=== PATIENT | female | born 1960 | race Caucasian/White ===

== ENCOUNTER → 2017-08-09 13:28 | Outpatient (CLI) | payer BC, MEDICARE, MEDICAID, SELFPAY ==
[2017-08-09 17:01] LABS: Amphetamine Urine VISTA NEGATIVE (<1000 ng/mL); Barbiturate Urine VISTA NEGATIVE (< 200 ng/mL); Benzodiazepine Urine VISTA POSITIVE (< 200 ng/mL); Cocaine Urine VISTA NEGATIVE (< 300 ng/mL); Ecstacy Urine VISTA NEGATIVE (< 500 ng/mL); Methadone Urine VISTA NEGATIVE (< 300 ng/mL); PCP Urine VISTA NEGATIVE (< 25 ng/mL); THC Urine VISTA NEGATIVE (< 50 ng/mL); Vista UDS pH Range 4
== END ==
PROVIDERS: Family Provider Family Medicine; PCP Family Medicine; Visit Provider Family Medicine
DX: Z51.81 Encounter for therapeutic drug level monitoring (principal)
CPT/HCPCS: 80307

== ENCOUNTER → 2017-09-06 14:15 | Outpatient (CLI) | payer BC, MEDICARE, MEDICAID, SELFPAY ==
[2017-09-06 16:37] LABS: Amphetamine Urine VISTA NEGATIVE (<1000 ng/mL); Barbiturate Urine VISTA NEGATIVE (< 200 ng/mL); Benzodiazepine Urine VISTA POSITIVE (< 200 ng/mL); Cocaine Urine VISTA NEGATIVE (< 300 ng/mL); Ecstacy Urine VISTA NEGATIVE (< 500 ng/mL); Methadone Urine VISTA NEGATIVE (< 300 ng/mL); PCP Urine VISTA NEGATIVE (< 25 ng/mL); THC Urine VISTA NEGATIVE (< 50 ng/mL); Vista UDS pH Range 6
== END ==
PROVIDERS: Family Provider Family Medicine; PCP Family Medicine; Visit Provider Family Medicine
DX: Z51.81 Encounter for therapeutic drug level monitoring (principal)
CPT/HCPCS: 80307

== ENCOUNTER → 2017-10-04 11:57 | Outpatient (CLI) | payer BC, MEDICAID, SELFPAY ==
[2017-10-04 15:54] LABS: Amphetamine Urine VISTA NEGATIVE (<1000 ng/mL); Barbiturate Urine VISTA NEGATIVE (< 200 ng/mL); Benzodiazepine Urine VISTA POSITIVE (< 200 ng/mL); Cocaine Urine VISTA NEGATIVE (< 300 ng/mL); Ecstacy Urine VISTA NEGATIVE (< 500 ng/mL); Methadone Urine VISTA NEGATIVE (< 300 ng/mL); OXY Internal Control LINE = VALID (VALID); Oxycodone Drug Screen Positive (<100 ng/mL); PCP Urine VISTA NEGATIVE (< 25 ng/mL); THC Urine VISTA NEGATIVE (< 50 ng/mL); Vista UDS pH Range 7
== END ==
PROVIDERS: Family Provider Family Medicine; PCP Family Medicine; Visit Provider Family Medicine
DX: R07.81 Pleurodynia (principal); G89.29 Other chronic pain; Z79.891 Long term (current) use of opiate analgesic
CPT/HCPCS: 80307; 80365; G0480

== ENCOUNTER → 2017-12-05 11:09 | Outpatient (CLI) | payer MEDICARE, MEDICAID, SELFPAY ==
[2017-12-05 11:53] LABS: Erythrocyte Sedimentation Rate 23 mm/hr (0-30)
[2017-12-05 12:23] LABS: ALB/GLOB Ratio 0.8 RATIO (0.9-2.4); AST(SGOT) 18 U/L (15-37); Alanine Aminotransfer ALT/SGPT 17 U/L (13-56); Albumin, Serum 3.4 g/dL (3.2-5.0); Alkaline Phosphatase 106 U/L (45-117); Anion Gap 8 (5-15); BUN 6 mg/dL (7-18); BUN/Creat Ratio 8.1 RATIO (10-20); Calcium,Total 8.5 mg/dL (8.5-10.1); Chloride 109 mmol/L (98-107); Creatinine, Serum 0.74 mg/dL (0.55-1.02); EST Glomerular Filtration Rate 87 mL/min (>60); Est Glom Filt Rate - Afr Amer 105 mL/min (>60); Globulin 4.1 g/dL (2.2-4.2); Glucose 83 mg/dL (74-106); Potassium 3.9 mmol/L (3.5-5.1); Protein, Total 7.5 g/dL (6.4-8.2); Sodium Level 140 mmol/L (136-145)
[2017-12-06 12:18] LABS: Vitamin B12 615 pg/mL (211-911)
== END ==
PROVIDERS: Family Provider Family Medicine; PCP Family Medicine; Visit Provider Psychiatry & Neurology Neurology
DX: R41.3 Other amnesia (principal)
CPT/HCPCS: 36415; 80053; 82607; 84443; 85652

== ENCOUNTER → 2017-12-09 15:30 | Outpatient (CLI) | payer MEDICARE, MEDICAID, SELFPAY ==
--- NOTE | 2017-12-09 15:30 | DT_ITS ---
This patient was seen during an EMR downtime December 09, 2017 - December 16, 2017. This patient may have a combination of paper and electronic documentation or all paper documentation. All documentation is viewable within the e-chart portion of [facility] for each patient visit.
--- NOTE | 2017-12-09 16:05 | CT_ITS ---
STUDY: CT BRAIN WITHOUT CONTRAST REASON FOR EXAM: Female, 57 years old. MEMORY LOSS RADIATION DOSAGE (If Supplied By Facility): CTDIvol = ( 60.81 ) mGy, DLP = ( 1021.47 ) mGycm TECHNIQUE: Transaxial CT imaging of the brain was performed without administration of intravenous contrast material. Individualized dose optimization techniques were used for this CT. COMPARISON: None. FINDINGS: Normal soft tissue structures. Normal calvarium. Normal size ventricles and extra-axial spaces for the patient's age. Normal white matter tracts of the cerebral hemispheres. Normal basal ganglia and thalami. Normal brainstem. Normal cerebellum. There is no intracranial hemorrhage. There are no findings of an acute ischemic infarction. Normal visualized paranasal sinuses. CT/Brain/Head without Contrast IMPRESSION: Normal unenhanced CT scan of the brain. Electronically Signed: Power High MD at 7:25 EDT Tel , Service support ,
== END ==
PROVIDERS: Family Provider Family Medicine; PCP Family Medicine; Visit Provider Psychiatry & Neurology Neurology
DX: R41.3 Other amnesia (principal)
CPT/HCPCS: 70450

== ENCOUNTER → 2017-12-18 10:39 | Outpatient (CLI) | payer MEDICARE, MEDICAID, SELFPAY ==
--- NOTE | 2017-12-18 10:43 | RAD_ITS ---
STUDY: X-RAY - UNILATERAL RIBS ( LEFT ) WITH CHEST REASON FOR EXAM: Female, 57 years old. Pain. TECHNIQUE - RIBS: 2 view(s) of the ribs. TECHNIQUE - CHEST: Single frontal view of the chest. COMPARISON: 07/16/2017. FINDINGS - RIBS: Normal visualized ribs without a demonstrated fracture. FINDINGS - CHEST: The lungs are clear and expanded. There is no demonstrated pleural abnormality. Normal size heart. Normal mediastinum and timothy. Normal visualized pulmonary arteries. Normal visualized aortic arch and descending thoracic aorta. Normal visualized thoracic spine. Normal visualized ribs, clavicles, and shoulders. There is no demonstrated abnormality of the visualized soft tissue structures of the upper abdomen. RAD/Ribs Uni Min 3V w/PA Chest IMPRESSION: RIBS: Normal x-ray examination of the ribs. CHEST: Normal x-ray examination of the chest. Electronically Signed: Destin Domingo MD at 8:30 EDT , Service support ,
== END ==
PROVIDERS: Family Provider Family Medicine; PCP Family Medicine; Visit Provider Family Medicine
DX: R07.81 Pleurodynia (principal)
CPT/HCPCS: 71101

== ENCOUNTER → 2017-12-30 18:44 | Outpatient (CLI) | payer MEDICARE, SELFPAY ==
--- NOTE | 2017-12-30 06:40 | CT_ITS ---
STUDY: LOW DOSE CT LUNG CANCER SCREENING REASON FOR EXAM: Female, 57 years old. 35 pack-year smoker. Right lower thoracic pain. RADIATION DOSAGE (If Supplied By Facility): CTDIvol = ( 2.01 ) mGy, DLP = ( 66.95 ) mGycm TECHNIQUE: No contrast was administered. Low dose technique was utilized (average mAS-38 and kVp 120). 1.25 mm axial source images with a slice interval of 1.25-mm were reconstructed in lung windows. 2.5 mm axial source images with a slice interval of 2.5-mm were reconstructed in lung windows. 5.0 mm axial source images with a slice interval of 5.0-mm were reconstructed in soft tissue windows. Nodule measured using lung windows on PACS and/or independent workstation with automated measurement of minimum and maximum diameter. Nodule measurement reported as average diameter rounded to the nearest whole number. Growth is defined as an increase ins size of greater than 1.5 mm. COMPARISON: Comparison is made with prior chest radiograph dated July 16, 2017. NODULES: No nodules are seen. Emphysema: Mild degree of emphysematous changes worse in the upper lobes. Findings suggestive of a scarring in the peripheral aspect of the right lower lobe with subpleural blebs and honeycombing. Coronary arteries: Coronary artery calcification. CT/Low Dose CT Lung Screening IMPRESSION: Lung-RADS category 2 - Continue annual screening with LDCT in 12 months. IMPORTANT NOTES FOR USE: ACR Lung-RADS Version 1.0 Assessment Categories Release Date: November 02, 2013 Category: Coded 0-4 bases on nodule(s) with highest degree of suspicion. Negative screen is defined as categories 1 and 2; a positive screen is defined as categories 3 and 4. Category 3 and 4A nodules that are unchanged on interval CT should be coded as category 2, and individuals returned to screening in 12 months. Category 4X: Category 3 or 4 nodules with additional imaging findings that increase the suspicion of lung cancer, such as spiculation, GGN that doubles in size in 1 year, enlarged lymph notes, etc. Category Modifiers: S (significant finding unrelated to lung cancer) and C (prior history of treated lung cancer) may be added to the 0-4 Lung-RADS Electronically Signed: Reginald Drew MD at 13:07 EDT Tel [phone], Service support ,
== END ==
PROVIDERS: Family Provider Family Medicine; PCP Family Medicine; Visit Provider Family Medicine
DX: J44.9 Chronic obstructive pulmonary disease, unspecified (principal); Z12.2 Encounter for screening for malignant neoplasm of respiratory organs; Z72.0 Tobacco use; Z87.891 Personal history of nicotine dependence
CPT/HCPCS: G0297

== ENCOUNTER → 2018-02-25 12:51 | Outpatient (CLI) | payer MEDICARE, SELFPAY ==
[2018-02-25 16:12] LABS: Amphetamine Urine VISTA NEGATIVE (<1000 ng/mL); Barbiturate Urine VISTA NEGATIVE (< 200 ng/mL); Benzodiazepine Urine VISTA POSITIVE (< 200 ng/mL); Cocaine Urine VISTA NEGATIVE (< 300 ng/mL); Ecstacy Urine VISTA NEGATIVE (< 500 ng/mL); Methadone Urine VISTA NEGATIVE (< 300 ng/mL); PCP Urine VISTA NEGATIVE (< 25 ng/mL); THC Urine VISTA NEGATIVE (< 50 ng/mL); Vista UDS pH Range 6
[2018-02-25 16:37] LABS: OXY Internal Control LINE = VALID (VALID); Oxycodone Drug Screen Positive (<100 ng/mL)
== END ==
PROVIDERS: Family Provider Family Medicine; PCP Family Medicine; Visit Provider Family Medicine
DX: Z51.81 Encounter for therapeutic drug level monitoring (principal); F11.90 Opioid use, unspecified, uncomplicated; Z79.899 Other long term (current) drug therapy
CPT/HCPCS: 80307; 80365; G0480

== ENCOUNTER → 2018-05-23 10:42 | Outpatient (CLI) | payer MEDICARE, SELFPAY ==
[2018-05-23 12:37] LABS: ALB/GLOB Ratio 0.9 RATIO (0.9-2.4); AST(SGOT) 20 U/L (15-37); Absolute Lymphocyte Count 2.81 X10^3/ul (0.83-4.51); Absolute Neutrophil Count 5.8 X10^3/uL (2.0-7.7); Alanine Aminotransfer ALT/SGPT 19 U/L (13-56); Albumin, Serum 3.6 g/dL (3.2-5.0); Alkaline Phosphatase 95 U/L (45-117); Anion Gap 4 (5-15); BUN 6 mg/dL (7-18); BUN/Creat Ratio 9.4 RATIO (10-20); Basophil# 0.09 X10^3/uL; Basophil% 0.9 % (0-1); Calcium,Total 8.4 mg/dL (8.5-10.1); Chloride 108 mmol/L (98-107); Cholesterol 175 mg/dL (200); Creatinine, Serum 0.64 mg/dL (0.55-1.02); EST Glomerular Filtration Rate 102 mL/min (>60); Eosinophil# 0.24 X10^3/uL; Eosinophils% 2.4 % (0-5); Est Glom Filt Rate - Afr Amer 123 mL/min (>60); Globulin 3.9 g/dL (2.2-4.2); Glucose 85 mg/dL (74-106); Hematocrit 36.9 % (37-47); Hemoglobin 11.7 g/dl (12.0-15.0); High Density Lipoprotein 44 mg/dL; Lymphocyte # 2.81 X10^3/ul (4.0); Lymphocyte % 28.6 % (19-41); Mean Corp Hgb Conc 31.7 g/gl (32-36); Mean Corpuscular Hgb 30.9 pg (27.0-32.0); Mean Corpuscular Volume 97.4 fL (81-99); Monocyte# 0.87 X10^3/uL; Monocyte% 8.8 % (0-10); Neutrophil # 5.81 X10^3/uL (2.7-7.7); Neutrophil % 59.1 % (47-70); Platelet Count 329 K/mm3 (150-450); Potassium 4.6 mmol/L (3.5-5.1); Protein, Total 7.5 g/dL (6.4-8.2); RBC Distribution Width CV 14.5 % (11.6-14.6); RBC Distribution Width SD 51.3 fl (35.1-43.9); Red Blood Count 3.79 M/mm3 (4.2-5.4); Sodium Level 140 mmol/L (136-145); Triglycerides 123 mg/dL; Very Low Density Lipoprotein 25 mg/dL (5-40); White Blood Count 9.8 K/mm3 (4.4-11.0)
[2018-05-23 12:40] LABS: POSITIVE COUNT NO; POSITIVE DIFFERENTIAL NO; POSITIVE MORPHOLOGY NO
== END ==
PROVIDERS: Family Provider Family Medicine; PCP Family Medicine; Visit Provider Family Medicine
DX: I10 Essential (primary) hypertension (principal)
CPT/HCPCS: 36415; 80053; 80061; 85025

== ENCOUNTER → 2018-06-27 11:42 | Outpatient (CLI) | payer MEDICARE, MEDICAID, SELFPAY ==
--- NOTE | 2018-06-27 11:45 | BI_ITS ---
MAMMOGRAPHY - BILATERAL SCREENING REASON FOR EXAM: Female, 58 years old. Routine annual screening examination. PERTINENT HISTORY: Aunt with breast cancer. Prior right excisional breast biopsy. Occasional bilateral breast tenderness. TECHNIQUE: Digital bilateral breast roxy (3D mammographic acquisition) in the CC and MLO projections. 2-D mediolateral oblique (MLO) and craniocaudad (CC) views of both breasts were obtained. CAD: Full Field Digital Mammography with Computer Added Detection was performed. COMPARISON: Comparison is made with prior study dated February 28, 2017. FINDINGS: Breast Composition: The breasts are heterogeneously dense, which may obscure small masses. There are no dominant masses or suspicious calcifications. Stable small benign-appearing right axillary lymph nodes. No other significant abnormalities are identified. There has been no significant change since the prior study. BI/SCREENING MAMM (CAD), BILAT IMPRESSION: Stable bilateral screening mammogram. Yearly follow-up mammogram recommended. (A) ASSESSMENT CATEGORY: BIRADS Category 2: Benign. A letter regarding these results will be sent to the patient by the facility within 30 days. Approximately 10% of breast cancers are not detected by mammography. A normal mammogram should not delay biopsy of a clinically suspicious abnormality. [id number] Electronically Signed: Reginald Drew MD at 13:07 EST Tel [phone], Service support ,
== END ==
PROVIDERS: Family Provider Family Medicine; PCP Family Medicine; Referring Provider Family Medicine; Visit Provider Family Medicine
DX: Z12.31 Encounter for screening mammogram for malignant neoplasm of breast (principal)
CPT/HCPCS: 77063; 77067

== ENCOUNTER → 2018-08-22 | Outpatient (CLI) | payer MEDICARE, MEDICAID, SELFPAY ==
[2018-08-22 15:54] LABS: Absolute Lymphocyte Count 3.34 X10^3/ul (0.83-4.51); Absolute Neutrophil Count 5.2 X10^3/uL (2.0-7.7); Eosinophil# 0.18 X10^3/uL; Eosinophils% 1.8 % (0-5); Hematocrit 38.7 % (37-47); Hemoglobin 12.3 g/dl (12.0-15.0); Lymphocyte # 3.34 X10^3/ul (4.0); Lymphocyte % 33.6 % (19-41); Mean Corp Hgb Conc 31.8 g/gl (32-36); Mean Corpuscular Hgb 30.4 pg (27.0-32.0); Mean Corpuscular Volume 95.8 fL (81-99); Mean Platelet Vol. 11.5 fl (6.2-12.0); Monocyte# 1.08 X10^3/uL; Monocyte% 10.9 % (0-10); Neutrophil # 5.22 X10^3/uL (2.7-7.7); Neutrophil % 52.5 % (47-70); Platelet Count 353 K/mm3 (150-450); RBC Distribution Width CV 14.6 % (11.6-14.6); RBC Distribution Width SD 51.2 fl (35.1-43.9); Red Blood Count 4.04 M/mm3 (4.2-5.4); White Blood Count 9.9 K/mm3 (4.4-11.0)
[2018-08-22 15:58] LABS: POSITIVE COUNT NO; POSITIVE DIFFERENTIAL NO; POSITIVE MORPHOLOGY NO
[2018-08-22 16:07] LABS: AST(SGOT) 21 U/L (15-37); Alanine Aminotransfer ALT/SGPT 25 U/L (13-56); Albumin, Serum 3.9 g/dL (3.2-5.0); Alkaline Phosphatase 97 U/L (45-117); Anion Gap 9 (5-15); BUN 7 mg/dL (7-18); BUN/Creat Ratio 8.5 RATIO (10-20); Calcium,Total 8.8 mg/dL (8.5-10.1); Chloride 105 mmol/L (98-107); Creatinine, Serum 0.82 mg/dL (0.55-1.02); EST Glomerular Filtration Rate 76 mL/min (>60); Est Glom Filt Rate - Afr Amer 92 mL/min (>60); Ferritin 33 ng/mL (8-252); Globulin 4.1 g/dL (2.2-4.2); Glucose 76 mg/dL (74-106); Iron 54 ug/dL (50-170); Potassium 3.8 mmol/L (3.5-5.1); Sodium Level 138 mmol/L (136-145); Vitamin B12 811 pg/mL (211-911); Vitamin D,25 Hydroxy 51.6 ng/mL (29.95-100.01)
== END | disposition home or self-care (01) ==
LOC: BFHLAB 11:30
PROVIDERS: Family Provider Family Medicine; PCP Family Medicine; Visit Provider Family Medicine
DX: R53.82 Chronic fatigue, unspecified (principal); D64.9 Anemia, unspecified; I10 Essential (primary) hypertension; E55.9 Vitamin D deficiency, unspecified
CPT/HCPCS: 36415; 80053; 82306; 82607; 82728; 83540; 85025

== ENCOUNTER → 2018-11-21 | Outpatient (CLI) | payer MEDICARE, MEDICAID, SELFPAY ==
[2018-11-21 11:49] LABS: Bacteria 0 SEEN /hpf (None Seen); Mucous, Urine 0 SEEN /hpf (<or=2+); Red Blood Cells-Urine 0 SEEN /hpf (0-5); Squamous Epithelial Cells - UA 0 SEEN /hpf (5-10); White Blood Cells 0 SEEN /hpf (0-5)
[2018-11-21 15:30] LABS: Absolute Lymphocyte Count 2.44 X10^3/ul (0.83-4.51); Absolute Neutrophil Count 5.7 X10^3/uL (2.0-7.7); Basophil# 0.09 X10^3/uL; Eosinophil# 0.15 X10^3/uL; Eosinophils% 1.7 % (0-5); Hematocrit 37.6 % (37-47); Hemoglobin 12.2 g/dl (12.0-15.0); Lymphocyte # 2.44 X10^3/ul (4.0); Mean Corp Hgb Conc 32.4 g/gl (32-36); Mean Corpuscular Hgb 31.1 pg (27.0-32.0); Mean Corpuscular Volume 95.9 fL (81-99); Mean Platelet Vol. 11.4 fl (6.2-12.0); Monocyte# 0.69 X10^3/uL; Monocyte% 7.6 % (0-10); Neutrophil # 5.67 X10^3/uL (2.7-7.7); Neutrophil % 62.6 % (47-70); Platelet Count 265 K/mm3 (150-450); RBC Distribution Width CV 14.8 % (11.6-14.6); RBC Distribution Width SD 51.7 fl (35.1-43.9); Red Blood Count 3.92 M/mm3 (4.2-5.4); White Blood Count 9.1 K/mm3 (4.4-11.0)
[2018-11-21 15:32] LABS: POSITIVE COUNT NO; POSITIVE DIFFERENTIAL NO; POSITIVE MORPHOLOGY NO
[2018-11-21 15:40] LABS: Amphetamine Urine VISTA NEGATIVE (<1000 ng/mL); Barbiturate Urine VISTA NEGATIVE (< 200 ng/mL); Benzodiazepine Urine VISTA POSITIVE (< 200 ng/mL); Cocaine Urine VISTA NEGATIVE (< 300 ng/mL); Ecstacy Urine VISTA NEGATIVE (< 500 ng/mL); Methadone Urine VISTA NEGATIVE (< 300 ng/mL); PCP Urine VISTA NEGATIVE (< 25 ng/mL); THC Urine VISTA NEGATIVE (< 50 ng/mL); Vista UDS pH Range 7
[2018-11-21 15:46] LABS: Color, Urine Yellow (Yellow); Glucose, Dipstick Normal (Normal); Ketone-Dipstick Negative (Negative); Leukocyte Esterase-Dipstick Negative /ul (Negative); Nitrite-Dipstick Negative (Negative); Occult Blood-Urine Negative /ul (Negative); Protein-Dipstick Negative (Negative); Specific Gravity, Urine 1.005 (1.002-1.030); Urine Bilirubin Dipstick Negative (Negative); Urine Clarity Clear (Clear); Urine Urobilinogen Normal (Normal)
[2018-11-21 15:49] LABS: AST(SGOT) 20 U/L (15-37); Alanine Aminotransfer ALT/SGPT 23 U/L (13-56); Albumin, Serum 3.8 g/dL (3.2-5.0); Alkaline Phosphatase 86 U/L (45-117); Anion Gap 6 (5-15); BUN 4 mg/dL (7-18); BUN/Creat Ratio 5.4 RATIO (10-20); Calcium,Total 8.6 mg/dL (8.5-10.1); Chloride 107 mmol/L (98-107); Creatinine, Serum 0.74 mg/dL (0.55-1.02); EST Glomerular Filtration Rate 86 mL/min (>60); Est Glom Filt Rate - Afr Amer 104 mL/min (>60); Globulin 3.9 g/dL (2.2-4.2); Glucose 80 mg/dL (74-106); Potassium 3.9 mmol/L (3.5-5.1); Protein, Total 7.7 g/dL (6.4-8.2); Sodium Level 137 mmol/L (136-145); T4 Free Direct 0.89 ng/dL (0.76-1.46); Thyroid Stim Hormone (TSH) 0.97 uIU/mL (0.358-3.74)
[2018-11-21 16:17] LABS: OXY Internal Control LINE = VALID (VALID)
[2018-11-21 16:18] LABS: Oxycodone Drug Screen Positive (<100 ng/mL)
[2018-11-27 16:29] LABS: Rubeola IgM Ab 0.58 AU (0.00-0.79)
== END | disposition home or self-care (01) ==
PROVIDERS: Family Provider Family Medicine; PCP Family Medicine; Visit Provider Family Medicine
DX: I95.9 Hypotension, unspecified (principal); R53.83 Other fatigue; Z51.81 Encounter for therapeutic drug level monitoring; M79.603 Pain in arm, unspecified; Z91.89 Other specified personal risk factors, not elsewhere classified
CPT/HCPCS: 36415; 80053; 80307; 80365; 81001; 84439; 84443; 84484; 85025; 86765; G0480

== ENCOUNTER 2018-12-28 14:21 | Emergency (ER) | payer MEDICARE, MEDICAID, SELFPAY ==
[2018-12-28 14:23] VITALS: BP 132/85; PULSE 84; RESP 16; TEMP 36.4; O2SAT 97; BMI 20.2
--- NOTE | 2018-12-28 15:21 | ED.VISSUMM ---
- ER Visit Summary Date of Service: 12/28/18 Chief Complaint: Cat scratch right small finger History of Present Illness: The patient is a 58 F was scratched by her own cat on her right small finger about 4 hours ago. Tetanus is up-to-date within the last year. Physical Examination: Well-appearing middle-aged female. No acute distress. Vital signs are stable afebrile. HEENT exam unremarkable. Neck nontender. Lungs clear to auscultation. Heart regular rhythm. Abdomen soft and nontender. Moving all 4 extremities. Neurovascular intact. She is cat scratch laceration smaller than 2 cm of the dorsum of her right small finger diagonally on the proximal phalanx. Involves the skin and subcu tissue. Does not involve the extensor tendon. Currently there is no signs of infection. No active bleeding. She has full flexion-extension of all digits of the right hand. The hand is neurovascularly intact. Neurologically she is awake alert with no focal motor deficits. Test Results: None Emergency Department Course and Treatment: Tetanus is already up-to-date prior to the day. Patient has had this happen before and has Augmentin with her that is still good until April of this year. She will be placed on Augmentin 875 twice daily for the next 5 days. Wound care. And return if any signs of infection. We will clean out the wound and place a dressing with antibiotic ointment. Treatment Plan: Augmentin twice daily for 5 days. She already has a prescription for it. Signs of infection. Disposition: Discharge Impression: Cat scratch laceration right small finger no repair This note was generated with [employer] dictation software. It may contain incorrect words, spelling, and punctuation that were not noted in review of the chart prior to signing ED Disposition - Plan for ED Patient: Referrals: Lincoln Brothers DO [Primary Care Provider] -
[2018-12-28 15:26] VITALS: RESP 18
--- NOTE | 2018-12-28 15:27 | ED.DEP ---
ED Disposition - Plan for ED Patient: Disposition: Home or Assisted Living Instructions: LACERATION, Hand Referrals: Lincoln Brothers, [Primary Care Provider] - 3-5 Days if not improving Additional Instructions: Clean healing peroxide and water. Apply antibiotic ointment daily. Watch for any signs of infection is seen return such as redness, swelling, pus, streaks or fever. The antibiotic that you already have his Augmentin take 1 pill twice a day with food on your stomach for the next 5 days. A total of 10 pills in 5 days.
== END 2018-12-28 15:34 | disposition home or self-care (01) ==
LOC: ED 15:29
PROVIDERS: Emergency Provider Emergency Medicine; Family Provider Family Medicine; PCP Family Medicine
DX: S61.216A Laceration without foreign body of right little finger without damage to nail, initial encounter (principal); W55.03XA Scratched by cat, initial encounter; Y93.9 Activity, unspecified; Y92.9 Unspecified place or not applicable; J44.9 Chronic obstructive pulmonary disease, unspecified; Z72.0 Tobacco use
CPT/HCPCS: 99282

== ENCOUNTER → 2019-05-25 10:28 | Outpatient (CLI) | payer MEDICARE, MEDICAID, SELFPAY ==
[2019-05-25 13:02] LABS: OXY Internal Control LINE = VALID (VALID); Oxycodone Drug Screen Positive (<100 ng/mL)
[2019-05-25 13:15] LABS: Amphetamine Urine VISTA NEGATIVE (<1000 ng/mL); Barbiturate Urine VISTA NEGATIVE (< 200 ng/mL); Benzodiazepine Urine VISTA POSITIVE (< 200 ng/mL); Cocaine Urine VISTA NEGATIVE (< 300 ng/mL); Ecstacy Urine VISTA NEGATIVE (< 500 ng/mL); Methadone Urine VISTA NEGATIVE (< 300 ng/mL); PCP Urine VISTA NEGATIVE (< 25 ng/mL); THC Urine VISTA NEGATIVE (< 50 ng/mL); Vista UDS pH Range 6
== END ==
PROVIDERS: Family Provider Family Medicine; PCP Family Medicine; Visit Provider Family Medicine
DX: Z51.81 Encounter for therapeutic drug level monitoring (principal)
CPT/HCPCS: 80307; 80365; G0480

== ENCOUNTER → 2019-07-16 12:37 | Outpatient (CLI) | payer MEDICARE, MEDICAID, SELFPAY ==
[2019-07-16 12:33] VITALS: BMI 20.2
--- NOTE | 2019-07-16 12:39 | RAD_ITS ---
STUDY: X-RAY - RIGHT KNEE REASON FOR EXAM: Knee pain. TECHNIQUE: 4 view(s) of the knee. COMPARISON: None. FINDINGS: Normal visualized distal femur. Normal visualized proximal tibia and fibula. Normal proximal tibiofibular articulation. There is mild joint space narrowing of the medial femorotibial compartment. Normal lateral femorotibial compartment. Normal patellofemoral articulation. The soft tissue structures are unremarkable. RAD/Knee 4 or More Views IMPRESSION: Mild arthrosis of the medial femorotibial compartment. Electronically Signed: Hong Liriano MD at 13:16 EST Tel , Service support ,
== END ==
PROVIDERS: Family Provider Family Medicine; PCP Family Medicine; Referring Provider Orthopaedic Surgery; Visit Provider Orthopaedic Surgery
DX: M25.561 Pain in right knee (principal)
CPT/HCPCS: 73564

== ENCOUNTER → 2019-07-21 14:02 | Outpatient (CLI) | payer MEDICARE, MEDICAID, SELFPAY ==
[2019-07-16 12:33] VITALS: BMI 20.2
--- NOTE | 2019-07-21 14:04 | CT_ITS ---
STUDY: LOW DOSE CT LUNG CANCER SCREENING REASON FOR EXAM: Female, 59 years old. LUNG CANCER SCREENING. 1PPD X 40 YEARS. COPD RADIATION DOSAGE (If Supplied By Facility): CTDIvol = ( 1.70 ) mGy, DLP = ( 55.73 ) mGycm TECHNIQUE: No contrast was administered. Low dose technique was utilized (average mAS-38 and kVp 120). 1.25 mm axial source images with a slice interval of 1.25-mm were reconstructed in lung windows. 2.5 mm axial source images with a slice interval of 2.5-mm were reconstructed in lung windows. 5.0 mm axial source images with a slice interval of 5.0-mm were reconstructed in soft tissue windows. Nodule measured using lung windows on PACS and/or independent workstation with automated measurement of minimum and maximum diameter. Nodule measurement reported as average diameter rounded to the nearest whole number. Growth is defined as an increase ins size of greater than 1.5 mm. COMPARISON: None. NODULES: Total lung nodules (excluding granulomas): No significant solid nodules. Several scattered peripheral 1 to 3 mm peripheral ground glass nodules are present (example, left upper lobe nodule, image 73 series 1002). Bibasilar atelectasis is present. There is no consolidation. Emphysema: Mild. Stable interstitial thickening and areas of increased lucency in the right lower lobe. Endobronchial lesion: None Aorta: Normal Coronary arteries: Mild coronary artery calcifications. Heart: Normal. Pulmonary artery: Normal. Mediastinal nodes: Normal. CT/Low Dose CT Lung Screening IMPRESSION: Mild emphysema. Stable interstitial thickening and areas of lucency within the right lower lobe, likely scarring/sequelae of chronic inflammation. No significant solid pulmonary nodules. Several scattered peripheral 1 to 3 mm groundglass nodules, likely inflammatory. LRADS 2. IMPORTANT NOTES FOR USE: ACR Lung-RADS Version 1.0 Assessment Categories Release Date: November 02, 2013 Category: Coded 0-4 bases on nodule(s) with highest degree of suspicion. Negative screen is defined as categories 1 and 2; a positive screen is defined as categories 3 and 4. Category 3 and 4A nodules that are unchanged on interval CT should be coded as category 2, and individuals returned to screening in 12 months. Category 4X: Category 3 or 4 nodules with additional imaging findings that increase the suspicion of lung cancer, such as spiculation, GGN that doubles in size in 1 year, enlarged lymph notes, etc. Category Modifiers: S (significant finding unrelated to lung cancer) and C (prior history of treated lung cancer) may be added to the 0-4 Lung-RADS Electronically Signed: Wan Doe, at 21:26 EST Tel , Service support ,
== END ==
PROVIDERS: Family Provider Family Medicine; PCP Family Medicine; Referring Provider Internal Medicine Critical Care Medicine; Visit Provider Internal Medicine Critical Care Medicine
DX: F17.210 Nicotine dependence, cigarettes, uncomplicated (principal); R06.09 Other forms of dyspnea; Z12.2 Encounter for screening for malignant neoplasm of respiratory organs
CPT/HCPCS: G0297

== ENCOUNTER → 2019-07-30 12:01 | Outpatient (CLI) | payer MEDICARE, MEDICAID, SELFPAY ==
[2019-07-14 11:18] VITALS: BMI 20.2
[2019-07-16 12:33] VITALS: BMI 20.2
[2019-07-30 12:59] VITALS: PULSE 78; PULSE 79; PULSE 82; PULSE 90; PULSE 93; PULSE 96; O2SAT 97; O2SAT 98; O2SAT 99
--- NOTE | 2019-07-31 07:09 | WT_ITS ---
PSN 6 Minute Walk Test - 6 Minute Walk Test 6 Minute Walk Test: 6 Minute Walk Test PSN:6-Minute Walk Test Start: 07/30/19 12:59 Freq: Status: Active Protocol: [id number] Document 07/30/19 12:59 [facility] (Rec: 07/30/19 13:03 [facility] [id number]) 6 Minute Walk Test Date Performed 07/30/19 Time Performed 12:30 Height 5 ft 1 in Weight: 105 lb Weight in Pounds 105.[address]: Duncan Greenberg Assistive device used: None Pre-test Oxygen Delivery Method Room Air Pulse Ox (%) 98 Pulse Rate (60-100 beats/min) 79 Dyspnea Laury Scale (0-10) 1 1st minute Oxygen Delivery Method Room Air Pulse Ox (%) 98 Pulse Rate (60-100 beats/min) 82 Dyspnea Laury Scale (0-10) 1 Number of Rests Taken 0 2nd minute Oxygen Delivery Method Room Air Pulse Ox (%) 98 Pulse Rate (60-100 beats/min) 90 Dyspnea Laury Scale (0-10) 1 Number of Rests Taken 0 3rd minute Oxygen Delivery Method Room Air Pulse Ox (%) 98 Pulse Rate (60-100 beats/min) 93 Dyspnea Laury Scale (0-10) 2 Number of Rests Taken 0 4th minute Oxygen Delivery Method Room Air Pulse Ox (%) 97 Pulse Rate (60-100 beats/min) 96 Dyspnea Laury Scale (0-10) 2 Number of Rests Taken 0 5th minute Oxygen Delivery Method Room Air Pulse Ox (%) 98 Pulse Rate (60-100 beats/min) 96 Dyspnea Laury Scale (0-10) 2 Number of Rests Taken 0 6th minute Oxygen Delivery Method Room Air Pulse Ox (%) 98 Pulse Rate (60-100 beats/min) 90 Dyspnea Laury Scale (0-10) 2 Number of Rests Taken 0 Post-test Oxygen Delivery Method Room Air Pulse Ox (%) 99 Pulse Rate (60-100 beats/min) 78 Dyspnea Laury Scale (0-10) 1 Full Laps Walked 17 Partial Lap, Number of Tiles Walked 32 Total Distance Walked (ft) 1035 - Interpretation Interpretation: The patient ambulated 1035 feet over the course of 6 minutes beginning on room air without assistive devices or breaks. Pretesting oxygen saturation was noted to be 98% on room air. With ambulation, the froylan oxygen saturation was 97%. There was no significant exertional oxygen desaturation. - Recommendations Recommendations: There is no indication for the use of supplemental oxygen at this time.
== END ==
PROVIDERS: Family Provider Family Medicine; PCP Family Medicine; Referring Provider Internal Medicine Critical Care Medicine; Visit Provider Internal Medicine Critical Care Medicine
DX: R06.09 Other forms of dyspnea (principal); F17.200 Nicotine dependence, unspecified, uncomplicated
CPT/HCPCS: 94618

== ENCOUNTER → 2019-08-04 08:53 | Outpatient (CLI) | payer MEDICARE, MEDICAID, SELFPAY ==
[2019-07-14 11:18] VITALS: BMI 20.2
[2019-07-16 12:33] VITALS: BMI 20.2
--- NOTE | 2019-08-05 14:21 | PFT ---
INTRODUCTION: The patient is a 59-year-old female that presents for pulmonary function studies secondary to a diagnosis of dyspnea. Respiratory therapy reports good patient effort. Bronchodilators were used during testing. INTERPRETATION: Forced expiration spirometry demonstrates no evidence of a large airways obstructive ventilatory defect. There was no significant response to aerosolized bronchodilators, based upon strict ATS criteria. Spirograms are of good quality and plateau normally. Body plethysmography was performed and reveals lung volumes to be within normal limits. Diffusing capacity by single breath CO is also within normal limits. IMPRESSION: Normal spirometry, lung volumes and diffusing capacity.
== END ==
PROVIDERS: Family Provider Family Medicine; PCP Family Medicine; Referring Provider Internal Medicine Critical Care Medicine; Visit Provider Internal Medicine Critical Care Medicine
DX: R06.09 Other forms of dyspnea (principal); F17.200 Nicotine dependence, unspecified, uncomplicated
CPT/HCPCS: 94060; 94726; 94729

== ENCOUNTER → 2020-08-18 11:06 | Outpatient (CLI) | payer MEDICARE, MEDICAID, SELFPAY ==
[2020-01-25 07:47] VITALS: BMI 21.6
[2020-08-18 11:12] LABS: Bacteria 0 SEEN /hpf (None Seen); Mucous, Urine 0 SEEN /hpf (<or=2+); Red Blood Cells-Urine 0 SEEN /hpf (0-5); Squamous Epithelial Cells - UA 0 SEEN /hpf (5-10); White Blood Cells 0 SEEN /hpf (0-5)
[2020-08-18 15:07] LABS: Absolute Lymphocyte Count 2.53 X10^3/uL (0.83-4.51); Absolute Neutrophil Count 3.6 X10^3/uL (2.0-7.7); Basophil# 0.13 X10^3/uL; Basophil% 1.8 % (0-1); Eosinophil# 0.13 X10^3/uL; Eosinophils% 1.8 % (0-5); Hemoglobin 12.3 g/dL (12.0-15.0); Lymphocyte # 2.53 X10^3/ul (4.0); Lymphocyte % 35.4 % (19-41); Mean Corp Hgb Conc 32.4 g/dL (32-36); Mean Corpuscular Hgb 30.7 pg (27.0-32.0); Mean Corpuscular Volume 94.8 fL (81-99); Mean Platelet Vol. 11.6 fl (6.2-12.0); Monocyte% 9.8 % (0-10); NRBC Flagged by Analyzer 0 % (0-5); Neutrophil # 3.64 X10^3/uL (2.7-7.7); Neutrophil % 50.9 % (47-70); Platelet Count 332 K/mm3 (150-450); RBC Distribution Width CV 15.7 % (11.6-14.6); RBC Distribution Width SD 54.2 fl (35.1-43.9); Red Blood Count 4.01 M/mm3 (4.2-5.4); White Blood Count 7.2 K/mm3 (4.4-11.0)
[2020-08-18 15:13] LABS: OXY Internal Control LINE = VALID (VALID); Oxycodone Drug Screen Positive (<100 ng/mL)
[2020-08-18 15:15] LABS: Color, Urine Yellow (Yellow); Glucose, Dipstick Normal (Normal); Ketone-Dipstick Negative (Negative); Leukocyte Esterase-Dipstick Negative /ul (Negative); Nitrite-Dipstick Negative (Negative); Occult Blood-Urine Negative /ul (Negative); Protein-Dipstick Negative (Negative); Urine Bilirubin Dipstick Negative (Negative); Urine Clarity Clear (Clear); Urine Urobilinogen Normal (Normal)
[2020-08-18 15:17] LABS: Amphetamine Urine VISTA NEGATIVE (<1000 ng/mL); Barbiturate Urine VISTA POSITIVE (< 200 ng/mL); Benzodiazepine Urine VISTA POSITIVE (< 200 ng/mL); Cocaine Urine VISTA NEGATIVE (< 300 ng/mL); Ecstacy Urine VISTA NEGATIVE (< 500 ng/mL); Methadone Urine VISTA NEGATIVE (< 300 ng/mL); PCP Urine VISTA NEGATIVE (< 25 ng/mL); THC Urine VISTA NEGATIVE (< 50 ng/mL); Vista UDS pH Range 6
[2020-08-18 15:21] LABS: Vitamin B12 542 pg/mL (211-911); Vitamin D,25 Hydroxy 55.5 ng/mL
[2020-08-18 15:35] LABS: AST(SGOT) 15 U/L (15-37); Alanine Aminotransfer ALT/SGPT 15 U/L (13-56); Albumin, Serum 3.8 g/dL (3.2-5.0); Alkaline Phosphatase 89 U/L (45-117); Anion Gap 5 (5-15); BUN 5 mg/dL (7-18); BUN/Creat Ratio 6.2 RATIO (10-20); Calcium,Total 8.7 mg/dL (8.5-10.1); Chloride 106 mmol/L (98-107); EST Glomerular Filtration Rate 78 mL/min (>60); Est Glom Filt Rate - Afr Amer 95 mL/min (>60); Globulin 3.9 g/dL (2.2-4.2); Glucose 77 mg/dL (74-106); Potassium 3.7 mmol/L (3.5-5.1); Protein, Total 7.7 g/dL (6.4-8.2); Sodium Level 137 mmol/L (136-145); Thyroid Stim Hormone (TSH) 1.43 uIU/mL (0.358-3.74)
== END ==
PROVIDERS: PCP Family Medicine; Visit Provider Family Medicine
DX: R53.83 Other fatigue (principal); Z51.81 Encounter for therapeutic drug level monitoring; R35.0 Frequency of micturition; E55.9 Vitamin D deficiency, unspecified
CPT/HCPCS: 36415; 80053; 80307; 80365; 81001; 82306; 82607; 84443; 85025; G0480

== ENCOUNTER → 2020-12-02 10:38 | Outpatient (CLI) | payer MEDICARE, MEDICAID, SELFPAY ==
[2020-01-25 07:47] VITALS: BMI 21.6
--- NOTE | 2020-12-02 10:42 | ART_ITS ---
Reason For Study: MUSCLE CRAMPS, DEC PULSES Procedure A bilateral lower extremity continuous wave Doppler with analog waveform analysis and ankle brachial indexes. Left Segmental Pressures Left brachial= 94mmHg. Left posterior tibial artery = 112mmHg. Left dorsalis pedis artery = 104mmHg. Left digit = 65 mmHg. The left posterior tibial artery waveforms are triphasic. The left dorsalis pedis waveforms are biphasic. Right Segmental Pressures Right brachial= 93mmHg. Right posterior tibial artery = 114mmHg. Right dorsalis pedis artery = 110mmHg. Right digit = 88 mmHg. The right posterior tibial artery waveforms are triphasic. The right dorsalis pedis waveforms are biphasic. Indices The right ankle brachial index by the dorsalis pedis is 1.17. The right ankle brachial index by the posterior tibial artery is 1.21. The right digital-brachial index is .94. The left ankle brachial index by the dorsalis pedis is 1.11. The left ankle brachial index by the posterior tibial artery is 1.19. The left digital-brachial index is .69. VL/Ankle Brachial Index Interpretation Summary Normal right lower extremity ankle-brachial indices at rest with normal right d igital brachial index Normal left lower extremity ankle-brachial indices at rest with borderline left digital brachial index of 0.69 with normal being 0.7 and greater Doppler waveforms demonstrate biphasic waveforms for bilateral dorsalis pedis w hich might suggest disease involving bilateral tibialis anterior however bilateral posterior tibia l waveforms are appropriately triphasic Ordering Physician: Lincoln Brothers Referring Physician: Lincoln Brothers Performed By: JESSI CAMACHO ELSA
== END ==
PROVIDERS: PCP Family Medicine; Referring Provider Family Medicine; Visit Provider Family Medicine
DX: R09.89 Other specified symptoms and signs involving the circulatory and respiratory systems (principal); R25.2 Cramp and spasm; Z72.0 Tobacco use
CPT/HCPCS: 93922

== ENCOUNTER 2021-08-03 10:31 | Outpatient (CLI) | payer MEDICARE, MEDICAID, SELFPAY ==
--- NOTE | 2021-08-03 10:36 | BI_ITS ---
MAMMOGRAPHY - BILATERAL SCREENING REASON FOR EXAM: Female, 61 years old. Routine annual screening examination. PERTINENT HISTORY: Aunt with breast cancer. Remote right excisional breast biopsy. Bilateral nipple discharge. TECHNIQUE: Digital bilateral breast marychuy (3D mammographic acquisition) in the CC and MLO projections. 2-D mediolateral oblique (MLO) and craniocaudad (CC) views of both breasts were obtained. CAD: Full Field Digital Mammography with Computer Added Detection was performed. COMPARISON: Comparison is made with prior study dated 06/27/2018 and 02/28/2017. FINDINGS: Breast Composition: The breasts are heterogeneously dense, which may obscure small masses. There are no dominant masses or suspicious calcifications. No other significant abnormalities are identified. There has been no significant change since the prior study. BI/SCRN MAMM (CAD)W/MARYCHUY BILAT IMPRESSION: Stable bilateral screening mammogram. Yearly follow-up mammogram recommended. (A) ASSESSMENT CATEGORY: BIRADS Category 1: Negative. A letter regarding these results will be sent to the patient by the facility within 30 days. Approximately 10% of breast cancers are not detected by mammography. A normal mammogram should not delay biopsy of a clinically suspicious abnormality. [id number] Electronically Signed: Reginald Drew MD at 11:52 EST ,
== END 2021-08-03 23:59 | disposition short-term general hospital (02) ==
LOC: OPBI 10:32
PROVIDERS: PCP Family Medicine; Referring Provider Family Medicine; Visit Provider Family Medicine
DX: Z12.31 Encounter for screening mammogram for malignant neoplasm of breast (principal)
CPT/HCPCS: 77063; 77067

== ENCOUNTER → 2021-12-28 | Outpatient (CLI) | payer MEDICARE, MEDICAID, SELFPAY ==
--- NOTE | 2021-12-28 13:33 | CT_ITS ---
STUDY: CT CHEST WITHOUT CONTRAST- LOW DOSE SCREENING PROTOCOL REASON FOR EXAM: Female, 61 years old. Current smoker. 60 pack per year history. No current symptoms of lung cancer or pulmonary infection. Shared decision-making with referring PCP documented in patient''s record. RADIATION DOSAGE (If Supplied By Facility): CTDIvol = ( 2.01 ) mGy, DLP = ( 64.94 ) mGycm TECHNIQUE: Low dose screening CT examination performed from the base of the neck to the upper abdomen. Sagittal and coronal reformatted images performed. Sagittal and coronal MIP images provided. The measurements provided are average, rounded measurements per ACR guidelines. COMPARISON: 07/21/2019 FINDINGS: Mild emphysema. No noncalcified nodule or mass. There is no demonstrated pleural abnormality. Normal heart and pericardium. There are calcifications of the coronary arteries. Normal mediastinum. Normal hilar regions. Normal unenhanced pulmonary arteries. Normal aorta arch and descending thoracic aorta. Normal osseous structures. There is no demonstrated abnormality of the visualized upper abdomen. CT/Low Dose CT Lung Screening IMPRESSION: 1. No significant indeterminate incidental findings requiring additional imaging. 2. Incidental findings include mild emphysema. ASSESSMENT CATEGORY: LungRADS 1 - Negative. Continue annual screening with LDCT in 12 months, per established ACR guidelines. Electronically Signed: Maik Day MD at 17:52 EDT ,
== END | disposition home or self-care (01) ==
LOC: CT 13:32
PROVIDERS: PCP Family Medicine; Referring Provider Family Medicine; Visit Provider Family Medicine
DX: Z12.2 Encounter for screening for malignant neoplasm of respiratory organs (principal); J43.9 Emphysema, unspecified; F17.210 Nicotine dependence, cigarettes, uncomplicated
CPT/HCPCS: 71271

== ENCOUNTER → 2022-04-12 | Outpatient (CLI) | payer MEDICARE, MEDICAID, SELFPAY ==
[2022-04-12 17:42] LABS: Absolute Lymphocyte Count 2.48 X10^3/uL (0.83-4.51); Absolute Neutrophil Count 3.9 X10^3/uL (2.0-7.7); Basophil# 0.07 X10^3/uL; Eosinophil# 0.09 X10^3/uL; Eosinophils% 1.2 % (0-5); Hematocrit 39.3 % (37-47); Hemoglobin 12.7 g/dL (12.0-15.0); Lymphocyte # 2.48 X10^3/ul (0.83-4.51); Lymphocyte % 34.3 % (19-41); Mean Corp Hgb Conc 32.3 g/dL (32-36); Mean Corpuscular Hgb 31.1 pg (27.0-32.0); Mean Corpuscular Volume 96.1 fL (81-99); Mean Platelet Vol. 11.4 fl (6.2-12.0); Monocyte# 0.69 X10^3/uL; Monocyte% 9.5 % (0-10); NRBC Flagged by Analyzer 0 % (0-5); Neutrophil # 3.88 X10^3/uL (2.7-7.7); Neutrophil % 53.7 % (47-70); Platelet Count 398 K/mm3 (150-450); RBC Distribution Width CV 15.9 % (11.6-14.6); RBC Distribution Width SD 56.6 fl (35.1-43.9); Red Blood Count 4.09 M/mm3 (4.2-5.4); White Blood Count 7.2 K/mm3 (4.4-11.0)
[2022-04-12 19:36] LABS: ALB/GLOB Ratio 0.9 RATIO (0.9-2.4); AST(SGOT) 16 U/L (15-37); Alanine Aminotransfer ALT/SGPT 14 U/L (13-56); Albumin, Serum 3.7 g/dL (3.2-5.0); Alkaline Phosphatase 100 U/L (45-117); Anion Gap 6 (5-15); BUN 5 mg/dL (7-18); BUN/Creat Ratio 7.5 RATIO (10-20); CRP < 2.90 mg/L (0.0-3.0); Calcium,Total 9.1 mg/dL (8.5-10.1); Chloride 110 mmol/L (98-107); Creatinine, Serum 0.67 mg/dL (0.55-1.02); EST Glomerular Filtration Rate 95 mL/min (>60); Est Glom Filt Rate - Afr Amer 116 mL/min (>60); Glucose 95 mg/dL (74-106); Potassium 3.8 mmol/L (3.5-5.1); Protein, Total 7.7 g/dL (6.4-8.2); Sodium Level 139 mmol/L (136-145); Thyroid Stim Hormone (TSH) 1.19 uIU/mL (0.358-3.74)
== END | disposition home or self-care (01) ==
LOC: BFHLAB 14:27
PROVIDERS: PCP Family Medicine; Visit Provider Family Medicine
DX: R53.83 Other fatigue (principal)
CPT/HCPCS: 36415; 80053; 84443; 85025; 86140

== ENCOUNTER → 2022-08-03 | Outpatient (CLI) | payer MEDICARE, MEDICAID, SELFPAY ==
--- NOTE | 2022-08-03 10:40 | RAD_ITS ---
STUDY: X-RAY - THORACIC SPINE REASON FOR EXAM: Female, 62 years old. Mid back pain TECHNIQUE: 2 view(s) of the thoracic spine were obtained. COMPARISON: None. FINDINGS: Normal kyphosis of the thoracic spine. There is no substantial scoliosis. Normal thoracic vertebrae and endplates. Normal disc space heights. The soft tissue structures are unremarkable. RAD/Thoracic Spine 2 Views IMPRESSION: Normal x-ray examination of the thoracic spine. Electronically Signed: Jose Cruz Pat MD at 11:48 EST ,
--- NOTE | 2022-08-03 10:40 | RAD_ITS ---
STUDY: X-RAY - LUMBAR SPINE REASON FOR EXAM: Female, 62 years old. Radiating low back pain TECHNIQUE: 4 view(s) of the lumbar spine were obtained. COMPARISON: None FINDINGS: Normal lumbar lordosis. There is a mild levoscoliosis of the lumbar spine. There is a normal alignment of the vertebrae. Normal vertebral bodies and endplates. Mild disc space narrowing throughout the lumbar spine. There is no demonstrated fracture. There is atherosclerotic calcification of the abdominal aorta without a demonstrated aneurysm. RAD/L/S Spine Min 4 Views IMPRESSION: Mild degenerative changes, no acute findings Electronically Signed: Jose Cruz Pat MD at 11:48 EST ,
== END | disposition home or self-care (01) ==
LOC: MTRAD 10:37
PROVIDERS: PCP Family Medicine; Referring Provider Family Medicine; Visit Provider Family Medicine
DX: M47.816 Spondylosis without myelopathy or radiculopathy, lumbar region (principal); I70.0 Atherosclerosis of aorta; M47.814 Spondylosis without myelopathy or radiculopathy, thoracic region
CPT/HCPCS: 72070; 72110

== ENCOUNTER → 2022-09-05 | Outpatient (CLI) | payer MEDICARE, MEDICAID, SELFPAY ==
--- NOTE | 2022-09-05 | IMM_PTH ---
PATIENT: KENNETH GAMEZ LOC: [facility] U#:[id number] AGE/SX: 62/F ROOM: RE09/05/[address]: Dr. Lincoln Brothers DO : 1960 BED: DIS: 09/05/2022 SPEC #: [id number] RECD: 09/07/22 11:15 STATUS: [place]IL[place] REPhilip #: [id number] ALLISON: 09/05/22 00:[address]: Lincoln Brothers DEPT: IMMUNOHISTOCHEMISTRY RECD BY: Mary Phelps Tissues: Vulva, NOS Procedures: p16 (initial) KI-67 (add) PHYSICIAN & INSTITUTION [place] [id number] SPECIMEN INFORMATION: Tissue Source: Right vulva punch biopsy Clinical Info: Condyloma vs PARMJIT Specimen Number: [id number] CPT code: 56057, 35199 METHODOLOGY: Deparaffinized sections of prefer/formalin-fixed tissue or PAP/DQ stained slides are incubated with monoclonal/polyclonal antibodies/oligonucleotide probes. Localization is made via biotin free immunoperoxidase method. Appropriate controls are performed and reacted as expected. Results on target cell population are indicated in the following table: RESULTS: ANTIBODY / CLONE RESULT P16 (E6H4) positive, block-like Ki-67 (30-9) positive, >90% These tests were developed and their performance characteristics determined by [facility]. They may not have been cleared or approved by the U.S. Food and Drug Administration. The FDA has determined that such clearance or approval is not necessary. The above immunohistochemical/dualISH markers are ordered and reviewed by the Pathologist. INTERPRETATION: Right vulva, punch biopsy: Severe squamous dysplasia, CIS/PARMJIT III. AM:kelvin 09/10/2022
--- NOTE | 2022-09-05 | VUL_PTH ---
PATIENT: KENNETH GAMEZ LOC: [facility] U#:[id number] AGE/SX: 62/F ROOM: RE09/05/[address]: Dr. 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 See comment. AM:kelvin 09/07/2022 COMMENT Complete excision of lesion is recommended for definitive classification. Results from immunohistochemistry ([id number]) for surrogate HPV marker (p16) will be reported separately. Case has been reviewed in consultation with Dr. Stevenson who concurs with the above diagnosis. IDC:SJ MICROSCOPIC DESCRIPTION Slides are reviewed. GROSS DESCRIPTION Received in fixative is one container labeled with the patient's name and designated vulvar biopsy. The specimen consists of a piece of sandoval soft tissue measuring 0.2 x 0.1 x 0.1 cm. The specimen is totally submitted in one cassette. / JUMA:kelvin 09/05/2022 TC:0 CPT: 64099
== END | disposition home or self-care (01) ==
LOC: LABSPEC 10:02
PROVIDERS: PCP Family Medicine; Visit Provider Family Medicine
DX: Q52.70 Unspecified congenital malformations of vulva (principal)
CPT/HCPCS: 88305; 88341; 88342

== ENCOUNTER → 2023-02-01 | Outpatient (CLI) | payer MEDICARE, MEDICAID, SELFPAY ==
[2023-02-01 12:34] LABS: OXY Internal Control LINE = VALID (VALID); Oxycodone Drug Screen Positive (<100 ng/mL)
[2023-02-01 12:40] LABS: Amphetamine Urine VISTA NEGATIVE (<1000 ng/mL); Barbiturate Urine VISTA NEGATIVE (< 200 ng/mL); Benzodiazepine Urine VISTA POSITIVE (< 200 ng/mL); Cocaine Urine VISTA NEGATIVE (< 300 ng/mL); Ecstacy Urine VISTA NEGATIVE (< 500 ng/mL); Methadone Urine VISTA NEGATIVE (< 300 ng/mL); PCP Urine VISTA NEGATIVE (< 25 ng/mL); THC Urine VISTA NEGATIVE (< 50 ng/mL); Vista UDS pH Range 6
[2023-02-01 13:03] LABS: Cholesterol 243 mg/dL (200); High Density Lipoprotein 58 mg/dL; Triglycerides 133 mg/dL; Very Low Density Lipoprotein 27 mg/dL (5-40)
== END | disposition home or self-care (01) ==
PROVIDERS: PCP Family Medicine; Referring Provider Family Medicine; Visit Provider Family Medicine
DX: I25.10 Atherosclerotic heart disease of native coronary artery without angina pectoris (principal); Z79.899 Other long term (current) drug therapy
CPT/HCPCS: 36415; 80061; 80307; 80365; G0480

== ENCOUNTER → 2023-02-08 | Outpatient (CLI) | payer MEDICARE, MEDICAID, SELFPAY ==
--- NOTE | 2023-02-08 09:46 | BI_ITS ---
MAMMOGRAPHY - BILATERAL SCREENING REASON FOR EXAM: Female, 62 years old. Routine annual screening examination. PERTINENT HISTORY: Aunt with breast cancer. Remote right excisional breast biopsy. Occasional bilateral milky discharge. TECHNIQUE: Digital bilateral breast marychuy (3D mammographic acquisition) in the CC and MLO projections. 2-D mediolateral oblique (MLO) and craniocaudad (CC) views of both breasts were obtained. CAD: Full Field Digital Mammography with Computer Added Detection was performed. COMPARISON: Comparison is made with prior study dated August 03, 2021 and June 27, 2018. FINDINGS: Breast Composition: The breasts are heterogeneously dense, which may obscure small masses. There are no dominant masses or suspicious calcifications. No other significant abnormalities are identified. There has been no significant change since the prior study. BI/SCRN MAMM (CAD)W/MARYCHUY BILAT IMPRESSION: Stable bilateral screening mammogram. Yearly follow-up mammogram recommended. (A) ASSESSMENT CATEGORY: BIRADS Category 1: Negative. A letter regarding these results will be sent to the patient by the facility within 30 days. Approximately 10% of breast cancers are not detected by mammography. A normal mammogram should not delay biopsy of a clinically suspicious abnormality. [id number] Electronically Signed: Reginald Drew MD at 10:51 EDT ,
== END | disposition home or self-care (01) ==
LOC: OPBI 09:44
PROVIDERS: PCP Family Medicine; Referring Provider Family Medicine; Visit Provider Family Medicine
DX: Z12.31 Encounter for screening mammogram for malignant neoplasm of breast (principal); Z80.3 Family history of malignant neoplasm of breast
CPT/HCPCS: 77063; 77067

== ENCOUNTER → 2023-03-16 | Outpatient (CLI) | payer MEDICARE, MEDICAID, SELFPAY ==
--- NOTE | 2023-03-16 08:51 | CT_ITS ---
EXAM: CT CHEST, LUNG CANCER SCREENING WITHOUT INTRAVENOUS CONTRAST CLINICAL INDICATION: COPD,SCREENING. 1PPD X 40 YEARS TECHNIQUE: Helically acquired images were obtained of the chest without intravenous contrast using low dose (LDCT) lung cancer screening protocol. This CT exam was performed using one or more of the following dose reduction techniques: automated exposure control, adjustment of the mA and/or kV according to patient size, and/or use of iterative reconstruction technique. COMPARISON: CT Lung Cancer Screening dated 12/28/2021 FINDINGS: LUNGS AND PLEURAL SPACES: No evidence of a lung mass or pulmonary nodule. Bibasilar interstitial thickening again noted associated with paraseptal and centrilobular emphysematous changes. No pleural effusion or thickening. No pneumothorax. HEART: Heart is normal size. Mild coronary artery calcification. No pericardial effusion. MEDIASTINUM: Normal. No mediastinal or hilar adenopathy. Esophagus is unremarkable. No hiatal hernia. THYROID: Normal. No thyroid nodules or calcification. BONES/JOINTS: No suspicious lytic or blastic abnormality. VASCULATURE: No aortic aneurysm. LYMPH NODES: Normal. No enlarged lymph nodes. CT/Low Dose CT Lung Screening IMPRESSION: 1. Stable changes of pulmonary emphysema and interstitial fibrosis. 2. No evidence of lung mass or nodule. Lung-RADS score: 1S - Negative. Additional clinically significant or potentially clinically significant findings are described. Recommend continued annual screening with a low-dose CT (LDCT) in 12 months. Electronically Signed: Riley Jacobson MD at 10:54 EDT ,
== END | disposition home or self-care (01) ==
LOC: CT 08:42
PROVIDERS: PCP Family Medicine; Referring Provider Family Medicine; Visit Provider Family Medicine
DX: Z72.0 Tobacco use (principal); Z87.891 Personal history of nicotine dependence
CPT/HCPCS: 71271

== ENCOUNTER → 2023-04-08 | Outpatient (CLI) | payer MEDICARE, MEDICAID, SELFPAY ==
[2023-04-08 12:09] LABS: Absolute Lymphocyte Count 2.19 X10^3/uL (0.83-4.51); Absolute Neutrophil Count 6.2 X10^3/uL (2.0-7.7); Basophil# 0.11 X10^3/uL; Basophil% 1.2 % (0-1); Eosinophil# 0.08 X10^3/uL; Eosinophils% 0.9 % (0-5); Hematocrit 39.7 % (37-47); Hemoglobin 12.6 g/dL (12.0-15.0); Lymphocyte # 2.19 X10^3/ul (0.83-4.51); Lymphocyte % 23.3 % (19-41); Mean Corp Hgb Conc 31.7 g/dL (32-36); Mean Corpuscular Hgb 30.9 pg (27.0-32.0); Mean Corpuscular Volume 97.3 fL (81-99); Mean Platelet Vol. 11.6 fl (6.2-12.0); Monocyte# 0.82 X10^3/uL; Monocyte% 8.7 % (0-10); NRBC Flagged by Analyzer 0 % (0-5); Neutrophil # 6.17 X10^3/uL (2.7-7.7); Neutrophil % 65.6 % (47-70); Platelet Count 316 K/mm3 (150-450); RBC Distribution Width CV 14.6 % (11.6-14.6); RBC Distribution Width SD 51.8 fl (35.1-43.9); Red Blood Count 4.08 M/mm3 (4.2-5.4); White Blood Count 9.4 K/mm3 (4.4-11.0)
[2023-04-08 12:34] LABS: AST(SGOT) 18 U/L (15-37); Alanine Aminotransfer ALT/SGPT 20 U/L (13-56); Albumin, Serum 3.8 g/dL (3.2-5.0); Alkaline Phosphatase 84 U/L (45-117); Anion Gap 6 (5-15); BUN 4 mg/dL (7-18); BUN/Creat Ratio 5.4 RATIO (10-20); Chloride 110 mmol/L (98-107); Creatinine, Serum 0.74 mg/dL (0.55-1.02); EST Glomerular Filtration Rate 85 mL/min (>60); Est Glom Filt Rate - Afr Amer 102 mL/min (>60); Globulin 3.8 g/dL (2.2-4.2); Glucose 105 mg/dL (74-106); Potassium 3.9 mmol/L (3.5-5.1); Protein, Total 7.6 g/dL (6.4-8.2); Sodium Level 140 mmol/L (136-145)
== END | disposition home or self-care (01) ==
LOC: BFHLAB 10:40
PROVIDERS: PCP Family Medicine; Referring Provider Family Medicine; Visit Provider Family Medicine
DX: I25.10 Atherosclerotic heart disease of native coronary artery without angina pectoris (principal); J44.9 Chronic obstructive pulmonary disease, unspecified
CPT/HCPCS: 36415; 80053; 85025

== ENCOUNTER → 2023-09-10 | Outpatient (CLI) | payer MEDICARE, MEDICAID, SELFPAY | END | disposition home or self-care (01) | LOC: BFHLAB 10:31 → LABSPEC 10:34 | PROVIDERS: PCP Family Medicine; Visit Provider Family Medicine | DX: Z79.899 Other long term (current) drug therapy (principal) ==

== ENCOUNTER → 2024-02-20 | Outpatient (CLI) | payer MEDICARE, MEDICAID, SELFPAY ==
--- NOTE | 2024-02-20 09:43 | BI_ITS ---
MAMMOGRAPHY - BILATERAL SCREENING REASON FOR EXAM: Female, 63 years old. Routine annual screening examination. PERTINENT HISTORY: Aunt with breast cancer. History of prior right excisional breast biopsy. TECHNIQUE: Digital bilateral breast marychuy (3D mammographic acquisition) in the CC and MLO projections. 2-D mediolateral oblique (MLO) and craniocaudad (CC) views of both breasts were obtained. CAD: Full Field Digital Mammography with Computer Added Detection was performed. COMPARISON: Comparison is made with prior study February 08, 2023 and August 03, 2021. FINDINGS: Breast Composition: The breasts are heterogeneously dense, which may obscure small masses. There are no dominant masses or suspicious calcifications. No other significant abnormalities are identified. There has been no significant change since the prior study. BI/SCRN MAMM (CAD)W/MARYCHUY BILAT IMPRESSION: Stable bilateral screening mammogram. Yearly follow-up mammogram recommended. (A) ASSESSMENT CATEGORY: BIRADS Category 1: Negative. A letter regarding these results will be sent to the patient by the facility within 30 days. Approximately 10% of breast cancers are not detected by mammography. A normal mammogram should not delay biopsy of a clinically suspicious abnormality. [id number] Electronically Signed: Reginald Drew MD at 10:45 EDT ,
== END | disposition home or self-care (01) ==
LOC: OPBI 09:42
PROVIDERS: PCP Family Medicine; Referring Provider Family Medicine; Visit Provider Family Medicine
DX: Z12.31 Encounter for screening mammogram for malignant neoplasm of breast (principal); Z80.3 Family history of malignant neoplasm of breast
CPT/HCPCS: 77063; 77067

== ENCOUNTER → 2024-05-04 | Outpatient (CLI) | payer MEDICARE, MEDICAID, SELFPAY ==
--- OUTSIDE RECORDS SUMMARY | 2024-05-04 12:02 | XMS RPT_ITS | CCD ---
Author Organization [facility] Care Team Providers Care Charter Representative Name Role Phone Humbetro Gill Unavailable Unavailable Anna Powell Unavailable Unavailable MISCELLANEOUS DOCTOR Unavailable Unavailable Anna Powell Unavailable Unavailable No Family Physician given Unavailable UnaKamilah Deutsch Unavailable Unavailable Anna Powell Unavailable Unavailable Anna Powell Unavailable Unavailable HARLEY WOOD Attending Unavailable ODIN BERUMEN Primary Care Unavailable Danii Brannon MD Unavailable Odin Berumen Primary Care Provider Grace Bryant APRN, CNP Unavailable Odin Berumen DO A Primary Care Provider DYANA BEE Attending Unavailable DANII GAONA Referring Unavailable ODIN BERUMEN Primary Care Unavailable Danii Brannon MD Unavailable Odin Berumen Primary Care Provider Grace Bryant APRN, CNP Unavailable Danii Brannon MD Unavailable [phone] Odin Berumen Primary Care Provider Tamiko De La Cruz APRN, CNP Unavailable NIKHIL BOOTHE Attending Unavailable ODIN BERUMEN Primary Care Unavailable NIKHIL BOOTHE Attending Unavailable ODIN BERUMEN Primary Care Unavailable NIKHIL BOOTHE Admitting Unavailable NIKHIL BOOTHE Attending Unavailable ODIN BERUMEN Primary Care Unavailable Allergies Allergy Classification Reported Allergen(s) Allergy Type Date of Onset Reaction(s) Facility (20 sources) Aluminum aspirin; Translations: [ASPIRIN] Drug Allergy 09-30-19 10 [facility] (20 sources) Amitriptyline; Translations: [AMITRIPTYLINE] Drug Allergy 06-18-20 19 Rash [facility] (20 sources) buPROPion; Translations: [BUPROPION] Drug Allergy 09-12-19 23 Other: See Comments [facility] (20 sources) fentaNYL; Translations: [FENTANYL] Drug Allergy 12-09-19 13 Shortness of breath [facility] (20 sources) Meperidine Drug Allergy 09-12-19 23 Nausea And Vomiting [facility] (20 sources) oxyCODONE; Translations: [OXYCODONE] Drug Allergy 09-12-19 23 Nausea And Vomiting, Headache, GI Upset [facility] (20 sources) Amoxicillin-Pot Clavulanate; Translations: [AMOXICILLIN-POT CLAVULANATE] Propensity to adverse reactions 09-12-19 23 Nausea Only, GI Upset [facility] (1 source) Aspirin Drug Allergy 09-30-19 10 GI Upset [facility] Work Phone: (2 sources) Meperidine; Translations: [MEPERIDINE (PF)] Drug Allergy 09-30-19 10 GI Upset [facility] Work Phone: (2 sources) NITROFURANTOIN, MACROCRYSTALS / Nitrofurantoin, Monohydrate; Translations: [NITROFURANTOIN MONOHYD/M-CRYST] Drug Allergy 09-29-19 15 Rash [facility] Work Phone: (2 sources) Sulfamethoxazole / Trimethoprim; Translations: [SULFAMETHOXAZOLE-TR IMETHOPRIM] Drug Allergy 09-29-19 15 GI Upset, Vomiting, Other: See Comments [facility] Work Phone: (8 sources) Latex Propensity to adverse reactions 03-26-20 23 [facility] Medications Current Medications Medication Drug Class(es) Dates Sig (Normalized) Sig (Original) acetaminophen 325 mg / butalbital 50 mg / caffeine 40 mg oral tablet (20 sources) Barbiturate, Central Nervous System Stimulant, Methylxanthine take 1 tablet by mouth every four hours as needed for headache butalbital-acetamino phen-caffeine 50-325-40 MG tablet Take 1 tablet by mouth every 4 hours as needed for headaches. Active acetaminophen 325 mg / oxyCODONE hydrochloride 5 mg oral tablet (20 sources) Opioid Agonist Start: 04-22-2023 End: 04-27-2023 take 1 tablet by mouth every six hours as needed for pain oxyCODONE-acetaminop hen (Percocet) 5-325 MG tablet Indications: Vulvar intraepithelial neoplasia (PARMJIT) grade 3 Take 1 tablet by mouth every 6 hours as needed for severe pain (7-10) for up to 5 days. 5 tablet 0 04/22/2023 04/27/2023 Active Start: 08-22-2022 End: 04-22-2023 take 1 tablet by mouth every six hours as needed oxyCODONE-acetaminophen (Percocet) 10-32 5 MG tablet Take 1 tablet by mouth every 6 hours as needed. 0 08/22/2022 04/22/2023 Discontinued (Stop taking at discharge) Start: 02-13-2016 take 1 tablet by adrian th every eight hours as needed oxyCODONE-acetaminophen (PERCOCET) 7.5-3 25 mg tablet Take 1 tablet by mouth every 8 hours as needed. 0 02/13/2016 Active Comment on above: Take 1 tablet by adrian th every 8 hours as needed. cephalexin 500 mg oral capsule (1 source) Cephalosporin Antibacterial Start: End: take 1 capsule by mouth twice daily cephalexin (Keflex) 500 MG capsule Take 1 capsule (500 mg) by mouth 2 times daily for 7 days. 14 capsule 0 10/23/2022 10/30/2022 Active cholecalciferol 0.05 mg oral tablet (19 sources) Vitamin D cholecalciferol (Vitamin D-3) 50 MCG (2000 UT) tablet Take by mouth 1 (one) time each day. Active take 1 capsule by mouth once radha ly cholecalciferol, vitamin D3, (VITAMIN D-3) 10 mcg (400 unit) cap Take 2,000 Units by mouth once daily. 0 Active Comment on above: Take 2,000 Units by mouth once daily. lidocaine 25 mg/ml / prilocaine 25 mg/ml topical cream (16 sources) Antiarrhythmic, Amide Local Anesthetic Start: lidocaine-prilocaine (Emla) 2.5-2.5 % cream Apply topically Daily as needed for mild pain (1-3). Apply to vulva as needed for pain 30 g 10/23/2022 Active pantoprazole 40 mg delayed release oral tablet (20 sources) Proton Pump Inhibitor Start: 6 take 1 tablet by mouth in the morning pantoprazole (ProtoNix) 40 MG EC tablet Take 40 mg by mouth in the morning and 40 mg in the evening. 09/16/2022 Active End: 09-18-2022 pantoprazole (ProtoNix) 40 M G injection Infuse 40 mg into a venous catheter every morning (before breakfast). 0 09/18/2022 Discontinued (Therapy completed) Comment on above: Take 1 tablet by adrina th daily before breakfast. Take on empty stomach, 1/2 hr before meal. rivaroxaban 20 mg oral tablet (20 sources) Factor Xa Inhibitor rivaroxaban (Xarelto) 20 MG tablet Take by mouth. Take with food at lunch Active Comment on above: Take 20 mg by mouth daily with dinner. rosuvastatin calcium 10 mg oral tablet (8 sources) HMG-CoA Reductase Inhibitor Start: 3 take 1 tablet by mouth once daily rosuvastatin (Crestor) 10 MG tablet Take 10 mg by mouth daily. 02/04/2023 Active tiZANidine 4 mg oral capsule (20 sources) Central alpha-2 Adrenergic Agonist take 1 capsule by mouth three times daily tiZANidine (Zanaflex) 4 MG capsule Take 4 mg by mouth 3 times daily. Active topiramate 100 mg oral tablet (20 sources) topiramate (Topa max) 100 MG tablet Take 50 mg by mouth in the morning and 50 mg in the evening. Pt takes 50 mg daily. Active take 1 tablet by mouth twice radha ly topiramate (TOPAMAX) 100 mg tablet Take 100 mg by mouth twice daily. 0 Active Comment on above: Take 100 mg by mouth twice daily. Completed/Discontinued Medications Medication Drug Class(es) Dates Sig (Normalized) Sig (Original) acetaminophen 500 mg oral tablet (2 sources) Start: 04-22-2023 End: 04-22-2023 acetaminophen (Tylenol) tablet 1,000 mg acetaminophen 300 mg / butalbital 50 mg / caffeine 40 mg / codeine phosphate 30 mg oral capsule (1 source) Opioid Agonist, Barbiturate, Central Nervous System Stimulant, Methylxanthine take 1 capsule by mouth every six hours as needed butalbital-acetami nop-caf-cod [id number] mg cap Take 1 capsule by mouth every 6 hours as needed. 0 Active Comment on above: Take 1 capsule by mo [facility] every 6 hours as needed. [id number] 200 actuat albuterol 0.09 mg/actuat metered dose inhaler (20 sources) beta2-Adrenergic Agonist Start: 02-13-2016 take 2 puff(s) by inhalation every four hours as needed albuterol HFA (PROAIR HFA) 90 mcg/actuation inhaler Inhale 2 Puffs as instructed every 4 hours as needed. 1 Inhaler 2 02/13/2016 Active take 2 puff(s) by in halation every six hours as needed for wheezing albuterol 108 (90 Base) MCG/ACT inhaler Inhale 2 puffs every 6 hours as needed for wheezing. Active Comment on above: Inhale 2 Puffs as in structed every 4 hours as needed. ALPRAZolam 0.25 mg disintegrating oral tablet (3 sources) Benzodiazepine Start: 04-22-2023 End: 04-22-2023 ALPRAZolam (Xanax) disintegrating tablet 0.25 mg Start: 10-23-2022 End: 10-23-2022 ALPRAZolam (Xanax) disintegr ating tablet 0.25 mg calcium chloride 0.0014 meq/ ml / potassium chloride 0.004 meq/ml / sodium chloride 0.103 meq/ml / sodium lactate 0.028 meq/ml injectable solution (6 sources) Start: 04-22-2023 End: 04-22-2023 lactated ringers infusion Start: 10-23-2022 End: 10-23-2022 lactated ringers infusion citalopram 40 mg oral tablet (20 sources) Serotonin Reuptake Inhibitor Start: 01-24-2016 take 1 tablet by mouth once daily citalopram (CELEXA) 40 mg tablet Take 1 tablet by mouth once daily. 0 01/24/2016 Active citalopram (Elise XA) 20 MG tablet Take by mouth Nightly. Active Comment on above: [facility] diazePAM 5 mg oral tablet (20 sources) Benzodiazepine Start: 10-12-2013 take 1 tablet by mouth every six hours as needed diazepam (VALIUM) 5 mg tablet Take 1 tablet by mouth four times daily as needed. (Dr Nolan) 0 10/12/2013 Active diazePAM (Valium ) 10 MG tablet Take by mouth every 8 hours as needed. Active Comment on above: Take 1 tablet by adrian four times daily as needed. (Dr Nolan) dicyclomine hydrochloride 10 mg oral capsule (1 source) Anticholinergic Start: 016 take 1 capsule by mouth at bedtime dicyclomine (BENTYL) 10 mg capsule Indications: Right sided abdominal pain Take 1 capsule by mouth before meals and at bedtime. 120 capsule 0 10/03/2015 Active Comment on above: Take 1 capsule by mo [facility] before meals and at bedtime. 1 ml diphenhydrAMINE hydrochloride 50 mg/ml cartridge (4 sources) Histamine-1 Receptor Antagonist Start: End: diphenhydrAMINE (BENADryl) injection 12.5 mg Start: 10-23-2022 End: 10-23-2022 diphenhydrAMINE (BENADryl) i njection 12.5 mg Start: 06-15-2016 diphenhydrAMIN E HCl (BENADRYL ITCH STOPPING) 2 % gel Apply 1 application to affected area once daily. 1 Bottle 1 06/15/2016 Active Comment on above: Apply 1 application to affected area once daily. famotidine 20 mg oral tablet (3 sources) Histamine-2 Receptor Antagonist Start: 04-22-2023 End: 04-22-2023 famotidine (Pepcid) tablet 20 mg Start: 10-23-2022 End: 10-23-2022 famotidine (Pepcid) tablet 2 0 mg fluocinolone acetonide 0.1 mg/ml topical solution (1 source) Corticosteroid Start: 06-21-2016 fluocinolone (SYNALAR) 0.01 % external solution Apply to scalp twice daily 1 Bottle 1 06/21/2016 Active Comment on above: Apply to scalp twice daily gabapentin 100 mg oral capsule (3 sources) Anti-epileptic Agent Start: 04-22-2023 End: 04-22-2023 gabapentin (Neurontin) capsule 100 mg Start: 10-23-2022 End: 10-23-2022 gabapentin (Neurontin) capsu le 100 mg hydrOXYzine hydrochloride 25 mg oral tablet (1 source) Antihistamine Start: 07-04-2016 take 1 tablet by mouth every six hours as needed hydrOXYzine HCl (ATARAX) 25 mg tablet Indications: Allergic contact dermatitis due to dyes Take 1 tablet by mouth every 6 hours as needed. 40 tablet 0 07/04/2016 Active Comment on above: Take 1 tablet by adrian th every 6 hours as needed. ibuprofen 800 mg oral tablet (1 source) Nonsteroidal Anti-inflammatory Drug Start: 06-07-2016 ibuprofen (MOTRIN) 800 mg tablet Take 1 tab every 6-8 hours as needed 90 tablet 0 06/07/2016 Active Comment on above: Take 1 tab every 6-8 hours as needed isopropyl alcohol 0.7 ml/ml medicated pad (2 sources) Start: 04-22-2023 End: 04-22-2023 Nozin Nasal Apple Checker Popswab 2 Swab labetalol (Normodyne,Trandate ) injection 5 mg (1 source) Start: 10-23-2022 End: 10-23-2022 labetalol (Normodyne,Tranda te) injection 5 mg lidocaine hydrochloride 20 mg/ml mucous membrane topical solution (1 source) Antiarrhythmic, Amide Local Anesthetic Start: 02-13-2016 lidocaine viscous (LIDOCAINE VISCOUS) 2 % solution Take 5 mL by mouth as needed. 100 mL 0 02/13/2016 Active Comment on above: Take 5 mL by mouth a s needed. 1 ml LORazepam 2 mg/ml injection (1 source) Benzodiazepine Start: 10-23-2022 End: 10-23-2022 LORazepam (Ativan) injection 0.5 mg melatonin 1 mg oral tablet (1 source) Start: 11-11-2013 take 5 tablets by mouth once daily at bedtime melatonin 1 mg tab Take 5 mg by mouth daily at bedtime. 0 11/11/2013 Active Comment on above: Take 5 mg by mouth d aily at bedtime. naloxone hydrochloride 40 mg/ml nasal spray (1 source) Opioid Antagonist End: 09-18-2022 naloxone (Narcan) 4 mg/0.1 mL nasal spray Administer 4 mg into affected nostril(s) if needed for opioid reversal. May repeat every 2-3 minutes if needed, alternating nostrils, until medical assistance becomes available. 0 09/18/2022 Discontinued (Therapy completed) 2 ml ondansetron 2 mg/ml injection (3 sources) Serotonin-3 Receptor Antagonist Start: 04-22-2023 End: 04-22-2023 ondansetron (Zofran) injection 4 mg Start: 10-23-2022 End: 10-23-2022 ondansetron (Zofran) injecti on 4 mg oxyCODONE (2 sources) Opioid Agonist Start: 04-22-2023 End: 04-22-2023 oxyCODONE (Roxicodone) immediate release tablet 5 mg predniSONE 10 mg oral tablet (1 source) Start: 06-15-2016 predniSONE (DELTASONE) 10 mg tablet Indications: Allergic contact dermatitis due to dyes Take 40 mg x 3 days, 20 mg x 3 days, 10 mg x 3 days. Take with food, once daily 21 tablet 0 06/15/2016 Active Comment on above: Take 40 mg x 3 days, 20 mg x 3 days, 10 mg x 3 days. Take with food, once daily promethazine hydrochloride 25 mg oral tablet (20 sources) Phenothiazine Start: 06-07-2016 take 1 tablet by mouth every six hours as needed for nausea and nausea promethazine (PHENERGAN) 25 mg tablet Indications: Nausea Take 1 tablet by mouth every 6 hours as needed. 30 tablet 2 06/07/2016 Active Comment on above: Take 1 tablet by adrian every 6 hours as needed. raNITIdine 150 mg oral tablet (1 source) Histamine-2 Receptor Antagonist Start: 04-26-2016 take 1 tablet by mouth twice daily ranitidine (ZANTAC) 150 mg tablet Take 1 tablet by mouth twice daily. 180 tablet 4 04/26/2016 Active Comment on above: Take 1 tablet by adrian twice daily. 5 ml sodium chloride 9 mg/ml injection (20 sources) Start: 04-22-2023 End: 04-22-2023 sodium chloride 0.9% (NS) flush 10 mL Start: 04-22-2023 End: 04-22-2023 sodium chloride 0.9% (NS) fl ush 10 mL Start: 04-22-2023 End: 04-22-2023 sodium chloride 0.9 % bolus 500 mL Start: 04-22-2023 End: 04-22-2023 sodium chloride 0.9 % infusi on Start: 04-22-2023 End: 04-22-2023 sodium chloride 0.9% (NS) fl ush 10 mL Start: 10-23-2022 End: 10-23-2022 sodium chloride 0.9% (NS) fl ush 10 mL Start: 10-23-2022 End: 10-23-2022 sodium chloride 0.9 % bolus 500 mL Start: 10-23-2022 End: 10-23-2022 sodium chloride 0.9 % infusi on Start: 10-23-2022 End: 10-23-2022 sodium chloride 0.9% (NS) fl ush 10 mL sucralfate 1000 mg oral tablet (1 source) Aluminum Complex Start: 03-13-2016 take 1 tablet by mouth at bedtime sucralfate (CARAFATE) 1 gram tablet Indications: Heartburn Take 1 tablet by mouth before meals and at bedtime. 120 tablet 1 03/13/2016 Active Comment on above: Take 1 tablet by th before meals and at bedtime. Problems Active Problems Problem Classification Problem Date Documented Date Episodic/Chronic Anxiety disorders (1 source) Anxiety; Translations: [Anxiety disorder, unspecified] 12-22-2009 Chronic Cancer of other female genital organs (20 sources) Vulval intraepithelial neoplasia grade 3; Translations: [Carcinoma in situ of vulva] Onset: 11-08-2022 Chronic Cancer of rectum and anus (13 sources) Anal intraepithelial neoplasia (AIN III); Translations: [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] Onset: 03-26-2023 03-26-2023 Chronic Cancer of rectum and anus (1 source) Abnormal anal Papanicolaou smear; Translations: [High grade squamous intraepithelial lesion on cytologic smear of anus (HGSIL)] Episodic Chronic obstructive pulmonary disease and bronchiectasis (20 sources) Chronic obstructive lung disease; Translations: [Chronic obstructive pulmonary disease, unspecified] Onset: 09-18-2022 09-18-2022 Chronic Coronary atherosclerosis and other heart disease (20 sources) Coronary arteriosclerosis; Translations: [Atherosclerotic heart disease of [place] coronary artery without angina pectoris] Onset: 09-18-2022 09-18-2022 Chronic Esophageal disorders (1 source) Gastroesophageal reflux disease; Translations: [Gastro-esophageal reflux disease without esophagitis] Onset: 10-22-2014 10-22-2014 Chronic Mood disorders (1 source) Depressive disorder; Translations: [Depression] 12-22-2009 Chronic Other aftercare (1 source) Drug therapy finding; Translations: [client manager [place] (current) use of anticoagulants] Episodic Other aftercare (1 source) Long-term current use of anticoagulant; Translations: [USP (current) use of anticoagulants] 03-26-2023 Episodic Pulmonary heart disease (1 source) H/O: pulmonary embolus; Translations: [Personal history of pulmonary embolism] 03-26-2023 Episodic Spondylosis; intervertebral disc disorders; other back problems (3 sources) Displacement of lumbar intervertebral disc without myelopathy; Translations: [Other intervertebral disc displacement, lumbar region] Onset: 06-04-2011 06-04-2011 Chronic Substance-related disorders (20 sources) Tobacco dependence syndrome; Translations: [Nicotine dependence, unspecified, uncomplicated] Onset: 09-18-2022 09-18-2022 Chronic Unclassified (1 source) Unknown / UNK(Unknown) Onset: 02-26-2017 Past or Other Problems Problem Classification Problem Date Documented Da te Episodic/Chronic Abdominal pain (1 source) Right sided abdominal pain; Translations: [Unspecified abdominal pain] Onset: 07-13-2015 07-13-2015 Episodic Allergic reactions (1 source) Urticaria; Translations: [Urticaria, unspecified] Onset: 04-21-2011 04-21-2011 Episodic Anal and rectal conditions (14 sources) Disorder of anus; Translations: [Disease of anus and rectum, unspecified] Onset: 03-26-2023 03-26-2023 Episodic Intestinal obstruction without hernia (1 source) Small bowel obstruction; Translations: [Unspecified intestinal obstruction, unspecified as to partial versus complete obstruction] Onset: 07-30-2011 07-30-2011 Episodic Malaise and fatigue (1 source) Physical deconditioning; Translations: [Other malaise] Onset: 06-04-2011 06-04-2011 Episodic Nausea and vomiting (1 source) Nausea; Translations: [Nausea] Onset: 07-13-2015 07-13-2015 Episodic Other and unspecified benign neoplasm (1 source) History of polyp of colon; Translations: [Personal history of colonic polyps] Onset: 07-13-2015 07-13-2015 Episodic Other connective tissue disease (1 source) Fibromyalgia; Translations: [Fibromyalgia] Onset: 11-30-2011 11-30-2011 Episodic Other injuries and conditions due to external causes (18 sources) Motion sickness; Translations: [Motion sickness, initial encounter] Onset: 10-16-2022 10-16-2022 Episodic Residual codes; unclassified (1 source) Tobacco use and exposure - finding; Translations: [Tobacco use] Onset: 10-22-2014 10-22-2014 Episodic Spondylosis; intervertebral disc disorders; other back problems (20 sources) Chronic back pain ; Translations: [Dorsalgia, unspecified] Onset: 08-12-2014 09-18-2022 Episodic Unclassified (1 source) FOLLOW UP Onset: 02-26-2017 Results Test Name Value Interpretation Reference Range Facility 36on 03-27-2024 36 Patient states that her brother and she no longer has a ride. She has been keeping up with her private advisor in [place] which is what she will continue to do. Patient's appointment for Saturday has been cancelled. Please contact patient with questions, thank you [facility] Progress Noteon 05-21-2023 Progress Note Colon and Rectal Rhiannon any PATIENT NAME: Kenneth Finn : 1960 TODAY'S DATE: 05/21/2023 No chief complaint on file. SUBJECTIVE: Kenneth Finn is a 63 y.o. female with history of PARMJIT 3 and AIN 3. History of pulmonary embolism 4 years ago on Xarelto. 10/23/2022 Dr. Brannon underwent wide local excision of vulva/perineum lesions. 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 Pathology from right vulvar excision showed PARMJIT 3. Colonoscopy 5 [address] [place] [address] Rey. Pt states that some polyps were removed. Pt does a stool test every year and states that the last one was negative. 04/22/2023 rectal exam under anesthesia with excision fulguration of anal lesions in the left anterior anal verge. Pathology on the biopsy showed high-grade squamous intraepithelial lesion (AIN 3). Patient states she is doing well. No issues or problems. Past Medical History: Diagnosis Date Anxiety Arthritis Asthma CAD (coronary artery disease) Chronic headache Chronic pain In pain management COPD (chronic obstructive pulmonary disease) ([facility]) DDD (degenerative disc disease), lumbar DDD (degenerative disc disease), thoracic Depression Dry eye syndrome Fibromyalgia Gastroparesis GERD (gastroesophageal reflux disease) History of tobacco use Hypersplenism Hypertensive pulmonary arterial disease (H[facility]) Hypotension IBS (irritable bowel syndrome) Lumbar spondylosis Memory loss Neurodermatitis Osteoarthritis right knee PE (pulmonary thromboembolism) ([facility]) bilateral Post-splenectomy Thoracic spondylosis Vitamin D deficiency Past Surgical History: Procedure Laterality Date BREAST BIOPSY Right benign COLONOSCOPY OTHER SURGICAL HISTORY 2012 bowel obstruction SPLENECTOMY, PARTIAL 2000 TOTAL ABDOMINAL HYSTERECTOMY 1999 VULVAR/PERINEAL BIOPSY (HISTORICAL) N/A 10/23/2022 Current Outpatient Medications: albuterol 108 (90 Base) MCG/ACT inhaler, Inhale 2 puffs every 6 hours as needed for wheezing., Disp: , Rfl: butalbital-acetaminophen -caffeine 50-325-40 MG tablet, Take 1 tablet by mouth every 4 hours as needed for headaches., Disp: , Rfl: cholecalciferol (Vitamin D-3) 50 MCG (1999) tablet, Take by mouth 1 (one) time each day., Disp: , Rfl: citalopram (CeleXA) 20 MG tablet, Take by mouth Nightly., Disp: , Rfl: diazePAM (Valium) 10 MG tablet, Take by mouth every 8 hours as needed., Disp: , Rfl: lidocaine-prilocaine (Emla) 2.5-2.5 % cream, Apply topically Daily as needed for mild pain (1-3). Apply to vulva as needed for pain (Patient not taking: Reported on 04/16/2023), Disp: 30 g, Rfl: 0 pantoprazole (ProtoNix) 40 MG EC tablet, Take 40 mg by mouth in the morning and 40 mg in the evening., Disp: , Rfl: promethazine (Phenergan) 25 MG tablet, Take by mouth., Disp: , Rfl: rivaroxaban (Xarelto) 20 MG tablet, Take by mouth. Take with food at lunch, Disp: , Rfl: rosuvastatin (Crestor) 10 MG tablet, Take 10 mg by mouth daily., Disp: , Rfl: tiZANidine (Zanaflex) 4 MG capsule, Take 4 mg by mouth 3 times daily., Disp: , Rfl: topiramate (Topamax) 100 MG tablet, Take 50 mg by mouth in the morning and 50 mg in the evening. Pt takes 50 mg daily., Disp: , Rfl: Social History Socioeconomic History Marital status: Spouse name: Not on file Number of children: Not on file Years of education: Not on file Highest education level: Not on file Occupational History Not on file Tobacco Use Smoking status: Every Day Packs/day: 0.50 Years: 40.00 Additional pack years: 0.00 Total pack years: 20.00 Types: Cigarettes Start date: 1977 Smokeless tobacco: Never Vaping Use Vaping Use: Every day Substances: Nicotine Devices: Pre-filled or refillable cartridge Substance and Sexual Activity Alcohol use: Never Drug use: Never Sexual activity: Not on file Other Topics Concern Not on file Social History Narrative Not on file Social Determinants of Health Financial Resource Strain: Not on file Food Insecurity: Not on file Transportation Needs: Not on file Physical Activity: Not on file Stress: Not on file Social Connections: Not on file Intimate Partner Violence: Not on file Housing Stability: Not on file Family History Problem Relation Name Age of Onset Diabetes Mother Hypertension Father Prostate cancer Father Lung cancer Father Breast cancer Father's Sister Uterine cancer Father's Sister Colon cancer Paternal Cousin Bone cancer Paternal Cousin Marrow Allergies: Allergies Allergen Reactions Amitriptyline Other reaction(s): Rash Fentanyl Shortness of breath Other reaction(s): Rash States gave her a rash. Aspirin Other reaction(s): GI Upset, Nausea Augmentin [Amoxicillin-Pot Clavulanate] Nausea Only Demerol Hcl [Meperidine] Nausea And Vomiting Latex Oxycodone Nausea And Vomiting and Headache Wellbutrin [Bupropion] agitated OBJECTIVE: There were no vitals ta (more content not included)... Normal [facility] HEMOGLOBIN AND HEMATOCRIT, B Andi 04-22-2023 Hematocrit (Bld) [Volume fraction] 37.8 % Normal 35.0-47.0 [facility] Comment on above: Performed By: #### L [id number] ####Telecommunications Field Engineer: ROGELIO ROTHMAN ([phone])[facility] ([address] Hemoglobin (Bld) [Mass/Vol] 12.6 g/dL Normal 11.7-16.0 [facility] Comment on above: Performed By: #### L [id number] ####Telecommunications Field Engineer: ROGELIO ROTHMAN ([id number])[facility] ([address] Hemoglobin (Bld) [Mass/Vol]o n 04-22-2023 Hematocrit (Bld) [Volume fraction] 37.8 % 35.0 - 47.0 % [facility] Interpretation and review of laboratory results Normal [facility] - Hematology and Cell countson 04-22-2023 Hemoglobin (Bld) [Mass/Vol] 12.6 g/dL 11.7 - 16.0 g/dL [facility] Nursing Noteon 04-22-2023 Nursing Note Patient is A&O x4. States pain is at a tolerable level. Denies dizziness and nausea. IV removed without complication. All belongings returned and accounted for. DC instructions gone over with patient and family. All questions answered. Verbalized understanding. Ambulated with steady gait. Normal [facility] Nursing Note Patient arrived on u nit. Name and date verified. Attached to monitors. Vital signs stable. 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 Priority Lab ID 1 Anus Tissue TISSUE EXAM Nikhil Boothe MD 04/22/23 0766 No Routine Description: ANAL BIOPSY Staff: Dental Equipment Mechanic: Rosenda Milton RN Scrub Person: Geovanna PopeCarl Findings: perianal condyloma fulgrated and curattaged Complications: None; patient tolerated the procedure well. Specimens Collected: Order Name Source Comment Collection Info Order Time POTASSIUM WITH MG REFLEX For patients on dialysis to draw potassium day of surgery 04/22/2023 11:32 AM PROTHROMBIN TIME If patient on coumadin within 4 days prior. 04/22/2023 11:32 AM HEMOGLOBIN AND HEMATOCRIT, BLOOD Blood, Venous Collected By: Goldie Ivan RN 04/22/2023 11:32 AM TISSUE EXAM Anus Pre-op diagnosis: Anal lesion [K62.9] Collected By: Nikhil Boothe MD 04/22/2023 1:57 PM Wound Class: Class IV: Dirty Blood Products: None Prophylactic Antibiotics: Procedure appropriate prophylactic antibiotic(s) given within 1 hour of surgical incision (two hours if receiving Vancomycin or flouroquinolone) [facility] Op Note OPERATIVE NOTE PATIENT NAME: Kenneth Finn : 1960 ATTENDING PHYSICIAN: Nikhil Boothe MD PROCEDURE DATE: 04/22/2023 PREOPERATIVE DIAGNOSIS: Anal lesion POSTOPERATIVE DIAGNOSIS: Same SURGEON: Nikhil Boothe MD RESIDENTIAL PROGRAM WORKER: Candie Boyer OPERATION: Rectal exam under anesthesia with excision and fulguration of anal lesions ANESTHESIA: General ESTIMATED BLOOD LOSS: <50ml COMPLICATIONS: none SPECIMENS: Anal lesion INDICATIONS: The patient is a 62 y.o. year old female with history of above preop diagnosis. I explained the risk, benefits, expected outcome, and alternatives to the procedure. Patient understands the risks include but not inclusive to bleeding, infection, anesthesia complication, blood vessel/nerve damage, chronic pain, reoperation, and failure of the procedure to obtain its intended goals. Patient understands and is in agreement and would like to proceed. DESCRIPTION OF PROCEDURE: Patient was brought to the operating room and intubated by anesthesia then placed in the prone jackknife position with all bony prominences appropriately padded. The buttocks were then taped apart and prepped with Betadine solution. The patient was then draped in usual sterile fashion. We used 0.25% Marcaine with epinephrine for pudendal nerve block. We then performed a digital rectal examination and did not feel any obvious masses. We then used a Hill-Ugarte retractor to serially examine the anal canal and the left anterior anal verge area there were whitish raised lesions about 2 to 3 mm in size. Using Metzenbaums scissors we excised a small piece for pathology and sent in office anal lesion. We then use electrocautery to fulgurate the rest of the lesions. Towards the end the procedure all counts were correct and all sites were hemostatic. The patient was then awoken by anesthesia then transferred to the PACU in stable condition. [facility] PREPROCINSon 04-16-2023 PREPROCINS Medication List Accurate as of April 16, 2023 9:23 AM. Always use your most recent med list. albuterol 108 (90 Base) MCG/ACT inhaler Medication Adjustments for Surgery: Take morning of surgery butalbital-acetaminophen -caffeine 50-325-40 MG tablet Medication Adjustments for Surgery: Take night before surgery cholecalciferol 50 MCG (2000 UT) tablet Commonly known as: Vitamin D-3 Medication Adjustments for Surgery: Take night before surgery citalopram 20 MG tablet Commonly known as: CeleXA Medication Adjustments for Surgery: Take morning of surgery diazePAM 10 MG tablet Commonly known as: Valium Medication Adjustments for Surgery: Take morning of surgery lidocaine-prilocaine 2.5-2.5 % cream Commonly known as: Emla Apply topically Daily as needed for mild pain (1-3). Apply to vulva as needed for pain oxyCODONE-acetaminophen 10-325 MG tablet Commonly known as: Percocet Medication Adjustments for Surgery: Take morning of surgery pantoprazole 40 MG EC tablet Commonly known as: ProtoNix Medication Adjustments for Surgery: Take morning of surgery promethazine 25 MG tablet Commonly known as: Phenergan Medication Adjustments for Surgery: Take morning of surgery rivaroxaban 20 MG tablet Commonly known as: Xarelto Medication Adjustments for Surgery: Stop 2 days before surgery Notes to patient: Stop Xaralto 04-20-[address] Boothe rosuvastatin 10 MG tablet Commonly known as: Crestor Notes to patient: Not taking tiZANidine 4 MG capsule Commonly known as: Zanaflex Medication Adjustments for Surgery: Take night before surgery topiramate 100 MG tablet Commonly known as: Topamax Medication Adjustments for Surgery: Take morning of surgery Additional Instructions: You may take your prescription pain medication. You may take Tylenol for pain. NO Motrin, ibuprofen or Advil for 24 hours prior to surgery or longer if instructed by your surgeon. NO Aleve or Naprosyn for 5 days prior to surgery or longer if instructed by your surgeon. IF YOU TAKE BLOOD THINNERS OR ASPIRIN: Stop Xarelto 04-20-2023 Follow any instructions given to you by Dr. Boothe Shownaveen with an antibacterial soap such as Dial or Safeguard or shower kit provided to you before coming to the hospital. No makeup, lotion, powder, deodorant or body spays. No hair products. Remove all jewelry and leave it at home. Wear loose comfortable clothing to go home in. You may brush your teeth morning of surgery. Do not wear contacts day of surgery. No marijuana (THC), smoking or alcohol for 24 hours prior to surgery. Please arrange for a responsible adult to drive you home after your surgery and that there is a responsible adult with you for 24 hours post discharge. If you have specific questions, please call your surgeon. You will receive a call the day before your surgery to verify your arrival time and date. You will be asked to arrive at least two hours prior to your scheduled surgery time. Please bring your [facility] Surgical folder and medication list with you day of surgery. We encourage you to write down any questions you may have for the surgeon, anesthesiologist, or other members of the surgical team and bring it with you the day of surgery. Please bring photo ID and insurance information.ACADEMIC VICE PRESIDENT AND PARKING IN THE MAIN DECK ARE FREE DAY OF SURGERY. PARKING IN THE DECK-- AFTER PARKING TAKE THE ELEVATOR TO LEVEL ONE AND TAKE THE BRIDGE TO THE HOSPITAL. GO TO THE RIGHT AND GO AROUND THE CORNER TO THE SAME DAY SURGERY DESK AND CHECK IN THERE. IF GOING IN THE MAIN ENTRANCE-- TURN LEFT AND GO DOWN THE JONES TO THE H ELEVATORS AND TAKE THEM TO ONE, LEFT OFF THE ELEVATOR AND GO AROUND TO THE SAME DAY DESK AND CHECK IN. 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 A left sided perianal biopsy - high grade -squamous intraepithelial (AIN 3) on 10/23/2022 at [facility]. She complains of fatigue. She states that she feels warm a lot . She was referred to this office, she was told that this was colorectal surgery and that she wanted referral in [facility], she lives in [place]. PAST MEDICAL HISTORY Diagnosis Date Anxiety Asthma CAD (coronary artery disease) Chronic headache Chronic pain COPD (chronic obstructive pulmonary disease) (HCC) DDD (degenerative disc disease), lumbar DDD (degenerative disc disease), thoracic Degenerative disc disease Depression Dry eye syndrome Fibromyalgia Gastroparesis GERD (gastroesophageal reflux disease) History of tobacco use Hypersplenism Hypotension IBS (irritable bowel syndrome) ITP (idiopathic thrombocytopenic purpura) Lumbar spondylosis Memory loss Myalgia and myositis, unspecified Fibromyalgia (myalgia and myositis) Neurodermatitis Osteoarthritis of multiple joints Post-splenectomy Pulmonary thromboembolism (HCC) bilateral Spinal stenosis Thoracic spondylosis Vitamin D deficiency Vulvar carcinoma (HCC) PAST SURGICAL HISTORY Procedure Laterality Date COLONOSCOPY FLX DX W/COLLJ SPEC WHEN PFRMD 07/30/12 Colonoscopy COLONOSCOPY FLX DX W/COLLJ SPEC WHEN PFRMD 07/13/15 Colonoscopy ENTEROLSS FRING INTSTINAL ADHESION SPX 1-10--12 exploratory lap ESOPHAGOGASTRODUODENOSCO PY TRANSORAL DIAGNOSTIC 07/13/15 EGD PAST SURGICAL HISTORY OF 02/2014 lumbar pain injections PAST SURGICAL HISTORY OF USO for cyst PAST SURGICAL HISTORY OF 2014 pain injections lumbar multiple [id number] SPLENECTOMY TOTAL SEPARATE PROCEDURE 11/2001 Splenectomy d/t ITP TOTAL ABDOMINAL HYSTERECT W/WO RMVL TUBE OVARY 05/2001 Hysterectomy, ANANDA BSO for endometriosus Current Outpatient Medications Medication Sig rivaroxaban (XARELTO) 20 mg tablet Take 20 mg by mouth daily with dinner. hxrldrggiq-vgtjtxyhuw-dc f-cod 36-290-94-30 mg cap Take 1 capsule by mouth every 6 hours as needed. cholecalciferol, vitamin D3, (VITAMIN D-3) 10 mcg (400 unit) cap Take 2,000 Units by mouth once daily. pantoprazole DR (PROTONIX) 40 mg tablet Take 1 tablet by mouth daily before breakfast. Take on empty stomach, 1/2 hr before meal. promethazine (PHENERGAN) 25 mg tablet Take 1 tablet by mouth every 6 hours as needed. albuterol HFA (PROAIR HFA) 90 mcg/actuation inhaler Inhale 2 Puffs as instructed every 4 hours as needed. oxyCODONE-acetaminophen (PERCOCET) 7.5-325 mg tablet Take 1 tablet by mouth every 8 hours as needed. citalopram (CELEXA) 40 mg tablet Take 1 tablet by mouth once daily. topiramate (TOPAMAX) 100 mg tablet Take 100 mg by mouth twice daily. diazepam (VALIUM) 5 mg tablet Take 1 tablet by mouth four times daily as needed. (Dr Nolan) hydrOXYzine HCl (ATARAX) 25 mg tablet Take 1 tablet by mouth every 6 hours as needed. (Patient not taking: Reported on 11/13/2022) fluocinolone (SYNALAR) 0.01 % external solution Apply to scalp twice daily (Patient not taking: Reported on 11/13/2022) predniSONE (DELTASONE) 10 mg tablet Take 40 mg x 3 days, 20 mg x 3 days, 10 mg x 3 days. Take with food, once daily (Patient not taking: Reported on 11/13/2022) diphenhydrAMINE HCl (BENADRYL ITCH STOPPING) 2 % gel Apply 1 application to affected area once daily. (Patient not taking: Reported on 11/13/2022) ibuprofen (MOTRIN) 800 mg tablet Take 1 tab every 6-8 hours as needed (Patient not taking: Reported on 11/13/2022) ranitidine (ZANTAC) 150 mg tablet Take 1 tablet by mouth twice daily. (Patient not taking: Reported on 11/13/2022) sucralfate (CARAFATE) 1 gram tablet Take 1 tablet by mouth before meals and at bedtime. (Patient not taking: Reported on 11/13/2022) lidocaine viscous (LIDOCAINE VISCOUS) 2 % solution Take 5 mL by mouth as needed. (Patient not taking: Reported on 11/13/2022) dicyclomine (BENTYL) 10 mg capsule Take 1 capsule by mouth before meals and at bedtime. (Patient not taking: Reported on 11/13/2022) melatonin 1 mg tab Take 5 mg by mouth daily at bedtime. (Patient not taking: Reported on 11/13/2022) ALLERGIES: Amitriptyline, Amoxicillin-Pot Clavulanate, Aspirin, Bupropion, Demerol [ (more content not included)... Normal [facility] XR Chest 2 Viewson 3 No acute process. Report Dictated on Electronically Signed By: Abbe Middleton Electronically Signed Date/Time: 10/16/2022 11:47 AM EDT [facility] Patient Name: KENNETH FINN : 1960 Exam Date/Time: 10/16/2022 11:26 Procedure: XR CHEST 2 VIEWS Ordering Provider: TIRADO ISABEL Reason For Exam: pre-op testing CHEST, PA & LATERAL: INDICATION: Preop COMPARISON: No previous studies are available for comparison. PA and lateral views of the chest were obtained. The heart is normal in size. The mediastinal silhouette is normal. The lungs are clear. There are no effusions or infiltrates. There is no pleural thickening. Arthritic changes of the spine and shoulders are present. [facility] Abbe Middleton DO - 10/16/2022 Patient Name: KENNETH FINN : 1960 Exam Date/Time: 10/16/2022 11:26 Procedure: XR CHEST 2 VIEWS Ordering Provider: TRIADO ISABEL Reason For Exam: pre-op testing CHEST, PA & LATERAL: INDICATION: Preop COMPARISON: No previous studies are available for comparison. PA and lateral views of the chest were obtained. The heart is normal in size. The mediastinal silhouette is normal. The lungs are clear. There are no effusions or infiltrates. There is no pleural thickening. Arthritic changes of the spine and shoulders are present. IMPRESSION: No acute process. Report Dictated on Electronically Signed By: Abbe Middleton Electronically Signed Date/Time: 10/16/2022 11:47 AM EDT [facility] Study observation (narrative) [facility] XR Chest 2 ViewsOrdered By: Abbe Middleton on 10-16-2022 [employer] Work Phone: XR FINGER 3RD DIGIT 3 VIEWS LEFTon 10-21-2018 XR FINGER 3RD DIGIT 3 VIEWS LEFT ORIGINAL XR FINGER 3RD DIGIT 3 VIEWS LEFT, 10/21/2018 10:39 AM INDICATION: pain COMPARISON: No FINDINGS: There are no acute fractures or dislocations. Alignment is within normal limits. Joint spaces are maintained. The soft tissues are normal in appearance IMPRESSION: Normal examination. Interpreted By: Rodolfo Jc MD Preliminary Report By: Rodolfo Jc MD Electronically Signed By: Rodolfo Jc MD Dictated Date: 10/21/2018 10:42:07 AM Prelim Date: 10/21/2018 10:42:07 AM Sign Date: 10/21/2018 10:43:39 AM Normal [facility] ([place]) FLUOROSCOPY IN OR/PAIN MGTon 03-27-2017 FLUOROSCOPY IN OR/PAIN MGT FLUOROSCOPY IN OR/PAIN MGTOrdering Physician: Anna Powell DO03/27/2017 9:15 AMLUMBAR SPINE FLUOROSCOPYClinical Statement: Lumbar degenerative disk diseaseFINDINGS: 28 seconds fluoroscopy time was utilized by Dr. Powell. TwoC-arm images of the lumbar spine were obtained.IMPRESSION:28 seconds fluoroscopy time utilized by Dr. Powell. ---- Electronic Signature on File ----Signed By: Carlos Velasco MD [email or web address] tated: 03/27/2017 10:53 AMSigned: 03/27/2017 10:53 AM Reported By: CARLOS VELASCO M.D. Signed By: CARLOS VELASCO M.D. [facility] FLUOROSCOPY IN OR/PAIN MGTon 03-13-2017 FLUOROSCOPY IN OR/PAIN MGT FLUOROSCOPY IN OR/PAIN MGTOrdering Physician: Anna Powell, DO03/13/2017 9:20 AMFLUOROSCOPY IN PAIN MANAGEMENTClinical Statement: Lumbar degenerative disk disease, painFINDINGS: Report is being generated documenting utilization of 36seconds of fluoroscopic time by Dr. Powell for multilevel facet jointinjection. Three spot films are obtained.IMPRESSION:Docu mentation of fluoroscopy utilized by Dr. Powell. Please refer toher notes for details of the procedure. ---- Electronic Signature on File ----Signed By: Nuno Cedillo [email or web address] luiz: 03/13/2017 9:44 AMSigned: 03/13/2017 9:45 AM Reported By: NUNO CEDILLO M.D. Signed By: NUNO CEDILLO M.D. [facility] Patient Summary Documentson 01-19-2017 Patient Summary Documents Normal [facility] XR RIBS 2 VIEWS LEFT/PA CHES T(AO)on 01-19-2017 XR RIBS 2 VIEWS LEFT/PA CHEST(AO) ORIGINALPA chest and left RIBS 3 views HISTORY: Patient fell, left-sided pain COMPARISON: 08/06/2016 The heart and pulmonary vessels are normal. The lungs are clear and there is no pleural fluid seen. I do not identify left rib fracture. The adjacent pleura is unremarkable. There are minor degenerative changes in the spine. IMPRESSION: No acute finding identified. Interpreted By: Rolly Zuritareliminary Report By: Rolly Zurita MDElectronically Signed By: Rolly Zurita MD Dictated Date: 01/19/2017 10:44:08 AM Prelim Date: 01/19/2017 10:44:08 AM Sign Date: 01/19/2017 10:45:04 AM [facility] Vital Signs Date Time Vital Sign Value Performing Clinician Rimai hansel 04-22-2023 15:00-0400 Diastolic blood pressure 55 mm[Hg] Nikhil Boothe MD Work Phone: [facility] [employer] 04-22-2023 15:00-0400 Heart rate 86 /min Nikhil Boothe MD Work Phone: [facility] [employer] 04-22-2023 15:00-0400 Respiratory rate 13 /min Nikhil Boothe MD Work Phone: [facility] [employer] 04-22-2023 15:00-0400 SaO2% (BldA) [Mass fraction] 100 % Nikhil Boothe MD Work Phone: [facility] [employer] 04-22-2023 15:00-0400 Systolic blood pressure 105 mm[Hg] Nikhil Boothe MD Work Phone: [facility] [employer] 04-22-2023 14:14-0400 Body temperature 97.7 [degF] Nikhil Boothe MD Work Phone: [facility] [employer] 04-22-2023 11:37-0400 Body height 154.9 cm Nikhil Boothe MD Work Phone: [facility] [employer] 04-22-2023 11:37-0400 Body mass index (BMI) [Ratio] 21.92 kg/m2 Nikhil Boothe MD Work Phone: [facility] [employer] 04-22-2023 11:37-0400 Body weight 52.62 kg Nikhil Boothe MD Work Phone: [facility] [employer] 03-26-2023 10:32-0400 Body height 154.9 cm Grace Sanford APRN [employer] Work Phone: [facility] [employer] 03-26-2023 10:32-0400 Body mass index (BMI) [Ratio] 22.3 kg/m2 Grace Sanford EL TEACHER - BOILERMAKER HELPER Work Phone: [facility] [employer] 03-26-2023 10:32-0400 Body weight 53.52 kg Grace Sidhuod EL TEACHER - BOILERMAKER HELPER Work Phone: [facility] [employer] 03-26-2023 10:32-0400 Diastolic blood pressure 82 mm[Hg] Grace Claribel EL TEACHER - BOILERMAKER HELPER Work Phone: [facility] [employer] 03-26-2023 10:32-0400 Heart rate 87 /min Grace Claribel EL TEACHER - BOILERMAKER HELPER Work Phone: [facility] [employer] 03-26-2023 10:32-0400 Systolic blood pressure 129 mm[Hg] Grace Claribel EL TEACHER - BOILERMAKER HELPER Work Phone: [facility] [employer] 03-26-2023 09:12-0400 Body height 154.9 cm Nikhil Boothe MD Work Phone: [facility] [employer] 03-26-2023 09:12-0400 Body mass index (BMI) [Ratio] 21.35 kg/m2 Nikhil Boothe MD Work Phone: [facility] [employer] 03-26-2023 09:12-0400 Body temperature 98.01 [degF] Nikhil Boothe MD Work Phone: [facility] [employer] 03-26-2023 09:12-0400 Body weight 51.26 kg Nikhil Boothe MD Work Phone: [facility] [employer] 03-26-2023 09:12-0400 Diastolic blood pressure 85 mm[Hg] Nikhil Boothe MD Work Phone: [facility] [employer] 03-26-2023 09:12-0400 Heart rate 96 /min Nikhil Boothe MD Work Phone: [facility] [employer] 03-26-2023 09:12-0400 Systolic blood pressure 130 mm[Hg] Nikhil Boothe MD Work Phone: [facility] [employer] 11-13-2022 10:25-0400 Body height 154.9 cm Dyana Bee MD Work Phone: [facility] 11-13-2022 10:25-0400 Body temperature 98.2 [degF] Dyana Bee MD Work Phone: [facility] 11-13-2022 10:25-0400 Body weight 51.71 kg Dyana Bee MD Work Phone: [facility] 11-13-2022 10:25-0400 Diastolic blood pressure 78 mm[Hg] Dyana Bee MD Work Phone: [facility] 11-13-2022 10:25-0400 Heart rate 109 /min Dyana Bee MD Work Phone: [facility] 11-13-2022 10:25-0400 SaO2% (BldA) [Mass fraction] 99 % Dyana Bee MD Work Phone: [facility] 11-13-2022 10:25-0400 Systolic blood pressure 130 mm[Hg] Dyana Bee MD Work Phone: [facility] 11-06-2022 10:10-0400 Body height 154.9 cm Danii Brannon MD Work Phone: [facility] 11-06-2022 10:10-0400 Body mass index (BMI) [Ratio] 21.46 kg/m2 Danii Brannon MD Work Phone: [facility] [employer] 11-06-2022 10:10-0400 Body weight 51.53 kg Danii Brannon MD Work Phone: [facility] 11-06-2022 10:10-0400 Diastolic blood pressure 75 mm[Hg] Danii Brannon MD Work Phone: [facility] [employer] 11-06-2022 10:10-0400 Heart rate 84 /min Danii Brannon MD Work Phone: [facility] [employer] 11-06-2022 10:10-0400 Systolic blood pressure 117 mm[Hg] Danii Brannon MD Work Phone: [facility] [employer] 10-23-2022 13:15-0400 Heart rate 75 /min Danii Brannon MD Work Phone: [facility] [employer] 10-23-2022 13:15-0400 Respiratory rate 13 /min Danii Brannon MD Work Phone: [facility] [employer] 10-23-2022 13:15-0400 SaO2% (BldA) [Mass fraction] 100 % Danii Brannon MD Work Phone: [facility] [employer] 10-23-2022 13:00-0400 Diastolic blood pressure 60 mm[Hg] Danii Brannon MD Work Phone: [facility] [employer] 10-23-2022 13:00-0400 Systolic blood pressure 124 mm[Hg] Danii Brannon MD Work Phone: [facility] [employer] 10-23-2022 12:29-0400 Body temperature 98.6 [degF] Danii Brannon MD Work Phone: [facility] [facility] [employer] 10-23-2022 09:49-0400 Body height 154.9 cm Danii Brannon MD Work Phone: [facility] [employer] 10-23-2022 09:49-0400 Body mass index (BMI) [Ratio] 21.48 kg/m2 Danii Brannon MD Work Phone: [facility] [employer] 10-23-2022 09:49-0400 Body weight 51.57 kg Danii Brannon MD Work Phone: [facility] [employer] 09-18-2022 10:04-0400 Body height 154.9 cm Danii Brannon MD Work Phone: [facility] [employer] 09-18-2022 10:04-0400 Body mass index (BMI) [Ratio] 21.35 kg/m2 Danii Brannon MD Work Phone: [facility] [employer] 09-18-2022 10:04-0400 Body weight 51.26 kg Danii Brannon MD Work Phone: [facility] [employer] 09-18-2022 10:04-0400 Diastolic blood pressure 66 mm[Hg] Danii Brannon MD Work Phone: [facility] [employer] 09-18-2022 10:04-0400 Heart rate 89 /min Danii Brannon MD Work Phone: [facility] 09-18-2022 10:04-0400 Systolic blood pressure 132 mm[Hg] Danii Brannon MD Work Phone: [facility] Encounters Encounter Date Encounter Type Care Provider Facility Start: 03-27-2024 End: 03-27-2024 Telephone encounter Tamiko Zamora EL TEACHER - BOILERMAKER HELPER Work Phone: [facility] Gynecologic Oncology - [place] Start: 05-21-2023 End: 05-21-2023 [facility]ulatory [facility] Start: 05-21-2023 End: 05-21-2023 Postop follow up visit related to original px Nikhil Boothe MD Work Phone: [facility] Comment on above: AIN grade III (Prima ry Dx) Start: 04-22-2023 End: 04-22-2023 ambulatory [facility] Start: 04-22-2023 End: 04-22-2023 Subsequent hospital visit by physician Nikhil Boothe MD Work Phone: [facility] MA[facility] OR Comment on above: 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); Anal lesion; 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 Start: 04-16-2023 End: 04-16-2023 ambulatory [facility] Start: 03-26-2023 ambulatory Nikhil Boothe MD Work Phone: [facility] Comment on above: Anal lesion (Primary Dx) Start: 03-26-2023 End: 03-26-2023 Office outpatient visit 15 minutes Grace Sanford EL TEACHER - BOILERMAKER HELPER Work Phone: [facility] Gynecologic Oncology Comment on above: 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); Tobacco dependence syndrome Start: 03-26-2023 End: 03-26-2023 Office outpatient new 30 minutes Nikhil Boothe MD Work Phone: [facility] Comment on above: Chronic anticoagulat ion (Primary Dx); Vulvar intraepithelial neoplasia (PARMJIT) grade 3; History of pulmonary embolism; Anal lesion; AIN grade III Start: 12-18-2022 Telephone encounter Caitlin dillon MD Work Phone: [facility] Comment on above: Referral; Appointmen t Request Start: 11-14-2022 ambulatory Kenneth Kong RN [facility] Clinical Communication Start: 11-14-2022 Patient encounter procedure Kenneth Kong RN [facility] Clinical Communication Start: 11-13-2022 Telephone encounter Danii Brannon MD Work Phone: [facility] Gynecologic Oncology Start: 11-13-2022 End: 11-14-2022 ambulatory DYANA BEE Facility:[facility] Start: 11-13-2022 End: 11-13-2022 Patient encounter procedure Dyana Bee MD Work Phone: General Surgery Comment on above: 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) Start: 11-06-2022 End: 11-06-2022 Postop follow up visit related to original px Danii Brannon MD Work Phone: [facility] Gynecologic Oncology Comment on above: 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) Start: 10-31-2022 Telephone encounter Grace salguero EL TEACHER - BOILERMAKER HELPER Work Phone: [facility] Gynecologic Oncology Comment on above: Results Start: 10-23-2022 End: 10-23-2022 Subsequent hospital visit by physician Danii Brannon MD Work Phone: [facility] MA[facility] OR Comment on above: 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); Carcinoma in situ of vulva Start: 10-16-2022 End: 10-16-2022 Subsequent hospital visit by physician Ion Xr Exam Room 1 [facility] X-Ray Comment on above: Arrived Start: 09-18-2022 Telephone encounter Danii Brannon MD Work Phone: [facility] Gynecologic Oncology Comment on above: surgery scheduling ( Scheduled at [facility]) Start: 09-18-2022 End: 09-18-2022 Office outpatient new 45 minutes Danii Brannon MD Work Phone: [facility] Gynecologic Oncology Comment on above: 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); Tobacco dependence syndrome; Chronic obstructive pulmonary disease, unspecified COPD type (HCC); On continuous oral anticoagulation Start: 10-21-2018 End: 10-21-2018 Emergency department patient visit HARLEY WOOD Facility:B Start: 09-10-2017 Ambulatory Anna Andre Facilit y:[facility] Start: 06-19-2017 Ambulatory Rodolfoestelle Andre Facilit y:[facility] Start: 05-24-2017 Ambulatory Kamilah Smart Facil ity:[facility] Start: 03-27-2017 Evaluation and manag ement of inpatient Anna Powell Facility:[facility] Start: 03-13-2017 Evaluation and manag ement of inpatient Anna Powell Facility:[facility] Start: 02-26-2017 Ambulatory Humberto Morseo Facilit y:[facility] Procedures Date Procedure Procedure Detail Performing Clinician Start: 04-22-2023 Blood count hematocrit Rolly Bull MD Work Phone: Start: 02-08-2023 Mammography Nikhil Booteh MD Work Phone: Start: 10-16-2022 Radiologic exam ches t 2 views Emilee Kathryn EL TEACHER - BOILERMAKER HELPER Work Phone: Start: 09-18-2022 H/O splenectomy History of splenecto my Danii Brannon MD Work Phone: Start: 10-14-2015 Mammography Dyana Bee MD Work Phone: Start: 07-13-2015 Colonoscopy Dyana Bee MD Work Phone: Plan of Treatment Date Care Activity Detail Author Start: 03-30-2024 End: 03-30-2024 Patient encounter procedure 03/30/2024 10:30 AM EDT Office Visit [facility] Gynecologic Oncology [address] [place] [id number] Grace Sanford, EL TEACHER - BOILERMAKER HELPER [address] [facility] [address] [place], [place] [id number] [facility]nec[facility] Start: 03-08-2024 COVID-19 Vaccine ( season) COVID-19 Vaccine ( season) [facility] Start: 03-08-2024 Influenza vaccination Influenza Vaccine (#1) [facility] Start: 03-04-2024 DTaP/Tdap/Td Vaccines (2 - Td or Tdap) DTaP/Tdap/Td Vaccines (2 - Td or Tdap) [facility] Start: 03-04-2024 Urine microalbumin profile DTAP,TDAP,TD (2 - Td or Tdap) [facility] Start: 02-09-2024 Screening for malignant neoplasm of breast Mammogram [facility] Start: 07-08-2023 Medicare Advantage Annual Wellness Visit Medicare Advantage Annual Wellness Visit [facility] Start: 05-15-2023 End: 05-15-2023 Patient encounter procedure 05/15/2023 2:15 PM EST Office Visit [facility] [address] [place] [address] Nikhil Boothe MD [address] [place], [place] [phone] [facility] Start: 05-14-2023 End: 05-14-2023 Patient encounter procedure 05/14/2023 10:45 AM EST Office Visit [facility] [address] [place] [address] Nikhil Boothe MD [address] [place], [place] [id number] [facility] Start: 04-22-2023 End: 04-22-2023 Admission to same day surgery center 04/22/2023 1:00 PM EDT - 04/22/2023 2:00 PM EDT Surgery [facility] MAIN OR [address] [place] [address] Nikhil Boothe MD [address] [place] [address] RECTAL EXAM UNDER ANESTHESIA WITH EXCISION AND FULGERATION OF ANAL LESIONS [41666 (CPT )] [facility] MA[facility] OR Comment on above: RECTAL EXAM UNDER ANESTHESIA WITH EXCISI ON AND FULGERATION OF ANAL LESIONS [17598 (CPT )] Start: 04-22-2023 End: 04-22-2023 Anrct xm surg req anes general spi/edrl dx ANORECTAL EXAM REQUIRING ANESTHESIA Anal lesion 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 [facility] [place] [phone] Nikhil Boothe MD [address] [facility] [address] [place] [id number] [facility] OR Start: 04-16-2023 End: 04-16-2023 Admission to establishment 04/16/2023 9:30 AM EDT Pre-Admission Testing [facility] Pre-Admit Testing [address] [facility] [place] [phone] [facility] Pre-Admit Testing Start: 03-26-2023 End: 03-26-2023 Patient encounter procedure 03/26/2023 10:45 AM EDT Office Visit [facility] [address] [facility] [address] [place] [address] Danii Brannon MD [address] [facility] [address] [place] [address] [facility] Start: 03-26-2023 End: 03-26-2023 Patient encounter procedure 03/26/2023 9:30 AM EDT Office Visit [facility] [address] [place] [phone] Nikhil Boothe MD [address] [place], [place] [phone] [facility] Start: 03-12-2023 End: 03-12-2023 Patient encounter procedure [facility] Start: 03-08-2023 COVID-19 Vaccine () COVID-19 Vaccine () [facility] Start: 03-08-2023 Influenza vaccination Influenza Vaccine (#1) [facility] Start: 11-06-2022 End: 11-06-2022 Patient encounter procedure 11/06/2022 Office Visit Gynecologic Oncology Danii Brannon MD [address] [address] [facility] Start: 10-23-2022 End: 10-23-2022 Anesthesia consultation 10/23/2022 Anesthesia Event Procedural Emilee Tirado APRN - BOILERMAKER HELPER [address] [place], [place] [phone] [facility] Start: 10-23-2022 End: 10-23-2022 Admission to same day surgery center 10/23/2022 Surgery Procedural Danii Brannon MD [address] [facility] [address] [place] [address] WIDE LOCAL INCISION [47601 (CPT )] [facility] Comment on above: WIDE LOCAL INCISION [97779 (CPT )] Start: 10-23-2022 End: 10-23-2022 Biopsy vulva/perineum 1 lesion spx [facility] Operating Room Start: 10-23-2022 End: 10-23-2022 Biopsy vulva/perineum each addl lesion [facility] Operating [facility] Start: 10-23-2022 Subsequent hospital visit by physician 10/23/2022 Hospital Encounter Procedural Khadijah-Danii Figueroa MD [address] [address] [facility] Start: 10-16-2022 End: 10-16-2022 Admission to establishment 10/16/2022 Pre-Admission Testing Pre-Admission Testing [facility] Pre-Admit Testing Start: 2022 RSV Immunization aged 60 or older (1 - 1-dose 60+ series) RSV Immunization aged 60 or older (1 - 1-dose 60+ series) [facility] Start: 02-09-2022 COVID-19 Vaccine (4 - Booster for Pfizer series) COVID-19 Vaccine (4 - Booster for Pfizer series) [facility] Start: 02-09-2022 COVID-19 Vaccine (4 - Pfizer series) COVID-19 Vaccine (4 - Pfizer series) [facility] Start: 02-09-2022 COVID-19 VACCINE (5 - Booster for Pfizer series) COVID-19 VACCINE (5 - Booster for Pfizer series) [facility] Start: 09-20-2020 LIPID SCREEN LIPID SCREEN [facility] Start: 07-13-2018 Colonoscopy COLONOSCOPY [facility] Start: 07-13-2018 COLORECTAL CANCER SCREENING COLORECTAL CANCER SCREENING [facility] Start: 01-25-2018 DIABETES SCREEN DIABETES SCREEN [facility] Start: 10-13-2016 Mammography MAMMOGRAM [facility] Start: 2012 Screening for malignant neoplasm of lung Lung Cancer Screening [facility] Start: 2012 SHINGRIX VACCINE (1 of 2) SHINGRIX VACCINE (1 of 2) [facility] Start: 2012 Zoster Vaccines (1 of 2) Zoster Vaccines (1 of 2) [facility] Start: 07-08-2009 Pneumococcal Vaccine: Pediatrics (0 to 5 Years) and At-Risk Patients (6 to 64 Years) (2 - PCV) Pneumococcal Vaccine: Pediatrics (0 to 5 Years) and At-Risk Patients (6 to 64 Years) (2 - PCV) [facility] Start: 07-08-2009 Pneumococcal Vaccine: Pediatrics (0 to 5 Years) and At-Risk Patients (6 to 64 Years) (2 of 2 - PCV) Pneumococcal Vaccine: Pediatrics (0 to 5 Years) and At-Risk Patients (6 to 64 Years) (2 of 2 - PCV) [facility] Start: 2007 COLOGUARD (FIT-DNA) COLOGUARD (FIT-DNA) [facility] Start: [address] COLONOGRAPHY [facility] Start: 2007 FECAL OCCULT BLOOD FECAL OCCULT BLOOD [facility] Start: 2007 SIGMOIDOSCOPY SIGMOIDOSCOPY [facility] Start: 2002 Screening for malignant neoplasm of breast Mammogram [facility] Start: 1981 Hepatitis A Vaccines (1 of 2 - Risk 2-dose series) Hepatitis A Vaccines (1 of 2 - Risk 2-dose series) [facility] Start: 1981 Zoster Vaccines (1 of 2) Zoster Vaccines (1 of 2) [facility] Start: 1980 Diabetes mellitus screening Diabetes Screening [facility] Start: 1980 Hepatitis C screening Hepatitis C Screening [facility] Start: 1980 HIV SCREENING HIV SCREENING [facility] Start: 1974 Depression Screening Depression Screening [facility] Start: 1972 Meningococcal B Vaccine (1 of 4 - Increased Risk Bexsero 2-dose series) Meningococcal B Vaccine (1 of 4 - Increased Risk Bexsero 2-dose series) [facility] Start: 1972 Meningococcal B Vaccine (1 of 4 - Increased Risk) Meningococcal B Vaccine (1 of 4 - Increased Risk) [facility] Start: 1968 PNEUMOCOCCAL (1 - PCV) PNEUMOCOCCAL (1 - PCV) [facility] Start: 1968 Pneumococcal Vaccine: Pediatrics (0 to 5 Years) and At-Risk Patients (6 to 64 Years) (1 - PCV) Pneumococcal Vaccine: Pediatrics (0 to 5 Years) and At-Risk Patients (6 to 64 Years) (1 - PCV) [facility] Start: 1964 Meningococcal Vaccine (1 - Risk 2-dose series) Meningococcal Vaccine (1 - Risk 2-dose series) [facility] Start: 1963 Hepatitis A Vaccines (1 of 2 - Risk 2-dose series) Hepatitis A Vaccines (1 of 2 - Risk 2-dose series) [facility] Start: 1963 MMR Vaccines (1 of 1 - Standard series) MMR Vaccines (1 of 1 - Standard series) [facility] Start: 1962 Meningococcal Vaccine (1 - Risk start 2-23 months series) Meningococcal Vaccine (1 - Risk start 2-23 months series) [facility] Start: 1962 Examination of skin Derm Melanoma Skin Check [facility] Start: 1962 Hepatitis B Vaccines (1 of 3 - 3-dose series) Hepatitis B Vaccines (1 of 3 - 3-dose series) [facility] Start: 1962 HIV screening HIV Screening [facility] Start: 1962 Lipid panel Lipid Panel [facility] Start: 1962 Medicare Advantage Annual Wellness Visit (AWV) Medicare Advantage Annual Wellness Visit (AWV) [facility] Start: 1962 Screening for malignant neoplasm of colon [facility] Dstrj lesion anus sm pl eltrdsiccation DESTRUCTION OF ANAL LESIONS ELECTRODESICCATION Anal lesion [facility] Tissue exam [facility] Sy stem Work Phone: Comment on above: Release Upon Ordering for 1 Occurrences starting 10/23/2022 Tissue exam Tissue exam Path ology and Cytology Timed Anal lesion 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 Release Upon Ordering for 1 Occurrences starting 04/22/2023 [facility] Work Phone: Comment on above: Release Upon Ordering for 1 Occurrences starting 04/22/2023 Immunizations Immunization Date Immunization Notes Care Provider Fa [facility] 04-25-2022 influenza virus vacc ine, unspecified formulation Caitlin Gill MD Work Phone: [facility] 03-04-2014 tetanus toxoid, redu marcus diphtheria toxoid, and acellular pertussis vaccine, adsorbed Dyana Bee MD Work Phone: [facility] 05-24-2011 influenza virus vacc ine, unspecified formulation Dyana Bee MD Work Phone: [facility] Payers Date Payer Category Payer Medicare [id number] 2019 Unknown ANTHEM BLUE CROS S AND BLUE SHIELD ANTHEM MEDIBLUE HMO [id number] 2019-Present [phone] [address] [place] [address] HMO [id number] 2018 Unknown [id number] 2017 Medicare [id number] 2013 Medicaid [id number] 2013 Medicaid [id number] 2013 Medicare [id number] 1960 Unknown [id number] Social History Date Type Detail Facility Start: 07-08-1977 End: 03-26-2023 Tobacco smoking status ORIS Smokes tobacco daily [facility] Start: 07-08-1977 History of tobacco use Cigarette Smo ker [facility] Start: 09-18-2022 End: 03-26-2023 Tobacco use and exposure Smokeless tobacco non-user [facility] Start: 09-18-2022 End: 04-16-2023 Alcohol intake Lifetime non-drinker (finding) [facility] Start: 1960 Sex Assigned At Female S [facility] Start: 09-08-2022 End: 03-26-2023 Exposure to SARS-CoV-2 (event) Not sure [facility] Start: 10-16-2022 End: 04-16-2023 Cigarettes smoked current (pack per day) - Reported 0.5 [facility] Start: 11-13-2022 Alcohol intake Current non-dr 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 analyst of alcohol (finding) [facility] Start: 07-06-2015 Tobacco Comment using vap pen w/ nicotine [facility] Start: 06-04-2011 Alcohol Comment rarely [facility] Start: 1960 Sex Assigned At Not on file [facility] Start: 11-06-2022 End: 04-16-2023 Tobacco use panel [facility] Clinical Notes 09-24-2015 to 03-27-2024 Telephone Encounter - Carlos Alberto Flynn - 03/27/2024 9:23 AM EDTTelephone Encounter - Carlos Alberto Flynn - 03/27/2024 9:23 AM Mireya Boothe MD - 05/21/2023 9:30 AM ESTDischarge InstructionsDischarge Instructions Note Date & Type Note Facility 03-27-2024 Telephone encounter Note Patient states that her brother and she no longer has a ride. She has been keeping up with her private advisor in [place] which is what she will continue to do. Patient's appointment for Saturday has been cancelled. Please contact patient with questions, thank you [facility] 03-27-2024 Miscellaneous Notes Patient states that her brother and she no longer has a ride. She has been keeping up with her private advisor in [place] which is what she will continue to do. Patient's appointment for Saturday has been cancelled. Please contact patient with questions, thank you documented in this encounter [facility] 05-21-2023 History of Present illness Narrative Images from the original note were not included. Colon and Rectal Surgery PATIENT NAME: Kenneth Finn : 1960 TODAY'S DATE: 05/21/2023 No chief complaint on file. SUBJECTIVE: Kenneth Finn is a 63 y.o. female with history of PARMJIT 3 and AIN 3. History of pulmonary embolism 4 years ago on Xarelto. 10/23/2022 Dr. Brannon underwent wide local excision of vulva/perineum lesions. 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 Pathology from right vulvar excision showed PARMJIT 3. Colonoscopy 5 [address] [place] [address] Rey. Pt states that some polyps were removed. Pt does a stool test every year and states that the last one was negative. 04/22/2023 rectal exam under anesthesia with excision fulguration of anal lesions in the left anterior anal verge. Pathology on the biopsy showed high-grade squamous intraepithelial lesion (AIN 3). Patient states she is doing well. No issues or problems. Past Medical History: Diagnosis Date Anxiety Arthritis Asthma CAD (coronary artery disease) Chronic headache Chronic pain In pain management COPD (chronic obstructive pulmonary disease) (HCC) DDD (degenerative disc disease), lumbar DDD (degenerative disc disease), thoracic Depression Dry eye syndrome Fibromyalgia Gastroparesis GERD (gastroesophageal reflux disease) History of tobacco use Hypersplenism Hypertensive pulmonary arterial disease (HCC) Hypotension IBS (irritable bowel syndrome) Lumbar spondylosis Memory loss Neurodermatitis Osteoarthritis right knee PE (pulmonary thromboembolism) (HCC) bilateral Post-splenectomy Thoracic spondylosis Vitamin D deficiency Past Surgical History: Procedure Laterality Date BREAST BIOPSY Right benign COLONOSCOPY OTHER SURGICAL HISTORY 2012 bowel obstruction SPLENECTOMY, PARTIAL 2001 TOTAL ABDOMINAL HYSTERECTOMY 1999 VULVAR/PERINEAL BIOPSY (HISTORICAL) N/A 10/23/2022 Current Outpatient Medications: albuterol 108 (90 Base) MCG/ACT inhaler, Inhale 2 puffs every 6 hours as needed for wheezing., Disp: , Rfl: uqquhdkwui-anuogcucwdjdu-mihfwbwq 50-325-40 MG tablet, Take 1 tablet by mouth every 4 hours as needed for headaches., Disp: , Rfl: cholecalciferol (Vitamin D-3) 50 MCG (1999) tablet, Take by mouth 1 (one) time each day., Disp: , Rfl: citalopram (CeleXA) 20 MG tablet, Take by mouth Nightly., Disp: , Rfl: diazePAM (Valium) 10 MG tablet, Take by mouth every 8 hours as needed., Disp: , Rfl: lidocaine-prilocaine (Emla) 2.5-2.5 % cream, Apply topically Daily as needed for mild pain (1-3). Apply to vulva as needed for pain (Patient not taking: Reported on 04/16/2023), Disp: 30 g, Rfl: 0 pantoprazole (ProtoNix) 40 MG EC tablet, Take 40 mg by mouth in the morning and 40 mg in the evening., Disp: , Rfl: promethazine (Phenergan) 25 MG tablet, Take by mouth., Disp: , Rfl: rivaroxaban (Xarelto) 20 MG tablet, Take by mouth. Take with food at lunch, Disp: , Rfl: rosuvastatin (Crestor) 10 MG tablet, Take 10 mg by mouth daily., Disp: , Rfl: tiZANidine (Zanaflex) 4 MG capsule, Take 4 mg by mouth 3 times daily., Disp: , Rfl: topiramate (Topamax) 100 MG tablet, Take 50 mg by mouth in the morning and 50 mg in the evening. Pt takes 50 mg daily., Disp: , Rfl: Social History Socioeconomic History Marital status: Spouse name: Not on file Number of children: Not on file Years of education: Not on file Highest education level: Not on file Occupational History Not on file Tobacco Use Smoking status: Every Day Packs/day: 0.50 Years: 40.00 Additional pack years: 0.00 Total pack years: 20.00 Types: Cigarettes Start date: 1977 Smokeless tobacco: Never Vaping Use Vaping Use: Every day Substances: Nicotine Devices: Pre-filled or refillable cartridge Substance and Sexual Activity Alcohol use: Never Drug use: Never Sexual activity: Not on file Other Topics Concern Not on file Social History Narrative Not on file Social Determinants of Health Financial Resource Strain: Not on file Food Insecurity: Not on file Transportation Needs: Not on file Physical Activity: Not on file Stress: Not on file Social Connections: Not on file Intimate Partner Violence: Not on file Housing Stability: Not on file Family History Problem Relation Name Age of Onset Diabetes Mother Hypertension Father Prostate cancer Father Lung cancer Father Breast cancer Father's Sister Uterine cancer Father's Sister Colon cancer Paternal Cousin Bone cancer Paternal Cousin Marrow Allergies: Allergies Allergen Reactions Amitriptyline Other reaction(s): Rash Fentanyl Shortness of breath Other reaction(s): Rash States gave her a rash. Aspirin Other reaction(s): GI Upset, Nausea Augmentin [Amoxicillin-Pot Clavulanate] Nausea Only Demerol Hcl [Meperidine] Nausea And Vomiting Latex Oxycodone Nausea And Vomiting and Headache Wellbutrin [Bupropion] agitated OBJECTIVE: There were no vitals taken for this visit. Telephone only visit ASSESSMENT/PLAN: No diagnosis found. 63 y.o.female with history of AIN 3 and whitish anal lesions concerning for condyloma with possible AIN. Status post rectal exam under anesthesia with excision fulguration of left anal verge lesion showing AIN 3. Patient doing well. Recommend anoscopy exam every 6 months. Discussed with patient that we can refer her to my partner Dr. Gill for HRA. Patient states that [place] is too far for her to travel and she would like to find a colorectal surgeon around her area in [place]. Patient states she will ask her PCP for a referral. Recommend daily fiber powder therapy to help bulk up stool, adequate water intake, sitz baths b.i.d. and p.r.n., avoid sitting or straining on the toilet for prolonged periods of time. No follow-ups on file. The patient was given the opportunity to ask questions and all questions were answered to the best of my ability. The patient agrees with the above noted plan. The patient was seen and examined independently and relevant data reviewed by myself. A full chart review/interpretation of labs, imaging, endoscopic reports, pathology, and requesting/reviewing previous records was performed when available. Patient was identified and seen today via Telehealth by agreement and consent. I used the following Telehealth technology: Audio capability only. Total length of call 15 minutes. The patient was offered and advised video for a more comprehensive evaluation, but the patient declined or was unable to use video. Patient location: Patient Location: Home. This patient encounter is appropriate and reasonable under the circumstances: transportation issues . The patient has been advised of the potential risks and limitations of this mode of treatment (including but not limited to the absence of in-person examination) and has agreed to be treated in a remote fashion in spite of them. Any and all of the patient's/patient's family's questions on this issue have been answered and I have made no promises or guarantees to the patient. The patient has also been advised to contact this office for worsening conditions or problems, and seek emergency medical treatment and/or call 911 if the patient deems either necessary. The patient stated that they are currently in the [facility]. If the patient is a minor, permission has been obtained by the parent or guardian for the patient to receive medical care at this visit. documented in this encounter [facility] 04-22-2023 Miscellaneous Notes Patient is A&O x4. States pain is at a tolerable level. Denies dizziness and nausea. IV removed without complication. All belongings returned and accounted for. DC instructions gone over with patient and family. All questions answered. Verbalized understanding. Ambulated with steady gait. Patient arrived on unit. Name and date verified. Attached to monitors. Vital signs stable. OPERATIVE NOTE PATIENT NAME: Kenneth Finn : 1960 ATTENDING PHYSICIAN: Nkihil Boothe MD PROCEDURE DATE: 04/22/2023 PREOPERATIVE DIAGNOSIS: Anal lesion POSTOPERATIVE DIAGNOSIS: Same SURGEON: Nikhil Boothe MD RESIDENTIAL PROGRAM WORKER: Candie Boyer OPERATION: Rectal exam under anesthesia with excision and fulguration of anal lesions ANESTHESIA: General ESTIMATED BLOOD LOSS: <50ml COMPLICATIONS: none SPECIMENS: Anal lesion INDICATIONS: The patient is a 62 y.o. year old female with history of above preop diagnosis. I explained the risk, benefits, expected outcome, and alternatives to the procedure. Patient understands the risks include but not inclusive to bleeding, infection, anesthesia complication, blood vessel/nerve damage, chronic pain, reoperation, and failure of the procedure to obtain its intended goals. Patient understands and is in agreement and would like to proceed. DESCRIPTION OF PROCEDURE: Patient was brought to the operating room and intubated by anesthesia then placed in the prone jackknife position with all bony prominences appropriately padded. The buttocks were then taped apart and prepped with Betadine solution. The patient was then draped in usual sterile fashion. We used 0.25% Marcaine with epinephrine for pudendal nerve block. We then performed a digital rectal examination and did not feel any obvious masses. We then used a Hill-Ugarte retractor to serially examine the anal canal and the left anterior anal verge area there were whitish raised lesions about 2 to 3 mm in size. Using Metzenbaums scissors we excised a small piece for pathology and sent in office anal lesion. We then use electrocautery to fulgurate the rest of the lesions. Towards the end the procedure all counts were correct and all sites were hemostatic. The patient was then awoken by anesthesia then transferred to the PACU in stable condition. documented in this encounter [facility] 04-22-2023 Note Formatting of this n ote might be different from the original. Patient is A&O x4. States pain is at a tolerable level. Denies dizziness and nausea. IV removed without complication. All belongings returned and accounted for. DC instructions gone over with patient and family. All questions answered. Verbalized understanding. Ambulated with steady gait. [facility] 04-22-2023 Note Formatting of this n ote might be different from the original. Patient is A&O x4. States pain is at a tolerable level. Denies dizziness and nausea. IV removed without complication. All belongings returned and accounted for. DC instructions gone over with patient and family. All questions answered. Verbalized understanding. Ambulated with steady gait. [facility] 04-22-2023 Note Formatting of this n ote might be different from the original. Patient arrived on unit. Name and date verified. Attached to monitors. Vital signs stable. [facility] 04-22-2023 Note Formatting of this n ote might be different from the original. Patient arrived on unit. Name and date verified. Attached to monitors. Vital signs stable. 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 Anesthesia Post Evaluation Patient location during evaluation: PACU Patient participation: complete - patient participated Level of consciousness: awake and alert Pain management: satisfactory to patient Airway patency: patent Dental Injury: no Cardiovascular status: acceptable, blood pressure returned to baseline and hemodynamically stable Respiratory status: acceptable, spontaneous ventilation and face mask Hydration status: euvolemic Nausea/Vomiting: controlled No notable events documented. Patient can be discharged once all PACU criteria has been met. 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 Anesthesia Post Evaluation Patient location during evaluation: PACU Patient participation: complete - patient participated Level of consciousness: awake and alert Pain management: satisfactory to patient Multimodal analgesia pain management approach Airway patency: patent Two or more strategies used to mitigate risk of obstructive sleep apnea Cardiovascular status: acceptable and hemodynamically stable Respiratory status: acceptable, face mask and spontaneous ventilation Hydration status: acceptable No notable events documented. MIPS #430 PONV Patient received an inhalational anesthetic (4554F) Patient does not exhibit three or more risk factors for PONV (X0430)) MIPS # 424 Perioperative Temperature Management Anesthesia time was less than 60 minutes (4256F) MIPS #477 Multimodal Pain Management Not emergent case Patient was administered multimodal pain management (two or more drugs and/or interventions excluding systemic opioids) in the periopeartive period occurring at some time between 6 hours prior to anesthesia start time until discharged from PACU (G2148) MIPS #404 Anesthesiology Smoking Abstinence The patient is a current smoker (G9642) (e.g. cigarette, cigar, pipe, e-cigarette/vaping/marijuana) The patient underwent an elective surgery or procedure requiring anesthesia (G9643) The patient received preop smoking cessation instructions prior to the day of surgery or procedure by MD, [facility] residential program worker proxy staff (G9497) The patient did not smoke the day of the procedure (G9644) I completed my handoff to the receiving clinician during which we: 1. Identified the patient 2. Identified the responsible provider 3. Reviewed the pertinent medical history 4. Discussed the surgical course 5. Reviewed intra-op anesthesia management and issues during anesthesia 6. Set expectations for post-procedure period 7. Allowed opportunity for questions and acknowledgement of understanding. [facility] 04-22-2023 Note Airway Date/Time: 04/22/2023 1:39 PM Urgency: scheduled Airway not difficult General Information and Staff Patient location during procedure: Procedural Resident/RN CASE MANAGEMENT: Hansel Zuluaga CRNA Performed: RN CASE MANAGEMENT Performed by: Hansel Zuluaga RN CASE MANAGEMENT Authorized by: Hansel Zuluaga CRNA Indications and Patient Condition Indications for airway management: anesthesia Sedation level: Asleep Preoxygenated: yes Patient position: sniffing MILS maintained throughout Mask difficulty assessment: 1 - vent by mask Final Airway Details Final airway type: endotracheal airway Successful airway: ETT Cuffed: yes Successful intubation technique: direct laryngoscopy Facilitating devices/methods: intubating stylet Endotracheal tube insertion site: oral Blade: Alex Blade size: #3 ETT size (mm): 7.0 Cormack-Lehane Classification: grade I - full view of glottis Placement verified by: capnometry Measured from: lips ETT to lips (cm): 21 Number of attempts at approach: 1 Number of other approaches attempted: 0 [facility] 04-22-2023 Note Formatting of this n ote might be different from the original. OPERATIVE NOTE PATIENT NAME: Kenneth Finn : 1960 ATTENDING PHYSICIAN: Nikhil Boothe MD PROCEDURE DATE: 04/22/2023 PREOPERATIVE DIAGNOSIS: Anal lesion POSTOPERATIVE DIAGNOSIS: Same SURGEON: Nikhil Boothe MD RESIDENTIAL PROGRAM WORKER: Candie Boyer OPERATION: Rectal exam under anesthesia with excision and fulguration of anal lesions ANESTHESIA: General ESTIMATED BLOOD LOSS: <50ml COMPLICATIONS: none SPECIMENS: Anal lesion INDICATIONS: The patient is a 62 y.o. year old female with history of above preop diagnosis. I explained the risk, benefits, expected outcome, and alternatives to the procedure. Patient understands the risks include but not inclusive to bleeding, infection, anesthesia complication, blood vessel/nerve damage, chronic pain, reoperation, and failure of the procedure to obtain its intended goals. Patient understands and is in agreement and would like to proceed. DESCRIPTION OF PROCEDURE: Patient was brought to the operating room and intubated by anesthesia then placed in the prone jackknife position with all bony prominences appropriately padded. The buttocks were then taped apart and prepped with Betadine solution. The patient was then draped in usual sterile fashion. We used 0.25% Marcaine with epinephrine for pudendal nerve block. We then performed a digital rectal examination and did not feel any obvious masses. We then used a Hill-Ugarte retractor to serially examine the anal canal and the left anterior anal verge area there were whitish raised lesions about 2 to 3 mm in size. Using Metzenbaums scissors we excised a small piece for pathology and sent in office anal lesion. We then use electrocautery to fulgurate the rest of the lesions. Towards the end the procedure all counts were correct and all sites were hemostatic. The patient was then awoken by anesthesia then transferred to the PACU in stable condition. [facility] 04-22-2023 Note Formatting of this n ote might be different from the original. OPERATIVE NOTE PATIENT NAME: Kenneth Finn : 1960 ATTENDING PHYSICIAN: Nikhil Boothe MD PROCEDURE DATE: 04/22/2023 PREOPERATIVE DIAGNOSIS: Anal lesion POSTOPERATIVE DIAGNOSIS: Same SURGEON: Nikhil Boothe MD RESIDENTIAL PROGRAM WORKER: Candie Boyer OPERATION: Rectal exam under anesthesia with excision and fulguration of anal lesions ANESTHESIA: General ESTIMATED BLOOD LOSS: <50ml COMPLICATIONS: none SPECIMENS: Anal lesion INDICATIONS: The patient is a 62 y.o. year old female with history of above preop diagnosis. I explained the risk, benefits, expected outcome, and alternatives to the procedure. Patient understands the risks include but not inclusive to bleeding, infection, anesthesia complication, blood vessel/nerve damage, chronic pain, reoperation, and failure of the procedure to obtain its intended goals. Patient understands and is in agreement and would like to proceed. DESCRIPTION OF PROCEDURE: Patient was brought to the operating room and intubated by anesthesia then placed in the prone jackknife position with all bony prominences appropriately padded. The buttocks were then taped apart and prepped with Betadine solution. The patient was then draped in usual sterile fashion. We used 0.25% Marcaine with epinephrine for pudendal nerve block. We then performed a digital rectal examination and did not feel any obvious masses. We then used a Hill-Ugarte retractor to serially examine the anal canal and the left anterior anal verge area there were whitish raised lesions about 2 to 3 mm in size. Using Metzenbaums scissors we excised a small piece for pathology and sent in office anal lesion. We then use electrocautery to fulgurate the rest of the lesions. Towards the end the procedure all counts were correct and all sites were hemostatic. The patient was then awoken by anesthesia then transferred to the PACU in stable condition. [facility] 04-22-2023 Note H&P reviewed. The howie cruz was examined and there are no changes to the H&P. [facility] 04-22-2023 Hospital Discharge instructions Candie Boyer MD - 04/22/2023 1:16 PM EDT POST-OPERATIVE INSTRUCTIONS FOR ANORECTAL SURGERY OBTAIN THE FOLLOWING FROM THE [facility] PAIN MEDICATION - A pain medication prescription will be provided. However, Advil (ibuprofen) is often satisfactory a few days after surgery and is less constipating. METAMUCIL or similar fiber supplement is recommended on a daily basis for 2 weeks. COLACE or MIRALAX is recommended on a daily basis for 2 weeks to avoid hard bowel movements. SPECIAL INSTRUCTIONS Remove the external gauze later in the day or before your first shower or bath. On occasion a dissolvable foam (Gelfoam ) or gauze (Surgicel ) is used in the anal canal. This material will pass spontaneously often turning brown in color. Flush it down the toilet. Avoiding straining or sitting on the toilet for long periods of time or heavy lifting especially the first day after surgery. The increased pressure can aggravate swelling and bleeding. Slight bleeding and drainage as usual after this procedure. Report excessive bleeding or passage of clots to the office. Use non-cotton gauze, sanitary pads or minipads as needed for bleeding and drainage. Keep perianal area clean. Make-up cleansing pads may be more comfortable than wet toilet paper which tends to crumble. Unscented and alcohol free baby wipes are also useful. Warm showers or baths are recommended 2 to 3 times per day or as needed in the post- operative period for discomfort. Avoid a hot shower immediately after surgery since the sedation used during procedure may precipitate light-headedness or fainting. Resume a regular diet. Since pain medications can cause constipation, a fiber product (such as Metamucil or Citrucel) is recommended after surgery for at least two weeks. Report severe constipation or diarrhea to the office.Contact the office immediately if you are unable to urinate or if you have fever or chills. Do Not Use enemas or suppositories after surgery unless specifically instructed by the office. Contact the office the following business day after surgery to inform us of your progress and to make your follow-up appointment. Do not drive for 24 hours or while you are taking prescription pain medication. A small amount of bloody drainage can occur for several days and sometime weeks depending on the nature and severity of the surgical procedure No name on file PLEASE CALL if you have any questions documented in this encounter [facility] 04-22-2023 Note Patient: Kenneth diamond Procedure Information Date/Time: 04/22/23 1300 Procedures: RECTAL EXAM UNDER ANESTHESIA WITH EXCISION AND FULGURATION OF ANAL LESIONS (Perineum) ANORECTAL EXAM REQUIRING ANESTHESIA (Anus) Location: [address] Operating Room Surgeons: Nikhil Boothe MD Relevant Problems Anesthesia (+) Motion sickness Cardio (+) Arteriosclerosis of coronary artery Pulmonary (+) Chronic obstructive pulmonary disease (HCC) Past Medical History: Past Medical History: No date: Anxiety No date: Arthritis No date: Asthma No date: CAD (coronary artery disease) No date: Chronic headache No date: Chronic pain Comment: In pain management No date: COPD (chronic obstructive pulmonary disease) (HCC) No date: DDD (degenerative disc disease), lumbar No date: DDD (degenerative disc disease), thoracic No date: Depression No date: Dry eye syndrome No date: Fibromyalgia No date: Gastroparesis No date: GERD (gastroesophageal reflux disease) No date: History of tobacco use No date: Hypersplenism No date: Hypertensive pulmonary arterial disease (HCC) No date: Hypotension No date: IBS (irritable bowel syndrome) No date: Lumbar spondylosis No date: Memory loss No date: Neurodermatitis No date: Osteoarthritis Comment: right knee No date: PE (pulmonary thromboembolism) ([facility]) Comment: bilateral 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 She started smoking about 45 years ago. She has a 20.00 pack-year smoking history. She has never used smokeless tobacco. ETOH: reports no history of alcohol use. Social History Substance and Sexual Activity Drug Use Never Family History: Family History Problem Relation Name Age of Onset ? Diabetes Mother ? Hypertension Father ? Prostate cancer Father ? Lung cancer Father ? Breast cancer Father's Sister ? Uterine cancer Father's Sister ? Colon cancer Paternal Cousin ? Bone cancer Paternal Cousin Marrow Screening: Hysterectomy Clinical information reviewed: Allergies Meds OB Status Physical Exam Airway Mallampati: III TM distance: >3 FB Neck ROM: full Mouth Open: normal Cardiovascular Dental (+) Upper Dentures, Missing Pulmonary Abdominal Anesthesia Plan patient is NPO appropriate Any family history or previous problems with anesthesia no ASA 3 general Any family history or previous problems with anesthesia no The patient is a current smoker. Patient was previously instructed to abstain from smoking on day of procedure. Patient did not smoke on day of procedure. Anesthetic plan and risks discussed with patient. Anesthesia Garcia Considerations Chronic pain, sees pain management [facility] Screening Labs: Lab Results Component Value Date WBC 6.6 10/16/2022 HGB 12.6 04/22/2023 HCT 37.8 04/22/2023 MCV 95.1 10/16/2022 PLT 316 10/16/2022 No results found for: NA , K , CL , CO2 , BUN , CREATININE , GLUCOSE , CALCIUM , PROT , BILIRUBINFL , ALKPHOS , AST , ALT , EGFR , GLOB Pain Score: Scheduled No echocardiogram results found for the past 14 days 10/16/22 ECG 12-LEAD 10/17/2022 5:52 PM (Final) Impression Sinus rhythm Normal EKG Electronically Signed On 10-17-2022 17:52:09 EDT by Jovani Hunter Signed by: Jovani Hunter MD on 10/17/2022 5:52 PM [facility] 04-16-2023 Note Patient: Kenneth diamond Procedure Information Date/Time: 04/16/23929 Scheduled providers: Gloria Aly RN Procedure: PAT OPTIMIZATION CALL Location: [facility] Pre-Admit Testing Past Medical History: Past Medical History: No date: Anxiety No date: Arthritis No date: Asthma No date: CAD (coronary artery disease) No date: Chronic headache No date: Chronic pain Comment: In pain management No date: COPD (chronic obstructive pulmonary disease) ([facility]) No date: DDD (degenerative disc disease), lumbar No date: DDD (degenerative disc disease), thoracic No date: Depression No date: Dry eye syndrome No date: Fibromyalgia No date: Gastroparesis No date: GERD (gastroesophageal reflux disease) No date: History of tobacco use No date: Hypersplenism No date: Hypertensive pulmonary arterial disease (HCC) No date: Hypotension No date: IBS (irritable bowel syndrome) No date: Lumbar spondylosis No date: Memory loss No date: Neurodermatitis No date: Osteoarthritis Comment: right knee No date: PE (pulmonary thromboembolism) (HCC) Comment: bilateral 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 She started smoking about 45 years ago. She has a 20.00 pack-year smoking history. She has never used smokeless tobacco. ETOH: reports no history of alcohol use. Social History Substance and Sexual Activity Drug Use Never Family History: Family History Problem Relation Name Age of Onset ? Diabetes Mother ? Hypertension Father ? Prostate cancer Father ? Lung cancer Father ? Breast cancer Father's Sister ? Uterine cancer Father's Sister ? Colon cancer Paternal Cousin ? Bone cancer Paternal Cousin Marrow Screening: Hysterectomy Clinical information reviewed: Physical Exam Airway Mallampati: I TM distance: >3 FB Neck ROM: full Mouth Open: normalendotracheal tube not in place Cardiovascular Dental (+) Upper Dentures Comments: Only 11 teeth remaining on the bottom (front bottom teeth) Pulmonary Abdominal Anesthesia Plan patient is NPO appropriate Any family history or previous problems with anesthesia ASA 3 general (Chart info Previous OR 10/23 H&H ordered DOS ) The patient is a current smoker. Anesthesia Garcia Considerations Motion sickness ERAS Type Short ERAS LAZARUS Screening Labs: Lab Results Component Value Date WBC 6.6 10/16/2022 HGB 12.6 10/16/2022 HCT 37.9 10/16/2022 MCV 95.1 10/16/2022 PLT 316 10/16/2022 No results found for: NA , K , CL , CO2 , BUN , CREATININE , GLUCOSE , CALCIUM , PROT , BILIRUBINFL , ALKPHOS , AST , ALT , EGFR , GLOB ECG 10/16/2022 IMPRESSION: Sinus rhythm Normal EKG [facility] 03-26-2023 History of Present illness Narrative GYNECOLOGIC ONCOLOGY - FOLLOW-UP VISIT CHIEF COMPLAINT/PUPROSE OF VISIT: Kenneth Finn is a 62 y.o. female here for surveillance. 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 SKIN, LEFT PERIANAL, BIOPSY: - HIGH-GRADE SQUAMOUS INTRAEPITHELIAL LESION (AIN 3) Comment: A p16 shows diffuse strong positive staining consistent with a high-grade lesion. B. VULVA, RIGHT, EXCISION: - HIGH-GRADE SQUAMOUS INTRAEPITHELIAL LESION (PARMJIT 3) - NEGATIVE FOR INVASIVE MALIGNANCY - 9-12 O'CLOCK MARGIN IS POSITIVE FOR HIGH-GRADE DYSPLASIA Comment: A p16 shows diffuse strong positive staining consistent with a high-grade lesion. INTERVAL HISTORY: Overall doing well since surgery, She denies any new vulvar lesions, vulvar pruritus, vaginal bleeding, vaginal discharge and vulvar burning. No problems with urination or BM. Denies any adenopathy. Patient was referred to [facility] for AIN 3, following with Dr. Tejeda. ECOG PS 1 ROS: 12 point review of systems performed, pertinent items are noted in HPI; all other review of systems were negative. MEDICATIONS: Current Outpatient Medications Medication Sig Dispense Refill albuterol 108 (90 Base) MCG/ACT inhaler Inhale 2 puffs every 6 hours as needed for wheezing. dzlyustjcx-chozdzujfhbib-hdwzatsv 50-325-40 MG tablet Take 1 tablet by mouth every 4 hours as needed for headaches. cholecalciferol (Vitamin D-3) 50 MCG (2000 UT) tablet Take by mouth 1 (one) time each day. citalopram (CeleXA) 20 MG tablet Take by mouth Nightly. diazePAM (Valium) 10 MG tablet Take by mouth every 8 hours as needed. lidocaine-prilocaine (Emla) 2.5-2.5 % cream Apply topically Daily as needed for mild pain (1-3). Apply to vulva as needed for pain 30 g 0 oxyCODONE-acetaminophen (Percocet) 10-325 MG tablet Take 1 tablet by mouth every 6 hours as needed. pantoprazole (ProtoNix) 40 MG EC tablet Take 40 mg by mouth in the morning and 40 mg in the evening. promethazine (Phenergan) 25 MG tablet Take by mouth. rivaroxaban (Xarelto) 20 MG tablet Take by mouth. Take with food at lunch rosuvastatin (Crestor) 10 MG tablet Take 10 mg by mouth daily. tiZANidine (Zanaflex) 4 MG capsule Take 4 mg by mouth 3 times daily. topiramate (Topamax) 100 MG tablet Take 50 mg by mouth in the morning and 50 mg in the evening. Pt takes 50 mg daily. No current facility-administered medications for this visit. VITAL SIGNS: Blood pressure 129/82, pulse 87, height 1.549 m (5' 1 ), weight 53.5 kg (118 lb). No data recorded PHYSICAL EXAM: General: Alert and oriented. in no acute distress. Able to ambulate on and off the exam table without difficulty. Heart: Regular rate Lungs: Easy respirations Abdomen: Soft, Non-tender, non-distended. Skin: No significant rashes, petechia or purpura. Well healed surgical incisions without erythema, induration, or drainage. Extremities: No cyanosis, clubbing, or edema Mental: Mood and affect appropriate for situation Pelvis: Vulvar incision healed well and well approximated, no separation, erythema, drainage, or induration. No new lesions noted. DIAGNOSTICS: I reviewed the imaging studies and agree with the interpretation as recorded. I reviewed the pertinent laboratory and diagnostic data. ASSESSMENT/PLAN: Kenneth Finn is a 62 y.o. female 2 weeks s/p WLE and biopsy for PARMJIT 2/3 and AIN 3 - No evidence of vulvar dysplasia or malignancy on examination today. - Referred to [facility] for AIN 3, patient desired closer to home so referral made - Follow-up in 4 months for surveillance, Patient encouraged to see us every 4 months for surveillance but explains has ride transportation issues and states she will follow-up with a [employer]PER[employer] in the [place] area. Patient states it is too far to travel here every 4 months. I highly encouraged patient to make sure she is seen every four months for surveillance. -Encouraged patient to call office with any new symptoms. I explained diagnosis and treatment plan; patient expressed understanding and was in agreement with the plan. PETRA Jones CNP I personally spent over half of a total 20 minutes face to face with the patient in counseling and discussion and/or coordination of care as described above. documented in this encounter [facility] 03-26-2023 History of Present illness Narrative Colon and Rectal Surgery PATIENT NAME: Kenneth Finn : 1960 TODAY'S DATE: 03/26/2023 Chief Complaint Patient presents with New Patient Pt presents for evaluation of high grade dysplasia and to discuss options/colonoscopy, pt has history of vulvar lesions and has a white patch on her bottom, pt stated that she does feel a bump at times, last colonoscopy was about 5 years ago SUBJECTIVE: Kenneth Finn is a 62 y.o. female with history of PARMJIT 3 and AIN 3. History of pulmonary embolism 4 years ago on Xarelto. 10/23/2022 Dr. Brannon underwent wide local excision of vulva/perineum lesions. 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 Pathology from right vulvar excision showed PARMJIT 3. Colonoscopy 5 [address] in [place] [address] Rey. Pt states that some polyps were removed. Pt does a stool test every year and states that the last one was negative. Patient states she does feel a bump near her anus and has a white patch around her bottom. Has occasional anal bleeding. Pt states that Bm's range from 1-3 times a day. Stool is soft and looser. Pt does occassionally takes imodium. Past Medical History: Diagnosis Date Anxiety Arthritis Asthma CAD (coronary artery disease) Chronic headache Chronic pain In pain management COPD (chronic obstructive pulmonary disease) (HCC) DDD (degenerative disc disease), lumbar DDD (degenerative disc disease), thoracic Depression Dry eye syndrome Fibromyalgia Gastroparesis GERD (gastroesophageal reflux disease) History of tobacco use Hypersplenism Hypertensive pulmonary arterial disease (HCC) Hypotension IBS (irritable bowel syndrome) Lumbar spondylosis Memory loss Neurodermatitis Osteoarthritis right knee PE (pulmonary thromboembolism) (HCC) bilateral Post-splenectomy Thoracic spondylosis Vitamin D deficiency Past Surgical History: Procedure Laterality Date BREAST BIOPSY Right benign COLONOSCOPY OTHER SURGICAL HISTORY 2012 bowel obstruction SPLENECTOMY, PARTIAL 2001 TOTAL ABDOMINAL HYSTERECTOMY 2000 VULVAR/PERINEAL BIOPSY (HISTORICAL) N/A 10/23/2022 Current Outpatient Medications: albuterol 108 (90 Base) MCG/ACT inhaler, Inhale 2 puffs every 6 hours as needed for wheezing., Disp: , Rfl: hypkvnbiyr-gbvrpehwuiajb-ofbdgbhk 50-325-40 MG tablet, Take 1 tablet by mouth every 4 hours as needed for headaches., Disp: , Rfl: cholecalciferol (Vitamin D-3) 50 MCG (1999 UT) tablet, Take by mouth 1 (one) time each day., Disp: , Rfl: citalopram (CeleXA) 20 MG tablet, Take by mouth Nightly., Disp: , Rfl: diazePAM (Valium) 10 MG tablet, Take by mouth every 8 hours as needed., Disp: , Rfl: lidocaine-prilocaine (Emla) 2.5-2.5 % cream, Apply topically Daily as needed for mild pain (1-3). Apply to vulva as needed for pain, Disp: 30 g, Rfl: 0 oxyCODONE-acetaminophen (Percocet) 10-325 MG tablet, Take 1 tablet by mouth every 6 hours as needed., Disp: , Rfl: pantoprazole (ProtoNix) 40 MG EC tablet, Take 40 mg by mouth in the morning and 40 mg in the evening., Disp: , Rfl: promethazine (Phenergan) 25 MG tablet, Take by mouth., Disp: , Rfl: rivaroxaban (Xarelto) 20 MG tablet, Take by mouth. Take with food at lunch, Disp: , Rfl: rosuvastatin (Crestor) 10 MG tablet, Take 10 mg by mouth daily., Disp: , Rfl: tiZANidine (Zanaflex) 4 MG capsule, Take 4 mg by mouth 3 times daily., Disp: , Rfl: topiramate (Topamax) 100 MG tablet, Take 50 mg by mouth in the morning and 50 mg in the evening. Pt takes 50 mg daily., Disp: , Rfl: Social History Socioeconomic History Marital status: Spouse name: Not on file Number of children: Not on file Years of education: Not on file Highest education level: Not on file Occupational History Not on file Tobacco Use Smoking status: Every Day Packs/day: 0.50 Years: 40.00 Pack years: 20.00 Types: Cigarettes Start date: 1977 Smokeless tobacco: Never Vaping Use Vaping Use: Every day Substances: Nicotine Devices: Pre-filled or refillable cartridge Substance and Sexual Activity Alcohol use: Never Drug use: Never Sexual activity: Not on file Other Topics Concern Not on file Social History Narrative Not on file Social Determinants of Health Financial Resource Strain: Not on file Food Insecurity: Not on file Transportation Needs: Not on file Physical Activity: Not on file Stress: Not on file Social Connections: Not on file Intimate Partner Violence: Not on file Housing Stability: Not on file Family History Problem Relation Name Age of Onset Diabetes Mother Hypertension Father Prostate cancer Father Lung cancer Father Breast cancer Father's Sister Uterine cancer Father's Sister Colon cancer Paternal Cousin Bone cancer Paternal Cousin Marrow Allergies: Allergies Allergen Reactions Amitriptyline Other reaction(s): Rash Fentanyl Shortness of breath Other reaction(s): Rash States gave her a rash. Aspirin Other reaction(s): GI Upset, Nausea Augmentin [Amoxicillin-Pot Clavulanate] Nausea Only Demerol Hcl [Meperidine] Nausea And Vomiting Latex Oxycodone Nausea And Vomiting and Headache Wellbutrin [Bupropion] agitated OBJECTIVE: BP 130/85 Pulse 96 Temp 36.7 C (98 F) (Temporal) Ht 5' 1 (1.549 m) Wt 113 lb (51.3 kg) BMI 21.35 kg/m Perianal skin appears normal, no rashes. There are small 2 to 3 mm whitish raised lesions in the left anterior anal verge. Perianal sensation normal. Digital Exam: Tone: normal; Palpable masses: No Anoscope: Internal hemorrhoids are mildly enlarged, not friable without any bleeding in the left lateral, right posterior, and right anterior positions. Again redemonstration of 2 to 3 mm small whitish lesions in the left anterior and anterior anal verge. Exam chaperoned by female promotional advertising assistant. ASSESSMENT/PLAN: Diagnosis Plan 1. Chronic anticoagulation 2. Vulvar intraepithelial neoplasia (PARMJIT) grade 3 Ambulatory referral to Colorectal Surgery 3. History of pulmonary embolism 4. Anal lesion 5. AIN grade III 62 y.o.female with history of AIN 3 and whitish anal lesions concerning for condyloma with possible AIN Recommend daily fiber powder therapy to help bulk up stool, adequate water intake, sitz baths b.i.d. and p.r.n., avoid sitting or straining on the toilet for prolonged periods of time. Would recommend rectal exam under anesthesia with excision fulguration of anal lesions. We discussed the details and risks of excision and fulguration of condyloma. We discussed pain in the expected surgical recovery. We also discussed the risks of bleeding, infection, recurrence, prolonged or nonhealing, drainage, and incontinence. She indicates understanding and wishes to proceed with surgery. In terms of colonoscopy patient says she would prefer to go back to her doctor and was started to get the colonoscopy at a separate time. Patient will need medical clearance for her procedure because she is on Xarelto for history of PE. Follow up for Scheduled procedure. The patient was given the opportunity to ask questions and all questions were answered to the best of my ability. The patient agrees with the above noted plan. The patient was seen and examined independently and relevant data reviewed by myself. A full chart review/interpretation of labs, imaging, endoscopic reports, pathology, and requesting/reviewing previous records was performed when available. documented in this encounter [facility] [employer] 12-26-2022 Telephone encounter Note Message left for return call [facility] [employer] 12-26-2022 Miscellaneous Notes Message left for return call Name of caller: Kenneth Contact phone number: [phone] Relationship to Patient: patient Provider: Practice: Colorectal Chief Complaint/Reason for Call: Kenneth is requesting to be scheduled for a N/P appointment. Referral for Perianal lesion R85.613 (ICD-10-CM) - High grade squamous intraepithelial lesion on cytologic smear of anus (HGSIL). Please contact and advise. Best time of day caller can be reached: Any Patient advised that office/PCP has 24-48 business hours to return their call: Yes documented in this encounter [facility] 12-18-2022 Telephone encounter Note Name of caller: Kenneth Contact phone number: [phone] Relationship to Patient: patient Provider: Practice: Colorectal Chief Complaint/Reason for Call: Kenneth is requesting to be scheduled for a N/P appointment. Referral for Perianal lesion R85.613 (ICD-10-CM) - High grade squamous intraepithelial lesion on cytologic smear of anus (HGSIL). Please contact and advise. Best time of day caller can be reached: Any Patient advised that office/PCP has 24-48 business hours to return their call: Yes [facility] 11-21-2022 Telephone encounter Note Pt called with yes the referral within [facility] was put in. They should be calling her to make OV. [facility] 11-21-2022 Miscellaneous Notes Pt called with yes the referral within [facility] was put in. They should be calling her to make OV. Kenneth was calling to see if a referral to a [facility] doctor has been done and when she might be seen. Please call her back. Spoke with patient she went to referring office in [place] they told her that they are unable to do the surgery due to the possibility of cancer. Pt would like a referral to a [facility] Colorectal physician. Kenneth called to say that the specialist in [place] is unable to do the rectum surgery. Please advise patient. documented in this encounter [facility] 11-21-2022 Telephone encounter Note Kenneth was calling to see if a referral to a [facility] doctor has been done and when she might be seen. Please call her back. [facility] 11-15-2022 Telephone encounter Note Pt states she can't come in. She doesn't do pictures but she will try to send picture in. Pt states it doesn't feel as bad today. She thinks it was from getting in car and driving that day. Pt feels like something is poking at the end of the vagina almost to her butt. Pt states it a stitch. [facility] 11-15-2022 Miscellaneous Notes Pt states she can't come in. She doesn't do pictures but she will try to send picture in. Pt states it doesn't feel as bad today. She thinks it was from getting in car and driving that day. Pt feels like something is poking at the end of the vagina almost to her butt. Pt states it a stitch. S: Patient spoke with [facility] nurse regarding post op concern. B: had biopsy 10/23 A: Pt states that biopsy area near buttocks is causing increased irritation/tenderness in the last few days. Rates pain as 4/10, prescribed Emla cream helps. Has been doing plain water soaks for 10 min twice daily. Using OTC antibacterial feminine wash and Dial soap. Area feels/looks a little puffy, may have redness (pt unsure, unable to assess area well), no drainage. Denies fever/chills, has felt warm over the last few days though. Pt requesting antibiotics. R: Message to provider: please advise pt on above. Advised to continue plain water soaks, no additional creams/changing soaps etc until she hears from provider. Patient understands care advice. No further needs at this time. Patient instructed to call back with new or worsening symptoms. Reason for Disposition Genital area looks infected (e.g., draining sore, spreading redness) Protocols used: Vaginal Uzrhtpku-QRHMD-GH documented in this encounter [facility] 11-14-2022 Telephone encounter Note S: Patient spoke with [facility] nurse regarding post op concern. B: had biopsy 10/23 A: Pt states that biopsy area near buttocks is causing increased irritation/tenderness in the last few days. Rates pain as 4/10, prescribed Emla cream helps. Has been doing plain water soaks for 10 min twice daily. Using OTC antibacterial feminine wash and Dial soap. Area feels/looks a little puffy, may have redness (pt unsure, unable to assess area well), no drainage. Denies fever/chills, has felt warm over the last few days though. Pt requesting antibiotics. R: Message to provider: please advise pt on above. Advised to continue plain water soaks, no additional creams/changing soaps etc until she hears from provider. Patient understands care advice. No further needs at this time. Patient instructed to call back with new or worsening symptoms. Reason for Disposition Genital area looks infected (e.g., draining sore, spreading redness) Protocols used: Vaginal [id number]-[id number] [facility] 11-14-2022 Telephone encounter Note Spoke with patient she went to referring office in [place] they told her that they are unable to do the surgery due to the possibility of cancer. Pt would like a referral to a [facility] Colorectal physician. [facility] 11-14-2022 Miscellaneous Notes Spoke with patient she went to referring office in [place] they told her that they are unable to do the surgery due to the possibility of cancer. Pt would like a referral to a [facility] Colorectal physician. Kenneth called to say that the specialist in [place] is unable to do the rectum surgery. Please advise patient. documented in this encounter [facility] 11-13-2022 Note HNO ID: [id number] Author: Dyana Bee MD Service: ? Author Type: Physician Type: Progress Notes Filed: 11/17/2022 4:17 PM Note Text: Kenneth Finn 1960 REFERRING PHYSICIAN: Danii Gaona MD CHIEF COMPLAINT: Consult (Perianal lesion) HPI: The patient is a 62 year old female presents with findings of anal intraepithelial squamous lesion that is high grade. 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 A left sided perianal biopsy - high grade -squamous intraepithelial (AIN 3) on 10/23/2022 at [facility]. She complains of fatigue. She states that she feels warm a lot . She was referred to this office, she was told that this was colorectal surgery and that she wanted referral in town, she lives in [place]. PAST MEDICAL HISTORY Diagnosis Date Anxiety Asthma CAD (coronary artery disease) Chronic headache Chronic pain COPD (chronic obstructive pulmonary disease) (HCC) DDD (degenerative disc disease), lumbar DDD (degenerative disc disease), thoracic Degenerative disc disease Depression Dry eye syndrome Fibromyalgia Gastroparesis GERD (gastroesophageal reflux disease) History of tobacco use Hypersplenism Hypotension IBS (irritable bowel syndrome) ITP (idiopathic thrombocytopenic purpura) Lumbar spondylosis Memory loss Myalgia and myositis, unspecified Fibromyalgia (myalgia and myositis) Neurodermatitis Osteoarthritis of multiple joints Post-splenectomy Pulmonary thromboembolism (HCC) bilateral Spinal stenosis Thoracic spondylosis Vitamin D deficiency Vulvar carcinoma (HCC) PAST SURGICAL HISTORY Procedure Laterality Date COLONOSCOPY FLX DX W/COLLJ SPEC WHEN PFRMD 07/30/12 Colonoscopy COLONOSCOPY FLX DX W/COLLJ SPEC WHEN PFRMD 07/13/15 Colonoscopy ENTEROLSS FRING INTSTINAL ADHESION SPX 1-10--12 exploratory lap ESOPHAGOGASTRODUODENOSCOPY TRANSORAL DIAGNOSTIC 07/13/15 EGD PAST SURGICAL HISTORY OF 02/2014 lumbar pain injections PAST SURGICAL HISTORY OF USO for cyst PAST SURGICAL HISTORY OF 2014 pain injections lumbar multiple [id number] SPLENECTOMY TOTAL SEPARATE PROCEDURE 11/2001 Splenectomy d/t ITP TOTAL ABDOMINAL HYSTERECT W/WO RMVL TUBE OVARY 05/2001 Hysterectomy, ANANDA BSO for endometriosus Current Outpatient Medications Medication Sig rivaroxaban (XARELTO) 20 mg tablet Take 20 mg by mouth daily with dinner. ajrkdmvedl-llvgedofgd-ijm-cod 78-487-41-30 mg cap Take 1 capsule by mouth every 6 hours as needed. cholecalciferol, vitamin D3, (VITAMIN D-3) 10 mcg (400 unit) cap Take 2,000 Units by mouth once daily. pantoprazole DR (PROTONIX) 40 mg tablet Take 1 tablet by mouth daily before breakfast. Take on empty stomach, 1/2 hr before meal. promethazine (PHENERGAN) 25 mg tablet Take 1 tablet by mouth every 6 hours as needed. albuterol HFA (PROAIR HFA) 90 mcg/actuation inhaler Inhale 2 Puffs as instructed every 4 hours as needed. oxyCODONE-acetaminophen (PERCOCET) 7.5-325 mg tablet Take 1 tablet by mouth every 8 hours as needed. citalopram (CELEXA) 40 mg tablet Take 1 tablet by mouth once daily. topiramate (TOPAMAX) 100 mg tablet Take 100 mg by mouth twice daily. diazepam (VALIUM) 5 mg tablet Take 1 tablet by mouth four times daily as needed. (Dr Nolan) hydrOXYzine HCl (ATARAX) 25 mg tablet Take 1 tablet by mouth every 6 hours as needed. (Patient not taking: Reported on 11/13/2022) fluocinolone (SYNALAR) 0.01 % external solution Apply to scalp twice daily (Patient not taking: Reported on 11/13/2022) predniSONE (DELTASONE) 10 mg tablet Take 40 mg x 3 days, 20 mg x 3 days, 10 mg x 3 days. Take with food, once daily (Patient not taking: Reported on 11/13/2022) diphenhydrAMINE HCl (BENADRYL ITCH STOPPING) 2 % gel Apply 1 application to affected area once daily. (Patient not taking: Reported on 11/13/2022) ibuprofen (MOTRIN) 800 mg tablet Take 1 tab every 6-8 hours as needed (Patient not taking: Reported on 11/13/2022) ranitidine (ZANTAC) 150 mg tablet Take 1 tablet by mouth twice daily. (Patient not taking: Reported on 11/13/2022) sucralfate (CARAFATE) 1 gram tablet Take 1 tablet by mouth before meals and at bedtime. (Patient not taking: Reported on 11/13/2022) lidocaine viscous (LIDOCAINE VISCOUS) 2 % solution Take 5 mL by mouth as needed. (Patient not taking: Reported on 11/13/2022) dicyclomine (BENTYL) 10 mg capsule Take 1 capsule by mouth before meals and at bedtime. (Patient not taking: Reported on 11/13/2022) melatonin 1 mg tab Take 5 mg by mouth daily at bedtime. (Patient not taking: Reported on 11/13/2022) ALLERGIES: Amitriptyline, Amoxicillin-Pot Clavulanate, Aspirin, Bupropion, Demerol [Meperidine (Pf)], Fentanyl, Macrobid [Nitrofurantoin Monohyd/M-Cryst], Oxycodone, and Sulfamethoxazole-Trimethoprim PERSONAL HISTORY: Social History Tobacco Use Smoking status: Every Day Packs/day: 0.50 Years: 35.00 Pack years: 17.50 Types: Cigarettes Smokeless tobacco: (more content not included)... [facility] 11-13-2022 Telephone encounter Note Kenneth called to say that the specialist in [place] is unable to do the rectum surgery. Please advise patient. [facility] 11-13-2022 Nurse Note REVIEW OF SYSTEMS: General: The patient NOTES fatigue, NOTES weight loss, denies weight gain, denies feeling hot, and denies feelings of cold. Eyes: The patient denies glaucoma, denies eye injury/surgery, does not wear glasses or contacts. Ear/Nose/Throat: The patient denies allergies, denies hayfever, denies ear infections, and denies bloody noses. Cardiovascular: The patient NOTES chest pain, denies heart disease, denies high blood pressure,denies cardiac stent, denies prior heart attack, denies irregular heart beat, denies high cholesterol, denies poor circulation, denies heart failure, other cardiac issues, denies claudication, denies cold feet, denies peripheral arterial stent. Respiratory: The patient denies tuberculosis, denies pneumonia, denies frequent cough, NOTES pulmonary embolism, denies shortness of breath, and denies coughing up blood. Gastrointestinal: The patient denies difficulty swallowing, NOTES acid reflux, denies ulcers, denies vomiting, denies jaundice/hepatitis, NOTES gallbladder problems, denies black or tarry stools, denies hemorrhoids, denies bleeding from rectum, denies diverticulitis, NOTES constipation, NOTES diarrhea, denies loss of stool control, and denies hernias. Kidney/Bladder: The patient denies kidney stones, denies urine infections, and denies bloody urine. Skin: The patient denies a history of skin cancer, denies bleeding/changing moles, and denies a history of skin rash. Neurologic: The patient denies a history of epilepsy/convulsions, NOTES headaches, denies head/spinal injuries, and denies stroke/TIA. Psychiatric: The patient denies psychiatric medications, NOTES depression, and denies voices, denies substance abuse. Endocrine: The patient NOTES thyroid disorders, NOTES diabetes, and denies hormonal problems. Hematologic: The patient denies a history of bruising, denies bleeding, and denies anemia, denies blood clots. Infections: The patient denies a history of measles and mumps, denies rheumatic fever, and denies sexually transmitted diseases. Musculoskeletal: The patient NOTES back pain/injury, NOTES back problems, NOTES sciatica, denies knee/foot trouble, denies arthritis, or denies gout. When was patient's last Mammogram screening? UNKNOWN Last Colonoscopy: 2015 Beronica Snell RN documented in this encounter [facility] 11-13-2022 History of Present illness Narrative Kenneth Finn 1960 REFERRING PHYSICIAN: Danii Gaona MD CHIEF COMPLAINT: Consult (Perianal lesion) HPI: The patient is a 62 year old female presents with findings of anal intraepithelial squamous lesion that is high grade. 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 A left sided perianal biopsy - high grade -squamous intraepithelial (AIN 3) on 10/23/2022 at [facility]. She complains of fatigue. She states that she feels warm a lot . She was referred to this office, she was told that this was colorectal surgery and that she wanted referral in [facility], she lives in [place]. PAST MEDICAL HISTORY Diagnosis Date Anxiety Asthma CAD (coronary artery disease) Chronic headache Chronic pain COPD (chronic obstructive pulmonary disease) (HCC) DDD (degenerative disc disease), lumbar DDD (degenerative disc disease), thoracic Degenerative disc disease Depression Dry eye syndrome Fibromyalgia Gastroparesis GERD (gastroesophageal reflux disease) History of tobacco use Hypersplenism Hypotension IBS (irritable bowel syndrome) ITP (idiopathic thrombocytopenic purpura) Lumbar spondylosis Memory loss Myalgia and myositis, unspecified Fibromyalgia (myalgia and myositis) Neurodermatitis Osteoarthritis of multiple joints Post-splenectomy Pulmonary thromboembolism (HCC) bilateral Spinal stenosis Thoracic spondylosis Vitamin D deficiency Vulvar carcinoma (HCC) PAST SURGICAL HISTORY Procedure Laterality Date COLONOSCOPY FLX DX W/COLLJ SPEC WHEN PFRMD 07/30/12 Colonoscopy COLONOSCOPY FLX DX W/COLLJ SPEC WHEN PFRMD 07/13/15 Colonoscopy ENTEROLSS FRING INTSTINAL ADHESION SPX 1-10--12 exploratory lap ESOPHAGOGASTRODUODENOSCOPY TRANSORAL DIAGNOSTIC 07/13/15 EGD PAST SURGICAL HISTORY OF 02/2014 lumbar pain injections PAST SURGICAL HISTORY OF USO for cyst PAST SURGICAL HISTORY OF 2014 pain injections lumbar multiple [id number] SPLENECTOMY TOTAL SEPARATE PROCEDURE 11/2001 Splenectomy d/t ITP TOTAL ABDOMINAL HYSTERECT W/WO RMVL TUBE OVARY 05/2001 Hysterectomy, ANANDA BSO for endometriosus Current Outpatient Medications Medication Sig rivaroxaban (XARELTO) 20 mg tablet Take 20 mg by mouth daily with dinner. ivxsiadnnp-lqddeztbff-gzn-cod 03-763-50-30 mg cap Take 1 capsule by mouth every 6 hours as needed. cholecalciferol, vitamin D3, (VITAMIN D-3) 10 mcg (400 unit) cap Take 2,000 Units by mouth once daily. pantoprazole DR (PROTONIX) 40 mg tablet Take 1 tablet by mouth daily before breakfast. Take on empty stomach, 1/2 hr before meal. promethazine (PHENERGAN) 25 mg tablet Take 1 tablet by mouth every 6 hours as needed. albuterol HFA (PROAIR HFA) 90 mcg/actuation inhaler Inhale 2 Puffs as instructed every 4 hours as needed. oxyCODONE-acetaminophen (PERCOCET) 7.5-325 mg tablet Take 1 tablet by mouth every 8 hours as needed. citalopram (CELEXA) 40 mg tablet Take 1 tablet by mouth once daily. topiramate (TOPAMAX) 100 mg tablet Take 100 mg by mouth twice daily. diazepam (VALIUM) 5 mg tablet Take 1 tablet by mouth four times daily as needed. (Dr Nolan) hydrOXYzine HCl (ATARAX) 25 mg tablet Take 1 tablet by mouth every 6 hours as needed. (Patient not taking: Reported on 11/13/2022) fluocinolone (SYNALAR) 0.01 % external solution Apply to scalp twice daily (Patient not taking: Reported on 11/13/2022) predniSONE (DELTASONE) 10 mg tablet Take 40 mg x 3 days, 20 mg x 3 days, 10 mg x 3 days. Take with food, once daily (Patient not taking: Reported on 11/13/2022) diphenhydrAMINE HCl (BENADRYL ITCH STOPPING) 2 % gel Apply 1 application to affected area once daily. (Patient not taking: Reported on 11/13/2022) ibuprofen (MOTRIN) 800 mg tablet Take 1 tab every 6-8 hours as needed (Patient not taking: Reported on 11/13/2022) ranitidine (ZANTAC) 150 mg tablet Take 1 tablet by mouth twice daily. (Patient not taking: Reported on 11/13/2022) sucralfate (CARAFATE) 1 gram tablet Take 1 tablet by mouth before meals and at bedtime. (Patient not taking: Reported on 11/13/2022) lidocaine viscous (LIDOCAINE VISCOUS) 2 % solution Take 5 mL by mouth as needed. (Patient not taking: Reported on 11/13/2022) dicyclomine (BENTYL) 10 mg capsule Take 1 capsule by mouth before meals and at bedtime. (Patient not taking: Reported on 11/13/2022) melatonin 1 mg tab Take 5 mg by mouth daily at bedtime. (Patient not taking: Reported on 11/13/2022) ALLERGIES: Amitriptyline, Amoxicillin-Pot Clavulanate, Aspirin, Bupropion, Demerol [Meperidine (Pf)], Fentanyl, Macrobid [Nitrofurantoin Monohyd/M-Cryst], Oxycodone, and Sulfamethoxazole-Trimethoprim PERSONAL HISTORY: Social History Tobacco Use Smoking status: Every Day Packs/day: 0.50 Years: 35.00 Pack years: 17.50 Types: Cigarettes Smokeless tobacco: Never Tobacco comments: using vap pen w/ nicotine Vaping Use Vaping Use: current everyday user Substance Use Topics Alcohol use: No Drug use: No FAMILY HISTORY Problem Relation Age of Onset Diabetes Mother Heart Father Hypertension Father Diabetes Brother other (Depression [Other]) Brother other (CHF [Other]) Maternal Grandmother other (CHF [Other]) Paternal Grandfather The review of systems data was entered by the nurse and reviewed by wy Nursing Notes: Beronica Snell RN 11/13/2022 11:02 AM Signed REVIEW OF SYSTEMS: General: The patient NOTES fatigue, NOTES weight loss, denies weight gain, denies feeling hot, and denies feelings of cold. Eyes: The patient denies glaucoma, denies eye injury/surgery, does not wear glasses or contacts. Ear/Nose/Throat: The patient denies allergies, denies hayfever, denies ear infections, and denies bloody noses. Cardiovascular: The patient NOTES chest pain, denies heart disease, denies high blood pressure,denies cardiac stent, denies prior heart attack, denies irregular heart beat, denies high cholesterol, denies poor circulation, denies heart failure, other cardiac issues, denies claudication, denies cold feet, denies peripheral arterial stent. Respiratory: The patient denies tuberculosis, denies pneumonia, denies frequent cough, NOTES pulmonary embolism, denies shortness of breath, and denies coughing up blood. Gastrointestinal: The patient denies difficulty swallowing, NOTES acid reflux, denies ulcers, denies vomiting, denies jaundice/hepatitis, NOTES gallbladder problems, denies black or tarry stools, denies hemorrhoids, denies bleeding from rectum, denies diverticulitis, NOTES constipation, NOTES diarrhea, denies loss of stool control, and denies hernias. Kidney/Bladder: The patient denies kidney stones, denies urine infections, and denies bloody urine. Skin: The patient denies a history of skin cancer, denies bleeding/changing moles, and denies a history of skin rash. Neurologic: The patient denies a history of epilepsy/convulsions, NOTES headaches, denies head/spinal injuries, and denies stroke/TIA. Psychiatric: The patient denies psychiatric medications, NOTES depression, and denies voices, denies substance abuse. Endocrine: The patient NOTES thyroid disorders, NOTES diabetes, and denies hormonal problems. Hematologic: The patient denies a history of bruising, denies bleeding, and denies anemia, denies blood clots. Infections: The patient denies a history of measles and mumps, denies rheumatic fever, and denies sexually transmitted diseases. Musculoskeletal: The patient NOTES back pain/injury, NOTES back problems, NOTES sciatica, denies knee/foot trouble, denies arthritis, or denies gout. When was patient's last Mammogram screening? UNKNOWN Last Colonoscopy: 2016 Beronica Snell RN PHYSICAL EXAMINATION: General: The patient is 62 year old female, well nourished, well hydrated in no acute distress. The patient is oriented to time, place, and person. VITALS: Blood pressure 130/78, pulse 109, temperature 36.8 C (98.2 F), height 154.9 cm (5' 1 ), weight 51.7 kg (114 lb), SpO2 99 %. Body mass index is 21.54 kg/m . Head: Normal cephalic, atraumatic Eyes: pupils are equally round, sclera are clear/anicteric Neck is supple with no tracheal deviation Respiratory: Normal respiratory excursion and pattern. Abdominal exam: benign Extremities: no clubbing, cyanosis or edema. Neuro: non focal Psych: normal mood Assessment IMPRESSION: Anal squamous intraepithelial lesion high grade PLAN: I have discussed the above with the patient. I have explained to patient that I am not a colorectal surgeon and usually do not treat anal squamous lesions. I have offered referral to a colorectal surgery at [facility]. Patient refuses this. She states that she has been seeing physicians at [facility] and wishes to continue this. She came to this office, because she thought that she would be seeing a colorectal surgeon (close to home in [place]) and that is what the curatorial specialist had told her. Patient states that she will go seek a colorectal surgeon at [facility].. I have answered all questions to the patient s satisfaction and the patient has no further questions. I have confirmed and edited as necessary, the PFSH and ROS obtained by others. Consultation requested by Dr. Danii Figueroa for an opinion regarding patient's anal squamous lesion. My final recommendations will be communicated back to the requesting physician by way of shared Medical record or letter to requesting physician via US mail. . 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 Medical Decision Making: Problems: Moderate: New problem with uncertain prognosis Medical Decision Making Level: 2 - Straightforward Dyana Bee MD documented in this encounter [facility] 11-06-2022 History of Present illness Narrative GYNECOLOGIC ONCOLOGY - FOLLOW-UP VISIT CHIEF COMPLAINT/PUPROSE OF VISIT: Kenneth Finn is a 62 y.o. female 2 weeks s/p WLE and biopsy for PARMJIT 2/3 and AIN 3 HISTORY OF PRESENT ILLNESS: Kenneth Finn is a very pleasant 62 y.o. 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 SKIN, LEFT PERIANAL, BIOPSY: - HIGH-GRADE SQUAMOUS INTRAEPITHELIAL LESION (AIN 3) Comment: A p16 shows diffuse strong positive staining consistent with a high-grade lesion. B. VULVA, RIGHT, EXCISION: - HIGH-GRADE SQUAMOUS INTRAEPITHELIAL LESION (PARMJIT 3) - NEGATIVE FOR INVASIVE MALIGNANCY - 9-12 O'CLOCK MARGIN IS POSITIVE FOR HIGH-GRADE DYSPLASIA Comment: A p16 shows diffuse strong positive staining consistent with a high-grade lesion. INTERVAL HISTORY: Overall doing well since surgery. Mild discomfort. Denies signifcant pain, bleeding. Tolerating regular diet, denies N/V. Denies issues with BM or urination. ECOG PS 1 ROS: 12 point review of systems performed, pertinent items are noted in HPI; all other review of systems were negative. MEDICATIONS: Current Outpatient Medications Medication Sig Dispense Refill albuterol 108 (90 Base) MCG/ACT inhaler Inhale 2 puffs every 6 hours as needed for wheezing. lljkvegucb-omrvuntplkzez-uqpikynt 50-325-40 MG tablet Take 1 tablet by mouth every 4 hours as needed for headaches. cholecalciferol (Vitamin D-3) 50 MCG (2000 UT) tablet Take by mouth 1 (one) time each day. citalopram (CeleXA) 20 MG tablet Take by mouth Nightly. diazePAM (Valium) 10 MG tablet Take by mouth every 8 hours as needed. lidocaine-prilocaine (Emla) 2.5-2.5 % cream Apply topically Daily as needed for mild pain (1-3). Apply to vulva as needed for pain 30 g 0 oxyCODONE-acetaminophen (Percocet) 10-325 MG tablet Take 1 tablet by mouth every 6 hours as needed. pantoprazole (ProtoNix) 40 MG EC tablet Take 40 mg by mouth in the morning and 40 mg in the evening. promethazine (Phenergan) 25 MG tablet Take by mouth. rivaroxaban (Xarelto) 20 MG tablet Take by mouth. Take with food at lunch tiZANidine (Zanaflex) 4 MG capsule Take 4 mg by mouth 3 times daily. topiramate (Topamax) 100 MG tablet Take 50 mg by mouth in the morning and 50 mg in the evening. Pt takes 50 mg daily. No current facility-administered medications for this visit. VITAL SIGNS: Blood pressure 117/75, pulse 84, height 5' 1 (1.549 m), weight 113 lb 9.6 oz (51.5 kg). No data recorded PHYSICAL EXAM: General: Alert and oriented. in no acute distress. Able to ambulate on and off the exam table without difficulty. Heart: Regular rate Lungs: Easy respirations Abdomen: Soft, Non-tender, non-distended. Skin: No significant rashes, petechia or purpura. Well healed surgical incisions without erythema, induration, or drainage. Extremities: No cyanosis, clubbing, or edema Mental: Mood and affect appropriate for situation Pelvis: Vulvar incision healing well and well approximated, no separation, erythema, drainage, or induration. DIAGNOSTICS: I reviewed the imaging studies and agree with the interpretation as recorded. I reviewed the pertinent laboratory and diagnostic data. ASSESSMENT/PLAN: Kenneth Finn is a 62 y.o. female 2 weeks s/p WLE and biopsy for PARMJIT 2/3 and AIN 3 - Doing well post-op - Reviewed final pathology and plan for follow-up - Refer to CRC for AIN 3, patient desired closer to home so referral made - Follow-up in 4 months for surveillance I explained diagnosis and treatment plan; patient expressed understanding and was in agreement with the plan. Danii Brannon MD I personally spent over half of a total 20 minutes face to face with the patient in counseling and discussion and/or coordination of care as described above. documented in this encounter [employer] 10-31-2022 Telephone encounter Note Called patient with surgical pathology results. Also explained to patient that Dr. Khadijah Figueroa would like a referral be to be placed to our colorectal doctor. Patient states that she would like to see somebody closer where she lives so she does not have to make multiple trips here. Patient is following up with Dr. Salud russo on November 09 for a postoperative visit and patient expresses that she will talk to her at that time about seeing somebody closer to her. Patient verbalizes understanding [employer] Phone: 10-31-2022 Miscellaneous Notes Called patient with surgical pathology results. Also explained to patient that Dr. Khadijah Figueroa would like a referral be to be placed to our colorectal doctor. Patient states that she would like to see somebody closer where she lives so she does not have to make multiple trips here. Patient is following up with Dr. Salud russo on November 09 for a postoperative visit and patient expresses that she will talk to her at that time about seeing somebody closer to her. Patient verbalizes understanding documented in this encounter [facility] 10-23-2022 Miscellaneous Notes Brother brought to bedside, update given. Discharge instructions and follow up information given to brother and patient, all questions answered. Pt ambulated to bathroom with stand by assist, voided without difficulty, kerlix and edda pad replaced. Returned to room without complaint, dressed with RN assist, PIV removed. 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 Priority Lab ID 1 Anus Tissue TISSUE EXAM Danii Barnnon MD 10/23/22 1156 Routine Description: LEFT PERIANAL BIOPSY 2 Vulva Tissue TISSUE EXAM Danii Brannon MD 10/23/22 1203 No Routine Description: RIGHT VULVAR EXCISION Comment: STITCH AT 12 Staff: Dental Equipment Mechanic: Vania Nicole RN; Marisol Guardado RN Scrub Person: Andrzej Ball Procedure Details: The patient was seen in the preoperative area. The details of the procedure were discussed including the risks, benefits, complications, alternatives, expected recovery and outcomes. The site of surgery was properly noted/marked if necessary per policy. Patient was brought to the operating room where name, date of , and procedure were confirmed. SCDs were placed and functioning and perioperative antibiotics were administered. Patient was prepped and draped in the normal sterile fashion. Timeout was performed and all were in agreement. The right vulvar lesion was identified and a circumferential, elliptical incision was made with 1 cm margins around the lesion. This was dissected from the underlying tissue using the Bovie. The subcutaneous tissues were reapproximated with interrupted 3-0 Vicryl in 2 layers. The skin was reapproximated with 3-0 Monocryl. A vaginal exam was performed without any evidence of abnormality at the vaginal cuff or throughout the length of the vagina. No additional lesions were noted on the vulva. There was slightly raised hypopigmented area along the left perianal skin. A biopsy of this area was performed with a 3 mm punch biopsy. Hemostasis was obtained with the Bovie. All counts were correct x2. Patient tolerated procedure well and proceeded to the recovery room in stable condition. Infection Control: Procedure appropriate prophylactic antibiotic(s) given within 1 hour of surgical incision (two hours if receiving Vancomycin or flouroquinolone) No Infection Present Findings: 5x2 cm plaque like lesion of the right vulva and perineum. Mild changes on the left perianal region biopsied. No additional sites of concern. 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 Priority Lab ID 1 Anus Tissue TISSUE EXAM Danii Brannon MD 10/23/22 1156 Routine Description: LEFT PERIANAL BIOPSY 2 Vulva Tissue TISSUE EXAM Danii Brannon MD 10/23/22 1203 No Routine Description: RIGHT VULVAR EXCISION Comment: STITCH AT 12 Staff: Dental Equipment Mechanic: Vania Nicole RN; Marisol Guardado RN Scrub Person: Andrzej Ball Findings: 5x2 cm plaque like lesion of the right vulva and perineum. Mild changes on the left perianal region biopsied. No additional sites of concern. Complications: None; patient tolerated the procedure well. 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 Brother brought to bedside, update given. Discharge instructions and follow up information given to brother and patient, all questions answered. Pt ambulated to bathroom with stand by assist, voided without difficulty, kerlix and edda pad replaced. Returned to room without complaint, dressed with RN assist, PIV removed. [facility] 10-23-2022 Hospital Discharge instructions Nuria Calderon DO - 10/23/2022 12:29 PM EDT Please follow your post operative care instructions given to you by your Mutual Fund Manager Oncologist's office at your pre operative visit. Please call the office with questions or concerns and be sure to follow up at your scheduled post operative visit. documented in this encounter [facility] [employer] 10-23-2022 History and physical note Images from the original note were not included. Patient seen and examined in pre-op, no change to plan. No new issues or questions today. Consent signed. Chief Complaint Patient presents with Consult Vulvar PARMJIT, burning with urination HISTORY OF THE PRESENT ILLNESS: Kenneth Finn is a pleasant 62 y.o. female who presents in consultation at the request of Dr. Acosta for evaluation and management of PARMJIT III. She initially presented with complaints of a vulvar lesion, burning, and irritation by the urethra. Thinks this lesion may have been present for about 3-4 months, thought it was an allergy to using new Paulie wipes. Denies bleeding, abnormal discharge. Has not had symptoms or a lesion like this before. Denies issues with N/V, appetite, issues with BM. Had feeling of burning with urination but feels it is the urine irritating the lesion. Past medical history is remarkable for COPD, CAD, PE 2017 on Xarelto, chronic pain receiving nerve treatments, tobacco use. Past surgical history is remarkable for ANANDA, BSO 1999, splenectomy for thrombocytopenia 2000, surgery for bowel obstruction with no bowel resection 2011. , son unfortunately of drug overdose. Denies history of abnormal pap smears. Family history notable for prostate cancer in father, BC in remote paternal side. Lives at home alone. Has 5 cats she cares for. Currently smoking 1 ppd, had tried to decrease but has been under stress recently from finding lesion. ECOG 1. Family History Family History Problem Relation Name Age of Onset Diabetes Mother Hypertension Father Social History Socioeconomic History Marital status: Spouse name: Not on file Number of children: Not on file Years of education: Not on file Highest education level: Not on file Occupational History Not on file Tobacco Use Smoking status: Every Day Types: Cigarettes Start date: 08/10/2016 Smokeless tobacco: Never Substance and Sexual Activity Alcohol use: Never Drug use: Not on file Sexual activity: Not on file Other Topics Concern Not on file Social History Narrative Not on file Social Determinants of Health Financial Resource Strain: Not on file Food Insecurity: Not on file Transportation Needs: Not on file Physical Activity: Not on file Stress: Not on file Social Connections: Not on file Intimate Partner Violence: Not on file Housing Stability: Not on file Current Outpatient Medications on File Prior to Visit Medication Sig Dispense Refill albuterol 108 (90 Base) MCG/ACT inhaler Inhale 2 puffs every 6 hours as needed for wheezing. bwlngfvutv-zzwkhifobyext-vbuvmhoq 50-325-40 MG tablet Take 1 tablet by mouth every 4 hours as needed for headaches. citalopram (CeleXA) 20 MG tablet Take by mouth. diazePAM (Valium) 10 MG tablet Take by mouth every 8 hours as needed. oxyCODONE-acetaminophen (Percocet) 10-325 MG tablet Take 1 tablet by mouth every 6 hours as needed. pantoprazole (ProtoNix) 40 MG EC tablet promethazine (Phenergan) 25 MG tablet Take by mouth. rivaroxaban (Xarelto) 20 MG tablet Take by mouth. Take with food. tiZANidine (Zanaflex) 4 MG capsule Take 4 mg by mouth 3 times daily. topiramate (Topamax) 100 MG tablet Take 50 mg by mouth in the morning and 50 mg in the evening. [DISCONTINUED] naloxone (Narcan) 4 mg/0.1 mL nasal spray Administer 4 mg into affected nostril(s) if needed for opioid reversal. May repeat every 2-3 minutes if needed, alternating nostrils, until medical assistance becomes available. [DISCONTINUED] pantoprazole (ProtoNix) 40 MG injection Infuse 40 mg into a venous catheter every morning (before breakfast). No current facility-administered medications on file prior to visit. Allergies as of 09/18/2022 - Reviewed 09/18/2022 Allergen Reaction Noted Amitriptyline 06/18/2019 Fentanyl Shortness of breath 12/08/2012 Aspirin 09/29/2009 Augmentin [amoxicillin-pot clavulanate] Nausea Only 09/11/2022 Demerol hcl [meperidine] Nausea And Vomiting 09/11/2022 Oxycodone Nausea And Vomiting and Headache 09/11/2022 Wellbutrin [bupropion] 09/11/2022 Review of Systems 12 point review of systems negative except as noted in the HPI. Vitals: 09/18/22 1004 BP: 132/66 Pulse: 89 Body mass index is 21.35 kg/m . Physical Exam Constitutional: General: She is not in acute distress. Appearance: Normal appearance. HENT: Head: Normocephalic and atraumatic. Nose: No congestion or rhinorrhea. Cardiovascular: Rate and Rhythm: Normal rate. Pulmonary: Effort: Pulmonary effort is normal. No respiratory distress. Breath sounds: No wheezing. Abdominal: General: There is no distension. Palpations: Abdomen is soft. Comments: Well healed upper abdominal midline incision Genitourinary: Comments: External genitalia with white appearing, exophytic, 2 cm lesion at the right vaginal introits and labia minora Musculoskeletal: General: No swelling. Normal range of motion. Cervical back: Normal range of motion. Skin: General: Skin is warm and dry. Coloration: Skin is not jaundiced. Findings: No bruising. Neurological: General: No focal deficit present. Mental Status: She is alert and oriented to person, place, and time. Psychiatric: Mood and Affect: Mood normal. Behavior: Behavior normal. ASSESSMENT/PLAN: 1. PARMJIT III (vulvar intraepithelial neoplasia III) 2. Tobacco dependence syndrome 3. Chronic obstructive pulmonary disease, unspecified COPD type (HCC) We reviewed the patient's pathology, exam, and treatment plan today. We discussed that her biopsy shows PARMJIT III and exam is consistent with an exophytic lesion on the right vulva. We will plan for surgical excision of the lesion for symptom control and pathologic diagnosis. We will plan for WLE of this lesion. Final pathology will determine if additional treatment is indicated. We reviewed the risks of the procedure including risk of bleeding, infection, damage to local structures, and possible need for repeat or additional procedures. We reviewed the steps of the surgery and plan for likely discharge home after surgery. Patient was counseled to discontinue Xarelto 3 days prior to surgery. Discussed recommendations for post-operative care of the vulvar lesion including keeping the area clean and dry, rinsing with a edda-bottle or warm water after urination or bowel movement, and using a dryer on low and cool or patting the incision dry. The patient had an opportunity to ask questions, all of which were answered to the best of my ability. She is in agreement with the above noted plan. >51% of the 45 minute visit was spent in direct face to face counseling and coordination of care. Danii Brannon MD [facility] [employer] 10-23-2022 History and physical note Images from the original note were not included. Patient seen and examined in pre-op, no change to plan. No new issues or questions today. Consent signed. Chief Complaint Patient presents with Consult Vulvar PARMJIT, burning with urination HISTORY OF THE PRESENT ILLNESS: Kenneth Finn is a pleasant 62 y.o. female who presents in consultation at the request of Dr. Acosta for evaluation and management of PARMJIT III. She initially presented with complaints of a vulvar lesion, burning, and irritation by the urethra. Thinks this lesion may have been present for about 3-4 months, thought it was an allergy to using new Paulie wipes. Denies bleeding, abnormal discharge. Has not had symptoms or a lesion like this before. Denies issues with N/V, appetite, issues with BM. Had feeling of burning with urination but feels it is the urine irritating the lesion. Past medical history is remarkable for COPD, CAD, PE 2017 on Xarelto, chronic pain receiving nerve treatments, tobacco use. Past surgical history is remarkable for ANANDA, BSO 1999, splenectomy for thrombocytopenia 2000, surgery for bowel obstruction with no bowel resection 2011. , son unfortunately of drug overdose. Denies history of abnormal pap smears. Family history notable for prostate cancer in father, BC in remote paternal side. Lives at home alone. Has 5 cats she cares for. Currently smoking 1 ppd, had tried to decrease but has been under stress recently from finding lesion. ECOG 1. Family History Family History Problem Relation Name Age of Onset Diabetes Mother Hypertension Father Social History Socioeconomic History Marital status: Spouse name: Not on file Number of children: Not on file Years of education: Not on file Highest education level: Not on file Occupational History Not on file Tobacco Use Smoking status: Every Day Types: Cigarettes Start date: 08/10/2016 Smokeless tobacco: Never Substance and Sexual Activity Alcohol use: Never Drug use: Not on file Sexual activity: Not on file Other Topics Concern Not on file Social History Narrative Not on file Social Determinants of Health Financial Resource Strain: Not on file Food Insecurity: Not on file Transportation Needs: Not on file Physical Activity: Not on file Stress: Not on file Social Connections: Not on file Intimate Partner Violence: Not on file Housing Stability: Not on file Current Outpatient Medications on File Prior to Visit Medication Sig Dispense Refill albuterol 108 (90 Base) MCG/ACT inhaler Inhale 2 puffs every 6 hours as needed for wheezing. uhlpyzpeht-lxgfmwzlpnnlr-ktvuwqmq 50-325-40 MG tablet Take 1 tablet by mouth every 4 hours as needed for headaches. citalopram (CeleXA) 20 MG tablet Take by mouth. diazePAM (Valium) 10 MG tablet Take by mouth every 8 hours as needed. oxyCODONE-acetaminophen (Percocet) 10-325 MG tablet Take 1 tablet by mouth every 6 hours as needed. pantoprazole (ProtoNix) 40 MG EC tablet promethazine (Phenergan) 25 MG tablet Take by mouth. rivaroxaban (Xarelto) 20 MG tablet Take by mouth. Take with food. tiZANidine (Zanaflex) 4 MG capsule Take 4 mg by mouth 3 times daily. topiramate (Topamax) 100 MG tablet Take 50 mg by mouth in the morning and 50 mg in the evening. [DISCONTINUED] naloxone (Narcan) 4 mg/0.1 mL nasal spray Administer 4 mg into affected nostril(s) if needed for opioid reversal. May repeat every 2-3 minutes if needed, alternating nostrils, until medical assistance becomes available. [DISCONTINUED] pantoprazole (ProtoNix) 40 MG injection Infuse 40 mg into a venous catheter every morning (before breakfast). No current facility-administered medications on file prior to visit. Allergies as of 09/18/2022 - Reviewed 09/18/2022 Allergen Reaction Noted Amitriptyline 06/18/2019 Fentanyl Shortness of breath 12/08/2012 Aspirin 09/29/2009 Augmentin [amoxicillin-pot clavulanate] Nausea Only 09/11/2022 Demerol hcl [meperidine] Nausea And Vomiting 09/11/2022 Oxycodone Nausea And Vomiting and Headache 09/11/2022 Wellbutrin [bupropion] 09/11/2022 Review of Systems 12 point review of systems negative except as noted in the HPI. Vitals: 09/18/22 1004 BP: 132/66 Pulse: 89 Body mass index is 21.35 kg/m . Physical Exam Constitutional: General: She is not in acute distress. Appearance: Normal appearance. HENT: Head: Normocephalic and atraumatic. Nose: No congestion or rhinorrhea. Cardiovascular: Rate and Rhythm: Normal rate. Pulmonary: Effort: Pulmonary effort is normal. No respiratory distress. Breath sounds: No wheezing. Abdominal: General: There is no distension. Palpations: Abdomen is soft. Comments: Well healed upper abdominal midline incision Genitourinary: Comments: External genitalia with white appearing, exophytic, 2 cm lesion at the right vaginal introits and labia minora Musculoskeletal: General: No swelling. Normal range of motion. Cervical back: Normal range of motion. Skin: General: Skin is warm and dry. Coloration: Skin is not jaundiced. Findings: No bruising. Neurological: General: No focal deficit present. Mental Status: She is alert and oriented to person, place, and time. Psychiatric: Mood and Affect: Mood normal. Behavior: Behavior normal. ASSESSMENT/PLAN: 1. PARMJIT III (vulvar intraepithelial neoplasia III) 2. Tobacco dependence syndrome 3. Chronic obstructive pulmonary disease, unspecified COPD type (HCC) We reviewed the patient's pathology, exam, and treatment plan today. We discussed that her biopsy shows PARMJIT III and exam is consistent with an exophytic lesion on the right vulva. We will plan for surgical excision of the lesion for symptom control and pathologic diagnosis. We will plan for WLE of this lesion. Final pathology will determine if additional treatment is indicated. We reviewed the risks of the procedure including risk of bleeding, infection, damage to local structures, and possible need for repeat or additional procedures. We reviewed the steps of the surgery and plan for likely discharge home after surgery. Patient was counseled to discontinue Xarelto 3 days prior to surgery. Discussed recommendations for post-operative care of the vulvar lesion including keeping the area clean and dry, rinsing with a edda-bottle or warm water after urination or bowel movement, and using a dryer on low and cool or patting the incision dry. The patient had an opportunity to ask questions, all of which were answered to the best of my ability. She is in agreement with the above noted plan. >51% of the 45 minute visit was spent in direct face to face counseling and coordination of care. Danii Brannon MD documented in this encounter [facility] 10-23-2022 Note Formatting of this n ote is different from the original. 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 Priority Lab ID 1 Anus Tissue TISSUE EXAM Danii Brannon MD 10/23/22 1156 Routine Description: LEFT PERIANAL BIOPSY 2 Vulva Tissue TISSUE EXAM Danii Brannon MD 10/23/22 1203 No Routine Description: RIGHT VULVAR EXCISION Comment: STITCH AT 12 Staff: Dental Equipment Mechanic: Vania Nicole RN; Marisol Guardado RN Scrub Person: Andrzej Ball Procedure Details: The patient was seen in the preoperative area. The details of the procedure were discussed including the risks, benefits, complications, alternatives, expected recovery and outcomes. The site of surgery was properly noted/marked if necessary per policy. Patient was brought to the operating room where name, date of , and procedure were confirmed. SCDs were placed and functioning and perioperative antibiotics were administered. Patient was prepped and draped in the normal sterile fashion. Timeout was performed and all were in agreement. The right vulvar lesion was identified and a circumferential, elliptical incision was made with 1 cm margins around the lesion. This was dissected from the underlying tissue using the Bovie. The subcutaneous tissues were reapproximated with interrupted 3-0 Vicryl in 2 layers. The skin was reapproximated with 3-0 Monocryl. A vaginal exam was performed without any evidence of abnormality at the vaginal cuff or throughout the length of the vagina. No additional lesions were noted on the vulva. There was slightly raised hypopigmented area along the left perianal skin. A biopsy of this area was performed with a 3 mm punch biopsy. Hemostasis was obtained with the Bovie. All counts were correct x2. Patient tolerated procedure well and proceeded to the recovery room in stable condition. Infection Control: Procedure appropriate prophylactic antibiotic(s) given within 1 hour of surgical incision (two hours if receiving Vancomycin or flouroquinolone) No Infection Present Findings: 5x2 cm plaque like lesion of the right vulva and perineum. Mild changes on the left perianal region biopsied. No additional sites of concern. 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 [facility] 10-23-2022 Note Formatting of this n ote is different from the original. 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 Priority Lab ID 1 Anus Tissue TISSUE EXAM Danii Brannon MD 10/23/22 1156 Routine Description: LEFT PERIANAL BIOPSY 2 Vulva Tissue TISSUE EXAM Danii Brannon MD 10/23/22 1203 No Routine Description: RIGHT VULVAR EXCISION Comment: STITCH AT 12 Staff: Dental Equipment Mechanic: Vania Nicole RN; Marisol Guardado RN Scrub Person: Andrzej Ball Findings: 5x2 cm plaque like lesion of the right vulva and perineum. Mild changes on the left perianal region biopsied. No additional sites of concern. Complications: None; patient tolerated the procedure well. 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06.2022 at 10:30 am Folder and instruction given documented in this encounter [facility] 09-18-2022 History of Present illness Narrative Images from the original note were not included. Chief Complaint Patient presents with Consult Vulvar PARMJIT, burning with urination HISTORY OF THE PRESENT ILLNESS: Kenneth Finn is a pleasant 62 y.o. female who presents in consultation at the request of Dr. Acosta for evaluation and management of PARMJIT III. She initially presented with complaints of a vulvar lesion, burning, and irritation by the urethra. Thinks this lesion may have been present for about 3-4 months, thought it was an allergy to using new Paulie wipes. Denies bleeding, abnormal discharge. Has not had symptoms or a lesion like this before. Denies issues with N/V, appetite, issues with BM. Had feeling of burning with urination but feels it is the urine irritating the lesion. Past medical history is remarkable for COPD, CAD, PE 2017 on Xarelto, chronic pain receiving nerve treatments, tobacco use. Past surgical history is remarkable for ANANDA, BSO 1999, splenectomy for thrombocytopenia 2000, surgery for bowel obstruction with no bowel resection 2011. , son unfortunately of drug overdose. Denies history of abnormal pap smears. Family history notable for prostate cancer in father, BC in remote paternal side. Lives at home alone. Has 5 cats she cares for. Currently smoking 1 ppd, had tried to decrease but has been under stress recently from finding lesion. ECOG 1. Family History Problem Relation Name Age of Onset Diabetes Mother Hypertension Father Social History Socioeconomic History Marital status: Spouse name: Not on file Number of children: Not on file Years of education: Not on file Highest education level: Not on file Occupational History Not on file Tobacco Use Smoking status: Every Day Types: Cigarettes Start date: 08/10/2016 Smokeless tobacco: Never Substance and Sexual Activity Alcohol use: Never Drug use: Not on file Sexual activity: Not on file Other Topics Concern Not on file Social History Narrative Not on file Social Determinants of Health Financial Resource Strain: Not on file Food Insecurity: Not on file Transportation Needs: Not on file Physical Activity: Not on file Stress: Not on file Social Connections: Not on file Intimate Partner Violence: Not on file Housing Stability: Not on file Current Outpatient Medications on File Prior to Visit Medication Sig Dispense Refill albuterol 108 (90 Base) MCG/ACT inhaler Inhale 2 puffs every 6 hours as needed for wheezing. tghtcvnevs-cgvqpdwlhaczy-bskeqrvq 50-325-40 MG tablet Take 1 tablet by mouth every 4 hours as needed for headaches. citalopram (CeleXA) 20 MG tablet Take by mouth. diazePAM (Valium) 10 MG tablet Take by mouth every 8 hours as needed. oxyCODONE-acetaminophen (Percocet) 10-325 MG tablet Take 1 tablet by mouth every 6 hours as needed. pantoprazole (ProtoNix) 40 MG EC tablet promethazine (Phenergan) 25 MG tablet Take by mouth. rivaroxaban (Xarelto) 20 MG tablet Take by mouth. Take with food. tiZANidine (Zanaflex) 4 MG capsule Take 4 mg by mouth 3 times daily. topiramate (Topamax) 100 MG tablet Take 50 mg by mouth in the morning and 50 mg in the evening. [DISCONTINUED] naloxone (Narcan) 4 mg/0.1 mL nasal spray Administer 4 mg into affected nostril(s) if needed for opioid reversal. May repeat every 2-3 minutes if needed, alternating nostrils, until medical assistance becomes available. [DISCONTINUED] pantoprazole (ProtoNix) 40 MG injection Infuse 40 mg into a venous catheter every morning (before breakfast). No current facility-administered medications on file prior to visit. Allergies as of 09/18/2022 - Reviewed 09/18/2022 Allergen Reaction Noted Amitriptyline 06/18/2019 Fentanyl Shortness of breath 12/08/2012 Aspirin 09/29/2009 Augmentin [amoxicillin-pot clavulanate] Nausea Only 09/11/2022 Demerol hcl [meperidine] Nausea And Vomiting 09/11/2022 Oxycodone Nausea And Vomiting and Headache 09/11/2022 Wellbutrin [bupropion] 09/11/2022 Review of Systems 12 point review of systems negative except as noted in the HPI. Vitals: 09/18/22 1004 BP: 132/66 Pulse: 89 Body mass index is 21.35 kg/m . Physical Exam Constitutional: General: She is not in acute distress. Appearance: Normal appearance. HENT: Head: Normocephalic and atraumatic. Nose: No congestion or rhinorrhea. Cardiovascular: Rate and Rhythm: Normal rate. Pulmonary: Effort: Pulmonary effort is normal. No respiratory distress. Breath sounds: No wheezing. Abdominal: General: There is no distension. Palpations: Abdomen is soft. Comments: Well healed upper abdominal midline incision Genitourinary: Comments: External genitalia with white appearing, exophytic, 2 cm lesion at the right vaginal introits and labia minora Musculoskeletal: General: No swelling. Normal range of motion. Cervical back: Normal range of motion. Skin: General: Skin is warm and dry. Coloration: Skin is not jaundiced. Findings: No bruising. Neurological: General: No focal deficit present. Mental Status: She is alert and oriented to person, place, and time. Psychiatric: Mood and Affect: Mood normal. Behavior: Behavior normal. ASSESSMENT/PLAN: 1. PARMJIT III (vulvar intraepithelial neoplasia III) 2. Tobacco dependence syndrome 3. Chronic obstructive pulmonary disease, unspecified COPD type (HCC) We reviewed the patient's pathology, exam, and treatment plan today. We discussed that her biopsy shows PARMJIT III and exam is consistent with an exophytic lesion on the right vulva. We will plan for surgical excision of the lesion for symptom control and pathologic diagnosis. We will plan for WLE of this lesion. Final pathology will determine if additional treatment is indicated. We reviewed the risks of the procedure including risk of bleeding, infection, damage to local structures, and possible need for repeat or additional procedures. We reviewed the steps of the surgery and plan for likely discharge home after surgery. Patient was counseled to discontinue Xarelto 3 days prior to surgery. Discussed recommendations for post-operative care of the vulvar lesion including keeping the area clean and dry, rinsing with a edda-bottle or warm water after urination or bowel movement, and using a dryer on low and cool or patting the incision dry. The patient had an opportunity to ask questions, all of which were answered to the best of my ability. She is in agreement with the above noted plan. >51% of the 45 minute visit was spent in direct face to face counseling and coordination of care. Danii Brannon MD documented in this encounter [facility] 09-24-2015 History of Past i llness Narrative Problem Noted Date Resolved Date Unspecified Myalgia and Myositis 09/24/2015 Overview: Fibromyalgia (myalgia and myositis) Degenerative disc disease 2015 documented as of this encounter (statuses as of 11/17/2022[facility]IT III (vulvar intraepithelial neoplasia III)- Primary Carcinoma in situ, vulva Tobacco dependence syndrome Tobacco use disorder Chronic obstructive pulmonary disease, unspecified COPD type (HCC) On continuous oral anticoagulation Carcinoma in situ of vulva Carcinoma in situ, vulva documented in this encounter [facility] note* Diagnosis PARMJIT III (vulvar intraepithelial neoplasia III)- Primary Carcinoma in situ, vulva Carcinoma in situ of vulva Carcinoma in situ, vulva documented in this encounter [facility] note* Diagnosis Vulvar intraepithelial neoplasia (PARMJIT) grade 3- Primary documented in this encounter [facility] note* Diagnosis 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 documented in this encounter [facility] note* Diagnosis Anal lesion- Primary documented in this encounter [facility] note* Diagnosis Chronic anticoagulation- Primary Encounter for long-term (current) use of anticoagulants Vulvar intraepithelial neoplasia (PARMJIT) grade 3 History of pulmonary embolism Personal history of venous thrombosis and embolism Anal lesion 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, unspecified documented in this encounter [facility] note* Diagnosis PARMJIT III (vulvar intraepithelial neoplasia III)- Primary Carcinoma in situ, vulva Tobacco dependence syndrome Tobacco use disorder documented in this encounter [facility] note* Diagnosis Anal lesion- Primary Anal lesion 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 Anal lesion 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 documented in this encounter [facility] note* Diagnosis Vulvar intraepithelial neoplasia (PARMJIT) grade 3- Primary Anal lesion 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 Anal lesion 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 documented in this encounter [facility] note* Diagnosis AIN grade III- Primary Carcinoma in situ of anus, unspecified documented in this encounter [facility] Summary Purpose Family History No Family History Records FoundNo Family History Records FoundNo Family History Records FoundNo Family History Records FoundNo Family History Records Found Advance Directives No Advanced Directives Records FoundLatest Code Status on File Code Status Date Activated Date Inactivated Comments Full Code 10/23/2022 9:48 AM 10/23/2022 3:35 PM Latest Code Status on File Code Status Date Activated Date Inactivated Comments Full Code 10/23/2022 9:48 AM 10/23/2022 3:35 PM Latest Code Status on File Code Status Date Activated Date Inactivated Comments Full Code 04/22/2023 11:32 AM 04/22/2023 6:42 PM Code Status History Code Status Date Activated Date Inactivated Comments Full Code 10/23/2022 9:48 AM 10/23/2022 3:35 PM Latest Code Status on File Code Status Date Activated Date Inactivated Comments Full Code 04/22/2023 11:32 AM 04/22/2023 6:42 PM Code Status History Code Status Date Activated Date Inactivated Comments Full Code 10/23/2022 9:48 AM 10/23/2022 3:35 PM Date Activated Date Inactivated Comments 04/22/2023 11:32 AM 04/22/2023 6:42 PM Date Activated Date Inactivated Comments 10/23/2022 9:48 AM 10/23/2022 3:35 PM Additional Source Comments INFORMATION SOURCE (unrecogn ized section and content) DATE CREATED AUTHOR 12/27/2017 [facility] [place] DATE CREATED AUTHOR AUTHOR'S ORGANIZ ATION 01/01/2018 [facility] DATE CREATED AUTHOR AUTHOR'S ORGANIZ ATION 10/22/2018 [facility] ([place]) DATE CREATED AUTHOR AUTHOR'S ORGANIZ ATION 11/18/2022 [facility] DATE CREATED AUTHOR AUTHOR'S ORGANIZ ATION 03/29/2024 [facility] Reason for Visit (unrecogniz ed section and content) Reason Onset Date Comments surgery scheduling 09/18/2022 Scheduled at [facility] Reason Comments Consult Vulvar PARMJIT, burning with urination Specialty Diagnoses / Procedures Referred By Contac t Referred To Contact Gynecologic Oncology Diagnoses PARMJIT on vulvar punch biopsy Procedures CO OFFICE/OUTPATIENT NEW HIGH MDM 60-74 MINUTES Nuria Acosta MD [address] [place] [address] [facility] [employer] Operator Onc [address] 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] Procedures CO BIOPSY VULVA/PERINEUM 1 LESION SPX CO BIOPSY VULVA/PERINEUM EACH ADDL LESION WIDE LOCAL INCISION BIOPSY OF VULVA OR PERINEUM (EACH ADDITIONAL LESION) Danii Brannon MD [address] [facility] [address] [place] [address] [facility] [address] [place] [address] Referral ID Status Reason Start Date Expiration Date Visits Re quested Visits Authorized [id number] 1 1 Reason Onset Date Comments Results 10/31/2022 Reason Comments Post-op Visit Pt has no concerns Reason Comments Consult Perianal lesion Reason Onset Date Comments Referral 12/18/2022 Appointment Request 12/18/2022 Reason Onset Date Comments Vaginal Pain 11/14/2022 Post-op Problem 11/14/2022 Reason Comments New Patient Pt presents for eval uation of high grade dysplasia and to discuss options/colonoscopy, pt has history of vulvar lesions and has a white patch on her bottom, pt stated that she does feel a bump at times, last colonoscopy was about 5 years ago Specialty Diagnoses / Procedures Referred By Douglas bonner Referred To Contact Colon and Rectal Surgery Diagnoses Vulvar intraepithelial neoplasia (PARMJIT) grade 3 Procedures CO OFFICE/OUTPATIENT NEW HIGH MDM 60-74 MINUTES Danii Brannon MD [address] [facility] [address] [place] [address] Nikhil Boothe MD [address] [place] [address] [address] [place] [address] Referral ID Status Reason Start Date Expiration Date Visits Requested Visits Authorized [id number] Pending Review Specialty Services Required 11/19/2022 11/19/2023 1 1 Reason Comments Follow-up Pt has slight itchin g and burning and she is concerned it is a yeast infection. 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 [place] [address] Referral ID Status Reason Start Date Expiration Date Visits Re quested Visits Authorized [id number] 1 1 Care Teams (unrecognized sec tion and content) Charter Representative Relationship Specialty Start Date End Date Odin Berumen [address] [place] [address] PCP - General Family Medicine 09/18/22 Danii Brannon MD [address] [address] Consulting Physician Gynecologic Oncology 09/11/22 Charter Representative Relationship Specialty Start Date End Date Odin Berumen [address] [place] [address] PCP - General Family Medicine 09/18/22 Danii Brannon MD [address] [address] Consulting Physician Gynecologic Oncology 09/11/22 Charter Representative Relationship Specialty Start Date End Date Odin Berumen [address] [place] [address] PCP - General Family Medicine 09/18/22 Danii Brannon MD [address] [address] Consulting Physician Gynecologic Oncology 09/11/22 Charter Representative Relationship Specialty Start Date End Date Zev Odin Peterson [address] [place] [phone] PCP - General Family Medicine 09/18/22 Danii Brannon MD [address] [address] Consulting Physician Gynecologic Oncology 09/11/22 Charter Representative Relationship Specialty Start Date End Date Odin Berumen [address] [place] [phone] PCP - General Family Medicine 09/18/22 Danii Brannon MD [address] [facility] [address] [phone] Consulting Physician Gynecologic Oncology 09/11/22 Grace Sanford, PETRA - BOILERMAKER HELPER [address] [facility] [address] [place] [phone] Nurse Practitioner Nurse Practitioner 10/31/22 Charter Representative Relationship Specialty Start Date End Date Odin Berumen [address] [place] [phone] PCP - General Family Medicine 09/18/22 Danii Brannon MD [address] [facility] [address] [address] Consulting Physician Gynecologic Oncology 09/11/22 Grace Sanford EL TEACHER - BOILERMAKER HELPER [address] [facility] [address] [place] [address] Nurse Practitioner Nurse Practitioner 10/31/22 Charter Representative Relationship Specialty Start Date End Date Odin Berumen [address] [place] [phone] PCP - General Family Medicine 09/18/22 Danii Brannon MD [address] [place] [phone] Consulting Physician Gynecologic Oncology 09/11/22 Grace Sanford APRN - BOILERMAKER HELPER [address] [place], [place] [phone] Nurse Practitioner Nurse Practitioner 10/31/22 Charter Representative Relationship Specialty Start Date End Date Odin Berumen DO [address] [place] [address] PCP - General Family Medicine 11/12/22 Charter Representative Relationship Specialty Start Date End Date Odin Berumen [address] [place] [phone] PCP - General Family Medicine 09/18/22 Danii Brannon MD [address] [facility] [address] [place] [address] Consulting Physician Gynecologic Oncology 09/11/22 Grace Sanford APRN - BOILERMAKER HELPER [address] [place], [place] [phone] Nurse Practitioner Nurse Practitioner 10/31/22 Charter Representative Relationship Specialty Start Date End Date Odin Berumen [address] [place] [address] PCP - General Family Medicine 09/18/22 Danii Brannon MD [address] [place] [place] [address] Consulting Physician Gynecologic Oncology 09/11/22 Grace Sanford APRN - BOILERMAKER HELPER [address] [place], [place] [phone] Nurse Practitioner Nurse Practitioner 10/31/22 Charter Representative Relationship Specialty Start Date End Date Odin Berumen [address] [place] [address] PCP - General Family Medicine 09/18/22 Danii Brannon MD [address] [place] [address] [place] [address] Consulting Physician Gynecologic Oncology 09/11/22 Grace Sanford APRN - BOILERMAKER HELPER [address] [place], [place] [phone] Nurse Practitioner Nurse Practitioner 10/31/22 Charter Representative Relationship Specialty Start Date End Date Odin Berumen [address] [place] [address] PCP - General Family Medicine 09/18/22 Danii Brannon MD [address] [place] [address] [place] [address] Consulting Physician Gynecologic Oncology 09/11/22 Grace Sanford APRN - BOILERMAKER HELPER [address] [place], [place] [phone] Nurse Practitioner Nurse Practitioner 10/31/22 Charter Representative Relationship Specialty Start Date End Date Odin Berumen [address] [place] [phone] PCP - General Family Medicine 09/18/22 Danii Brannon MD [address] [place] [phone] Consulting Physician Gynecologic Oncology 09/11/22 Grace Sanford APRN - BOILERMAKER HELPER [address] [place] [address] Nurse Practitioner Nurse Practitioner 10/31/22 Charter Representative Relationship Specialty Start Date End Date Odin Berumen [address] [place] [address] PCP - General Family Medicine 09/18/22 Danii Brannon MD [address] [place] [address] Consulting Physician Gynecologic Oncology 09/11/22 Grace Sanford APRN - LORI [address] [place] [address] Nurse Practitioner Nurse Practitioner 10/31/22 Charter Representative Relationship Specialty Start Date End Date Oidn Berumen [address] [place] [address] PCP - General Family Medicine 09/18/22 Danii Brannon MD [address] [place] [address] Consulting Physician Gynecologic Oncology 09/11/22 Grace Sanford APRN - LORI [address] [place], [place] [phone] Nurse Practitioner Nurse Practitioner 10/31/22 Charter Representative Relationship Specialty Start Date End Date Odin Berumen [address] [place] [address] PCP - General Family Medicine 09/18/22 Danii Brannon MD [address] [place] [address] Consulting Physician Gynecologic Oncology 09/11/22 Grace Sanford APRN - BOILERMAKER HELPER [address] [place], [place] [phone] Nurse Practitioner Nurse Practitioner 10/31/22 Charter Representative Relationship Specialty Start Date End Date Odin Berumen [address] [place] [address] PCP - General Family Medicine 09/18/22 Danii Brannon MD [address] [place] [address] Consulting Physician Gynecologic Oncology 09/11/22 Grace Sanford EL TEACHER - BOILERMAKER HELPER [address] [place], [place] [phone] Nurse Practitioner Nurse Practitioner 10/31/22 Tamiko Zamora EL TEACHER - BOILERMAKER HELPER [address] [place], [place] [phone] Nurse Practitioner Nurse Practitioner 03/27/24 Scheduled Active and Recently Administ ered Medications (unrecognized section and content) Medication Order 10/21/2022 10/22/2022 10/23/2022 acetaminophen (Tylenol) tablet 1,000 mg 1,000 mg, Oral, Once, On Sat10/23/22 at 1000, For 1 dose, Preprocedure, Maximum dose of acetaminophen is 4000 mg from all sources in 24 hours. Do not administer if patient has taken tylenol <4 hours earlier. Do not give if contraindicated ie. patient has active liver disease or cirrhosis. 1000 (Not Given - Pr ovider: Shanta Ramirez RN - Reason: Other - Comment: pt took at home) ceFAZolin in dextrose 4% (Ancef) IVPB 2,000 mg (COMPLETED) 2,000 mg, IntraVENous, Administer over 30 Minutes, Balloon Artist to O.R., On Sat10/23/22 at 1000, For 1 dose, Preprocedure, Administer within 1 hour prior to incision. premix bag, Suspected Indication (Select all that apply): Surgical Prophylaxis 1150 (Given - Provid er: Alexandr Mtz CRNA)1231 (Anesthesia Volume Adjustment - Provider: Alexandr Mtz CRNA) famotidine (Pepcid) tablet 20 mg (COMPLETED) 20 mg, Oral, Once, On Sat10/23/22 at 1000, For 1 dose, Preprocedure 1007 (Given - Provid er: Shanta Ramirez RN) gabapentin (Neurontin) capsule 100 mg (COMPLETED) 100 mg, Oral, Once, On Sat10/23/22 at 1000, For 1 dose, Preprocedure, For Age >69 or Low GFR. 1007 (Given - Provid er: Shanta Ramirez RN) sodium chloride 0.9% (NS) flush 10 mL 10 mL, IntraVENous, Every 12 hours scheduled (2 times per day), First dose on Sat10/23/22 at 2100, Recovery (only) sodium chloride 0.9% (NS) flush 5-40 mL 5-40 mL, IntraVENous, Every 12 hours, First dose on Sat10/23/22 at 1000, Preprocedure, For Line Patency: Peripheral IV = 5 mL; Midline or Central Line = 10 mL/lumen. If following IV push medication, administer flush at same rate as the IV push. Flush volume is determined by type of infusion therapy being given. For non-viscous solutions use: Peripheral IV = 5 mL Midline or Central Line = 10 mL/lumen For viscous solutions (i.e. blood components, parenteral nutrition, contrast media, or after obtaining blood sample) use: Peripheral IV = 10 mL Midline or Central Line = 20 mL/lumen 1000 (Canceled Entry - Provider: Automatic Discharge Provider - Comment: Automatically canceled at discontinue of medication order) Continuous Medication Order 10/21/2022 10/22/2022 10/23/2022 lactated Ringer's (LR) infusion 50 mL/hr, IntraVENous, Continuous, Starting on Sat10/23/22 at 1000, Preprocedure, Upon admission to sameday - please start iv if patient does not have iv access. Use 500ml NS for patients on dialysis. 1007 (New Bag - Prov ider: Shanta Ramirez RN)1142 (Continued by Anesthesia - Provider: Alexandr Mtz CRNA)1213 (Stopped - Provider: Alexandr Mtz CRNA) lactated ringers infusion 125 mL/hr, IntraVENous, Continuous, Starting on Sat10/23/22 at 1245, Recovery (only) 1245 (Canceled Entry - Provider: Automatic Discharge Provider - Comment: Automatically canceled at discontinue of medication order) PRN Medication Order 10/21/2022 10/22/2022 10/23/2022 ALPRAZolam (Xanax) disintegrating tablet 0.25 mg 0.25 mg, Oral, PRN, anxiety, Starting on Sat10/23/22 at 0948, For 1 dose, Preprocedure, Using dry hands, place tablet on top of tongue and allow to disintegrate. Administration with water is not necessary. bupivacaine-EPINEPHrine PF (Marcaine w/EPI) 0.25% -[id number] injection (CANCELED) As needed, Starting on Sat10/23/22 at 1159, Intraprocedure 1159 (Given - Provid er: Danii Brannon MD - Comment: VAGINA) diphenhydrAMINE (BENADryl) injection 12.5 mg 12.5 mg, IntraVENous, Once PRN, itching, Starting on Sat10/23/22 at 1235, For 1 dose, Recovery (only) hydrALAZINE (Apresoline) injection 5 mg(Linked Group 1) 5 mg, IntraVENous, Every 15 min PRN, high blood pressure, for SBP greater than 160 mmHg for 2 consecutive measurements taken from different sites, Starting on Sat10/23/22 at 1235, For 2 doses, Recovery (only), PRN for SBP > 160 for 2 consecutive measurements, and if one of the following conditions is met: 1) If IV labetolol is ineffective. 2) If HR is under 60. 3) If patient has heart block, COPD or asthma. If both labetalol and hydralazine ineffective, notify anesthesia provider. labetalol (Normodyne,Trandate) injection 5 mg(Linked Group 1) 5 mg, IntraVENous, Every 10 min PRN, high blood pressure, for SBP greater than 160 mmHg for 2 consecutive measurements taken from different sites., Starting on Sat10/23/22 at 1235, For 2 doses, Recovery (only), PRN for SBP >160 for 2 consecutive measurements, if HR is 60 or greater. If beta evan is contraindicated (HR less than 60, heart block, COPD or asthma) use hydralazine IV order. LORazepam (Ativan) injection 0.5 mg (COMPLETED) 0.5 mg, IntraVENous, Once PRN, for anxiety or muscle spasm., Starting on Sat10/23/22 at 1235, For 1 dose, Recovery (only), For IV doses dilute dose with 1ml NS. 1247 (Given - Provid er: Sophie Anand RN) ondansetron (Zofran) injection 4 mg 4 mg, IntraVENous, Once PRN, nausea, Starting on Sat10/23/22 at 1235, For 1 dose, Recovery (only), Initial antiemetic therapy. oxyCODONE (Roxicodone) immediate release tablet 10 mg (COMPLETED) 10 mg, Oral, PRN, severe pain (7-10), Starting on Sat10/23/22 at 1235, For 1 dose, Recovery (only), PHASE II 1306 (Given - Provid er: Darling Bull RN) sodium chloride 0.9 % bolus 500 mL 500 mL, IntraVENous, at 1,000 mL/hr, Administer over 0.5 Hours, PRN, Anti-nausea, Starting on Sat10/23/22 at 1235, Recovery (only), Indications: Anti-nausea sodium chloride 0.9 % infusion 5-250 mL/hr, IntraVENous, PRN, if patient receiving piggyback infusions and maintenance fluids are not ordered OR KVO fluids to protect IV site / prevent frequent line interruptions / long duration, Starting on Sat10/23/22 at 0948, Preprocedure, For piggyback infusion, administer at same rate as piggyback for a total of 25 mL. Enter 25 mL into dose field and piggyback rate into rate field of order. If piggyback is infusing at a rate less than 100 mL/hr, enter 25 mL into dose field and 100 mL/hr into rate field of order. For KVO fluids, enter rate of 20 mL/hr or less into rate field of order. sodium chloride 0.9 % infusion 5-250 mL/hr, IntraVENous, PRN, if patient receiving piggyback infusions and maintenance fluids are not ordered OR KVO fluids to protect IV site / prevent frequent line interruptions/ long duration, Starting on Sat10/23/22 at 1235, Recovery (only), For piggyback infusion, administer at same rate as piggyback for a total of 25 mL. Enter 25 mL into dose field and piggyback rate into rate field of order. If piggyback is infusing at a rate less than 100 mL/hr, enter 25 mL into dose field and 100 mL/hr into rate field of order. For KVO fluids, enter rate of 20 mL/hr or less into rate field of order. sodium chloride 0.9% (NS) flush 10 mL 10 mL, IntraVENous, PRN, line care, Starting on Sat10/23/22 at 1235, Recovery (only), After every IV line use sodium chloride 0.9% (NS) flush 5-40 mL 5-40 mL, IntraVENous, PRN, line care, After every IV line use, Starting on Sat10/23/22 at 0948, Preprocedure, For Line Patency: Peripheral IV = 5 mL; Midline or Central Line = 10 mL/lumen. If following IV push medication, administer flush at same rate as the IV push. Flush volume is determined by type of infusion therapy being given. For non-viscous solutions use: Peripheral IV = 5 mL Midline or Central Line = 10 mL/lumen For viscous solutions (i.e. blood components, parenteral nutrition, contrast media, or after obtaining blood sample) use: Peripheral IV = 10 mL Midline or Central Line = 20 mL/lumen sterile water irrigation solution (CANCELED) As needed, Starting on Sat10/23/22 at 1159, Intraprocedure 1159 (Given - Provid er: Danii Brannon MD) Linked Groups Order Group 1: labetalol (Normodyne,Trandate) injection 5 mgJump to med 5 mg, IntraVENous, Every 10 min PRN, high blood pressure, for SBP greater than 160 mmHg for 2 consecutive measurements taken from different sites., Starting on Sat10/23/22 at 1235, For 2 doses, Recovery (only)
PRN for SBP >160 for 2 consecutive measurements, if HR is 60 or greater. If beta evan is contraindicated (HR less than 60, heart block, COPD or asthma) use hydralazine IV order.
Or hydrALAZINE (Apresoline) injection 5 mgJump to med 5 mg, IntraVENous, Every 15 min PRN, high blood pressure, for SBP greater than 160 mmHg for 2 consecutive measurements taken from different sites, Starting on Sat10/23/22 at 1235, For 2 doses, Recovery (only)
PRN for SBP > 160 for 2 consecutive measurements, and if one of the following conditions is met: 1) If IV labetolol is ineffective. 2) If HR is under 60. 3) If patient has heart block, COPD or asthma. If both labetalol and hydralazine ineffective, notify anesthesia provider.
Scheduled Medication Order 04/20/2023 04/21/2023 04/22/2023 acetaminophen (Tylenol) tablet 1,000 mg (COMPLETED) 1,000 mg, Oral, Once, On Sat04/22/23 at 1145, For 1 dose, Preprocedure, Maximum dose of acetaminophen is 4000 mg from all sources in 24 hours. Do not administer if patient has taken tylenol <4 hours earlier. Do not give if contraindicated ie. patient has active liver disease or cirrhosis. 1147 (Given - Provid er: Goldie Ivan RN) famotidine (Pepcid) tablet 20 mg (COMPLETED) 20 mg, Oral, Once, On Sat04/22/23 at 1145, For 1 dose, Preprocedure 1147 (Given - Provid er: Goldie Ivan RN) gabapentin (Neurontin) capsule 100 mg (COMPLETED) 100 mg, Oral, Once, On Sat04/22/23 at 1145, For 1 dose, Preprocedure, For Age >69 or Low GFR. 1147 (Given - Provid er: Goldie Ivan RN) morphine injection 2 mg 2 mg, IntraVENous, Once, On Sat04/22/23 at 1430, For 1 dose, If oral and IV narcotics ordered, use oral first and only use IV if oral is ineffective or cannot take oral. Do Not give oral and IV within 1 hour of each other unless specifically ordered. 1430 (Canceled Entry - Provider: Automatic Discharge Provider - Comment: Automatically canceled at discontinue of medication order) Nozin Nasal Apple Checker Popswab 2 Swab (COMPLETED) 2 Swab (1 Package), Topical, Once, On Sat04/22/23 at 1145, For 1 dose, Preprocedure, Flip ampule around in paper sleeve to expose swab tip. Shake well. With sleeve on ampule, crush at dot to pop. Squeeze to wet swab tip. Swab around nostril rims 8 times in each direction. Squeeze to rewet swab tip and repeat. Repeat for other nostril. Caution : Do not extend in nose beyond swab tip. Appy to skin only. Discard after use. 1145 (Given - Provid er: Godlie Ivan RN) sodium chloride 0.9% (NS) flush 10 mL 10 mL, IntraVENous, Every 12 hours scheduled (2 times per day), First dose on Sat04/22/23 at 1145, Preprocedure 1145 (Canceled Entry - Provider: Automatic Discharge Provider - Comment: Automatically canceled at discontinue of medication order) sodium chloride 0.9% (NS) flush 10 mL 10 mL, IntraVENous, Every 12 hours scheduled (2 times per day), First dose on Sat04/22/23 at 2100, Recovery (only) sodium chloride 0.9% (NS) flush 5-40 mL 5-40 mL, IntraVENous, Every 12 hours, First dose on Sat04/22/23 at 1145, Preprocedure, For Line Patency: Peripheral IV = 5 mL; Midline or Central Line = 10 mL/lumen. If following IV push medication, administer flush at same rate as the IV push. Flush volume is determined by type of infusion therapy being given. For non-viscous solutions use: Peripheral IV = 5 mL Midline or Central Line = 10 mL/lumen For viscous solutions (i.e. blood components, parenteral nutrition, contrast media, or after obtaining blood sample) use: Peripheral IV = 10 mL Midline or Central Line = 20 mL/lumen 1145 (Canceled Entry - Provider: Automatic Discharge Provider - Comment: Automatically canceled at discontinue of medication order) Continuous Medication Order 04/20/2023 04/21/2023 04/22/2023 lactated Ringer's (LR) infusion 50 mL/hr, IntraVENous, Continuous, Starting on Sat04/22/23 at 1145, Preprocedure, Upon admission to sameday - please start iv if patient does not have iv access. Use 500ml NS for patients on dialysis. 1149 (New Bag - Prov ider: Goldie Ivan RN)1329 (Continued by Anesthesia - Provider: Hansel Zuluaga CRNA)1414 (Anesthesia Volume Adjustment - Provider: Hansel Zuluaga CRNA) lactated ringers infusion 125 mL/hr, IntraVENous, Continuous, Starting on Sat04/22/23 at 1430, Recovery (only) 1430 (Canceled Entry - Provider: Automatic Discharge Provider - Comment: Automatically canceled at discontinue of medication order) PRN Medication Order 04/20/2023 04/21/2023 04/22/2023 ALPRAZolam (Xanax) disintegrating tablet 0.25 mg (COMPLETED) 0.25 mg, Oral, PRN, anxiety, Starting on Sat04/22/23 at 1132, For 1 dose, Preprocedure, Using dry hands, place tablet on top of tongue and allow to disintegrate. Administration with water is not necessary. 1147 (Given - Provid er: Goldie Ivan RN) bupivacaine-EPINEPHrine PF (Marcaine w/EPI) 0.25% -[id number] injection (CANCELED) As needed, Starting on Sat04/22/23 at 1406, Intraprocedure 1406 (Given - Provid er: Nikhil Boothe MD) diphenhydrAMINE (BENADryl) injection 12.5 mg 12.5 mg, IntraVENous, Once PRN, itching, Starting on Sat04/22/23 at 1421, For 1 dose, Recovery (only) ondansetron (Zofran) injection 4 mg 4 mg, IntraVENous, Once PRN, nausea, Starting on Sat04/22/23 at 1421, For 1 dose, Recovery (only), Initial antiemetic therapy. oxyCODONE (Roxicodone) immediate release tablet 10 mg(Linked Group 1) 10 mg, Oral, PRN, severe pain (7-10), Starting on Sat04/22/23 at 1421, For 1 dose, Recovery (only), PHASE II oxyCODONE (Roxicodone) immediate release tablet 5 mg(Linked Group 1) 5 mg, Oral, PRN, moderate pain (4-6), Starting on Sat04/22/23 at 1421, For 1 dose, Recovery (only), PHASE II sodium chloride 0.9 % bolus 500 mL 500 mL, IntraVENous, at 1,000 mL/hr, Administer over 0.5 Hours, PRN, Anti-nausea, Starting on Sat04/22/23 at 1421, Recovery (only), Indications: Anti-nausea sodium chloride 0.9 % infusion 5-250 mL/hr, IntraVENous, PRN, if patient receiving piggyback infusions and maintenance fluids are not ordered OR KVO fluids to protect IV site / prevent frequent line interruptions / long duration, Starting on Sat04/22/23 at 1132, Preprocedure, For piggyback infusion, administer at same rate as piggyback for a total of 25 mL. Enter 25 mL into dose field and piggyback rate into rate field of order. If piggyback is infusing at a rate less than 100 mL/hr, enter 25 mL into dose field and 100 mL/hr into rate field of order. For KVO fluids, enter rate of 20 mL/hr or less into rate field of order. sodium chloride 0.9 % infusion 5-250 mL/hr, IntraVENous, PRN, if patient receiving piggyback infusions and maintenance fluids are not ordered OR KVO fluids to protect IV site / prevent frequent line interruptions/ long duration, Starting on Sat04/22/23 at 1132, Preprocedure, For piggyback infusion, administer at same rate as piggyback for a total of 25 mL. Enter 25 mL into dose field and piggyback rate into rate field of order. If piggyback is infusing at a rate less than 100 mL/hr, enter 25 mL into dose field and 100 mL/hr into rate field of order. For KVO fluids, enter rate of 20 mL/hr or less into rate field of order. sodium chloride 0.9 % infusion 5-250 mL/hr, IntraVENous, PRN, if patient receiving piggyback infusions and maintenance fluids are not ordered OR KVO fluids to protect IV site / prevent frequent line interruptions/ long duration, Starting on Sat04/22/23 at 1421, Recovery (only), For piggyback infusion, administer at same rate as piggyback for a total of 25 mL. Enter 25 mL into dose field and piggyback rate into rate field of order. If piggyback is infusing at a rate less than 100 mL/hr, enter 25 mL into dose field and 100 mL/hr into rate field of order. For KVO fluids, enter rate of 20 mL/hr or less into rate field of order. sodium chloride 0.9 % irrigation solution (CANCELED) As needed, Starting on Sat04/22/23 at 1407, Intraprocedure 1407 (Given - Provid er: Nikhil Boothe MD) sodium chloride 0.9% (NS) flush 10 mL 10 mL, IntraVENous, PRN, line care, Starting on Sat04/22/23 at 1132, Preprocedure, After every IV line use sodium chloride 0.9% (NS) flush 10 mL 10 mL, IntraVENous, PRN, line care, Starting on Sat04/22/23 at 1421, Recovery (only), After every IV line use sodium chloride 0.9% (NS) flush 5-40 mL 5-40 mL, IntraVENous, PRN, line care, After every IV line use, Starting on Sat04/22/23 at 1132, Preprocedure, For Line Patency: Peripheral IV = 5 mL; Midline or Central Line = 10 mL/lumen. If following IV push medication, administer flush at same rate as the IV push. Flush volume is determined by type of infusion therapy being given. For non-viscous solutions use: Peripheral IV = 5 mL Midline or Central Line = 10 mL/lumen For viscous solutions (i.e. blood components, parenteral nutrition, contrast media, or after obtaining blood sample) use: Peripheral IV = 10 mL Midline or Central Line = 20 mL/lumen Linked Groups Order Group 1: oxyCODONE (Roxicodone) immediate release tablet 5 mgJump to med 5 mg, Oral, PRN, moderate pain (4-6), Starting on Sat04/22/23 at 1421, For 1 dose, Recovery (only), PHASE II Or oxyCODONE (Roxicodone) immediate release tablet 10 mgJump to med 10 mg, Oral, PRN, severe pain (7-10), Starting on Sat04/22/23 at 1421, For 1 dose, Recovery (only), PHASE II Source Comments (unrecognize d section and content) In the event this informatio n is protected by the Federal Confidentiality of Alcohol and Drug Abuse Patient Records regulations: The Federal rules restrict any use of the information to criminally investigate or prosecute any alcohol or drug abuse patient.[facility] FOR RECORDS PERTAINING TO PATIENTS WHO ARE OR HAVE BEEN ENROLLED IN A CHEMICAL DEPENDENCY/SUBSTANCEABUSE PROGRAM, SOME INFORMATION MAY BE OMITTED. This clinical summary was aggregated from multiple sources. Caution should be exercised in using it in the provision of clinical care. This summary normalizes information from multiple sources, and as a consequence, information in this document may materially change the coding, format and clinical context of patient data. In addition, data may be omitted in some cases. CLINICAL DECISIONS SHOULD BE BASED ON THE PRIMARY CLINICAL RECORDS. [employer] [facility]. provides no warranty or guarantee of the accuracy or completeness of information in this document.
[2024-05-04 12:37] LABS: Vitamin B12 518 pg/mL (211-911); Vitamin D,25 Hydroxy 41.8 ng/mL
[2024-05-04 12:55] LABS: OXY Internal Control LINE = VALID (VALID); Oxycodone Drug Screen Positive (<100 ng/mL)
[2024-05-04 13:15] LABS: Amphetamine Urine VISTA NEGATIVE (<1000 ng/mL); Barbiturate Urine VISTA NEGATIVE (< 200 ng/mL); Benzodiazepine Urine VISTA POSITIVE (< 200 ng/mL); Cocaine Urine VISTA NEGATIVE (< 300 ng/mL); Ecstacy Urine VISTA NEGATIVE (< 500 ng/mL); Methadone Urine VISTA NEGATIVE (< 300 ng/mL); PCP Urine VISTA NEGATIVE (< 25 ng/mL); THC Urine VISTA NEGATIVE (< 50 ng/mL); Vista UDS pH Range 6
[2024-05-04 16:22] LABS: ALB/GLOB Ratio 1.2 RATIO (0.9-2.4); AST(SGOT) 15 U/L (15-37); Alanine Aminotransfer ALT/SGPT 18 U/L (13-56); Alkaline Phosphatase 63 U/L (45-117); Anion Gap 7 (5-15); BUN 6 mg/dL (7-18); BUN/Creat Ratio 7.5 RATIO (10-20); Calcium,Total 9.5 mg/dL (8.5-10.1); Chloride 109 mmol/L (98-107); EST Glomerular Filtration Rate 77 mL/min (>60); Est Glom Filt Rate - Afr Amer 93 mL/min (>60); Globulin 3.2 g/dL (2.2-4.2); Glucose 90 mg/dL (74-106); Protein, Total 7.2 g/dL (6.4-8.2); Sodium Level 141 mmol/L (136-145)
== END | disposition home or self-care (01) ==
LOC: BFHLAB 10:38
PROVIDERS: PCP Family Medicine; Referring Provider Family Medicine; Visit Provider Family Medicine
DX: Z79.899 Other long term (current) drug therapy (principal); R53.83 Other fatigue; R23.2 Flushing; E55.9 Vitamin D deficiency, unspecified
CPT/HCPCS: 80053; 80307; 80365; 82306; 82533; 82607; 84443; G0480

== ENCOUNTER → 2024-05-27 | Outpatient (CLI) | payer MEDICARE, MEDICAID, SELFPAY ==
--- NOTE | 2024-05-27 13:45 | CT_ITS ---
STUDY: LOW DOSE CT LUNG CANCER SCREENING REASON FOR EXAM: Female, 64 years old. SMOKER/SCREEN. 1PPD X 41 YEARS . COPD RADIATION DOSAGE (If Supplied By Facility): CTDIvol = ( 1.59 ) mGy, DLP = ( 54.40 ) mGycm TECHNIQUE: No contrast was administered. Low dose technique was utilized (average mAS-38 and kVp 120). 1.25 mm axial source images with a slice interval of 1.25-mm were reconstructed in lung windows. 2.5 mm axial source images with a slice interval of 2.5-mm were reconstructed in lung windows. 5.0 mm axial source images with a slice interval of 5.0-mm were reconstructed in soft tissue windows. COMPARISON: 03/16/2023 FINDINGS: Lung windows show the lungs to be mildly hyperexpanded with a few scattered emphysematous blebs noted in the upper lung sofia. Chronic interstitial changes noted in both lung sofia without an organized infiltrate, effusion, or suspicious noncalcified mass or nodule. The overall appearance of the lung sofia unchanged compared to the previous study. Soft tissue windows show normal-appearing thyroid gland. No suspicious axillary mediastinal or perihilar adenopathy. There are calcified coronary vessels. Limited cuts through the upper abdomen do not show a suspicious abnormality. Bony structures show degenerative change CT/Low Dose CT Lung Screening IMPRESSION: Lung-RADS category 2 - Continue annual screening with LDCT in 12 months. IMPORTANT NOTES FOR USE: ACR Lung-RADS Version 1.1 Assessment Categories Release Date: 2018 Category: Coded 0-4 bases on nodule(s) with highest degree of suspicion. Negative screen is defined as categories 1 and 2; a positive screen is defined as categories 3 and 4. Category 3 and 4A nodules that are unchanged on interval CT should be coded as category 2, and individuals returned to screening in 12 months. Category 4X: Category 3 or 4 nodules with additional imaging findings that increase the suspicion of lung cancer, such as spiculation, GGN that doubles in size in 1 year, enlarged lymph notes, etc. Category Modifiers: S (significant finding unrelated to lung cancer) Electronically Signed: Jose Cruz Pat MD at 8:40 EST ,
== END | disposition home or self-care (01) ==
PROVIDERS: PCP Family Medicine; Referring Provider Family Medicine; Visit Provider Family Medicine
DX: Z12.2 Encounter for screening for malignant neoplasm of respiratory organs (principal); F17.210 Nicotine dependence, cigarettes, uncomplicated
CPT/HCPCS: 71271

== ENCOUNTER 2024-06-19 10:44 | Emergency (ER) | payer MEDICARE, MEDICAID, SELFPAY ==
[2024-06-19 10:44] VITALS: BP 130/74; PULSE 99; RESP 18; TEMP 36.9; O2SAT 97; BMI 24.5
--- NOTE | 2024-06-19 10:52 | ED.RN ---
PT HAS CHRONIC BACK PAIN. SEEN HE PCP ON FOR A GENERAL FOLLOW UP. AFTER THE APPT SHE HAD SEVERE PAIN TO THE L-HIP AND BACK. SHE THINKS SHE MAY HAVE TURNED WRONG AT HER DRS APPT. PAIN FOLLOWED THE APPT SO SHE HAS NOT SEEN HER AGAIN FOR PAIN.
--- NOTE | 2024-06-19 11:04 | ED.VIS.BACK ---
HPI History of Present Illness Chief Complaint: Lower Extremity Injury Informant: patient Narrative Narrative: 64-year-old female with 3 days of left low back/hip pain radiating into her left lateral thigh, about jail down does not go to the knee. Hurts worse to put weight on. No injury. She has a history of chronic low back pain states she regularly gets injections to burn the nerves from her pain management doctor, Dr. Palencia. The last time he had this done was 1 month or so ago on the right and that side is doing well. She was not having sciatica symptoms prior to that. She states she went in for a follow-up few days ago, she states that they did some maneuvers and rolled her around in the bed in different ways that was unusual, and after leaving the office she remembered started having this pain. There is no sudden onset at any point she can recall but the pain is unbearable despite taking Percocet and ibuprofen at home. She denies any bowel or bladder dysfunction or saddle anesthesia or any symptoms radiating down below the knees on either leg. No abdominal pain. No groin pain. [facility] Medical History Depression, unspecified History of small bowel obstruction Hypersplenism Vitamin D deficiency Hypotension Memory loss Neurodermatitis Anxiety Gastroparesis IBS (irritable bowel syndrome) GERD (gastroesophageal reflux disease) Fibromyalgia DDD (degenerative disc disease) History of pulmonary embolus (PE) COPD (chronic obstructive pulmonary disease) Thoracic spondylosis CAD (coronary artery disease) Chest pain, atypical Chronic back pain Tobacco dependence Home Medications ?Medication ?Instructions ?Recorded ?Last Taken ?Type diazepam 5 mg tablet 4 mg PO TID 09/23/13 12/17/15 History citalopram 20 mg tablet 40 mg PO DAILY 10/05/14 12/17/15 History oxycodone-acetaminophen 5 mg-325 1 tab PO TID 10/05/14 12/17/15 History mg tablet promethazine 25 mg tablet 25 mg PO Q6H PRN PRN Nausea #20 04/23/15 12/17/15 Rx tabs tizanidine 6 mg capsule 6 mg PO TID 05/30/15 12/17/15 History topiramate 50 mg tablet 50 mg PO BID 12/17/15 12/17/15 History pantoprazole 40 mg tablet,delayed 40 mg PO DAILY 06/18/19 Unknown History release ranitidine HCl 150 mg tablet (Acid 150 mg PO BID 06/18/19 Unknown History Japanese Interpreter (ranitidine)) rivaroxaban 20 mg tablet (Xarelto) 20 mg PO DAILY 06/18/19 Unknown History inamsrsrca-ihhieuehnapla-dxvhfept 1 cap PO Q6H PRN 07/14/19 Unknown History 50 mg-300 mg-40 mg capsule cholecalciferol (vitamin D3) 50 2,000 unit PO DAILY 07/14/19 Unknown History mcg (2,000 unit) tablet albuterol sulfate 90 mcg/actuation 2 puff inhalation Q4H PRN 01/25/20 Unknown Rx aerosol inhaler (ProAir HFA) shortness of breath or wheezing #18 grams nystatin 100,000 unit/mL oral 5 ml mucous membrane TID #250 mL 03/07/20 Unknown Rx suspension mirtazapine 15 mg tablet (Remeron) 15 mg PO QHS #30 tabs 09/12/23 Unknown Rx Allergy/AdvReac Type Severity Reaction Status Date / Time amitriptyline Allergy Severe Rash Verified 06/19/24 10:44 nicotine (From Nicoderm CQ) Allergy Mild Rash Verified 06/19/24 10:44 fentanyl Allergy Rash Verified 06/19/24 10:44 aspirin AdvReac Nausea Verified 06/19/24 10:44 meperidine HCl (From Demerol) AdvReac Vomiting Verified 06/19/24 10:44 nitrofurantoin (From AdvReac Vomiting Verified 06/19/24 10:44 Macrobid) nitrofurantoin AdvReac Vomiting Verified 06/19/24 10:44 macrocrystalline (From Macrobid) Family History Father Hypertension Mother Diabetes Surgical History History of total hysterectomy History of splenectomy Social History current occupational status: retired Smoking Status: Current every day smoker tobacco type: cigarettes Tobacco: How many years used: 30 Electronic Cigarette Use: with nicotine quit status: considering quitting substance use type: does not use seatbelt use: always do you feel safe at home: Yes additional social history: ROS ROS ED Constitutional Constitutional ED: Denies chills or fever(s) Gastrointestinal Gastrointestinal: Denies abdominal pain, constipation, fecal incontinence, nausea or vomiting Genitourinary Genitourinary ED: Reports other Details: no urinary retention ; Denies abdominal discomfort or urinary incontinence Musculoskeletal Musculoskeletal: Reports as per HPI and back pain; Denies neck pain Integumentary Denies rash or wounds Neurologic Neurologic: Denies headache(s), paresthesias or weakness EXAM Physical Exam Const Vital Signs: 06/19/24 10:44 06/19/24 11:13 Temperature 98.5 F 98.5 F Temperature Source Oral Pulse Rate 99 99 Respiratory Rate 18 18 Blood Pressure 130/74 H 130/77 H Blood Pressure Mean 92 94 Pulse Ox 97 97 Oxygen Delivery Method Room Air Positive well nourished and well developed General Appearance ED: well developed and NAD HEENT Negative for trauma or tenderness Eyes PERRL and EOMs intact bilaterally Neck full ROM and supple GI normal to inspection, nondistended, normoactive bowel sounds, soft to palpation and non-tender Back/Spine normal to inspection Back/Spine Narrative: Main area of tenderness is the left sciatic notch. She has no greater trochanter tenderness nor pain with palpation in the spine midline. Tenderness is throughout the buttock but mostly the sciatic notch area. Lumbar Spine / Lower Back: ROM limited, paraspinal muscle tenderness and straight leg raise negative bilaterally; Negative for lumbar spinal tenderness Extremity normal to inspection, full ROM and no pedal edema Neuro oriented x3 and no sensory deficits noted Sensorium / Orientation: alert Motor Exam: strength 5/5 throughout and clonus absent Deep Tendon Reflexes: Rt Patellar (L4): 2+, Lt Patellar (L4): 2+, Rt Ankle (S1): 2+ and Lt Ankle (S1): 2+ Deep Tendon Reflexes Back: Rt Patellar (L4): 2+, Lt Patellar (L4): 2+, Rt Ankle (S1): 2+ and Lt Ankle (S1): 2+ Plantar Reflex: Downgoing: bilateral Psych mental status grossly normal and thought process normal Skin no rashes or lesions noted and no wounds MDM MDM MDM Narrative Medical decision making narrative: Patient's exam is most consistent with piriformis syndrome. She does not have sciatica symptoms or findings. Treated her with morphine and Norflex. She reports improvement and has a ride and is okay going home. She was offered prescription for a muscle relaxer, she has Zanaflex at home when she was taking, she states she would prefer to continue that, I offered to change it for her but she declined. Discharge Plan Triage Chief Complaint: Lower Extremity Injury ED Provider: Pillo Alejandre Dx/Rx/DC Orders Clinical Impression: Acute left-sided low back pain Instructions: ED Back Pain (Acute or Chronic) Prescriptions: No Action pantoprazole 40 mg tablet,delayed release (DR/EC) 40 mg PO DAILY ranitidine HCl [Acid Japanese Interpreter (ranitidine)] 150 mg tablet 150 mg PO BID Xarelto 20 mg tablet 20 mg PO DAILY cholecalciferol (vitamin D3) 2,000 unit tablet 2,000 unit PO DAILY rwnyjlunif-egmnkmtieslna-wcxb 50-300-40 mg capsule 1 cap PO Q6H PRN albuterol sulfate [ProAir HFA] 90 mcg/actuation HFA aerosol inhaler 2 puff INHALATION Q4H PRN (Reason: shortness of breath or wheezing) Qty: 18 6RF mirtazapine [Remeron] 15 mg tablet 15 mg PO QHS Qty: 30 0RF diazepam 5 MG tablet 4 mg PO TID Patient Comments: Anxiety oxycodone-acetaminophen 1 TABLET tablet 1 tab PO TID citalopram 20 MG tablet 40 mg PO DAILY promethazine 25 MG tablet 25 mg PO Q6H PRN PRN (Reason: Nausea) Qty: 20 0RF tizanidine 6 MG capsule 6 mg PO TID topiramate 50 MG tablet 50 mg PO BID nystatin 100,000 unit/mL suspension 5 ml mucous membrane TID Qty: 250 1RF Rx Instructions: swish and swallow 5 cc three times per day for 10 days Primary Care Provider: Lincoln Brothers Referrals: Osvaldo Palencia DO [Non-Staff] - 3-5 Days if not improving Lincoln Brothers DO [Primary Care Provider] - Print Language: Eritrean Disposition Disposition: Home, Self Care
[2024-06-19] MEDS: Ondansetron ODT 4 MG Tablet 8 MG PO (11:07)
[2024-06-19] MEDS: Orphenadrine 60 MG/2 ML Ampul IM (11:08)
[2024-06-19] MEDS: Morphine 4 MG/ML Syringe IM (11:08)
[2024-06-19 11:13] VITALS: BP 130/77; PULSE 99; RESP 18; TEMP 36.9; O2SAT 97
== END 2024-06-19 12:04 | disposition home or self-care (01) ==
PROVIDERS: Emergency Provider Emergency Medicine; PCP Family Medicine; Referring Provider Emergency Medicine; Visit Provider Emergency Medicine
DX: M54.50 Low back pain, unspecified (principal); J44.9 Chronic obstructive pulmonary disease, unspecified; Z79.891 Long term (current) use of opiate analgesic; F17.210 Nicotine dependence, cigarettes, uncomplicated; I25.10 Atherosclerotic heart disease of native coronary artery without angina pectoris; F41.9 Anxiety disorder, unspecified; Z79.899 Other long term (current) drug therapy; K21.9 Gastro-esophageal reflux disease without esophagitis; Z90.710 Acquired absence of both cervix and uterus; Z90.81 Acquired absence of spleen
CPT/HCPCS: 96372; 99282

== ENCOUNTER → 2024-08-06 | Outpatient (CLI) | payer MEDICARE, MEDICAID, SELFPAY ==
--- NOTE | 2024-08-06 10:38 | RAD_ITS ---
PROCEDURE: L/S SPINE MIN 4 VIEWS REASON FOR EXAM: Worsening low back pain, extending to the legs, right worse than left. TECHNIQUE: Four view AP and lateral lumbar spine series including bilateral oblique views. COMPARISON: None. RAD/L/S Spine Min 4 Views IMPRESSION: A mild degree of lumbar levo rotoscoliosis is noted, centered about L3. No evidence of spondylolysis. Slight anterior subluxation of L5 upon S1 is noted. Lumbar degenerative disc disease is by far greatest at the L4-L5 level, with as sociated severe disc space narrowing and vertebral body endplate reactive changes. Mild degenerative changes are seen at other levels, particularly L3-L4 Lower lumbar posterior facet hypertrophy is seen. No fracture site is evident. Mild sacroiliac joint degenerative changes are noted, [id number]. Reading Location: [id number]
== END | disposition home or self-care (01) ==
LOC: MTRAD 10:36
PROVIDERS: PCP Family Medicine; Referring Provider Family Medicine; Visit Provider Family Medicine
DX: M54.9 Dorsalgia, unspecified (principal); G89.29 Other chronic pain
CPT/HCPCS: 72110

== ENCOUNTER → 2024-08-17 | Outpatient (CLI) | payer MEDICARE, MEDICAID, SELFPAY ==
--- NOTE | 2024-08-17 10:00 | MRI_ITS ---
PROCEDURE: MRI lumbar spine without IV contrast REASON FOR EXAM: Pain, radiculopathy TECHNIQUE: Multisequence multiplanar MR images of the lumbar spine were obtained without the administration of intravenous contrast. COMPARISON: 08/06/2024 FINDINGS: Vertebral body heights are within normal limits. Marked edema in both sacral wings with additional transverse extension across the S1 vertebral body most consistent with acute/subacute sacral insufficiency fractures. Mild levoscoliosis. Degenerative disc disease predominantly at L4-L5. Conus medullaris is intact and terminates at T12-L1. Mild paraspinal muscle atrophy. L1-2: No focal disc abnormality, spinal stenosis or foraminal narrowing. L2-3: Tiny left foraminal disc protrusion. No significant spinal stenosis. Minimal left foraminal narrowing. L3-4: Mild posterior disc bulge eccentric to the left. Mild bilateral facet arthrosis and ligamentum flavum hypertrophy. Borderline mild spinal stenosis. Mild bilateral foraminal narrowing, greater on the left. L4-5: Diffuse posterior disc bulge eccentric to the right with annular fissure. Moderate bilateral facet arthrosis. Ligamentum flavum hypertrophy. Mild/moderate spinal stenosis. Mild/moderate left and moderate/severe right foraminal narrowing. L5-S1: Small posterior disc bulge and annular fissure. Moderate bilateral facet arthrosis. No significant spinal stenosis. Mild left foraminal narrowing. MRI/Spine Lumbar (Routine) IMPRESSION: 1. Bilateral sacral insufficiency fractures with marked bone marrow edema. 2. Acquired mild/moderate spinal stenosis and moderate/severe right foraminal n arrowing at L3-L4 Reading Location: [facility]
== END | disposition home or self-care (01) ==
LOC: MRI 09:29
PROVIDERS: PCP Family Medicine; Referring Provider Family Medicine; Visit Provider Family Medicine
DX: M54.17 Radiculopathy, lumbosacral region (principal)
CPT/HCPCS: 72148

== ENCOUNTER → 2024-11-02 | Outpatient (CLI) | payer MEDICARE, MEDICAID, SELFPAY ==
[2024-11-02 15:02] LABS: Amphetamine Urine NEGATIVE (<1000 ng/mL); Barbiturate Urine NEGATIVE (< 200 ng/mL); Benzodiazepine Urine PRESUMPTIVE POSITIVE (< 200 ng/mL); Buprenorphine Urine NEGATIVE (< 200 ng/mL); Cocaine Urine NEGATIVE (< 300 ng/mL); Fentanyl, Urine NEGATIVE; Methadone Urine NEGATIVE (< 300 ng/mL); Opiates Urine NEGATIVE (< 300 ng/mL); Oxycodone, Urine PRESUMPTIVE POSITIVE (< 100 ng/mL); PCP Urine NEGATIVE (< 25 ng/mL); THC Urine NEGATIVE (< 50 ng/mL)
== END | disposition home or self-care (01) ==
LOC: LABSPEC 11:27
PROVIDERS: PCP Family Medicine; Visit Provider Family Medicine
DX: Z79.899 Other long term (current) drug therapy (principal)
CPT/HCPCS: 80307

== ENCOUNTER 2024-11-11 18:38 | Inpatient (IN) | payer MEDICARE, MEDICAID, SELFPAY ==
[2024-11-11] VITALS (15 sets, daily range): BP systolic 108–157; BP diastolic 71–93; PULSE 92–108; RESP 18–27; TEMP 35.7–36.8; O2SAT 88–99; BMI 26.6
--- NOTE | 2024-11-11 19:33 | ED.VIS.DYS ---
HPI History of Present Illness Chief Complaint: Shortness of Breath Informant: patient Onset/Context/Timing Onset: Weeks (1) Context: gradual Timing: Continuous Quality: Positive for Dyspnea on exertion Worsened by: Exertion Relieved by: Nothing Associated Symptoms cough, ear pain, sore throat and yellow sputum; Negative for rhinorrhea, post nasal drip, fever, chills, sweats, clear sputum, white sputum or green sputum Narrative Narrative: Patient presents with shortness of breath that has been getting worse over the past week. Patient states she has been coughing up some yellow sputum. Patient admits to a sore throat and some bilateral ear pain. Patient also states she has some heaviness in her chest. Patient states it is over the substernal area. Patient states her breathing is worse with any exertion. Patient states nothing seems to help with it. Patient states she has been taking her albuterol at home with no improvement. Patient denies any fevers or chills. PE Risk Factors: Positive for Cancer and Prior DVT or PE; Negative for OCP + Smoking + > 35, Recent immobilization, Recent surgery or Recent travel [facility] Medical History Depression, unspecified History of small bowel obstruction Hypersplenism Vitamin D deficiency Hypotension Memory loss Neurodermatitis Anxiety Gastroparesis IBS (irritable bowel syndrome) GERD (gastroesophageal reflux disease) Fibromyalgia DDD (degenerative disc disease) History of pulmonary embolus (PE) COPD (chronic obstructive pulmonary disease) Thoracic spondylosis CAD (coronary artery disease) Chest pain, atypical Chronic back pain Tobacco dependence Home Medications ?Medication ?Instructions ?Recorded ?Last Taken ?Type promethazine 25 mg tablet 25 mg PO Q6H PRN PRN Nausea #20 04/23/15 12/17/15 Rx tabs topiramate 50 mg tablet 50 mg PO BID 12/17/15 12/17/15 History pantoprazole 40 mg tablet,delayed 40 mg PO DAILY 06/18/19 Unknown History release rivaroxaban 20 mg tablet (Xarelto) 20 mg PO DAILY 06/18/19 Unknown History wnlnplyrrt-orajkemtxbpdy-bmladmzi 1 cap PO Q6H PRN 07/14/19 Unknown History 50 mg-300 mg-40 mg capsule cholecalciferol (vitamin D3) 50 2,000 unit PO DAILY 01/07/20 Unknown History mcg (2,000 unit) tablet albuterol sulfate 90 mcg/actuation 2 puff inhalation Q4H PRN 01/25/20 Unknown Rx aerosol inhaler (ProAir HFA) shortness of breath or wheezing #18 grams citalopram 40 mg tablet 40 mg PO QDAY 09/11/24 Unknown History diazepam 10 mg tablet 10 mg PO TID PRN anxiety 09/11/24 Unknown History oxycodone-acetaminophen 7.5 mg-325 1 tab PO Q6 PRN 09/11/24 Unknown History mg tablet tizanidine 6 mg capsule 6 mg PO TID PRN 09/11/24 Unknown History Allergy/AdvReac Type Severity Reaction Status Date / Time amitriptyline Allergy Severe Rash Verified 11/11/24 18:39 nicotine (From Nicoderm CQ) Allergy Mild Rash Verified 11/11/24 18:39 fentanyl Allergy Rash Verified 11/11/24 18:39 aspirin AdvReac Nausea Verified 11/11/24 18:39 meperidine HCl (From Demerol) AdvReac Vomiting Verified 11/11/24 18:39 nitrofurantoin (From AdvReac Vomiting Verified 11/11/24 18:39 Macrobid) nitrofurantoin AdvReac Vomiting Verified 11/11/24 18:39 macrocrystalline (From Macrobid) Family History Father Hypertension Mother Diabetes Surgical History History of total hysterectomy History of splenectomy Social History current occupational status: retired Smoking Status: Former smoker Tobacco: How many years used: 30 Electronic Cigarette Use: with nicotine quit status: considering quitting substance use type: does not use seatbelt use: always do you feel safe at home: Yes additional social history: ROS ROS ED Constitutional Constitutional ED: Denies chills or fever(s) Eyes Eyes: Denies blurry vision or change in vision ENT ENT ED: Reports ear pain and sore throat; Denies rhinorrhea Cardiovascular Cardiovascular: Reports chest pain; Denies palpitations Respiratory/Chest Respiratory/Chest: Reports cough and dyspnea Gastrointestinal Gastrointestinal: Denies nausea or vomiting Genitourinary Genitourinary ED: Denies dysuria or hematuria Musculoskeletal Musculoskeletal: Reports back pain; Denies neck pain Integumentary Denies abscess or rash Neurologic Neurologic: Reports headache(s); Denies weakness Allergic/Immunologic Allergic/Immunologic ED: Denies mouth swelling or urticaria EXAM Physical Exam Const Vital Signs: 11/11/24 18:40 11/11/24 18:41 11/11/24 18:42 Temperature 96.2 F L 98.2 F Temperature Source Temporal Oral Pulse Rate 105 H 98 Respiratory Rate 24 H 26 H Respiratory Effort Blood Pressure 108/93 H 145/73 H Blood Pressure Mean 98 97 Pulse Ox 91 94 88 Oxygen Delivery Method Room Air Nasal Cannula Room Air Oxygen Flow Rate (L/min) 2 11/11/24 18:46 11/11/24 18:52 11/11/24 19:40 Temperature Temperature Source Pulse Rate 101 H 106 H Respiratory Rate 21 H 24 H Respiratory Effort Short of Breath Blood Pressure 141/84 H 144/71 H Blood Pressure Mean 103 95 Pulse Ox 94 94 Oxygen Delivery Method Nasal Cannula Nasal Cannula Nasal Cannula Oxygen Flow Rate (L/min) 2 2 2 11/11/24 20:10 11/11/24 20:13 11/11/24 21:00 Temperature 98.2 F 98.2 F Temperature Source Oral Oral Pulse Rate 98 92 101 H Respiratory Rate 18 26 H 25 H Respiratory Effort Blood Pressure 144/71 H 134/74 H Blood Pressure Mean 95 94 Pulse Ox 99 94 Oxygen Delivery Method Nasal Cannula Nasal Cannula Oxygen Flow Rate (L/min) 2 2 11/11/24 21:00 11/11/24 22:00 11/11/24 22:34 Temperature 98.1 F 98.1 F Temperature Source Oral Oral Pulse Rate 100 104 H 98 Respiratory Rate 21 H 24 H 24 H Respiratory Effort Blood Pressure 134/74 H 157/73 H Blood Pressure Mean 94 101 Pulse Ox 94 92 Oxygen Delivery Method Nasal Cannula Nasal Cannula Oxygen Flow Rate (L/min) 2 2 Positive well nourished and well developed General Appearance ED: well developed and NAD HEENT Reports moist mucous membranes Eyes PERRL and EOMs intact bilaterally Neck supple and no JVD Resp normal respiratory effort Auscultation: wheezes expiratory wheezes and throughout Cardio regular rate and regular rhythm GI non-tender and non-distended Palpation: soft Neuro oriented x3, CN's II-XII intact bilaterally and no sensory deficits noted Arnulfo Coma Scale: document GCS findings Spontaneous Obeys Commands Oriented 15 Sensorium / Orientation: alert Speech: speech normal Motor Exam: strength 5/5 throughout Psych mental status grossly normal MDM MDM MDM Narrative Medical decision making narrative: Differential diagnosis includes pneumonia, bronchitis, COPD exacerbation, cardiac dysrhythmia, cardiac ischemia, electrolyte abnormality, and anxiety. EKG will be obtained to assess for cardiac dysrhythmia and cardiac ischemia. Chest x-ray will be obtained to assess for pneumonia and bronchitis. CBC will be obtained to assess for leukocytosis and anemia. Basic metabolic profile will be obtained to assess for electrolyte abnormality and renal function. High-sensitivity troponin will be obtained to assess for cardiac ischemia. History & Record Review Additional record(s) reviewed:: Prior outpatient record, Prior ED visit and Prior labs Lab Data Attestation: I reviewed the patient's lab results. Lab results narrative: CBC was reviewed. There is a leukocytosis of 20.5. The remainder was within normal limits. Basic metabolic profile was reviewed. Glucose was slightly elevated at 123. CO2 was slightly low at 18.3. Anion gap was 16. The remainder was within normal limits. High-sensitivity troponin was reviewed and was normal at 8. 2-hour repeat high-sensitivity troponin was reviewed and was normal at 7. Labs: Laboratory Results - last 24 hr 11/11/24 11/11/24 20:10 22:30 WBC 20.5 H RBC 4.05 L Hgb 12.9 Hct 38.4 MCV 94.8 MCH 31.9 MCHC 33.6 RDW Std Deviation 50.3 H RDW Coeff of Jose Martin 14.5 Plt Count 283 MPV 10.5 Immature Gran % (Auto) 0.500 Neut % (Auto) 75.8 H Lymph % (Auto) 10.2 L [place] % (Auto) 7.8 Eos % (Auto) 4.6 Baso % (Auto) 1.1 H Absolute Neuts (auto) 15.5 H Absolute Lymphs (auto) 2.09 Nucleated RBC % 0 Differential Comment SCANNED Sodium 139 Potassium 3.7 Chloride 105 Carbon Dioxide 18.3 L Anion Gap 16 H BUN 4 Creatinine 0.75 Estim Creat Clear Calc 66.55 Est GFR (MDRD) Non-Af 91 BUN/Creatinine Ratio 5.3 L Glucose 123 H Calcium 9.6 Troponin T High Sens 8 Troponin T Hi Sens 2 Hr 7 Radiography Chest X-Ray - ED: 2 View, Read by ED Physician, Read by Radiologist, No Acute Disease and Chronic Changes Diagnostic Testing: Clinical Impression(s) from Imaging Studies Chest X-Ray 11/11/24 20:00 IMPRESSION: NO ACUTE FINDINGS. Reading Location: [facility] and lateral chest x-ray was obtained. There are 2 views. On my independent interpretation, lung sofia are clear. There is normal cardiac silhouette. Bony thorax is normal. There is no acute process noted. Radiologist also interpreted the x-ray and agrees. EKG Initial EKG: Attestation: I personally reviewed and interpreted this EKG as follows: Interpretation: Sinus Rhythm (94) and Non-Specific ST Changes Comments: EKG was obtained. On my independent interpretation, it showed a normal sinus rhythm with a rate of 94. MT interval, QRS interval, and QTc intervals were all normal. Berino was normal. There are nonspecific ST-T wave changes. Prior EKG tracings: available for review Prior: Unchanged (09/19/2015) Management Discussion w/another healthcare provider: Hospitalist Treatment and Re-Evaluation :: Patient was given a DuoNeb aerosol here. Patient was still having some wheezing on reevaluation. Patient was given repeat albuterol aerosols. Patient states that steroids make her mean but she is agreeable to taking steroids. Patient was given a dose of Solu-Medrol. Case will be discussed with the hospitalist for admission. He is agreeable for admission. Patient was started on Rocephin and Zithromax to cover for respiratory illness. Patient understood and was agreeable with the plan. All questions were answered. Discharge Plan Dx/Rx/DC Orders Clinical Impression: Acute exacerbation of chronic obstructive pulmonary disease (COPD), Anxiety, Hypoxia Disposition Disposition: Acute Care Hospital [facility]
--- NOTE | 2024-11-11 19:48 | EKG12_ITS ---
Test Reason : SOB Blood Pressure : */* mmHG Vent. Rate : 94 BPM Atrial Rate : 94 BPM P-R Int : 124 ms QRS Dur : 76 ms QT Int : 378 ms P-R-T Axes : 75 73 67 degrees QTcB Int : 472 ms Normal sinus rhythm Nonspecific ST abnormality Abnormal ECG Confirmed by Rolly Hartmann ([id number]), newspaper editor BALJINDER ESPARZA ([id number]) on 11/13/2024 12:16:11 PM Referred By: Parveen Regan Confirmed By: Rolly Hartmann
--- NOTE | 2024-11-11 20:00 | RAD_ITS ---
PROCEDURE: CHEST PA AND LATERAL 11/11/2024 REASON FOR EXAM: DYSPNEA TECHNIQUE: Frontal and lateral views of the chest. COMPARISON: CT chest 05/27/2024 FINDINGS: Hardware: None Heart: The heart size is normal. Mediastinum: The mediastinal contour is unremarkable. Lungs: No focal consolidation. No pneumothorax. No pleural effusion. Bones: The bones are unremarkable. RAD/Chest PA and Lateral IMPRESSION: NO ACUTE FINDINGS. [facility]
[2024-11-11] MEDS: Ipratropium/Albuterol Sulfate 3 ML AMPUL.NEB INHALATION (20:11)
[2024-11-11 20:27] LABS: Absolute Lymphocyte Count 2.09 X10^3/uL (0.83-4.51); Absolute Neutrophil Count 15.5 X10^3/uL (2.0-7.7); Basophil# 0.22 X10^3/uL; Basophil% 1.1 % (0-1); Eosinophil# 0.95 X10^3/uL; Eosinophils% 4.6 % (0-5); Hematocrit 38.4 % (37-47); Hemoglobin 12.9 g/dL (12.0-15.0); Lymphocyte # 2.09 X10^3/ul (0.83-4.51); Lymphocyte % 10.2 % (19-41); Mean Corp Hgb Conc 33.6 g/dL (32-36); Mean Corpuscular Hgb 31.9 pg (27.0-32.0); Mean Corpuscular Volume 94.8 fL (81-99); Mean Platelet Vol. 10.5 fl (6.2-12.0); Monocyte# 1.59 X10^3/uL; Monocyte% 7.8 % (0-10); NRBC Flagged by Analyzer 0 % (0-5); Neutrophil # 15.51 X10^3/uL (2.7-7.7); Neutrophil % 75.8 % (47-70); POSITIVE DIFFERENTIAL YES; Platelet Count 283 K/mm3 (150-450); RBC Distribution Width CV 14.5 % (11.6-14.6); RBC Distribution Width SD 50.3 fl (35.1-43.9); Red Blood Count 4.05 M/mm3 (4.2-5.4); White Blood Count 20.5 K/mm3 (4.4-11.0)
[2024-11-11 20:30] LABS: Differential Indicated SCAN CRITERIA MET
[2024-11-11 21:01] LABS: Anion Gap 16 (5-15); BUN 4 mg/dL (4-19); BUN/Creat Ratio 5.3 RATIO (10-20); Calcium,Total 9.6 mg/dL (7.6-11.0); Carbon Dioxide 18.3 mmol/L (21.0-32.0); Chloride 105 mmol/L (98-108); Creatinine, Serum 0.75 mg/dL (0.70-1.20); EST Glomerular Filtration Rate 91 (>60); Estimated Creatinine Clearance 66.55 ml/min (50-250); Glucose 123 mg/dL (70-99); Potassium 3.7 mmol/L (3.3-5.1); Sodium Level 139 mmol/L (133-145); Troponin T High Sensitivity 8 ng/L (<=14)
[2024-11-11 21:22] LABS: Differential Comment SCANNED
[2024-11-11] MEDS: oxyCODONE 5 MG Tablet PO (22:21)
[2024-11-11] MEDS: Albuterol 2.5 MG/3 ML VIAL.NEB. INHALATION ×2 (22:34→23:46)
[2024-11-11 22:59] LABS: Troponin T High Sens 2 HR 7 ng/L (<=14)
--- NOTE | 2024-11-11 22:59 | PCM.HP.STD ---
[facility] General Date of Admission: 11/11/24 Date of Service: 11/11/24 Chief Complaint: Shortness of Breath, Cough and Wheezing [facility] Narrative KENNETH FINN, is a 64 F with a past medical history of being overweight; with BMI of 26.6 this admission, CAD, history of tobacco abuse times ~30 years; with subsequent asthma/COPD, history of PE; on rivaroxaban, history of splenectomy, history of migraine headaches; on topiramate and every 6 hours as needed rynpymrbxe-nxtoqtjyidguq-hjgfwdir, depression with anxiety; on citalopram and 3 times daily as needed diazepam, history of neurodermatitis, fibromyalgia, history of total hysterectomy, history of SBO, history of vitamin D deficiency; on cholecalciferol, IBS, GERD; with history of gastroparesis on pantoprazole, history of muscle spasms; on as needed tizanidine 3 times daily and OA; with thoracic spondylosis, DDD and chronic back pain on as needed oxycodone-acetaminophen every 6 hours as needed who presents to [facility] ER complaining of shortness of breath, cough and wheezing. Ms. Finn reports her symptoms began approximately 1 week prior to admission with a gradual-onset of dyspnea on exertion that progressed to shortness of breath at rest. She admits to cough productive of yellowish sputum with sore throat and bilateral ear pain. She also states she has been having back pain, headache and a sensation of heaviness over her chest primarily substernal and is made worse with deep breathing and exertion with nothing seeming to help relieve it. She states she has been taking her albuterol at home without improvement so she finally decided to come in for further evaluation and treatment. There was no reported fever, chills, changes in vision, runny nose, abdominal pain, nausea, vomiting, diarrhea, constipation, dysuria, hematuria, paresthesias or rash. In the ER she was noted to have Leukocytosis of 20.5 K present on admission with a CXR that revealed no acute findings and she was then diagnosed with AE COPD complicated by suspected Pneumonia (with CT scan of the chest pending at this time) compounded by chest pain and clinical evidence of Acute Respiratory Insufficiency and she was then admitted to the general medical floor for ongoing care for a stay that is expected to extend beyond 2 midnights. [facility] Medical History Depression, unspecified History of small bowel obstruction Hypersplenism Vitamin D deficiency Hypotension Memory loss Neurodermatitis Anxiety Gastroparesis IBS (irritable bowel syndrome) GERD (gastroesophageal reflux disease) Fibromyalgia DDD (degenerative disc disease) History of pulmonary embolus (PE) COPD (chronic obstructive pulmonary disease) Thoracic spondylosis CAD (coronary artery disease) Chest pain, atypical Chronic back pain Tobacco dependence Home Medications ?Medication ?Instructions ?Recorded ?Last Taken ?Type topiramate 50 mg tablet 50 mg PO DAILY headaches 12/17/15 12/17/15 History pantoprazole 40 mg tablet,delayed 40 mg PO Q12H gerd 06/18/19 Unknown History release rivaroxaban 20 mg tablet (Xarelto) 20 mg PO DAILY blood thinner 06/18/19 Unknown History cholecalciferol (vitamin D3) 50 2,000 unit PO DAILY supplement 07/14/19 Unknown History mcg (2,000 unit) tablet albuterol sulfate 90 mcg/actuation 2 puff inhalation Q4H PRN 01/25/20 Unknown Rx aerosol inhaler (ProAir HFA) shortness of breath or wheezing #18 grams citalopram 40 mg tablet 40 mg PO QDAY mood 09/11/24 Unknown History diazepam 10 mg tablet 10 mg PO TID PRN anxiety 09/11/24 Unknown History oxycodone-acetaminophen 7.5 mg-325 1 tab PO Q6 PRN pain 09/11/24 Unknown History mg tablet tizanidine 6 mg capsule 6 mg PO TID PRN muscle spasticity 09/11/24 Unknown History Allergy/AdvReac Type Severity Reaction Status Date / Time amitriptyline Allergy Severe Rash Verified 11/11/24 18:39 nicotine (From [place] CQ) Allergy Mild Rash Verified 11/11/24 18:39 fentanyl Allergy Rash Verified 11/11/24 18:39 aspirin AdvReac Nausea Verified 11/11/24 18:39 meperidine HCl (From Demerol) AdvReac Vomiting Verified 11/11/24 18:39 nitrofurantoin (From AdvReac Vomiting Verified 11/11/24 18:39 Macrobid) nitrofurantoin AdvReac Vomiting Verified 11/11/24 18:39 macrocrystalline (From Macrobid) Family History Father Hypertension Mother Diabetes Surgical History History of total hysterectomy History of splenectomy Social History current occupational status: retired Smoking Status: Former smoker Tobacco: How many years used: 30 Electronic Cigarette Use: with nicotine quit status: considering quitting substance use type: does not use seatbelt use: always do you feel safe at home: Yes additional social history: ROS ROS Narrative Review of Systems: Constitutional: Patient denies fever or chills. Eyes: Patient denies change in vision or discharge from eyes. ENT: Patient admits to ear pain and sore throat that she denies runny nose. Resp: Patient is short of breath at rest with wheezing and cough productive of yellowish sputum as per HPI. CV: Patient admits to chest pain made worse with cough but she denies palpitations, heart racing or lower extremity edema. GI: Patient denies abdominal pain, nausea, vomiting, diarrhea or constipation. : Patient denies dysuria, hematuria or urinary frequency. MSK: Patient admits to back pain but she denies neck pain. Skin: Patient denies rash, abscess, wounds or jaundice. Psych: Patient denies symptoms of uncontrolled depression or anxiety. Neuro: Patient admits to headache but she denies paresthesias or focal neurologic weakness. Allergy: Patient denies lip swelling, tongue swelling or urticaria. Hematology: Patient admits to easy bleeding on rivaroxaban. Endocrinology: Patient denies polyuria, polydipsia, polyphagia or heat/cold intolerance. 14 point ROS otherwise negative except for positives noted above in HPI. Vital Signs Vital Signs Vital Signs: 11/11/24 18:40 11/11/24 18:41 11/11/24 18:42 Temperature 96.2 F L 98.2 F Temperature Source Temporal Oral Pulse Rate 105 H 98 Respiratory Rate 24 H 26 H Respiratory Effort Blood Pressure 108/93 H 145/73 H Blood Pressure Mean 98 97 Pulse Ox 91 94 88 Oxygen Delivery Method Room Air Nasal Cannula Room Air Oxygen Flow Rate (L/min) 2 11/11/24 18:46 11/11/24 18:52 11/11/24 19:40 Temperature Temperature Source Pulse Rate 101 H 106 H Respiratory Rate 21 H 24 H Respiratory Effort Short of Breath Blood Pressure 141/84 H 144/71 H Blood Pressure Mean 103 95 Pulse Ox 94 94 Oxygen Delivery Method Nasal Cannula Nasal Cannula Nasal Cannula Oxygen Flow Rate (L/min) 2 2 2 11/11/24 20:10 11/11/24 20:13 11/11/24 21:00 Temperature 98.2 F 98.2 F Temperature Source Oral Oral Pulse Rate 98 92 101 H Respiratory Rate 18 26 H 25 H Respiratory Effort Blood Pressure 144/71 H 134/74 H Blood Pressure Mean 95 94 Pulse Ox 99 94 Oxygen Delivery Method Nasal Cannula Nasal Cannula Oxygen Flow Rate (L/min) 2 2 11/11/24 21:00 11/11/24 22:00 11/11/24 22:34 Temperature 98.1 F 98.1 F Temperature Source Oral Oral Pulse Rate 100 104 H 98 Respiratory Rate 21 H 24 H 24 H Respiratory Effort Blood Pressure 134/74 H 157/73 H Blood Pressure Mean 94 101 Pulse Ox 94 92 Oxygen Delivery Method Nasal Cannula Nasal Cannula Oxygen Flow Rate (L/min) 2 2 Weight Weight: 140 lb 10.479 oz Body Mass Index (BMI) 26.6 Physical Exam Const alert, oriented x3 and average body habitus Constitutional Narrative: Patient chronically ill in appearance with moderate respiratory distress noted General Appearance: cooperative HEENT normocephalic, head/scalp atraumatic, hearing grossly normal bilaterally and moist oral mucous membranes Eyes PERRL, EOMs intact bilaterally and conjunctivae normal Neck no lymphadenopathy, supple and no JVD Resp Resp Narrative: Diminished breath sounds throughout with expiratory wheezes. Auscultation: wheezes Cardio regular rate and regular rhythm GI normal to inspection, nondistended, normoactive bowel sounds, soft to palpation, non-tender and non-distended Extremity normal to inspection, full ROM and no clubbing, cyanosis or edema Skin Skin Narrative: Patient has evidence of rash, abscess, wounds or jaundice. Neuro oriented x3, CN's II-XII intact bilaterally, moves all extremities and no focal motor deficits Sensorium / Orientation: awake, alert, oriented to person, oriented to place and oriented to time Speech: speech normal Psych affect normal Results Medical Records Data Attestation: I reviewed the patient's medical records Lab / Micro Data Attestation: I reviewed the patient's lab results. 11/11/24 20:10 11/11/24 20:10 Labs: Laboratory Results - last 24 hr 11/11/24 20:10: WBC 20.5 H, RBC 4.05 L, Hgb 12.9, Hct 38.4, MCV 94.8, MCH 31.9, MCHC 33.6, RDW Std Deviation 50.3 H, RDW Coeff of Jose Martin 14.5, Plt Count 283, MPV 10.5, Immature Gran % (Auto) 0.500, Neut % (Auto) 75.8 H, Lymph % (Auto) 10.2 L, [place] % (Auto) 7.8, Eos % (Auto) 4.6, Baso % (Auto) 1.1 H, Absolute Neuts (auto) 15.5 H, Absolute Lymphs (auto) 2.09, Nucleated RBC % 0, Differential Comment SCANNED, Sodium 139, Potassium 3.7, Chloride 105, Carbon Dioxide 18.3 L, Anion Gap 16 H, BUN 4, Creatinine 0.75, Estim Creat Clear Calc 66.55, Est GFR (MDRD) Non-Af 91, BUN/Creatinine Ratio 5.3 L, Glucose 123 H, Calcium 9.6, Troponin T High Sens 8 Imaging Radiology Impression Chest X-Ray 11/11/24 20:00 IMPRESSION: NO ACUTE FINDINGS. Reading Location: [facility] Imaging Services [address] [place] [id number] Chest without Contrast MR#: [id number] Acct: [id number] Name: KENNETH FINN Rep #: [id number] : 1960 F 64 From: Sanya Ellis MD PCP: Dr. Lincoln Brothers DO Status: ADM IN Study: Chest without Contrast Date of Exam: 11/12/24 Exam# [id number] Ordering Dr: Leopoldo Aponte DO PROCEDURE: CHEST WITHOUT CONTRAST 11/12/2024 REASON FOR EXAM: LEUKOCYTOSIS OF 20.5 K AND COPD. EVAL FOR PNA TECHNIQUE: Chest CT without contrast. Coronal and Sagittal reconstruction series were provided. One or more dose reduction techniques were used (e.g., Automated exposure control, adjustment of the mA and/or kV according to patient size, use of iterative reconstruction technique RADIATION DOSE SUMMARY: CTDlvol: 8.66 mGy DLP: 305.26 mGycm COMPARISON: 05/27/2024 FINDINGS: Small amount of secretions is seen along the left lateral tracheal wall in the left mainstem bronchus. The central airways appear patent. Study is limited by motion artifact. Bilateral perihilar mild ground-glass opacity with an upper zone predominant may be inflammatory or infectious, possible viral etiology, clinically correlate. Less likely an unusual pulmonary edema not excluded. No focal consolidation. Thoracic aorta appears within limits on noncontrast imaging. Atherosclerotic calcification noted. Mild appearing LAD coronary calcification. No pericardial or pleural effusion. No adenopathy identified. Limited images of the abdomen with again note of a small appearing spleen. There is now a uris-iu-zpewpzbn L1 superior endplate compression fracture deformity with mild retropulsion of the posterior superior corner and a mild inferior endplate compression fracture deformity of T12 with vacuum effect at the disc space. There are some sclerotic change to the endplate although this was not seen on spine films as recent as september 11, 2024 and requires further clinical correlation. CT/Chest without Contrast IMPRESSION: Small amount of secretions is seen along the left lateral tracheal wall in the left mainstem bronchus. The central airways appear patent. Study is limited by motion artifact. Bilateral perihilar mild ground-glass opacity with an upper zone predominant may be inflammatory or infectious, possible viral etiology not excluded, clinically correlate. Less likely an unusual pulmonary edema not excluded. No focal consolidation. There is now a sllw-qz-fgkuvhmo L1 superior endplate compression fracture deformity with mild retropulsion of the posterior superior corner and a mild inferior endplate compression fracture deformity of T12 with vacuum effect at the disc space. There are some sclerotic change to the endplate although this was not seen on spine films as recent as september 11, 2024 and requires further clinical correlation. Reading Location: [id number] CC: Dr. Leopoldo Aponte, DO; Dr. Lincoln Brothers, DO ~ Product Sales Engineer: Signed Assessment & Plan Assessment/Plan (1) Acute exacerbation of chronic obstructive pulmonary disease (COPD): (2) Pneumonia: QUALIFIERS: Pneumonia type: due to unspecified organism Laterality: unspecified laterality Lung location: unspecified part of lung Qualified Code(s): J18.9 - Pneumonia, unspecified organism (3) Leukocytosis: QUALIFIERS: Leukocytosis type: unspecified Qualified Code(s): D72.829 - Elevated white blood cell count, unspecified (4) Respiratory insufficiency: (5) Chest pain: QUALIFIERS: Chest pain type: unspecified Qualified Code(s): R07.9 - Chest pain, unspecified (6) CAD (coronary artery disease): QUALIFIERS: Associated angina: with stable angina Coronary Disease-Associated Artery/Lesion type: unspecified vessel or lesion type [place] vs. transplanted heart: [place] heart Qualified Code(s): I25.118 - Atherosclerotic heart disease of [place] coronary artery with other forms of angina pectoris (7) Compression fracture of L1 lumbar vertebra: QUALIFIERS: Encounter type: initial encounter Qualified Code(s): S32.010A - Wedge compression fracture of first lumbar vertebra, initial encounter for closed fracture (8) Compression fracture of T12 vertebra: QUALIFIERS: Encounter type: initial encounter Qualified Code(s): S22.080A - Wedge compression fracture of T11-T12 vertebra, initial encounter for closed fracture (9) History of splenectomy: (10) Overweight (BMI 25.0-29.9): (11) History of pulmonary embolism: (12) Chronic anticoagulation: PLAN: Plan 1. AE asthma/COPD complicated by suspected Pneumonia with Leukocytosis of 20.5K present on admission- Admit to general medical floor. Continue IV ceftriaxone plus IV azithromycin begun in the ER and await culture and sensitivity data. Continue IV methylprednisolone began in ER and wean as tolerated. Give acetaminophen as needed for ytvo-wa-aeladmxk (level 1-5/10) pain or fever. Give morphine IV as needed for severe (level 6-10/10) pain. 2. Acute Respiratory Insufficiency due to #1 - Wean supplemental oxygen as tolerated. 3. Chest pain made worse with exertion and deep breathing compounding #1 & #2; in the setting or previously known CAD - Serialize troponin. Check echocardiogram to evaluate LVEF. Check chemical stress test in a.m. to evaluate for underlying ischemia. 4. CT of the chest without contrast done this admission revealing there is now a ahwu-wh-lavrtcuc L1 superior endplate compression fracture deformity with mild retropulsion of the posterior superior corner and a mild inferior endplate compression fracture deformity of T12 with vacuum effect at the disc space. There are some sclerotic change to the endplate although this was not seen on spine films as recent as september 11, 2024 and requires further clinical correlation adding to the medical complexity of #1 - #3 - We we will consult Dr. Mahmood of Ortho-spine surgery see patient on rounds in a.m. further recommendations with help appreciated in advance. 5. History of splenectomy constituting relatively immunocompromise - Noted. 6. Overweight; with BMI of 26.6 this admission - Weight loss will be recommended. Check TSH. 7. History of PE; on rivaroxaban - Maintain rivaroxaban as before. 8. History of migraine headaches; on topiramate and every 6 hours as needed [id number] - Resume current treatment. 9. Depression with anxiety; on citalopram and 3 times daily as needed diazepam - Stable on present therapy which will be continued. 10. History of neurodermatitis - Noted. 11. Fibromyalgia - Stable. 12. History of total hysterectomy - Noted for the sake of completeness. 13. History of SBO - Noted. 14. History of vitamin D deficiency; on cholecalciferol - Resume current vitamin D supplementation. 15. IBS - Stable. 16. GERD; with history of gastroparesis on pantoprazole - Maintain PPI as previous. 17. History of muscle spasms; on as needed tizanidine 3 times daily - Stable. 18. OA; with thoracic spondylosis, DDD and chronic back pain on as needed oxycodone-acetaminophen every 6 hours as needed - Stable. We will follow pain regimen and scales outlined in #1. 19. DVT/GI prophylaxis - Patient already on rivaroxaban for #7 which will be continued. Patient already on PPI for #16 which will also be resumed. Total time: Approximately (but not less than) 75 minutes. Charges/Coding Visit Charges Inpatient E&M: 13795 Init Hosp L3
[2024-11-11] MEDS: MethylPREDNISolone 125 MG/2 ML Vial 60 MG IV (23:33)
[2024-11-11] MEDS: Ceftriaxone 2 GM in 0.9% Normal Saline (50mL MB+) 50 ML IV (23:34)
[2024-11-11] MEDS: Azithromycin 500 MG in 0.9% Normal Saline (250mL Bag) 250 ML 255 MG IV (23:47)
[2024-11-12] VITALS (8 sets, daily range): BP systolic 117–186; BP diastolic 72–89; PULSE 94–120; RESP 18–28; TEMP 36.5–37; O2SAT 92–98; BMI 25.1
[2024-11-12 00:11] LABS: Magnesium 1.8 mg/dL (1.5-2.2)
--- NOTE | 2024-11-12 00:16 | CT_ITS ---
PROCEDURE: CHEST WITHOUT CONTRAST 11/12/2024 REASON FOR EXAM: LEUKOCYTOSIS OF 20.5 K AND COPD. EVAL FOR PNA TECHNIQUE: Chest CT without contrast. Coronal and Sagittal reconstruction series were provided. One or more dose reduction techniques were used (e.g., Automated exposure control, adjustment of the mA and/or kV according to patient size, use of iterative reconstruction technique RADIATION DOSE SUMMARY: CTDlvol: 8.66 mGy DLP: 305.26 mGycm COMPARISON: 05/27/2024 FINDINGS: Small amount of secretions is seen along the left lateral tracheal wall in the left mainstem bronchus. The central airways appear patent. Study is limited by motion artifact. Bilateral perihilar mild ground-glass opacity with an upper zone predominant may be inflammatory or infectious, possible viral etiology, clinically correlate. Less likely an unusual pulmonary edema not excluded. No focal consolidation. Thoracic aorta appears within limits on noncontrast imaging. Atherosclerotic calcification noted. Mild appearing LAD coronary calcification. No pericardial or pleural effusion. No adenopathy identified. Limited images of the abdomen with again note of a small appearing spleen. There is now a tvsp-uu-rphzvrmb L1 superior endplate compression fracture deformity with mild retropulsion of the posterior superior corner and a mild inferior endplate compression fracture deformity of T12 with vacuum effect at the disc space. There are some sclerotic change to the endplate although this was not seen on spine films as recent as september 11, 2024 and requires further clinical correlation. CT/Chest without Contrast IMPRESSION: Small amount of secretions is seen along the left lateral tracheal wall in the left mainstem bronchus. The central airways appear patent. Study is limited by motion artifact. Bilateral perihilar mild ground-glass [place] with an upper zone predominant may be inflammatory or infectious, possible viral etiology not excluded, clinically co rrelate. Less likely an unusual pulmonary edema not excluded. No focal consolidation. There is now a lqdw-re-wclailbq L1 superior endplate compression fracture defor mity with mild retropulsion of the posterior superior corner and a mild inferior endplate compression fracture deformity of T12 with vacuum effect at the disc space. There are some sclerotic change to the endplate although this was not seen on spine f ilms as recent as september 11, 2024 and requires further clinical correlation. Reading Location: [facility]
[2024-11-12] MEDS: 0.9% Normal Saline (1000mL) 1,000 ML 70 ML IV (01:22)
[2024-11-12] MEDS: diazePAM 5 MG Tablet 10 MG PO ×2 (01:22→21:08)
[2024-11-12] MEDS: proMETHazine 25 MG Tablet PO (01:30)
[2024-11-12] MEDS: guaiFENesin 10 ML UDC (200MG/10ML) 20 ML PO (06:28)
[2024-11-12] MEDS: BENZOCAINE/MENTHOL 1 LOZENGE MUCOUS MEM (06:29)
[2024-11-12 07:03] LABS: Absolute Lymphocyte Count 0.77 X10^3/uL (0.83-4.51); Absolute Neutrophil Count 14.4 X10^3/uL (2.0-7.7); Basophil# 0.12 X10^3/uL; Basophil% 0.8 % (0-1); Hematocrit 37.3 % (37-47); Lymphocyte # 0.77 X10^3/ul (0.83-4.51); Mean Corp Hgb Conc 32.2 g/dL (32-36); Mean Corpuscular Hgb 31.5 pg (27.0-32.0); Mean Corpuscular Volume 97.9 fL (81-99); Mean Platelet Vol. 11.5 fl (6.2-12.0); Monocyte# 0.09 X10^3/uL; Monocyte% 0.6 % (0-10); NRBC Flagged by Analyzer 0 % (0-5); Neutrophil # 14.38 X10^3/uL (2.7-7.7); Neutrophil % 93.3 % (47-70); Platelet Count 283 K/mm3 (150-450); RBC Distribution Width CV 14.5 % (11.6-14.6); RBC Distribution Width SD 52.2 fl (35.1-43.9); Red Blood Count 3.81 M/mm3 (4.2-5.4); White Blood Count 15.4 K/mm3 (4.4-11.0)
[2024-11-12 07:47] LABS: ALB/GLOB Ratio 1.4 RATIO (0.9-2.4); AST(SGOT) 29 U/L (<=31); Alanine Aminotransfer ALT/SGPT 13 U/L (<=34); Albumin, Serum 4.2 g/dL (3.4-4.8); Alkaline Phosphatase 112 U/L (35-104); Anion Gap 15 (5-15); BUN 5 mg/dL (4-19); BUN/Creat Ratio 6.8 RATIO (10-20); Calcium,Total 9.3 mg/dL (7.6-11.0); Carbon Dioxide 21.4 mmol/L (21.0-32.0); Chloride 109 mmol/L (98-108); Creatinine, Serum 0.69 mg/dL (0.70-1.20); EST Glomerular Filtration Rate 98 (>60); Estimated Creatinine Clearance 70.52 ml/min (50-250); Globulin 3.1 g/dL (2.2-4.2); Glucose 133 mg/dL (70-99); Protein, Total 7.3 g/dL (5.9-8.4); Sodium Level 145 mmol/L (133-145); Thyroid Stim Hormone (TSH) 0.444 uIU/mL (0.300-4.200); Total Bilirubin 0.32 mg/dL (0.00-1.30)
--- NOTE | 2024-11-12 08:04 | PN.HOSP_ITS ---
Reason for Visit Reason for Visit: Shortness of breath Subjective Subjective Patient states her breathing feels stable. She has had intermittent issues she reports since she stopped smoking. Denies fever or chills. States that she feels like her chest is congested and she cannot get up the sputum. Feels that this is part of her problem. Denies any chest pain. States she never really had any chest pain per se. Will cancel stress test. Objective Data Objective Data Vital Signs: Vital Signs Temp Pulse Resp BP Pulse Ox O2 Del Method O2 Flow Rate 98.2 F 117 H 26 H 130/80 H 96 Nasal Cannula 5 11/12/24 06:35 11/12/24 06:35 11/12/24 06:35 11/12/24 06:35 11/12/24 06:35 11/12/24 06:35 11/12/24 06:35 Oxygen Flow Rate (L/min) 5 Oxygen Delivery Method Nasal Cannula Weight: 60.4 kg Body Mass Index (BMI) 25.1 Intake & Output: Intake and Output for Last 24 Hours 11/10/24 11/11/24 11/12/24 23:59 23:59 23:59 Intake Total 50 / 50 255 / 255 Balance 50 / 50 255 / 255 Lab / Micro Data 11/12/24 05:41 11/12/24 05:41 Labs: Laboratory Results - last 24 hr 11/11/24 20:10: WBC 20.5 H, RBC 4.05 L, Hgb 12.9, Hct 38.4, MCV 94.8, MCH 31.9, MCHC 33.6, RDW Std Deviation 50.3 H, RDW Coeff of Jose Martin 14.5, Plt Count 283, MPV 10.5, Immature Gran % (Auto) 0.500, Neut % (Auto) 75.8 H, Lymph % (Auto) 10.2 L, [place] % (Auto) 7.8, Eos % (Auto) 4.6, Baso % (Auto) 1.1 H, Absolute Neuts (auto) 15.5 H, Absolute Lymphs (auto) 2.09, Nucleated RBC % 0, Differential Comment SCANNED, Sodium 139, Potassium 3.7, Chloride 105, Carbon Dioxide 18.3 L, Anion Gap 16 H, BUN 4, Creatinine 0.75, Estim Creat Clear Calc 66.55, Est GFR (MDRD) Non-Af 91, BUN/Creatinine Ratio 5.3 L, Glucose 123 H, Calcium 9.6, Troponin T High Sens 8 11/11/24 22:30: Magnesium 1.8, Troponin T Hi Sens 2 Hr 7 11/12/24 05:41: WBC 15.4 H, RBC 3.81 L, Hgb 12.0, Hct 37.3, MCV 97.9, MCH 31.5, MCHC 32.2, RDW Std Deviation 52.2 H, RDW Coeff of Jose Martin 14.5, Plt Count 283, MPV 11.5, Immature Gran % (Auto) 0.300, Neut % (Auto) 93.3 H, Lymph % (Auto) 5.0 L, [place] % (Auto) 0.6, Eos % (Auto) 0.0, Baso % (Auto) 0.8, Absolute Neuts (auto) 14.4 H, Absolute Lymphs (auto) 0.77 L, Nucleated RBC % 0, Sodium 145, Potassium 4.0, Chloride 109 H, Carbon Dioxide 21.4, Anion Gap 15, BUN 5, Creatinine 0.69 L , Estim Creat Clear Calc 70.52, Est GFR (MDRD) Non-Af 98, BUN/Creatinine Ratio 6.8 L, Glucose 133 H, Calcium 9.3, Phosphorus 4.0, Total Bilirubin 0.32, AST 29, ALT 13, Alkaline Phosphatase 112 H, Total Protein 7.3, Albumin 4.2, Globulin 3.1, Albumin/Globulin Ratio 1.4, TSH 0.444 Radiography Diagnostic Testing: Radiology Impression Chest X-Ray 11/11/24 20:00 IMPRESSION: NO ACUTE FINDINGS. Reading Location: [facility] Chest CT 11/12/24 00:16 IMPRESSION: Small amount of secretions is seen along the left lateral tracheal wall in the left mainstem bronchus. The central airways appear patent. Study is limited by motion artifact. Bilateral perihilar mild ground-glass opacity with an upper zone predominant may be inflammatory or infectious, possible viral etiology not excluded, clinically correlate. Less likely an unusual pulmonary edema not excluded. No focal consolidation. There is now a [id number]-myntzawu L1 superior endplate compression fracture deformity with mild retropulsion of the posterior superior corner and a mild inferior endplate compression fracture deformity of T12 with vacuum effect at the disc space. There are some sclerotic change to the endplate although this was not seen on spine films as recent as september 11, 2024 and requires further clinical correlation. Reading Location: [facility] Physical Exam Const alert, oriented x3, no apparent distress, average body habitus and well nourished Constitutional Narrative: Upper middle-aged, white female, sitting up in chair at the bedside, appears comfortable, nontoxic, appears older than stated age HEENT head/scalp atraumatic and moist oral mucous membranes HEENT Narrative: No thrush Head and Scalp: normocephalic Resp No normal respiratory effort, no retractions, no use of accessory muscles and No clear to auscultation bilaterally Resp Narrative: Coarse breath sounds bilaterally with inspiratory and expiratory wheezing, no signs of respiratory distress however patient is mildly tachypneic Auscultation: wheezes; Negative for crackles or rhonchi Cardio regular rate, regular rhythm, S1 normal heart sound, S2 normal heart sound, no murmurs, no rub, no gallops and no clicks GI normal to inspection, nondistended, normoactive bowel sounds, soft to palpation and non-tender Extremity no clubbing, cyanosis or edema Extremity Narrative: 2+ pedal pulses Neuro oriented x3, moves all extremities and no focal motor deficits Speech: speech normal Psych affect normal Psych Narrative: Very pleasant, interacts appropriately Assessment & Plan Assessment/Plan (1) Compression fracture of T12 vertebra: QUALIFIERS: Encounter type: initial encounter Qualified Code(s): S22.080A - Wedge compression fracture of T11-T12 vertebra, initial encounter for closed fracture (2) Compression fracture of L1 lumbar vertebra: QUALIFIERS: Encounter type: initial encounter Qualified Code(s): S32.010A - Wedge compression fracture of first lumbar vertebra, initial encounter for closed fracture (3) Leukocytosis: QUALIFIERS: Leukocytosis type: unspecified Qualified Code(s): D 72.829 - Elevated white blood cell count, unspecified (4) Acute hypoxic respiratory failure: PLAN: Plan You could give the santosh in the unit DDAVP as platelets probably are not working well secondary to severe uremia if they want to be aggressive - Patient with tachycardia, tachypnea, and marked hypoxia consistent with respiratory failure - Patient does not utilize oxygen at baseline and is now requiring 5 to 6 L -wean as able -home O2 prior discharge - Continue Solu-Medrol but transition to 40 every 8 - Start Mucinex 1200 p.o. twice daily - Check respiratory viral panel - Check COVID/flu/RSV - Check sputum for strep pneumo and Legionella antigens -continue community-acquired coverage for now until I have further data -Aggressive pulmonary toilet with scheduled and as needed nebulizers - I-S - Pep therapy with Acapella 10 times every 2 hours while awake L1 lumbar spine compression fracture - Has been evaluated by orthopedic surgery and plans for outpatient follow-up - Check vitamin D level - Continue as needed pain medication Leukocytosis - Unclear if this is reactive or related to pneumonia - Continue community-acquired coverage until workup can be further completed - Did have a white count prior to steroids being initiated History of vitamin D deficiency - Continue home cholecalciferol - Vitamin D order is pending given lumbar compression fracture GERD - Continue home PPI 40 twice daily History of pulmonary embolus - Continue home Xarelto History of splenectomy - Ensure outpatient follow-up for vaccinations History of migraine headaches - Continue home Topamax - Restart Fioricet at discharge Depression/anxiety - Continue citalopram - Continue home diazepam History of chronic pain - Restart home oxycodone - Continue home tizanidine Tobacco abuse - Quit 4 months ago - Encouraged ongoing cessation DVT prophylaxis -continue rivaroxaban CODE STATUS - Full code verified Charges/Coding Visit Charges Inpatient E&M: 88994 Subs Hosp L2
[2024-11-12] MEDS: guaiFENesin 1,200 MG Tablet 1200 MG PO ×2 (10:40→20:50)
[2024-11-12] MEDS: Cholecalciferol (VIT D3) 25 MCG TABLET (1,000 UNITS) 50 MCG PO (10:41)
[2024-11-12] MEDS: Pantoprazole Sodium 40 MG Tablet PO (10:41)
[2024-11-12] MEDS: Lactobacillis Acidophilus 1 CAP PO ×4 (10:41→20:50)
[2024-11-12] MEDS: Citalopram 40 MG TABLET PO (10:42)
[2024-11-12] MEDS: Acetaminophen 325 MG Tablet 650 MG PO ×2 (10:42→17:12)
[2024-11-12] MEDS: oxyCODONE 5 MG Tablet PO ×2 (10:42→17:11)
[2024-11-12] MEDS: Topiramate 50 MG Tablet PO (10:43)
--- NOTE | 2024-11-12 12:10 | CASEMGMT ---
KYREE GOMEZ Assessment: Face to Face with pt for initial transition planning/care coordination assessment. KYREE GOMEZ introduced self and role at [facility], pt voices understanding and consents to assessment. Pt is A&O x4 and answers all questions appropriately at this time. Care providers, pharmacy, and demographics verified/updated. Strata: 2 Admitting Dx: AE Asthma/COPD, Resp insufficiency PCP: Zev Specialists: Herman - Pain managment Preferred Pharmacy: [facility] Insurance: ALANIS Adler Prescription Benefit: yes LNOK: Friend, Chase Living Arrangements: Pt lives alone in a mobile home with 3 steps to enter. ADLs: Pt states I at baseline Transportation: Pt drives self and denies concerns with transportation. DME: [facility] HHC/SNF: Denies Hx of. Pt states no concerns with going home at time of dc. KYREE GOMEZ discussed possible need for O2 at time of DC. Provided a verbal list of local DME providers, Pt chose [facility] as provider of choice. Pt states she quit smoking 4 months ago. Pt asked about getting an inogen portable O2, instructed to follow up with PCP after DC if pt requires O2. Pt states no further concerns/needs. CM to follow. Advised pt to ask CM if any further question/concerns/needs arise, voices understanding. Pt Goal: Home Plan: Home, follow for O2 Luca ADORNO CM
--- NOTE | 2024-11-12 12:10 | CASEMGMT ---
KYREE GOMEZ Assessment: Face to Face with pt for initial transition planning/care coordination assessment. KYREE GOMEZ introduced self and role at [facility], pt voices understanding and consents to assessment. Pt is A&O x4 and answers all questions appropriately at this time. Care providers, pharmacy, and demographics verified/updated. Strata: Admitting Dx: PCP: Specialists: Preferred Pharmacy: Insurance: Prescription Benefit: yes LNOK: Living Arrangements: Pt lives ADLs: Transportation: Pt drives self and denies concerns with transportation. DME: HHC/SNF: Pt states no concerns with going home at time of dc. Pt states no further concerns/needs. CM to follow. Advised pt to ask CM if any further question/concerns/needs arise, voices understanding. Pt Goal: Plan: Luca ADORNO CM
[2024-11-12] MEDS: 0.9% Saline Lock 10 ML Syringe IV ×2 (14:15→20:51)
--- NOTE | 2024-11-12 16:45 | CON.PCM.OR_ITS ---
HPI Consult Data Date of Consult: 11/12/24 HPI Narrative HPI Narrative: KENNETH GAMEZ, is a 64 F who presents to with difficulty breathing and was found to have L1 fracture on a chest CT scan. I was consulted for this finding of L1 compression fracture which was not visible on previous imaging. I saw the patient in his room 303. Patient was sitting comfortably in her bed with nasal oxygen. Patient is known to me as she has seen me as an outpatient in September this year. Back then, we had discussed L4-5 disc degeneration and had recommended pain management for consideration of injections. Patient had not been able to get any injections as yet. Patient has multiple medical comorbidities and is currently admitted for acute exacerbation of COPD versus pneumonia. Patient denies any significant change in her back pain compared to when she saw me in September. She denies any change of the location of the pain. She points over the lower lumbar region. She denies any radiation of pain to lower extremities. [facility] Medical History Depression, unspecified History of small bowel obstruction Hypersplenism Vitamin D deficiency Hypotension Memory loss Neurodermatitis Anxiety Gastroparesis IBS (irritable bowel syndrome) GERD (gastroesophageal reflux disease) Fibromyalgia DDD (degenerative disc disease) History of pulmonary embolus (PE) COPD (chronic obstructive pulmonary disease) Thoracic spondylosis CAD (coronary artery disease) Chest pain, atypical Chronic back pain Tobacco dependence Home Medications ?Medication ?Instructions ?Recorded ?Last Taken ?Type topiramate 50 mg tablet 50 mg PO DAILY headaches 05/2312/17/15 History pantoprazole 40 mg tablet,delayed 40 mg PO Q12H gerd 1 08/19/18 Unknown History release rivaroxaban 20 mg tablet (Xarelto) 20 mg PO DAILY bloo d thinner 06/18/19 Unknown History cholecalciferol (vitamin D3) 50 2,000 unit PO DAILY salvador pplement 07/14/19 Unknown History mcg (2,000 unit) tablet albuterol sulfate 90 mcg/actuation 2 puff inhalation Q 4H PRN 01/25/20 Unknown Rx aerosol inhaler (ProAir HFA) shortness of breath or wh eezing #18 grams citalopram 40 mg tablet 40 mg PO QDAY mood 09/11/24 Unknown History diazepam 10 mg tablet 10 mg PO TID PRN anxiety 01/29 Unknown History oxycodone-acetaminophen 7.5 mg-325 1 tab PO Q6 PRN casper n 09/11/24 Unknown History mg tablet tizanidine 6 mg capsule 6 mg PO TID PRN muscle spast icity 09/11/24 Unknown History Allergy/AdvReac Type Severity Reaction Status Date / Time amitriptyline Allergy Severe Rash Verified 11/11/24 18:39 nicotine (From Nicoderm CQ) Allergy Mild Rash Verified 11/11/24 18:39 fentanyl Allergy Rash Verified 11/11/24 18:39 aspirin AdvReac Nausea Verified 11/11/24 18:39 meperidine HCl (From Demerol) AdvReac Vomiting Verified 11/11/24 18:39 nitrofurantoin (From AdvReac Vomiting Verified 11/11/24 18:39 Macrobid) nitrofurantoin AdvReac Vomiting Verified 11/11/24 18:39 macrocrystalline (From Macrobid) Family History Father Hypertension Mother Diabetes Surgical History History of total hysterectomy History of splenectomy Social History current occupational status: retired Smoking Status: Former smoker Tobacco: How many years used: 30 Electronic Cigarette Use: with nicotine quit status: considering quitting substance use type: does not use seatbelt use: always do you feel safe at home: Yes additional social history: Vital Signs Vital Signs Vital Signs: 11/11/24 18:40 11/11/24 18:41 11/11/24 18:42 Temperature 96.2 F L 98.2 F Temperature Source Temporal Oral Pulse Rate 105 H 98 Respiratory Rate 24 H 26 H Respiratory Effort Respiratory Depth Respiratory Pattern Blood Pressure 108/93 H 145/73 H Blood Pressure Mean 98 97 Blood Pressure Source Blood Pressure Position Blood Pressure Location Pulse Ox 91 94 88 Oxygen Delivery Method Room Air Nasal Cannula Room Air Oxygen Flow Rate (L/min) 2 11/11/24 18:46 11/11/24 18:52 11/11/24 19:40 Temperature Temperature Source Pulse Rate 101 H 106 H Respiratory Rate 21 H 24 H Respiratory Effort Short of Breath Respiratory Depth Respiratory Pattern Blood Pressure 141/84 H 144/71 H Blood Pressure Mean 103 95 Blood Pressure Source Blood Pressure Position Blood Pressure Location Pulse Ox 94 94 Oxygen Delivery Method Nasal Cannula Nasal Cannula Nasal Cannula Oxygen Flow Rate (L/min) 2 2 2 11/11/24 20:10 11/11/24 20:13 11/11/24 21:00 Temperature 98.2 F 98.2 F Temperature Source Oral Oral Pulse Rate 98 92 101 H Respiratory Rate 18 26 H 25 H Respiratory Effort Respiratory Depth Respiratory Pattern Blood Pressure 144/71 H 134/74 H Blood Pressure Mean 95 94 Blood Pressure Source Blood Pressure Position Blood Pressure Location Pulse Ox 99 94 Oxygen Delivery Method Nasal Cannula Nasal Cannula Oxygen Flow Rate (L/min) 2 2 11/11/24 21:00 11/11/24 22:00 11/11/24 22:34 Temperature 98.1 F 98.1 F Temperature Source Oral Oral Pulse Rate 100 104 H 98 Respiratory Rate 21 H 24 H 24 H Respiratory Effort Respiratory Depth Respiratory Pattern Blood Pressure 134/74 H 157/73 H Blood Pressure Mean 94 101 Blood Pressure Source Blood Pressure Position Blood Pressure Location Pulse Ox 94 92 Oxygen Delivery Method Nasal Cannula Nasal Cannula Oxygen Flow Rate (L/min) 2 2 11/11/24 23:00 11/11/24 23:51 11/11/24 23:53 Temperature 98.2 F 98.1 F 98.1 F Temperature Source Oral Oral Pulse Rate 105 H 108 H 108 H Respiratory Rate 25 H 27 H 27 H Respiratory Effort Respiratory Depth Respiratory Pattern Blood Pressure 132/71 H 132/71 H 132/71 H Blood Pressure Mean 91 91 91 Blood Pressure Source Blood Pressure Position Blood Pressure Location Pulse Ox 90 90 91 Oxygen Delivery Method Nasal Cannula Nasal Cannula Oxygen Flow Rate (L/min) 2 11/12/24 00:33 11/12/24 01:23 11/12/24 02:00 Temperature 97.9 F 98.1 F Temperature Source Oral Oral Pulse Rate 120 H 99 Respiratory Rate 28 H 24 H Respiratory Effort Short of Breath Respiratory Depth Normal Respiratory Pattern Tachypnea Blood Pressure 186/89 H 133/88 H Blood Pressure Mean 121 103 Blood Pressure Source Monitor Monitor Blood Pressure Position Semi-Fowlers Semi-Fowlers Blood Pressure Location Right Arm Right Arm Pulse Ox 92 98 Oxygen Delivery Method Nasal Cannula Nasal Cannula Nasal Cannula Oxygen Flow Rate (L/min) 5 5 5 11/12/24 04:05 11/12/24 06:35 11/12/24 08:39 Temperature 97.9 F 98.2 F 98.6 F Temperature Source Oral Temporal Oral Pulse Rate 112 H 117 H 98 Respiratory Rate 22 H 26 H 22 H Respiratory Effort Respiratory Depth Respiratory Pattern Blood Pressure 137/76 H 130/80 H 117/72 Blood Pressure Mean 96 96 87 Blood Pressure Source Monitor Monitor Monitor Blood Pressure Position Supine Semi-Fowlers Left Lateral Blood Pressure Location Right Arm Right Arm Right Arm Pulse Ox 96 96 94 Oxygen Delivery Method Nasal Cannula Nasal Cannula Nasal Cannula Oxygen Flow Rate (L/min) 5 5 4 11/12/24 08:48 11/12/24 09:03 11/12/24 09:05 Temperature Temperature Source Pulse Rate Respiratory Rate Respiratory Effort Respiratory Depth Respiratory Pattern Tachypnea Blood Pressure Blood Pressure Mean Blood Pressure Source Blood Pressure Position Blood Pressure Location Pulse Ox 95 Oxygen Delivery Method Nasal Cannula Nasal Cannula Oxygen Flow Rate (L/min) 5 5 5 11/12/24 14:10 11/12/24 14:13 Temperature 97.9 F Temperature Source Oral Pulse Rate 103 H Respiratory Rate 22 H Respiratory Effort Respiratory Depth Respiratory Pattern Blood Pressure 159/89 H Blood Pressure Mean 112 Blood Pressure Source Monitor Blood Pressure Position Semi-Fowlers Blood Pressure Location Right Arm Pulse Ox 96 Oxygen Delivery Method Nasal Cannula Nasal Cannula Oxygen Flow Rate (L/min) 5 5 Weight Weight: 133 lb 2.547 oz Body Mass Index (BMI) 25.1 Physical Exam Narrative Exam of the back shows paraspinal tenderness to lower lumbar spine. There is no spinous process tenderness in the L1 or mid back region. Neurologic motion of lower extremity shows 5 x 5 parameters normal sensations in all dermatomes. Lab / Micro Data 11/12/24 05:41 11/12/24 05:41 Labs: Laboratory Results - last 24 hr 11/11/24 20:10: WBC 20.5 H, RBC 4.05 L, Hgb 12.9, Hct 38.4, MCV 94.8, MCH 31.9, MCHC 33.6, RDW Std Deviation 50.3 H, RDW Coeff of Jose Martin 14.5, Plt Count 283, MPV 10.5, Immature Gran % (Auto) 0.500, Neut % (Auto) 75.8 H, Lymph % (Auto) 10.2 L, [place] % (Auto) 7.8, Eos % (Auto) 4.6, Baso % (Auto) 1.1 H, Absolute Neuts (auto) 15.5 H, Absolute Lymphs (auto) 2.09, Nucleated RBC % 0, Differential Comment SCANNED, Sodium 139, Potassium 3.7, Chloride 105, Carbon Dioxide 18.3 L, Anion Gap 16 H, BUN 4, Creatinine 0.75, Estim Creat Clear Calc 66.55, Est GFR (MDRD) Non-Af 91, BUN/Creatinine Ratio 5.3 L, Glucose 123 H, Calcium 9.6, Troponin T High Sens 8 11/11/24 22:30: Magnesium 1.8, Troponin T Hi Sens 2 Hr 7 11/12/24 05:41: WBC 15.4 H, RBC 3.81 L, Hgb 12.0, Hct 37.3, MCV 97.9, MCH 31.5, MCHC 32.2, RDW Std Deviation 52.2 H, RDW Coeff of Jose Martin 14.5, Plt Count 283, MPV 11.5, Immature Gran % (Auto) 0.300, Neut % (Auto) 93.3 H, Lymph % (Auto) 5.0 L, [place] % (Auto) 0.6, Eos % (Auto) 0.0, Baso % (Auto) 0.8, Absolute Neuts (auto) 14.4 H, Absolute Lymphs (auto) 0.77 L, Nucleated RBC % 0, Sodium 145, Potassium 4.0, Chloride 109 H, Carbon Dioxide 21.4, Anion Gap 15, BUN 5, Creatinine 0.69 L , Estim Creat Clear Calc 70.52, Est GFR (MDRD) Non-Af 98, BUN/Creatinine Ratio 6.8 L, Glucose 133 H, Calcium 9.3, Phosphorus 4.0, Total Bilirubin 0.32, AST 29, ALT 13, Alkaline Phosphatase 112 H, Total Protein 7.3, Albumin 4.2, Globulin 3.1, Albumin/Globulin Ratio 1.4, TSH 0.444 Micro: Microbiology 11/12/24 15:30 Urine, Clean Catch Legionella Antigen - Final 11/12/24 15:30 Urine, Clean Catch Streptococcus pneumoniae Antigen (M - Final 11/12/24 08:57 Mucosa - Nasopharyngeal Coronavirus COVID-19 PCR - Final 11/12/24 08:57 Mucosa - Nasopharyngeal Respiratory Panel (PCR) - Final Imaging Radiology Impression Chest X-Ray 11/11/24 20:00 IMPRESSION: NO ACUTE FINDINGS. [facility] 11/12/24 00:16 IMPRESSION: Small amount of secretions is seen along the left lateral tracheal wall in the left mainstem bronchus. The central airways appear patent. Study is limited by motion artifact. Bilateral perihilar mild ground-glass opacity with an upper zone predominant may be inflammatory or infectious, possible viral etiology not excluded, clinically correlate. Less likely an unusual pulmonary edema not excluded. No focal consolidation. There is now a [id number] L1 superior endplate compression fracture deformity with mild retropulsion of the posterior superior corner and a mild inferior endplate compression fracture deformity of T12 with vacuum effect at the disc space. There are some sclerotic change to the endplate although this was not seen on spine films as recent as september 11, 2024 and requires further clinical correlation. Reading Location: [id number] Assessment & Plan Assessment/Plan (1) Compression fracture of L1 lumbar vertebra: QUALIFIERS: Encounter type: initial encounter Qualified Code(s): S32.010A - Wedge compression fracture of first lumbar vertebra, initial encounter for closed fracture PLAN: Plan I reviewed the chest CT scan done last night. I also reviewed again the x-rays from September and MRI from August. The imaging in the past did not show any L1 fracture, but the chest CT scan suggest CT compression fracture. This suggest that this is a acute versus subacute fracture. Patient does not remember any obvious episode of injury. Patient also does not have any significant midline spinous process tenderness in the mid back area. She continues to have symptoms related to the L4-5 disc degeneration. I recommend that when she gets discharged from the hospital because of her respiratory issues, she should make a follow-up with me in clinic as an outpatient to review upright x-rays to see if the L1 fracture heals over time. Discussed the importance of improving bone density to prevent future fractures. Patient was in agreement and will follow- up as an outpatient. Charges/Coding Visit Charges Inpatient E&M: 44670 Init Hosp L3
[2024-11-12] MEDS: Rivaroxaban 20 MG Tablet PO (17:02)
[2024-11-12] MEDS: guaiFENesin Dm 10 ML UDC 5 ML PO (20:48)
[2024-11-12] MEDS: Ceftriaxone 1 GM/50 ML BAG IV (20:51)
[2024-11-12] MEDS: Azithromycin 500 MG in 0.9% Normal Saline (250mL Bag) 250 ML 255 MG IV (22:07)
[2024-11-13] VITALS (11 sets, daily range): BP systolic 109–130; BP diastolic 56–73; PULSE 80–109; RESP 16–20; TEMP 36.6–36.8; O2SAT 91–97; BMI 25.8
[2024-11-13] MEDS: Ipratropium/Albuterol Sulfate 3 ML AMPUL.NEB INHALATION ×6 (04:15→23:32)
[2024-11-13] MEDS: oxyCODONE 5 MG Tablet PO ×3 (05:08→20:35)
[2024-11-13] MEDS: 0.9% Saline Lock 10 ML Syringe IV ×2 (05:09→20:22)
[2024-11-13 07:06] LABS: Absolute Lymphocyte Count 1.52 X10^3/uL (0.83-4.51); Absolute Neutrophil Count 13.9 X10^3/uL (2.0-7.7); Basophil# 0.05 X10^3/uL; Basophil% 0.3 % (0-1); Hematocrit 34.6 % (37-47); Hemoglobin 11.2 g/dL (12.0-15.0); Lymphocyte # 1.52 X10^3/ul (0.83-4.51); Lymphocyte % 9.2 % (19-41); Mean Corp Hgb Conc 32.4 g/dL (32-36); Mean Corpuscular Hgb 31.6 pg (27.0-32.0); Mean Corpuscular Volume 97.7 fL (81-99); Mean Platelet Vol. 11.3 fl (6.2-12.0); Monocyte# 0.89 X10^3/uL; Monocyte% 5.4 % (0-10); NRBC Flagged by Analyzer 0 % (0-5); Neutrophil # 13.89 X10^3/uL (2.7-7.7); Neutrophil % 84.3 % (47-70); Platelet Count 274 K/mm3 (150-450); RBC Distribution Width CV 14.6 % (11.6-14.6); RBC Distribution Width SD 52.9 fl (35.1-43.9); Red Blood Count 3.54 M/mm3 (4.2-5.4); White Blood Count 16.5 K/mm3 (4.4-11.0)
--- NOTE | 2024-11-13 07:42 | PCM.PN.HOSP ---
Reason for Visit Reason for Visit: Shortness of breath Subjective Subjective Patient states she is overall feeling much better today other than the diarrhea she has had. She states she has had several bouts of diarrhea. States she feels that the antibiotics is typically causes diarrhea for her. I did discuss with her with the volume of stool we will go ahead and check as these have been empiric panel since it has been ongoing but if it is negative we can start some Imodium for her. She states her breathing is considerably better. Objective Data Objective Data Vital Signs: Vital Signs Temp Pulse Resp BP Pulse Ox O2 Del Method O2 Flow Rate 98 F 100 18 109/56 L 97 Nasal Cannula 3 11/13/24 03:00 11/13/24 04:15 11/13/24 04:15 11/13/24 03:00 11/13/24 03:00 11/13/24 03:00 11/13/24 03:00 Oxygen Flow Rate (L/min) 3 Oxygen Delivery Method Nasal Cannula Weight: 62 kg Body Mass Index (BMI) 25.8 Intake & Output: Intake and Output for Last 24 Hours 11/11/24 11/12/24 11/13/24 23:59 23:59 23:59 Intake Total 50 / 50 1055.83 / 1055.83 Balance 50 / 50 1055.83 / 1055.83 Lab / Micro Data 11/13/24 05:53 11/13/24 05:53 Labs: Laboratory Results - last 24 hr 11/12/24 05:41: Sodium 145, Potassium 4.0, Chloride 109 H, Carbon Dioxide 21.4, Anion Gap 15, BUN 5, Creatinine 0.69 L, Estim Creat Clear Calc 70.52, Est GFR (MDRD) Non-Af 98, BUN/Creatinine Ratio 6.8 L, Glucose 133 H, Calcium 9.3, Phosphorus 4.0, Total Bilirubin 0.32, AST 29, ALT 13, Alkaline Phosphatase 112 H, Total Protein 7.3, Albumin 4.2, Globulin 3.1, Albumin/Globulin Ratio 1.4, TSH 0.444 11/13/24 05:53: WBC 16.5 H, RBC 3.54 L, Hgb 11.2 L, Hct 34.6 L, MCV 97.7, MCH 31.6, MCHC 32.4, RDW Std Deviation 52.9 H, RDW Coeff of Jose Martin 14.6, Plt Count 274, MPV 11.3, Immature Gran % (Auto) 0.800, Neut % (Auto) 84.3 H, Lymph % (Auto) 9.2 L, [place] % (Auto) 5.4, Eos % (Auto) 0.0, Baso % (Auto) 0.3, Absolute Neuts (auto) 13.9 H, Absolute Lymphs (auto) 1.52, Nucleated RBC % 0 Micro: Microbiology 11/12/24 15:30 Urine, Clean Catch Legionella Antigen - Final 11/12/24 15:30 Urine, Clean Catch Streptococcus pneumoniae Antigen (M - Final 11/12/24 08:57 Mucosa - Nasopharyngeal Coronavirus COVID-19 PCR - Final 11/12/24 08:57 Mucosa - Nasopharyngeal Respiratory Panel (PCR) - Final Physical Exam Const alert, oriented x3, no apparent distress, average body habitus and well nourished Constitutional Narrative: Upper middle-aged, white female, sitting up in chair at the bedside, appears comfortable, nontoxic, appears older than stated age General Appearance: cooperative HEENT normocephalic, head/scalp atraumatic, hearing grossly normal bilaterally and moist oral mucous membranes Eyes PERRL, EOMs intact bilaterally and conjunctivae normal Neck no lymphadenopathy, supple and no JVD Resp No normal respiratory effort, no retractions, no use of accessory muscles and No clear to auscultation bilaterally Resp Narrative: Coarse breath sounds bilaterally with inspiratory and expiratory wheezing, no signs of respiratory distress however patient is mildly tachypneic Auscultation: wheezes; Negative for crackles or rhonchi Cardio regular rate, regular rhythm, S1 normal heart sound, S2 normal heart sound, no murmurs, no rub, no gallops and no clicks GI normal to inspection, nondistended, normoactive bowel sounds, soft to palpation, non-tender and non-distended Extremity normal to inspection, full ROM and no clubbing, cyanosis or edema Extremity Narrative: 2+ pedal pulses Skin Skin Narrative: Patient has evidence of rash, abscess, wounds or jaundice. Neuro oriented x3, CN's II-XII intact bilaterally, moves all extremities and no focal motor deficits Sensorium / Orientation: awake, alert, oriented to person, oriented to place and oriented to time Speech: speech normal Psych affect normal Psych Narrative: Very pleasant, interacts appropriately Assessment & Plan Assessment/Plan (1) Compression fracture of T12 vertebra: QUALIFIERS: Encounter type: initial encounter Qualified Code(s): S22.080A - Wedge compression fracture of T11-T12 vertebra, initial encounter for closed fracture (2) Compression fracture of L1 lumbar vertebra: QUALIFIERS: Encounter type: initial encounter Qualified Code(s): S32.010A - Wedge compression fracture of first lumbar vertebra, initial encounter for closed fracture (3) Leukocytosis: QUALIFIERS: Leukocytosis type: unspecified Qualified Code(s): D72.829 - Elevated white blood cell count, unspecified (4) Acute hypoxic respiratory failure: PLAN: Plan Acute hypoxic respiratory failure secondary to acute exacerbation of COPD - Patient with tachycardia, tachypnea, and marked hypoxia consistent with respiratory failure -Had been on as much is 6 L but now on 3 L -wean as able -home O2 prior discharge - Continue Solu-Medrol but transition to 40 every 8 -Continue Mucinex 1200 p.o. twice daily - Check respiratory viral panel - Check COVID/flu/RSV -Will plan on completing a course of antibiotics with Levaquin for total of 7 days, today is day 3 of 7 -Urine antigens are negative -Aggressive pulmonary toilet with scheduled and as needed nebulizers - I-S - Pep therapy with Acapella 10 times every 2 hours while awake - Hopeful for discharge in next 24 hours L1 lumbar spine compression fracture - Has been evaluated by orthopedic surgery and plans for outpatient follow-up - Vitamin D level is acceptable at 47.9 - Continue as needed pain medication Leukocytosis -Secondary to demargination from steroid use History of vitamin D deficiency - Continue home cholecalciferol - Vitamin D level is within therapeutic range GERD - Continue home PPI 40 twice daily History of pulmonary embolus - Continue home Xarelto History of splenectomy - Ensure outpatient follow-up for vaccinations History of migraine headaches - Continue home Topamax - Restart Fioricet at discharge Depression/anxiety - Continue citalopram - Continue home diazepam History of chronic pain -Continue home oxycodone - Continue home tizanidine Tobacco abuse - Quit 4 months ago - Encouraged ongoing cessation DVT prophylaxis -continue rivaroxaban CODE STATUS - Full code verified Charges/Coding Visit Charges Inpatient E&M: 54950 Subs Hosp L2
[2024-11-13 08:08] LABS: ALB/GLOB Ratio 1.3 RATIO (0.9-2.4); AST(SGOT) 32 U/L (<=31); Alanine Aminotransfer ALT/SGPT 12 U/L (<=34); Albumin, Serum 3.9 g/dL (3.4-4.8); Alkaline Phosphatase 103 U/L (35-104); Anion Gap 13 (5-15); BUN 9 mg/dL (4-19); BUN/Creat Ratio 14.7 RATIO (10-20); Calcium,Total 9.4 mg/dL (7.6-11.0); Chloride 107 mmol/L (98-108); Creatinine, Serum 0.63 mg/dL (0.70-1.20); EST Glomerular Filtration Rate 100 (>60); Estimated Creatinine Clearance 78.17 ml/min (50-250); Globulin 3.1 g/dL (2.2-4.2); Glucose 116 mg/dL (70-99); Magnesium 2.1 mg/dL (1.5-2.2); Phosphorus 3.5 mg/dL (2.7-4.5); Potassium 3.9 mmol/L (3.3-5.1); Sodium Level 141 mmol/L (133-145); Total Bilirubin 0.29 mg/dL (0.00-1.30); Vitamin D,25 Hydroxy 47.9 ng/mL (30-100)
[2024-11-13] MEDS: levoFLOXacin IV 750 MG/150 ML BAG 100 MG IV (09:26)
[2024-11-13] MEDS: Citalopram 40 MG TABLET PO (09:29)
[2024-11-13] MEDS: Pantoprazole Sodium 40 MG Tablet PO (09:29)
[2024-11-13] MEDS: Lactobacillis Acidophilus 1 CAP PO ×4 (09:29→21:44)
[2024-11-13] MEDS: guaiFENesin 1,200 MG Tablet 1200 MG PO ×2 (09:29→21:44)
[2024-11-13] MEDS: Cholecalciferol (VIT D3) 25 MCG TABLET (1,000 UNITS) 50 MCG PO (09:30)
[2024-11-13] MEDS: Topiramate 50 MG Tablet PO (09:30)
[2024-11-13] MEDS: Acetaminophen 325 MG Tablet 650 MG PO ×2 (11:42→20:35)
--- NOTE | 2024-11-13 14:20 | CASEMGMT ---
RN CM into pt room, pt lying in bed on RA. Pt denies any homegoing needs. She reports she needs to dc home tomorrow. She reports she is indep at home. Green sheet on chart if pt qualifies for home oxygen.
[2024-11-13] MEDS: Rivaroxaban 20 MG Tablet PO (17:05)
[2024-11-13] MEDS: diazePAM 5 MG Tablet 10 MG PO (21:43)
[2024-11-14 02:16] VITALS: BP 121/72; PULSE 84; RESP 14; TEMP 36.6; O2SAT 92
[2024-11-14 05:39] VITALS: BMI 25.8
[2024-11-14] MEDS: 0.9% Saline Lock 10 ML Syringe IV (06:05)
[2024-11-14] MEDS: oxyCODONE 5 MG Tablet PO (06:13)
[2024-11-14] MEDS: Acetaminophen 325 MG Tablet 650 MG PO (06:13)
[2024-11-14] MEDS: guaiFENesin Dm 10 ML UDC 5 ML PO (06:14)
[2024-11-14] MEDS: BENZOCAINE/MENTHOL 1 LOZENGE MUCOUS MEM (06:14)
[2024-11-14 06:52] LABS: Absolute Lymphocyte Count 1.59 X10^3/uL (0.83-4.51); Absolute Neutrophil Count 14.4 X10^3/uL (2.0-7.7); Basophil# 0.03 X10^3/uL; Basophil% 0.2 % (0-1); Hematocrit 33.5 % (37-47); Hemoglobin 11.1 g/dL (12.0-15.0); Lymphocyte # 1.59 X10^3/ul (0.83-4.51); Lymphocyte % 9.2 % (19-41); Mean Corp Hgb Conc 33.1 g/dL (32-36); Mean Corpuscular Hgb 32.2 pg (27.0-32.0); Mean Corpuscular Volume 97.1 fL (81-99); Mean Platelet Vol. 11.2 fl (6.2-12.0); Monocyte# 1.16 X10^3/uL; Monocyte% 6.7 % (0-10); NRBC Flagged by Analyzer 0 % (0-5); Neutrophil # 14.42 X10^3/uL (2.7-7.7); Neutrophil % 83.3 % (47-70); Platelet Count 301 K/mm3 (150-450); RBC Distribution Width CV 14.6 % (11.6-14.6); RBC Distribution Width SD 51.9 fl (35.1-43.9); Red Blood Count 3.45 M/mm3 (4.2-5.4); White Blood Count 17.3 K/mm3 (4.4-11.0)
[2024-11-14 07:14] LABS: Anion Gap 12 (5-15); BUN 11 mg/dL (4-19); BUN/Creat Ratio 16.7 RATIO (10-20); Calcium,Total 9.4 mg/dL (7.6-11.0); Carbon Dioxide 20.8 mmol/L (21.0-32.0); Chloride 107 mmol/L (98-108); Creatinine, Serum 0.65 mg/dL (0.70-1.20); EST Glomerular Filtration Rate 99 (>60); Estimated Creatinine Clearance 75.82 ml/min (50-250); Glucose 112 mg/dL (70-99); Potassium 3.6 mmol/L (3.3-5.1); Sodium Level 140 mmol/L (133-145)
[2024-11-14] MEDS: Ipratropium/Albuterol Sulfate 3 ML AMPUL.NEB INHALATION ×2 (07:47→11:51)
[2024-11-14 07:48] VITALS: PULSE 90; RESP 18; O2SAT 94
[2024-11-14 08:34] VITALS: BP 138/64; PULSE 109; RESP 18; TEMP 37; O2SAT 94
[2024-11-14] MEDS: diazePAM 5 MG Tablet 10 MG PO (08:40)
[2024-11-14] MEDS: Pantoprazole Sodium 40 MG Tablet PO (08:40)
[2024-11-14] MEDS: guaiFENesin 1,200 MG Tablet 1200 MG PO (08:40)
[2024-11-14] MEDS: Cholecalciferol (VIT D3) 25 MCG TABLET (1,000 UNITS) 50 MCG PO (08:41)
[2024-11-14] MEDS: Lactobacillis Acidophilus 1 CAP PO (08:41)
[2024-11-14] MEDS: Citalopram 40 MG TABLET PO (08:42)
[2024-11-14] MEDS: Topiramate 50 MG Tablet PO (08:42)
[2024-11-14 09:17] VITALS: O2SAT 90; O2SAT 93
--- NOTE | 2024-11-14 11:40 | PCM.DC.SUM ---
Providers Date of Admission: 11/11/24 Primary Care Physician: Dr. Lincoln Brothers, Consultations 11/12/24 05:46 Consult: Orthopedics Routine Consulting Provider: Jase Cartwright Reason for Consult: L1 compression fracture with retropulsion + T12 comp fx. EMERGENT Consult: No MD Notified: Yes Date Notified: 11/12/24 Time Notified: 06:42 Method of Notification: Text Reason For Visit: AE ASTHMA/COPD, RESPIRATORY INSUFFICIENCY AND Diagnosis Discharge Diagnosis (1) Compression fracture of T12 vertebra: Status: Acute Code(s): S22.080A - Wedge compression fracture of T11-T12 vertebra, initial encounter for closed fracture Qualifiers: Encounter type: initial encounter Qualified Code(s): S22.080A - Wedge compression fracture of T11-T12 vertebra, initial encounter for closed fracture (2) Compression fracture of L1 lumbar vertebra: Status: Acute Code(s): S32.010A - Wedge compression fracture of first lumbar vertebra, initial encounter for closed fracture Qualifiers: Encounter type: initial encounter Qualified Code(s): S32.010A - Wedge compression fracture of first lumbar vertebra, initial encounter for closed fracture (3) Leukocytosis: Status: Acute Code(s): D72.829 - Elevated white blood cell count, unspecified Qualifiers: Leukocytosis type: unspecified Qualified Code(s): D72.829 - Elevated white blood cell count, unspecified (4) Acute hypoxic respiratory failure: Status: Acute Code(s): J96.01 - Acute respiratory failure with hypoxia Plan Acute hypoxic respiratory failure secondary to acute exacerbation of COPD - Patient with tachycardia, tachypnea, and marked hypoxia consistent with respiratory failure -Had been on as much is 6 L but now on 3 L -wean as able -home O2 prior discharge - Continue Solu-Medrol but transition to 40 every 8 -Continue Mucinex 1200 p.o. twice daily - Check respiratory viral panel - Check COVID/flu/RSV -Will plan on completing a course of antibiotics with Levaquin for total of 7 days, today is day 3 of 7 -Urine antigens are negative -Aggressive pulmonary toilet with scheduled and as needed nebulizers - I-S - Pep therapy with Acapella 10 times every 2 hours while awake - Hopeful for discharge in next 24 hours L1 lumbar spine compression fracture - Has been evaluated by orthopedic surgery and plans for outpatient follow-up - Vitamin D level is acceptable at 47.9 - Continue as needed pain medication Leukocytosis -Secondary to demargination from steroid use History of vitamin D deficiency - Continue home cholecalciferol - Vitamin D level is within therapeutic range GERD - Continue home PPI 40 twice daily History of pulmonary embolus - Continue home Xarelto History of splenectomy - Ensure outpatient follow-up for vaccinations History of migraine headaches - Continue home Topamax - Restart Fioricet at discharge Depression/anxiety - Continue citalopram - Continue home diazepam History of chronic pain -Continue home oxycodone - Continue home tizanidine Tobacco abuse - Quit 4 months ago - Encouraged ongoing cessation DVT prophylaxis -continue rivaroxaban CODE STATUS - Full code verified Medications at Discharge Home Medications topiramate 50 mg tablet 50 mg PO DAILY headaches 12/17/15 pantoprazole 40 mg tablet,delayed release 40 mg PO Q12H gerd 06/18/19 rivaroxaban 20 mg tablet (Xarelto) 20 mg PO DAILY blood thinner 06/18/19 cholecalciferol (vitamin D3) 50 mcg (2,000 unit) tablet 2,000 unit PO DAILY supplement 07/14/19 albuterol sulfate 90 mcg/actuation aerosol inhaler (ProAir HFA) 2 puff inhalation Q4H PRN shortness of breath or wheezing #18 grams 01/25/20 citalopram 40 mg tablet 40 mg PO QDAY mood 09/11/24 diazepam 10 mg tablet 10 mg PO TID PRN anxiety 09/11/24 oxycodone-acetaminophen 7.5 mg-325 mg tablet 1 tab PO Q6 PRN pain 09/11/24 tizanidine 6 mg capsule 6 mg PO TID PRN muscle spasticity 09/11/24 guaifenesin 1,200 mg tablet, extended release 12 hr (Mucus Relief ER) 1,200 mg PO BID #0 tabs 11/14/24 levofloxacin 750 mg tablet 750 mg PO DAILY #4 tabs 11/14/24 prednisone 10 mg tablet 10 mg PO DAILY #40 tabs 11/14/24 Hospital Course Operations None Procedures EKG and - (Chest x-ray/CT chest) Summary of Care Provided Minutes Spent on Discharge: 38 Hospital Course: Patient is a 64-year-old white female who presented to the emergency department at [facility] on 11/11/2024 with a chief complaint of shortness of breath, cough, and wheezing. About 4 months ago she quit smoking. About a week prior to presentation she developed with a gradual onset of shortness of breath initially with exertion that progressed to shortness of breath at rest and developed a cough productive of yellowish sputum, sore throat, and bilateral ear pain. She initially complained of some substernal chest pain that was worse with deep breathing but stated that was only with deep breathing upon further questioning. She denied any fever or chills. Vital signs on presentation showed a temperature of 96.2, heart rate 105, respiratory was 24, blood pressure was 108/93 and pulse ox was initially 91% on room air with a repeat of 88% on room air and she was placed on 2 L nasal cannula with improvement to saturations to 94%. CBC on presentation showed a markedly elevated white count at 20.5 with a left shift having a 75.8% neutrophilia. Chemistry panel was overtly unremarkable. COVID-19/RSV/flu were negative. Respiratory viral panel was negative. Strep pneumo and Legionella antigens were negative. She did complain of diarrhea during her hospital course so we did check for enteric panel and C. difficile all of which were negative. It is felt that her diarrhea was likely related to antibiotics. She was admitted to the hospital and placed on an antibiotic due to her significant white count and change in sputum production Levemir and glargine, steroids, aggressive pulmonary toilet, incentive spirometer with Pep therapy as well as Mucinex. With time she improved to the point where she was able to be weaned off her oxygen. Maximally while she was hospitalized she required 6 L which was the day after admission. At the time of discharge we did an ambulatory pulse ox and she does not need any oxygen at rest or with exertion. We encouraged her to continue smoking cessation. We have given her referral to follow-up with pulmonary medicine after discharge as she would need outpatient PFTs and a 6-minute walk test. She was sent with a steroid taper, antibiotic for 4 more days to complete a 7-day course, and encouraged ongoing use of her incentive spirometer and Acapella. She was encouraged to make an appointment with pulmonary medicine and the number was given to her so she could call on Saturday and make an appointment. She was also found to have compression fractures at L1. Orthopedic surgery was consulted and recommended that she follow-up with him at the clinic as an outpatient to review upright x-rays for further recommendations. We did check a vitamin D level and her vitamin D level is therapeutic. Discharge diagnoses: Acute hypoxic respiratory failure Acute exacerbation of COPD Community-acquired pneumonia L1 compression fracture Leukocytosis Vitamin D deficiency GERD History of PE History of splenectomy History of migraine headaches Depression X anxiety History of chronic pain Tobacco abuse Physical Exam Const alert, oriented x3, no apparent distress, average body habitus, no limitations and well nourished Constitutional Narrative: Upper middle-aged, white female, sitting up in bed, finishing breakfast and watching television, on room air, appears comfortable, nontoxic, appears older than stated age General Appearance: cooperative, comfortable, well kempt and well developed Exam Limitations: no limitations HEENT normocephalic, head/scalp atraumatic, hearing grossly normal bilaterally and moist oral mucous membranes HEENT Narrative: No thrush, Mallampati 2 Eyes EOMs intact bilaterally and conjunctivae normal Eyes Narrative: No scleral icterus Neck supple Neck Narrative: Trachea midline Resp normal respiratory effort, no retractions, no use of accessory muscles and clear to auscultation bilaterally Resp Narrative: Diffusely diminished but clear Auscultation: Negative for crackles, rhonchi or wheezes Cardio regular rate, regular rhythm, S1 normal heart sound, S2 normal heart sound, no murmurs, no rub, no gallops and no clicks GI normal to inspection, nondistended, normoactive bowel sounds, soft to palpation and non-tender Extremity no clubbing, cyanosis or edema Extremity Narrative: 2+ pedal pulses Skin skin turgor normal, no jaundice, no petechiae and no mottling Neuro oriented x3, moves all extremities and no focal motor deficits Speech: speech normal Psych affect normal Psych Narrative: Very pleasant, interacts appropriately Weight / BMI Weight Weight: 62.1 kg Body Mass Index (BMI) 25.8 ABG / Lab / Microbiology Data 11/14/24 05:53 11/14/24 05:53 Laboratory: Laboratory Results - last 24 hr 11/14/24 05:53: WBC 17.3 H, RBC 3.45 L, Hgb 11.1 L, Hct 33.5 L, MCV 97.1, MCH 32.2 H, MCHC 33.1, RDW Std Deviation 51.9 H, RDW Coeff of Jose Martin 14.6, Plt Count 301, MPV 11.2, Immature Gran % (Auto) 0.600, Neut % (Auto) 83.3 H, Lymph % (Auto) 9.2 L, [place] % (Auto) 6.7, Eos % (Auto) 0.0, Baso % (Auto) 0.2, Absolute Neuts (auto) 14.4 H, Absolute Lymphs (auto) 1.59, Nucleated RBC % 0, Sodium 140, Potassium 3.6, Chloride 107, Carbon Dioxide 20.8 L, Anion Gap 12, BUN 11, Creatinine 0.65 L, Estim Creat Clear Calc 75.82, Est GFR (MDRD) Non-Af 99, BUN/Creatinine Ratio 16.7, Glucose 112 H, Calcium 9.4 Microbiology: Microbiology 11/13/24 10:20 Stool Enteric Bacteriology - Final 11/13/24 10:20 Stool Clostridioides difficile (PCR) - Final 11/12/24 15:30 Urine, Clean Catch Legionella Antigen - Final 11/12/24 15:30 Urine, Clean Catch Streptococcus pneumoniae Antigen (M - Final 11/12/24 08:57 Mucosa - Nasopharyngeal Coronavirus COVID-19 PCR - Final 11/12/24 08:57 Mucosa - Nasopharyngeal Respiratory Panel (PCR) - Final D/C Instructions Discharge Diet: No restrictions Discharge Activity: Return to Normal Activity DC O2, CPAP, BIPAP Needs Home O2 Discharge instructions: No Meaningful Use Info Meaningful Use Meaningful Use Diagnoses (Choose all that apply): None applicable Ischemic Stroke Statin Dosing Therapy Reference: STATIN DOSE THERAPY REFERENCE: * Patients > 75 years receive moderate or high dose statin therapy. * Patients 75 years or YOUNGER should receive HIGH intensity statin dose unless contraindicated. You will be required to document reason for non-treatment if statin daily dose does not meet guidelines. HIGH DOSE STATIN THERAPY DAILY Atorvastatin > than or = to 40 mg Rosuvastatin > than or = to 20 mg Amlodipine + Atorvastatin > than or = to 2.5/40 mg Ezetimibe + Simvastatin 10/80 mg Simvastatin 80mg Discharge Plan Admission Admit Date/Time: 11/11/24 23:29 Primary Reason for Your Visit: Shortness of Breath Attending Provider: Rosenda Carrion Primary Care Provider: Lincoln Brothers Consulting Providers: Leopoldo Aponte; Jase Cartwright Instructions Additional Instructions / Restrictions: 1. Continue to use incentive spirometer and acapella 2. Please call the pulmonary office on Saturday to set up a follow-up appointment 3. Please complete antibiotics and prednisone taper 4. Please call orthopedic surgery to follow-up for the compression fracture in your back Discharge Orders/Prescriptions Prescriptions: New guaifenesin [Mucus Relief ER] 1,200 mg Tablet Extended Release 12hr 1,200 mg PO BID Qty: 0 0RF prednisone 10 mg tablet 10 mg PO DAILY Qty: 40 0RF Rx Instructions: 4 tabs x 4 days, 3 tabs x 4 days, 2 tabs x 4 days, 1 tab x 4 days levofloxacin 750 mg tablet 750 mg PO DAILY Qty: 4 0RF Continued pantoprazole 40 mg tablet,delayed release (DR/EC) 40 mg PO Q12H Xarelto 20 mg tablet 20 mg PO DAILY cholecalciferol (vitamin D3) 2,000 unit tablet 2,000 unit PO DAILY albuterol sulfate [ProAir HFA] 90 mcg/actuation HFA aerosol inhaler 2 puff INHALATION Q4H PRN (Reason: shortness of breath or wheezing) Qty: 18 6RF oxycodone-acetaminophen 7.5-325 mg tablet 1 tab PO Q6 PRN (Reason: pain) diazepam 10 mg tablet 10 mg PO TID PRN (Reason: anxiety) citalopram 40 mg tablet 40 mg PO QDAY tizanidine 6 mg capsule 6 mg PO TID PRN (Reason: muscle spasticity) topiramate 50 MG tablet 50 mg PO DAILY Referrals / Follow Up: Christiano Moulton DO [Med Staff - Active Staff] - See Referral Note (Call Saturday to set up an appt as soon as possible) Lincoln Brothers DO [Primary Care Provider] - Within 1 Week Jase Cartwright MD [Med Staff - Active Staff] - Within 1 Week (Call Saturday to set up an appointment) Disposition Disposition (needs filled in before D/C Order can be placed): Home, Self Care Charges/Coding Visit Charges Inpatient E&M: 07541 Disch Hosp >30min
[2024-11-14 11:52] VITALS: PULSE 93; RESP 18
== END 2024-11-14 12:48 | disposition home or self-care (01) | DRG 193 ==
LOC: ED 23:10 → MS3 23:25
PROVIDERS: Admitting Provider Internal Medicine; Emergency Provider Emergency Medicine; PCP Family Medicine; Referring Provider Emergency Medicine; Visit Provider Internal Medicine
DX: J18.9 Pneumonia, unspecified organism (principal); J96.01 Acute respiratory failure with hypoxia; S22.080A Wedge compression fracture of T11-T12 vertebra, initial encounter for closed fracture; J44.0 Chronic obstructive pulmonary disease with (acute) lower respiratory infection; J44.1 Chronic obstructive pulmonary disease with (acute) exacerbation; S32.010A Wedge compression fracture of first lumbar vertebra, initial encounter for closed fracture; I25.118 Atherosclerotic heart disease of native coronary artery with other forms of angina pectoris; K21.9 Gastro-esophageal reflux disease without esophagitis; F41.8 Other specified anxiety disorders; D72.829 Elevated white blood cell count, unspecified; E55.9 Vitamin D deficiency, unspecified; R19.7 Diarrhea, unspecified; G43.909 Migraine, unspecified, not intractable, without status migrainosus; M62.838 Other muscle spasm; M54.9 Dorsalgia, unspecified; E66.3 Overweight; Z68.26 Body mass index [BMI] 26.0-26.9, adult; Z79.01 Long term (current) use of anticoagulants; Z87.891 Personal history of nicotine dependence; Z90.710 Acquired absence of both cervix and uterus; Z79.891 Long term (current) use of opiate analgesic; M51.369 Other intervertebral disc degeneration, lumbar region without mention of lumbar back pain or lower extremity pain; Z86.711 Personal history of pulmonary embolism; Z90.81 Acquired absence of spleen; Z79.899 Other long term (current) drug therapy; G89.29 Other chronic pain
CPT/HCPCS: 36415; 71046; 71250; 80048; 80053; 82306; 83735; 84100; 84443; 84484; 85025; 87449; 87493; 87506; 87633; 87635; 93005; 94640; 94668; 97161; 99252; 99285; A4216; G0463; J0696

== ENCOUNTER → 2025-01-21 | Outpatient (CLI) | payer MEDICARE, MEDICAID, SELFPAY ==
--- OUTSIDE RECORDS SUMMARY | 2025-01-21 18:56 | XMS RPT_ITS | CCD ---
Author Organization [facility]ini[facility] Care Team Providers Care Plating Stripper Name Role Phone Humberto Gill Unavailable Unavailable Andre Jamesestelle Unavailable Unavailable MISCELLANEOUS DOCTOR Unavailable Unavailable Anna Powell Unavailable Unavailable No Family Physician given Unavailable UnaKamilah Deutsch Unavailable Unavailable Andre, Jamesestelle Unavailable Unavailable Andre, Jamesestelle Unavailable Unavailable HARLEY WOOD Attending Unavailable ODIN BERUMEN Primary Care Unavailable Dr. Odin Berumen Primary Care Provider Dr. Andrea Velasquez Attending Provider Danii Brannon MD Unavailable [phone] Odin Berumen Primary Care Provider [phone] Grace Bryant APRN, CNP Unavailable Odin Berumen DO Primary Care Provider DYANA BEE Attending Unavailable DANII GAONA Referring Unavailable ODIN BERUMEN Primary Care Unavailable Danii Brannon MD Unavailable Odin Berumen Primary Care Provider rGace Bryant APRN, CNP Unavailable Danii Brannon MD Unavailable Odin Berumen Primary Care Provider Tamiko De La Cruz APRN, CNP Unavailable NIKHIL BOOTHE Attending Unavailable ODIN BERUMEN Primary Care Unavailable NIKHIL BOOTHE Attending Unavailable ODIN BERUMEN Primary Care Unavailable NIKHIL BOOTHE Admitting Unavailable NIKHIL BOOTHE Attending Unavailable ATA, ODIN Primary Care Unavailable de SaleemNuno polo Admitting Unavailable de Nuno Monge Consulting Unavailable Ata, Odin Primary Care Unavailable Schwiger, Parveen Referring Unavailable Rosenda Carrion Attending Unavailable Jase Cartwright Consulting Unavailable Rosenda Carrion Consulting Unavailable Ata, Odin Primary Care Unavailable PiliPillo Referring Unavailable PiliPillo Attending Unavailable Ata, Odin Referring Unavailable Brown, Christiano Attending Unavailable Ata, Odin Primary Care Unavailable Ata, Odin Primary Care Unavailable Ata, Odin Referring Unavailable Jase Cartwright Attending Unavailable Ata, Odin Primary Care Unavailable Andrea Velasquez Attending Unavailable heriberto SaleemNuno polo Attending Unavailable Cartwright, Jase Attending Unavailable Ata, Odin Primary Care Unavailable Ata, Odin Referring Unavailable Ata, Odin Attending Unavailable Ata, Odni Attending Unavailable Ata, Odin Primary Care Unavailable Ata, Odin Referring Unavailable Ata, Odin Primary Care Unavailable Brown, Christiano Referring Unavailable Brown, Christiano Attending Unavailable Ata, Odin Primary Care Unavailable Nuno Aponte Consulting Unavailable Schwpablito, Pareven Referring Unavailable Nuno Aponte Admitting Unavailable Rosenda Carrion Attending Unavailable Cartwright, Jase Consulting Unavailable Ata, Odin Primary Care Unavailable Brown, Christiano Referring Unavailable Brown, Christiano Attending Unavailable Ata, Odin Attending Unavailable Ata, Odin Primary Care Unavailable Ata, Odin Referring Unavailable Ata, Odin Primary Care Unavailable Ata, Odin Referring Unavailable Ata, Odin Attending Unavailable Ata, Odin Attending Unavailable Ata, Odin Primary Care Unavailable Ata, Odin Referring Unavailable Ata, Odin Attending Unavailable Ata, Odin Primary Care Unavailable Allergies Allergy Classification Reported Allergen(s) Allergy Type Date of Onset Reaction(s) Facility (20 sources) Amitriptyline; Translations: [AMITRIPTYLINE] Drug Allergy 06-18-20 19 Rash [facility] (9 sources) Aspirin; Translations: [ASPIRIN] Drug Allergy 09-30-19 10 GI Upset [facility] (20 sources) fentaNYL; Translations: [FENTANYL] Drug Allergy 12-09-19 13 Shortness of breath [facility] (8 sources) Meperidine; Translations: [meperidine HCl] Drug Allergy 01-25-20 20 Vomiting [facility] (7 sources) Nitrofurantoin Drug Allergy 01-25-20 20 Vomiting [facility] (8 sources) nitrofurantoin macrocrystalline; Translations: [nitrofurantoin macrocrystalline] Propensity to adverse reactions 01-25-20 20 Vomiting [facility] (20 sources) Aluminum aspirin Drug Allergy 09-30-19 10 [facility] (20 sources) buPROPion; Translations: [BUPROPION] Drug Allergy 09-12-19 23 Other: See Comments [facility] (20 sources) Meperidine Drug Allergy 09-12-19 23 Nausea And Vomiting [facility] (20 sources) oxyCODONE; Translations: [OXYCODONE] Drug Allergy 09-12-19 23 Nausea And Vomiting, Headache, GI Upset [facility] (20 sources) Amoxicillin-Pot Clavulanate; Translations: [AMOXICILLIN-POT CLAVULANATE] Propensity to adverse reactions 09-12-19 23 Nausea Only, GI Upset [facility] (2 sources) Meperidine; Translations: [MEPERIDINE (PF)] Drug Allergy 09-30-19 10 GI Upset [facility] Work Phone: (2 sources) NITROFURANTOIN, MACROCRYSTALS / Nitrofurantoin, Monohydrate; Translations: [NITROFURANTOIN MONOHYD/M-CRYST] Drug Allergy 09-29-19 15 Rash [facility] Work Phone: (2 sources) Sulfamethoxazole / Trimethoprim; Translations: [SULFAMETHOXAZOLE-T RIMETHOPRIM] Drug Allergy 09-29-19 15 GI Upset, Vomiting, Other: See Comments [facility] Work Phone: (8 sources) Latex Propensity to adverse reactions 03-26-20 [facility] (1 source) Amitriptyline Drug Allergy 01-07-20 25 [facility] (1 source) Aspirin Drug Allergy 01-07-20 25 [facility] (1 source) fentaNYL Drug Allergy 01-07-20 25 [facility] (1 source) Nicotine Drug Allergy 01-07-20 25 [facility] (1 source) Nitrofurantoin Drug Allergy 01-07-20 25 [facility] Medications Current Medications Medication Drug Class(es) Dates Sig (Normalized) Sig (Original) acetaminophen 300 mg / butalbital 50 mg / caffeine 40 mg oral capsule (20 sources) Barbiturate, Central Nervous System Stimulant, Methylxanthine Start: 07-14-2019 take 1 capsule by mouth every six hours Butalbital-Aceta minophen-Caff Active 1 CAP PO EVERY 6 HOURS July 14, 2019 1:00am take 1 tablet by adrian th every four hours as needed for headache enxoymsnvq-conouqzbfaqqb-gwpnvjxp 50-325 -40 MG tablet Take 1 tablet by mouth every 4 hours as needed for headaches. Active acetaminophen 325 mg / oxyCODONE hydrochloride 5 mg oral tablet (20 sources) Opioid Agonist Start: 04-22-2023 End: 04-27-2023 take 1 tablet by mouth every six hours as needed for pain oxyCODONE-acetaminophen (Percocet) 5-325 MG tablet Indications: Vulvar intraepithelial [...] 8 hours as needed. 0 02/13/2016 Active Start: 10-05-2014 take 1 tablet by adrian th three times daily Oxycodone-Acetaminophen Active 1 TABLET PO THREE TIMES A DAY October 05, 2014 12:00am Comment on above: Take 1 tablet by adrian th every 8 hours as needed. [id number] 200 actuat albuterol 0.09 mg/actuat metered dose inhaler (20 sources) beta2-Adrenergic Agonist Start: 06-18-2019 End: 01-25-2020 take 1 puff(s) by inhalation every four hours Albuterol Sulfate (Proair Hfa) 90 mcg/actuation HFA aerosol inhaler Active 2 PUFF INHALATION Q4H 18 January 25, 2020 9:32am Start: 02-13-2016 take 2 puff(s) by in halation every four hours as needed albuterol HFA [...] in structed every 4 hours as needed. Beclomethasone Dipropionate (14 sources) Corticosteroid Start: 020 take 80 ug by inhalation twice daily Beclomethasone Dipropionate (Qvar Redihaler) 80 mcg/actuation HFA aerosol breath activated Active 1 INH INHALATION TWICE A DAY 10.6 January 25, 2020 8:32am administer with spacer Start: 01-25-2020 take 80 ug by inhala tion twice daily Beclomethasone Dipropionate (Qvar Redihaler) 80 mcg/actuation HFA aerosol breath activated Active 1 INH INHALATION TWICE A DAY 10.6 January 25, 2020 9:32am administer with spacer Start: 09-24-2019 End: 01-25-2020 take 80 ug by inhalation twice daily Beclomethasone Dipropionate (Qvar Redihaler) 80 mcg/actuation HFA aerosol breath activated Discontinued 1 INH INHALATION TWICE A DAY 10.6 September 24, 2019 12:00am January 25, 2020 9:33am administer with spacer cephalexin 500 mg oral capsule (1 source) Cephalosporin Antibacterial Start: 10-23-2022 End: 10-30-2022 take 1 capsule by mouth twice daily cephalexin (Keflex) 500 MG capsule Take 1 capsule (500 mg) by mouth 2 times daily for 7 days. 14 capsule 0 10/23/2022 10/30/2022 Active cholecalciferol 0.05 mg oral tablet (20 sources) Vitamin D Start: 07-14-2019 take 2000 [IU] by mouth once daily Cholecalciferol (Vitamin D3) Active 2000 UNIT PO DAILY July 14, 2019 1:00am take 1 capsule by mouth once radha ly cholecalciferol, vitamin D3, (VITAMIN D-3) 10 mcg (400 unit) cap Take 2,000 Units by mouth once daily. 0 Active Comment on above: Take 2,000 Units by mouth once daily. lidocaine 25 mg/ml / prilocaine 25 mg/ml topical cream (16 sources) Antiarrhythmic, Amide Local Anesthetic Start: 3 lidocaine-prilocaine (Emla) 2.5-2.5 % cream Apply topically Daily as needed for mild pain (1-3). Apply to vulva as needed for pain 30 g 10/23/2022 Active nystatin [id number] unt/ml oral suspension (7 sources) Polyene Antifungal Start: 0 Nystatin Active 5 ML MUCOUS MEM THREE TIMES A DAY March 07, 2020 12:00am swish and swallow 5 cc three times per day for 10 days pantoprazole 40 mg delayed release oral tablet [...] above: Take 1 tablet by adrian th daily before breakfast. Take on empty stomach, 1/2 hr before meal. promethazine hydrochloride 25 mg oral tablet (20 sources) Phenothiazine Start: 04-23-20 15 take 25 mg by mouth every six hours as needed Promethazine Active 25 MG PO EVERY 6 HOURS NEEDED April 23, 2015 12:00am Comment on above: Take 1 tablet by adrian th every 6 hours as needed. raNITIdine 150 mg oral tablet (8 sources) Histamine-2 Receptor Antagonist Start: 04-26-20 16 take 1 tablet by mouth twice daily Ranitidine Hcl (Acid Hypoid Gear Tester (Ranitidine)) 150 mg tablet Active 150 MG PO TWICE A DAY June 18, 2019 1:00am Comment on above: Take 1 tablet by adrian th twice daily. rivaroxaban 20 mg oral tablet (20 sources) Factor Xa Inhibitor Start: 06-18-20 19 take 1 tablet by mouth once daily Rivaroxaban (Xarelto) 20 mg tablet Active 20 MG PO DAILY June 18, 2019 1:00am Comment on above: Take 20 mg by mouth daily with dinner. rosuvastatin calcium 10 mg oral tablet (8 sources) HMG-CoA Reductase Inhibitor Start: 02-05-20 take 1 tablet by mouth once daily rosuvastatin (Crestor) 10 MG tablet Take 10 mg by mouth daily. 02/04/2023 Active tiZANidine 6 mg oral capsule (20 sources) Central alpha-2 Adrenergic Agonist Start: 05-30-20 take 6 mg by mouth three times daily Tizanidine Active 6 MG PO THREE TIMES A DAY May 30, 2015 1:00am take 1 capsule by mo uth three times daily tiZANidine (Zanaflex) 4 MG capsule Take 4 mg by mouth 3 times daily. Active topiramate 50 mg oral tablet (20 sources) Start: 12-17-2015 take 50 mg by mouth twice daily Topiramate Active 50 MG PO TWICE A DAY December 17, 2015 12:00am topiramate (Topa max) 100 MG tablet Take [...] by mouth every six hours as needed butalbital-acetamin op-caf-cod [id number] mg cap Take 1 capsule by mouth every 6 hours as needed. 0 Active Comment on above: Take 1 capsule by mo uth every 6 hours as needed. ALPRAZolam 0.25 mg disintegrating [...] by mouth once daily. 0 01/24/2016 Active Start: 10-05-2014 take 40 mg by mouth once daily Citalopram Active 40 MG PO DAILY October 05, 2014 12:00am citalopram (Elise XA) 20 MG tablet Take by mouth Nightly. Active Comment on above: Take 1 tablet by adrian th once daily. diazePAM 5 mg oral tablet (20 sources) Benzodiazepine Start: 10-12-2013 take 1 tablet by mouth every six hours as needed diazepam (VALIUM) 5 mg tablet Take 1 tablet by mouth four times daily as needed. (Dr Nolan) 0 10/12/2013 Active Start: 09-23-2013 take 4 mg by mouth t hree times daily Diazepam Active 4 MG PO THREE TIMES A DAY September 23, 2013 12:00am diazePAM (Valium ) 10 MG tablet Take by mouth every 8 hours as needed. Active Comment on above: Take 1 tablet by adrian th four times daily as needed. (Dr Nolan) dicyclomine hydrochloride 10 mg oral capsule (8 sources) Anticholinergic Start: 10-03-19 16 take 1 capsule by mouth at bedtime dicyclomine (BENTYL) 10 mg capsule Indications: Right sided abdominal pain Take 1 capsule by mouth before meals and at bedtime. 120 capsule 0 10/03/2015 Active Start: 04-23-2015 End: 07-14-2019 take 20 mg by mouth three times daily Dicyclomine Discontinued 20 MG PO THREE TIMES A DAY April 23, 2015 8:09pm July 14, 2019 12:15pm Comment on above: Take 1 capsule by mo [facility] before meals and at bedtime. 1 ml diphenhydrAMINE hydrochloride 50 mg/ml cartridge (4 sources) Histamine-1 Receptor Antagonist Start: 04-22-2023 End: 04-22-2023 diphenhydrAMINE (BENADryl) injection 12.5 mg Start: 10-23-2022 [...] by adrian every 6 hours as needed. ibuprofen 800 mg oral tablet (8 sources) Nonsteroidal Anti-inflammatory Drug Start: 06-07-2016 ibuprofen (MOTRIN) 800 mg tablet Take 1 tab every 6-8 hours as needed 90 tablet 0 06/07/2016 Active Start: 09-23-2013 End: 06-18-2019 take 800 mg by mouth every eight hours as needed Ibuprofen Discontinued 800 MG PO EVERY 8 HOURS NEEDED September 23, 2013 12:00am June 18, 2019 11:40am Comment on above: Take 1 tab every 6-8 hours as needed isopropyl alcohol 0.7 ml/ml medicated pad (2 sources) Start: 04-22-20 End: 04-22-20 Nozin Nasal Shoe Lay Out Planner Popswab 2 Swab labetalol (Normodyne,Trandate) injection 5 mg (1 source) Start: 10-24-19 End: 10-24-19 labetalol (Normodyne,Trandate ) injection 5 mg lidocaine hydrochloride 20 mg/ml mucous membrane topical solution (1 source) Antiarrhythmic, Amide Local Anesthetic Start: 02-13-20 lidocaine viscous (LIDOCAINE VISCOUS) 2 % solution Take 5 mL by mouth as needed. 100 mL 0 02/13/2016 Active Comment on above: Take 5 mL by mouth a s needed. 1 ml LORazepam 2 mg/ml injection (1 source) Benzodiazepine Start: 10-24-19 End: 10-24-19 LORazepam (Ativan) injection 0.5 mg melatonin 1 mg oral tablet (1 source) Start: 11-12-19 take 5 tablets by mouth once daily at bedtime melatonin 1 mg tab Take 5 mg by mouth daily at bedtime. 0 11/11/2013 Active Comment on above: Take 5 mg by mouth d aily at bedtime. naloxone hydrochloride 40 mg/ml nasal spray (1 source) Opioid Antagonist End: 09-19-19 naloxone (Narcan) 4 mg/0.1 mL nasal spray Administer 4 mg into affected nostril(s) if needed for opioid reversal. May repeat every 2-3 minutes if needed, alternating nostrils, until medical assistance becomes available. 0 09/18/2022 Discontinued (Therapy completed) 2 ml ondansetron 2 mg/ml injection (3 sources) Serotonin-3 Receptor Antagonist Start: 04-22-20 End: 04-22-20 ondansetron (Zofran) injection 4 mg Start: 10-23-2022 End: 10-23-2022 ondansetron (Zofran) injecti on 4 mg oxyCODONE (2 sources) Opioid Agonist Start: 04-22-2023 End: 04-22-2023 oxyCODONE (Roxicodone) immediate release tablet 5 mg predniSONE 10 mg oral tablet (1 source) Start: 06-15-2016 predniSONE (DE LTASONE) 10 mg tablet Indications: Allergic contact dermatitis due to dyes Take 40 mg x 3 days, 20 mg x 3 days, 10 mg x 3 days. Take with food, once daily 21 tablet 0 06/15/2016 Active Comment on above: Take 40 mg x 3 days, 20 mg x 3 days, 10 mg x 3 days. Take with food, once daily 5 ml sodium chloride 9 mg/ml injection [...] above: Take 1 tablet by adrian th before meals and at bedtime. Problems Active Problems Problem Classification Problem Date Documented Da te Episodic/Chronic Anxiety disorders (8 sources) Anxiety; Translations: [Anxiety disorder, unspecified] 06-18-2019 Chronic Asthma (7 sources) Asthma; Translations: [Unspecified asthma, uncomplicated] 09-24-2019 Chronic Cancer of other female genital organs (20 sources) Vulval intraepithelial neoplasia grade 3; Translations: [Carcinoma in situ of vulva] Onset: 3 Chronic Cancer of rectum and anus (13 sources) Anal intraepithelial neoplasia (AIN III); Translations: [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] Onset: 3 03-26-2023 Chronic Cancer of rectum and anus (1 source) Abnormal anal Papanicolaou smear; Translations: [High grade squamous intraepithelial lesion on cytologic smear of anus (HGSIL)] Episodic Chronic obstructive pulmonary disease and bronchiectasis (20 sources) Chronic obstructive lung disease; Translations: [Chronic obstructive pulmonary disease, unspecified] Onset: 3 06-18-2019 Chronic Coronary atherosclerosis and other heart disease (20 sources) Coronary arteriosclerosis; Translations: [Atherosclerotic heart disease of [place] coronary artery without angina pectoris] Onset: 3 06-18-2019 Chronic Diseases of white blood cells (1 source) Elevated white blood cell count, unspecified; Translations: [Elevated white blood cell count, unspecified] Onset: 5 Chronic Esophageal disorders (8 sources) Gastroesophageal reflux disease; Translations: [Gastro-esophageal reflux disease without esophagitis] Onset: 5 06-18-2019 Chronic Mood disorders (1 source) Depressive disorder; Translations: [Depression] 12-22-2009 Chronic Nonspecific chest pain (8 sources) Atypical chest pain; Translations: [Other chest pain] Onset: 5 06-18-2019 Episodic Nutritional deficiencies (7 sources) Vitamin D deficiency; Translations: [Vitamin D deficiency, unspecified] 06-18-2019 Chronic Other aftercare (1 source) Drug therapy finding; Translations: [termite treater (current) use of anticoagulants] Episodic Other aftercare (1 source) Long-term current use of anticoagulant; Translations: [termite treater (current) use of anticoagulants] 03-26-2023 Episodic Other aftercare (1 source) termite treater (current) use of anticoagulants; Translations: [assisted (current) use of anticoagulants] Onset: 5 Episodic Other aftercare (1 source) Other m[facility]p (current) drug therapy; Translations: [Other mcfp (current) drug therapy] Onset: 5 Episodic Other circulatory disease (7 sources) Low blood pressure; Translations: [Hypotension, unspecified] 06-18-2019 Episodic Other connective tissue disease (8 sources) Fibromyalgia; Translations: [Fibromyalgia] Onset: 2 06-18-2019 Episodic Other disorders of stomach and duodenum (7 sources) Gastroparesis syndrome; Translations: [Gastroparesis] 06-18-2019 Episodic Other fractures (1 source) Wedge compression fracture of first lumbar vertebra, initial encounter for closed fracture; Translations: [Wedge compression fracture of first lumbar vertebra, initial encounter for closed fracture] Onset: 5 Episodic Other fractures (1 source) Wedge compression fracture of T11-T12 vertebra, initial encounter for closed fracture; Translations: [Wedge compression fracture of T11-T12 vertebra, initial encounter for closed fracture] Onset: 5 Episodic Other gastrointestinal disorders (7 sources) Irritable bowel syndrome; Translations: [Irritable bowel syndrome without diarrhea] 06-18-2019 Chronic Other gastrointestinal disorders (7 sources) Personal history of other diseases of the digestive system; Translations: [History of small bowel obstruction] 06-18-2019 Episodic Other hematologic conditions (7 sources) Hypersplenism; Translations: [Hypersplenism] 06-18-2019 Episodic Other inflammatory condition of skin (7 sources) Inflammatory dermatosis; Translations: [Lichen simplex chronicus] 06-18-2019 Episodic Other lower respiratory disease (7 sources) Dyspnea; Translations: [Dyspnea, unspecified] 07-14-2019 Episodic Other lower respiratory disease (2 sources) Shortness of breath; Translations: [Shortness of breath] Onset: 5 Episodic Other lower respiratory disease (1 source) Other abnormalities of breathing; Translations: [Other abnormalities of breathing] Onset: 5 Episodic Other nutritional; endocrine; and metabolic disorders (1 source) Overweight; Translations: [Overweight] Onset: 5 Episodic Pneumonia (except that caused by tuberculosis or sexually transmitted disease) (2 sources) Pneumonia, unspecified organism; Translations: [Pneumonia, unspecified organism] Onset: 5 Episodic Pulmonary heart disease (9 sources) H/O: pulmonary embolus; Translations: [Personal history of pulmonary embolism] Onset: 5 06-18-2019 Episodic Residual codes; unclassified (7 sources) Amnesia; Translations: [Other amnesia] 06-18-2019 Episodic Residual codes; unclassified (1 source) Acquired absence of spleen; Translations: [Acquired absence of spleen] Onset: 5 Episodic Respiratory failure; insufficiency; arrest (adult) (1 source) Acute respiratory failure with hypoxia; Translations: [Acute respiratory failure with hypoxia] Onset: 5 Episodic Spondylosis; intervertebral disc disorders; other back problems (17 sources) Thoracic spondylosis; Translations: [Spondylosis without myelopathy or radiculopathy, thoracic region] Onset: 1 06-18-2019 Chronic Substance-related disorders (20 sources) Tobacco dependence syndrome; Translations: [Nicotine dependence, unspecified, uncomplicated] Onset: 3 01-25-2020 Chronic Unclassified (1 source) Unknown / UNK(Unknown) Onset: 7 Unclassified (1 source) Low back pain, unspecified; Translations: [Low back pain, unspecified] Onset: 5 Past or Other Problems Problem Classification Problem [...] colonic polyps] Onset: 07-13-2015 07-13-2015 Episodic Other injuries and conditions due to external causes (18 sources) Motion sickness; Translations: [Motion sickness, initial encounter] Onset: 10-16-2022 10-16-2022 Episodic Other screening for suspected conditions (not mental disorders or infectious disease) (2 sources) Encounter for screening for malignant neoplasm of respiratory organs; Translations: [Encounter for screening mammogram for malignant neoplasm of breast] Onset: 03-13-2024 Episodic Residual codes; unclassified (1 source) Tobacco use and exposure - finding; Translations: [Tobacco use] Onset: 10-22-2014 10-22-2014 Episodic Spondylosis; intervertebral disc disorders; other back problems (20 sources) Chronic back pain ; Translations: [Dorsalgia, unspecified] Onset: 08-12-2014 06-18-2019 Episodic Unclassified (1 source) FOLLOW UP Onset: 02-26-2017 Results Test Name Value Interpretation Reference Range Facility Pulmonary Visit Reporton Pulmonary Visit Report [facility] [address] [place] [address] OFFICE VISIT Date of Service: 01/06/25 MR#: [id number] Acct: [id number] Name: KENNETH FINN Rep #: [id number] : 1960 Provider: Dr. Christiano Moulton DO Age/Sex: 64/F Location: [facility] [place] Status: Signed Assessment and Plan Assessment and Plan (1) SOB (shortness of breath): Status: Chronic Plan: The patient presented today for follow-up from a recent hospitalization in November 2024, during which time, she was treated for a COPD exacerbation. The patient does seem confused over her underlying diagnosis. There has been concern for asthma versus COPD in the past. Her PFTs completed in July 2019 did not demonstrate evidence of COPD. However, the patient is currently being maintained on Stiolto and as needed albuterol. Given that she is continue to smoke cigarettes, I would recommend that repeat pulmonary function studies to be completed along with a 6-minute walk test to assess for any exertional hypoxemia. (2) Nicotine dependence, cigarettes, uncomplicated: Status: Chronic Plan: The patient was previously being screened by her PCP with low-dose CT imaging of the chest. Her last CAT scan was completed in November 2024 when she was admitted to the hospital. Accordingly, given her age and tobacco abuse history, I would recommend a follow-up low-dose CT scan be completed in November 2025. Orders: Orders Simple Pulmonary Exercise Test 01/18/25 F17.210 - Nicotine dependence, cigarettes, uncomplicated, R06.02 - Shortness of breath PFT Complete - DLCO, Spirometry b/a bronchodilators, lung volumes 01/12/25 F17.210 - Nicotine dependence, cigarettes, uncomplicated, R06.02 - Shortness of breath Plan Details Follow Up: 6 Weeks HPI HPI Comments Details: The patient is a 64-year-old female who presents to the clinic today in follow-up from a recent hospitalization in November 2024 for presumptive COPD. The patient was hospitalized for 3 days in November 2024 with acute respiratory failure which was felt to be secondary to a COPD exacerbation. The patient was ultimately treated with bronchodilators, steroids and antimicrobials. She was discharged home with instructions to follow-up in our office. The patient reported that she was previously evaluated by Dr. Greenberg in September 2019, but decided ultimately not to follow-up, as she was receiving conflicting information regarding the presence of COPD versus asthma. The patient does have an approximate [id number] smoking history and still occasionally smokes cigarettes. She did not grow up in a smoking household. 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 At the present time, the patient is utilizing Anoro Ellipta and as needed albuterol. She does report frequent use of her rescue inhaler, which does provide some symptom relief. She does report an intolerance to steroids. The patient currently lives in a trailer along with 5 cats. As part of her recent hospitalization, CT imaging of the chest was completed, which demonstrated no nodules or masses. Previously, the patient was undergoing yearly low-dose CT imaging of her chest. Pulmonary function studies completed in July 2019 demonstrated no evidence of a large airways obstructive ventilatory defect. 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 Accompanied by: Self Is patient in pain?: No Allergies amitriptyline Allergy (Severe, Verified 01/06/25 10:12) Rash nicotine (From Nicoderm CQ) Allergy (Mild, Verified 01/06/25 10:12) Rash fentanyl Allergy (Verified 01/06/25 10:12) Rash aspirin Adverse Reaction (Verified 01/06/25 10:12) Nausea meperidine HCl (From Demerol) Adverse Reaction (Verified 01/06/25 10:12) Vomiting nitrofurantoin (From Macrobid) Adverse Reaction (Verified 01/06/25 10:12) Vomiting nitrofurantoin macrocrystalline (From Macrobid) Adverse Reaction (Verified 01/06/25 10:12) Vomiting Medications ???Medication ???Instructions ???Recorded ???Confirmed ???Type topiramate 50 mg tablet 50 mg PO DAILY headaches 12/17/15 01/06/25 History pantoprazole 40 mg tablet,delayed 40 mg PO Q12H gerd 06/18/1901/06 History release rivaroxaban 20 mg tablet (Xarelto) 20 mg PO DAILY blood thinner 06/2501/06/25 History cholecalciferol (vitamin D3) 50 2,000 unit PO DAILY supplement 01/2401/06/25 History mcg (2,000 unit) tablet (more content not included)... Normal [facility] Basic Metabolic Profile (BMP )on 11-14-2024 BUN/CRE 16.7 RATIO Normal 04-26 [facility] Comment on above: Performed By: #### L 500.2500, L100.0100 #### [facility] [address] [place], [address] Calcium [Mass/Vol] 9.4 mg/dL Normal 7.6-11.0 [facility] Comment on above: Performed By: #### L 500.2500, L100.0100 #### [facility] [address] [place], [address] Chloride [Moles/Vol] 107 mmol/L Normal 98-108 [facility] Comment on above: Performed By: #### L 500.2500, L100.0100 #### [facility] [address] [place], [address] CO2 [Moles/Vol] 20.8 mmol/L Low 21.0-32.0 [facility] Comment on above: Performed By: #### L 500.2500, L100.0100 #### [facility] [address] [place], [address] Creatinine [Mass/Vol] 0.65 mg/dL Low 0.70-1.20 [facility] Comment on above: Performed By: #### L 500.2500, L100.0100 #### [facility] [address] [place], [address] ECRCL 75.82 ml/min Normal 50-250 [facility] Comment on above: Performed By: #### L 500.2500, L100.0100 #### [facility] [address] [place], [address] GAP 12 Normal 5-15 [facility] Comment on above: Performed By: #### L 500.2500, L100.0100 #### [facility] [address] [place], [address] GFR/1.73 sq M.predicted among non-blacks MDRD (S/P/Bld) [Vol rate/Area] 99 mL/min/{1.73_m2} Normal >60 [facility] Comment on above: Result Comment: mL/m in/1.73m2 CKD-EPI Creatinine Equation (2020) Performed By: #### L 500.2500, L100.0100 #### [facility] [address] [place], [address] Glucose [Mass/Vol] 112 mg/dL High 70-99 [facility] Comment on above: Performed By: #### L 500.2500, L100.0100 #### [facility] [address] [place], [address] Potassium [Moles/Vol] 3.6 mmol/L Normal 3.3-5.1 [facility] Comment on above: Performed By: #### L 500.2500, L100.0100 #### [facility] [address] [place], [address] Sodium [Moles/Vol] 140 mmol/L Normal 133-145 [facility] Comment on above: Performed By: #### L 500.2500, L100.0100 #### [facility] [address] [place], [address] Urea nitrogen [Mass/Vol] 11 mg/dL Normal 4-19 [facility] Comment on above: Performed By: #### L 500.2500, L100.0100 #### [facility] [address] [place], [address] CBC W/Diff, Automatedon 05-1 0-2024 Absolute Lymph 1.59 X10 3/uL Normal 0.83-4.51 [facility] Comment on above: Performed By: #### L 500.2500, L100.0100 #### [facility] [address] [place], [address] Absolute Neut 14.4 X10 3/uL High 2.0-7.7 [facility] Comment on above: Performed By: #### L 500.2500, L100.0100 #### [facility] [address] [place], [address] Basophils/100 WBC (Bld) 0.2 % Normal 0-1 [facility] Comment on above: Performed By: #### L 500.2500, L100.0100 #### [facility] [address] [place], [address] Eosinophils/100 WBC (Bld) 0.0 % Normal 0-5 [facility] Comment on above: Performed By: #### L 500.2500, L100.0100 #### [facility] [address] [place], [address] Erythrocyte distribution width (RBC) [Ratio] 14.6 % Normal 11.6-14.6 [facility] Comment on above: Performed By: #### L 500.2500, L100.0100 #### [facility] [address] [place], [address] Hematocrit (Bld) [Volume fraction] 33.5 % Low 37-47 [facility] Comment on above: Performed By: #### L 500.2500, L100.0100 #### [facility] [address] [place], [address] Hemoglobin (Bld) [Mass/Vol] 11.1 g/dL Low 12.0-15.0 [facility] Comment on above: Performed By: #### L 500.2500, L100.0100 #### [facility] [address] [place], [address] IG% 0.600 Normal 0.0-0.9 [facility] Comment on above: Result Comment: IG% - Immature Granulocytes (promyelocytes, myelocytes and metamyelocytes) > 1% indicates that a LEFT SHIFT is Present. Performed By: #### L 500.2500, L100.0100 #### [facility] [address] [place], [address] Lymphocytes/100 WBC (Bld) 9.2 % Low 19-41 [facility] Comment on above: Performed By: #### L 500.2500, L100.0100 #### [facility] [address] [place], [address] MCH (RBC) [Entitic mass] 32.2 pg High 27.0-32.0 [facility] Comment on above: Performed By: #### L 500.2500, L100.0100 #### [facility] [address] [place], [address] MCHC (RBC) [Mass/Vol] 33.1 g/dL Normal 32-36 [facility] Comment on above: Performed By: #### L 500.2500, L100.0100 #### [facility] [address] [place], [address] MCV (RBC) [Entitic vol] 97.1 fL Normal 81-99 [facility] Comment on above: Performed By: #### L 500.2500, L100.0100 #### [facility] [address] [place], [address] Monocytes/100 WBC (Bld) 6.7 % Normal 0-10 [facility] Comment on above: Performed By: #### L 500.2500, L100.0100 #### [facility] [address] [place], [address] Neutrophils/100 WBC (Bld) 83.3 % High 47-70 [facility] Comment on above: Performed By: #### L 500.2500, L100.0100 #### [facility] [address] [place], [address] Nucleated RBC (Bld) [#/Vol] 0 10*3/uL Normal 0-5 [facility] Comment on above: Performed By: #### L 500.2500, L100.0100 #### [facility] [address] [place], [address] Platelet mean volume (Bld) [Entitic vol] 11.2 fL Normal 6.2-12.0 [facility] Comment on above: Performed By: #### L 500.2500, L100.0100 #### [facility] [address] [place], [address] Platelets (Bld) [#/Vol] 301 10*3/uL Normal 150-450 [facility] Comment on above: Performed By: #### L 500.2500, L100.0100 #### [facility] [address] [place], [address] RBC (Bld) [#/Vol] 3.45 10*6/uL Low 4.2-5.4 [facility] Comment on above: Performed By: #### L 500.2500, L100.0100 #### [facility] [address] [place], [address] RDW SD 51.9 fl High 35.1-43.9 [facility] Comment on above: Performed By: #### L 500.2500, L100.0100 #### [facility] [address] [place], [address] WBC (Bld) [#/Vol] 17.3 10*3/uL High 4.4-11.0 [facility] Comment on above: Performed By: #### L 500.2500, L100.0100 #### [facility] [address] [place], [address] CBC W/Diff, Automatedon 05-0 9-2024 Absolute Lymph 1.52 X10 3/uL Normal 0.83-4.51 [facility] Comment on above: Performed By: #### L 100.0100 #### [facility] [address] [place], [address] Absolute Neut 13.9 X10 3/uL High 2.0-7.7 [facility] Comment on above: Performed By: #### L 100.0100 #### [facility] [address] [place], [address] Basophils/100 WBC (Bld) 0.3 % Normal 0-1 [facility] Comment on above: Performed By: #### L 100.0100 #### [facility] [address] [place], [address] Eosinophils/100 WBC (Bld) 0.0 % Normal 0-5 [facility] Comment on above: Performed By: #### L 100.0100 #### [facility] [address] [place], [address] Erythrocyte distribution width (RBC) [Ratio] 14.6 % Normal 11.6-14.6 [facility] Comment on above: Performed By: #### L 100.0100 #### [facility] [address] [place], [address] Hematocrit (Bld) [Volume fraction] 34.6 % Low 37-47 [facility] Comment on above: Performed By: #### L 100.0100 #### [facility] [address] [place], [address] Hemoglobin (Bld) [Mass/Vol] 11.2 g/dL Low 12.0-15.0 [facility] Comment on above: Performed By: #### L 100.0100 #### [facility] [address] [place], [address] IG% 0.800 Normal 0.0-0.9 [facility] Comment on above: Result Comment: IG% - Immature Granulocytes (promyelocytes, myelocytes and metamyelocytes) > 1% indicates that a LEFT SHIFT is Present. Performed By: #### L 100.0100 #### [facility] [address] [place], [address] Lymphocytes/100 WBC (Bld) 9.2 % Low 19-41 [facility] Comment on above: Performed By: #### L 100.0100 #### [facility] [address] [place], [address] MCH (RBC) [Entitic mass] 31.6 pg Normal 27.0-32.0 [facility] Comment on above: Performed By: #### L 100.0100 #### [facility] [address] [place], [address] MCHC (RBC) [Mass/Vol] 32.4 g/dL Normal 32-36 [facility] Comment on above: Performed By: #### L 100.0100 #### [facility] [address] [place], [address] MCV (RBC) [Entitic vol] 97.7 fL Normal 81-99 [facility] Comment on above: Performed By: #### L 100.0100 #### [facility] [address] [place], [address] Monocytes/100 WBC (Bld) 5.4 % Normal 0-10 [facility] Comment on above: Performed By: #### L 100.0100 #### [facility] [address] [place], [address] Neutrophils/100 WBC (Bld) 84.3 % High 47-70 [facility] Comment on above: Performed By: #### L 100.0100 #### [facility] [address] [place], [address] Nucleated RBC (Bld) [#/Vol] 0 10*3/uL Normal 0-5 [facility] Comment on above: Performed By: #### L 100.0100 #### [facility] [address] [place], [address] Platelet mean volume (Bld) [Entitic vol] 11.3 fL Normal 6.2-12.0 [facility] Comment on above: Performed By: #### L 100.0100 #### [facility] [address] [place], [address] Platelets (Bld) [#/Vol] 274 10*3/uL Normal 150-450 [facility] Comment on above: Performed By: #### L 100.0100 #### [facility] [address] [place], [address] RBC (Bld) [#/Vol] 3.54 10*6/uL Low 4.2-5.4 [facility] Comment on above: Performed By: #### L 100.0100 #### [facility] [address] [place], [address] RDW SD 52.9 fl High 35.1-43.9 [facility] Comment on above: Performed By: #### L 100.0100 #### [facility] [address] [place], [address] WBC (Bld) [#/Vol] 16.5 10*3/uL High 4.4-11.0 [facility] Comment on above: Performed By: #### L 100.0100 #### [facility] [address] [place], [address] CDIFF (PCR)on 11-13-2024 CDIFF Is the patient recei ving laxatives? N Above criteria not met but test indicated N New/unexplained onset of 3 or more stools in past 24 hrs? Y Pending [id number] NAP1-B1 Presumptive Negative *for epidemiolologic???use C. Diff PCR Negative- No toxigenic C. Diff Detected Normal [facility] Comment on above: Performed By: #### L 501.2300, L501.9520, L500.4050, L100.0100 #### [facility] [address] [place], [address] Comprehensive Metabolic Prof ilon 11-13-2024 Albumin [Mass/Vol] 3.9 g/dL Normal 3.4-4.8 [facility] Comment on above: Performed By: #### M 300.4600, M300.4500 #### [facility] [address] [place], [address] Albumin/Globulin [Mass ratio] 1.3 {ratio} Normal 0.9-2.4 [facility] Comment on above: Performed By: #### M 300.4600, M300.4500 #### [facility] [address] [place], [address] ALK PHOS 103 U/L Normal 35-104 [facility] Comment on above: Performed By: #### M 300.4600, M300.4500 #### [facility] [address] [place], [address] ALT [Catalytic activity/Vol] 12 U/L Normal <=34 [facility] Comment on above: Performed By: #### M 300.4600, M300.4500 #### [facility] [address] [place], [address] AST [Catalytic activity/Vol] 32 U/L Normal <=31 [facility] Comment on above: Performed By: #### M 300.4600, M300.4500 #### [facility] [address] [place], [address] Bilirubin [Mass/Vol] 0.29 mg/dL Normal 0.00-1.30 [facility] Comment on above: Performed By: #### M 300.4600, M300.4500 #### [facility] [address] [place], [address] BUN/CRE 14.7 RATIO Normal 10-20 [facility] Comment on above: Performed By: #### M 300.4600, M300.4500 #### [facility] [address] [place], [address] Calcium [Mass/Vol] 9.4 mg/dL Normal 7.6-11.0 [facility] Comment on above: Performed By: #### M 300.4600, M300.4500 #### [facility] [address] [place], [address] Chloride [Moles/Vol] 107 mmol/L Normal 98-108 [facility] Comment on above: Performed By: #### M 300.4600, M300.4500 #### [facility] [address] [place], [address] CO2 [Moles/Vol] 21.0 mmol/L Normal 21.0-32.0 [facility] Comment on above: Performed By: #### M 300.4600, M300.4500 #### [facility] [address] [place], [address] Creatinine [Mass/Vol] 0.63 mg/dL Low 0.70-1.20 [facility] Comment on above: Performed By: #### M 300.4600, M300.4500 #### [facility] [address] [place], [address] ECRCL 78.17 ml/min Normal 50-250 [facility] Comment on above: Performed By: #### M 300.4600, M300.4500 #### [facility] [address] [place], [address] GAP 13 Normal 5-15 [facility] Comment on above: Performed By: #### M 300.4600, M300.4500 #### [facility] [address] [place], [address] GFR/1.73 sq M.predicted among non-blacks MDRD (S/P/Bld) [Vol rate/Area] 100 mL/min/{1.73_m2} Normal >60 [facility] Comment on above: Result Comment: mL/m in/1.73m2 CKD-EPI Creatinine Equation (2020) Performed By: #### M 300.4600, M300.4500 #### [facility] [address] [place], [address] Globulin (S) [Mass/Vol] 3.1 g/dL Normal 2.2-4.2 [facility] Comment on above: Performed By: #### M 300.4600, M300.4500 #### [facility] [address] [place], [address] Glucose [Mass/Vol] 116 mg/dL High 70-99 [facility] Comment on above: Performed By: #### M 300.4600, M300.4500 #### [facility] [address] [place], [address] Potassium [Moles/Vol] 3.9 mmol/L Normal 3.3-5.1 [facility] Comment on above: Performed By: #### M 300.4600, M300.4500 #### [facility] [address] [place], [address] Sodium [Moles/Vol] 141 mmol/L Normal 133-145 [facility] Comment on above: Performed By: #### M 300.4600, M300.4500 #### [facility] [address] [place], [address] T PROT 7.0 g/dL Normal 5.9-8.4 [facility] Comment on above: Performed By: #### M 300.4600, M300.4500 #### [facility] [address] [place], [address] Urea nitrogen [Mass/Vol] 9 mg/dL Normal 4-19 [facility] Comment on above: Performed By: #### M 300.4600, M300.4500 #### [facility] [address] [place], [address] ENTERIC PATHOGEN PANEL STOOL on 11-13-2024 EP PANEL Is the patient recei ving laxatives? N Above criteria not met but test indicated N New/unexplained onset of 3 or more stools in past 24 hrs? Y Normal Reference Range = Not Detected Nucleic acid amplification test method Not detected for Campylobacter group, Salmonella species, Shigella species, Vibrio Group, Yersinia enterocolitica, EHEC (Shiga Toxin 1, Shiga Toxin 2), Norovirus Gl/Gll, and Rotavirus A. Other common stool pathogens are not detected on this panel include: Aeromonas/Plesiomonas or parasites. Order testing for these organisms separately if suspected. This is an amplified DNA test which makes it both specific and sensitive. CAMPYLOBACTER Not Detected Norovirus Not Detected Rotavirus Not Detected Salmonella Not Detected Shiga Toxin Not Detected Shigella sp. Not Detected VIBRIO Not Detected Yersinia Not Detected Normal [facility] Comment on above: Performed By: #### L 501.2300, L501.9520, L500.4050, L100.0100 #### [facility] [address] [place], [address] Magnesiumon 11-13-2024 Magnesium [Mass/Vol] 2.1 mg/dL Normal 1.5-2.2 [facility] Comment on above: Performed By: #### M 300.4600, M300.4500 #### [facility] [address] [place], [address] Phosphoruson 11-13-2024 Phosphate [Mass/Vol] 3.5 mg/dL Normal 2.7-4.5 [facility] Comment on above: Performed By: #### M 300.4600, M300.4500 #### [facility] [address] [place], [address] Vitamin D,25 Hydroxyon 11-13 Vitamin D 25-OH 47.9 ng/mL Normal 30-100 [facility] Comment on above: Result Comment: Beth min D Status Deficiency: <20 ng/mL (50nmol/L) Insufficiency: 20-30 ng/mL (50-75 nmol/L) Sufficiency: 30-100 ng/mL (75-250 nmol/L) Toxicity: >100 ng/mL (>250 nmol/L) Performed By: #### M 300.4600, M300.4500 #### [facility] [address] [place], [address] CBC W/Diff, Automatedon 05-0 8-2025 Absolute Lymph 0.77 X10 3/uL Low 0.83-4.51 [facility] Comment on above: Performed By: #### L 501.2300, L501.9520, L500.4050, L100.0100 #### [facility] [address] [place], [address] Absolute Neut 14.4 X10 3/uL High 2.0-7.7 [facility] Comment on above: Performed By: #### L 501.2300, L501.9520, L500.4050, L100.0100 #### [facility] [address] [place], [address] Basophils/100 WBC (Bld) 0.8 % Normal 0-1 [facility] Comment on above: Performed By: #### L 501.2300, L501.9520, L500.4050, L100.0100 #### [facility] [address] [place], [address] Eosinophils/100 WBC (Bld) 0.0 % Normal 0-5 [facility] Comment on above: Performed By: #### L 501.2300, L501.9520, L500.4050, L100.0100 #### [facility] [address] [place], [address] Erythrocyte distribution width (RBC) [Ratio] 14.5 % Normal 11.6-14.6 [facility] Comment on above: Performed By: #### L 501.2300, L501.9520, L500.4050, L100.0100 #### [facility] [address] [place], [address] Hematocrit (Bld) [Volume fraction] 37.3 % Normal 37-47 [facility] Comment on above: Performed By: #### L 501.2300, L501.9520, L500.4050, L100.0100 #### [facility] [address] [place], [address] Hemoglobin (Bld) [Mass/Vol] 12.0 g/dL Normal 12.0-15.0 [facility] Comment on above: Performed By: #### L 501.2300, L501.9520, L500.4050, L100.0100 #### [facility] [address] [place], [address] IG% 0.300 Normal 0.0-0.9 [facility] Comment on above: Result Comment: IG% - Immature Granulocytes (promyelocytes, myelocytes and metamyelocytes) > 1% indicates that a LEFT SHIFT is Present. Performed By: #### L 501.2300, L501.9520, L500.4050, L100.0100 #### [facility] [address] [place], [address] Lymphocytes/100 WBC (Bld) 5.0 % Low 19-41 [facility] Comment on above: Performed By: #### L 501.2300, L501.9520, L500.4050, L100.0100 #### [facility] [address] [place], [address] MCH (RBC) [Entitic mass] 31.5 pg Normal 27.0-32.0 [facility] Comment on above: Performed By: #### L 501.2300, L501.9520, L500.4050, L100.0100 #### [facility] [address] [place], [address] MCHC (RBC) [Mass/Vol] 32.2 g/dL Normal 32-36 [facility] Comment on above: Performed By: #### L 501.2300, L501.9520, L500.4050, L100.0100 #### [facility] [address] [place], [address] MCV (RBC) [Entitic vol] 97.9 fL Normal 81-99 [facility] Comment on above: Performed By: #### L 501.2300, L501.9520, L500.4050, L100.0100 #### [facility] [address] [place], [address] Monocytes/100 WBC (Bld) 0.6 % Normal 0-10 [facility] Comment on above: Performed By: #### L 501.2300, L501.9520, L500.4050, L100.0100 #### [facility] [address] [place], [address] Neutrophils/100 WBC (Bld) 93.3 % High 47-70 [facility] Comment on above: Performed By: #### L 501.2300, L501.9520, L500.4050, L100.0100 #### [facility] [address] [place], [address] Nucleated RBC (Bld) [#/Vol] 0 10*3/uL Normal 0-5 [facility] Comment on above: Performed By: #### L 501.2300, L501.9520, L500.4050, L100.0100 #### [facility] [address] [place], [address] Platelet mean volume (Bld) [Entitic vol] 11.5 fL Normal 6.2-12.0 [facility] Comment on above: Performed By: #### L 501.2300, L501.9520, L500.4050, L100.0100 #### [facility] [address] [place], [address] Platelets (Bld) [#/Vol] 283 10*3/uL Normal 150-450 [facility] Comment on above: Performed By: #### L 501.2300, L501.9520, L500.4050, L100.0100 #### [facility] [address] [place], [address] RBC (Bld) [#/Vol] 3.81 10*6/uL Low 4.2-5.4 [facility] Comment on above: Performed By: #### L 501.2300, L501.9520, L500.4050, L100.0100 #### [facility] [address] [place], [address] RDW SD 52.2 fl High 35.1-43.9 [facility] Comment on above: Performed By: #### L 501.2300, L501.9520, L500.4050, L100.0100 #### [facility] [address] [place], [address] WBC (Bld) [#/Vol] 15.4 10*3/uL High 4.4-11.0 [facility] Comment on above: Performed By: #### L 501.2300, L501.9520, L500.4050, L100.0100 #### [facility] [address] [place], [address] Chest without Contraston Chest without Contrast [facility] [address] [place] [address] Chest without Contrast MR#: [id number] Acct: [id number] Name: KENNETH FINN Rep #: [id number] : 1960 F 64 From: Sanya Ellis MD PCP: Dr. Odin Berumen DO Status: ADM IN Study: Chest without Contrast Date of Exam: 11/12/24 Exam# [id number] Ordering Dr: Nuno Aponte DO PROCEDURE: CHEST WITHOUT CONTRAST 11/12/2024 REASON FOR EXAM: LEUKOCYTOSIS OF 20.5 K AND COPD. EVAL FOR PNA TECHNIQUE: Chest CT without contrast. Coronal and Sagittal reconstruction series were provided. One or more dose reduction techniques were used (e.g., Automated exposure control, adjustment of the mA and/or kV according to patient size, use of iterative reconstruction technique RADIATION DOSE SUMMARY: CTDlvol: 8.66 mGy DLP: 305.26 mGycm COMPARISON: 05/27/2024 FINDINGS: Small amount of secretions is seen along the left lateral tracheal wall in the left mainstem bronchus. The central airways appear patent. Study is limited by motion artifact. Bilateral perihilar mild ground-glass opacity with an upper zone predominant may be inflammatory or infectious, possible viral etiology, clinically correlate. Less likely an unusual pulmonary edema not excluded. No focal consolidation. Thoracic aorta appears within limits on noncontrast imaging. Atherosclerotic calcification noted. Mild appearing LAD coronary calcification. No pericardial or pleural effusion. No adenopathy identified. Limited images of the abdomen with again note of a small appearing spleen. There is now a pxoj-sj-lxttkmrq L1 superior endplate compression fracture deformity with mild retropulsion of the posterior superior corner and a mild inferior endplate compression fracture deformity of T12 with vacuum effect at the disc space. There are some sclerotic change to the endplate although this was not seen on spine films as recent as september 11, 2024 and requires further clinical correlation. CT/Chest without Contrast IMPRESSION: Small amount of secretions is seen along the left lateral tracheal wall in the left mainstem bronchus. The central airways appear patent. Study is limited by motion artifact. Bilateral perihilar mild ground-glass opacity with an upper zone predominant may be inflammatory or infectious, possible viral etiology not excluded, clinically correlate. Less likely an unusual pulmonary edema not excluded. No focal consolidation. There is now a qzhk-lp-difzrjsc L1 superior endplate compression fracture deformity with mild retropulsion of the posterior superior corner and a mild inferior endplate compression fracture deformity of T12 with vacuum effect at the disc space. There are some sclerotic change to the endplate although this was not seen on spine films as recent as september 11, 2024 and requires further clinical correlation. Reading Location: [facility] CC: Dr. Nuno Aponte, DO; Dr. Odin Berumen DO Dishwashing Machine Repairer: Signed Normal [facility] Comprehensive Metabolic Prof ilon 11-12-2024 Albumin [Mass/Vol] 4.2 g/dL Normal 3.4-4.8 [facility] Comment on above: Performed By: #### L 501.2300, L501.9520, L500.4050, L100.0100 #### [facility] [address] [place], [address] Albumin/Globulin [Mass ratio] 1.4 {ratio} Normal 0.9-2.4 [facility] Comment on above: Performed By: #### L 501.2300, L501.9520, L500.4050, L100.0100 #### [facility] [address] [place], [address] ALK PHOS 112 U/L High 35-104 [facility] Comment on above: Performed By: #### L 501.2300, L501.9520, L500.4050, L100.0100 #### [facility] [address] [place], [address] ALT [Catalytic activity/Vol] 13 U/L Normal <=34 [facility] Comment on above: Performed By: #### L 501.2300, L501.9520, L500.4050, L100.0100 #### [facility] [address] [place], [address] AST [Catalytic activity/Vol] 29 U/L Normal <=31 [facility] Comment on above: Performed By: #### L 501.2300, L501.9520, L500.4050, L100.0100 #### [facility] [address] [place], [address] Bilirubin [Mass/Vol] 0.32 mg/dL Normal 0.00-1.30 [facility] Comment on above: Performed By: #### L 501.2300, L501.9520, L500.4050, L100.0100 #### [facility] [address] [place], [address] BUN/CRE 6.8 RATIO Low 10-20 [facility] Comment on above: Performed By: #### L 501.2300, L501.9520, L500.4050, L100.0100 #### [facility] [address] [place], [address] Calcium [Mass/Vol] 9.3 mg/dL Normal 7.6-11.0 [facility] Comment on above: Performed By: #### L 501.2300, L501.9520, L500.4050, L100.0100 #### [facility] [address] [place], [address] Chloride [Moles/Vol] 109 mmol/L High 98-108 [facility] Comment on above: Performed By: #### L 501.2300, L501.9520, L500.4050, L100.0100 #### [facility] [address] [place], [address] CO2 [Moles/Vol] 21.4 mmol/L Normal 21.0-32.0 [facility] Comment on above: Performed By: #### L 501.2300, L501.9520, L500.4050, L100.0100 #### [facility] [address] [place], [address] Creatinine [Mass/Vol] 0.69 mg/dL Low 0.70-1.20 [facility] Comment on above: Performed By: #### L 501.2300, L501.9520, L500.4050, L100.0100 #### [facility] [address] [place], [address] ECRCL 70.52 ml/min Normal 50-250 [facility] Comment on above: Performed By: #### L 501.2300, L501.9520, L500.4050, L100.0100 #### [facility] [address] [place], [address] GAP 15 Normal 5-15 [facility] Comment on above: Performed By: #### L 501.2300, L501.9520, L500.4050, L100.0100 #### [facility] [address] [place], [address] GFR/1.73 sq M.predicted among non-blacks MDRD (S/P/Bld) [Vol rate/Area] 98 mL/min/{1.73_m2} Normal >60 [facility] Comment on above: Result Comment: mL/m in/1.73m2 CKD-EPI Creatinine Equation (2020) Performed By: #### L 501.2300, L501.9520, L500.4050, L100.0100 #### [facility] [address] [place], [address] Globulin (S) [Mass/Vol] 3.1 g/dL Normal 2.2-4.2 [facility] Comment on above: Performed By: #### L 501.2300, L501.9520, L500.4050, L100.0100 #### [facility] [address] [place], [address] Glucose [Mass/Vol] 133 mg/dL High 70-99 [facility] Comment on above: Performed By: #### L 501.2300, L501.9520, L500.4050, L100.0100 #### [facility] [address] [place], [address] Potassium [Moles/Vol] 4.0 mmol/L Normal 3.3-5.1 [facility] Comment on above: Performed By: #### L 501.2300, L501.9520, L500.4050, L100.0100 #### [facility] [address] [place], [address] Sodium [Moles/Vol] 145 mmol/L Normal 133-145 [facility] Comment on above: Performed By: #### L 501.2300, L501.9520, L500.4050, L100.0100 #### [facility] [address] [place], [address] T PROT 7.3 g/dL Normal 5.9-8.4 [facility] Comment on above: Performed By: #### L 501.2300, L501.9520, L500.4050, L100.0100 #### [facility] [address] [place], [address] Urea nitrogen [Mass/Vol] 5 mg/dL Normal 4-19 [facility] Comment on above: Performed By: #### L 501.2300, L501.9520, L500.4050, L100.0100 #### [facility] [address] [place], [address] Consultation - Orthopedicson 11-12-2024 Consultation - Orthopedics [facility] Medical Records Department [address] [place] [address] Consultation - Orthopedics 11/12/24 1645 MR#: [id number] Acct: [id number] Name: KENNETH FINN Rep #: [id number] : 1960 64 From: Jase Cartwright MD PCP: Dr. Odin Berumen, DO Status:ADM IN Location: MS3 [id number] HPI Consult Data Date of Consult: 11/12/24 HPI Narrative HPI Narrative: KENNETH FINN, is a 64 F who presents to with difficulty breathing and was found to have L1 fracture on a chest CT scan. I was consulted for this finding of L1 compression fracture which was not visible on previous imaging. I saw the patient in his room 303. Patient was sitting comfortably in her bed with nasal oxygen. Patient is known to me as she has seen me as an outpatient in September this year. Back then, we had discussed L4-5 disc degeneration and had recommended pain management for consideration of injections. Patient had not been able to get any injections as yet. Patient has multiple medical comorbidities and is currently admitted for acute exacerbation of COPD versus pneumonia. Patient denies any significant change in her back pain compared to when she saw me in September. She denies any change of the location of the pain. She points over the lower lumbar region. She denies any radiation of pain to lower extremities. [facility] Medical History Depression, unspecified History of small bowel obstruction Hypersplenism Vitamin D deficiency Hypotension Memory loss Neurodermatitis Anxiety Gastroparesis IBS (irritable bowel syndrome) GERD (gastroesophageal reflux disease) Fibromyalgia DDD (degenerative disc disease) History of pulmonary embolus (PE) COPD (chronic obstructive pulmonary disease) Thoracic spondylosis CAD (coronary artery disease) Chest pain, atypical Chronic back pain Tobacco dependence Home Medications ???Medication ???Instructions ???Recorded ???Last Taken ???Type topiramate 50 mg tablet 50 mg PO DAILY headaches 12/17/15 12/17/15 History pantoprazole 40 mg tablet,delayed 40 mg PO Q12H gerd 06/18/19 Unkno wn History release rivaroxaban 20 mg tablet (Xarelto) 20 mg PO DAILY blood thinner 06/25 Unknown History cholecalciferol (vitamin D3) 50 2,000 unit PO DAILY supplement 01/24 Unknown History mcg (2,000 unit) tablet albuterol sulfate 90 mcg/actuation 2 puff inhalation Q4H PRN Unknown Rx aerosol inhaler (ProAir HFA) shortness of breath or wheezing #18 grams citalopram 40 mg tablet 40 mg PO QDAY mood 09/11/24 Unknow n History diazepam 10 mg tablet 10 mg PO TID PRN anxiety 09/11/24 Unknown History oxycodone-acetaminophen 7.5 mg-325 1 tab PO Q6 PRN pain 09/11/24 Un known History mg tablet tizanidine 6 mg capsule 6 mg PO TID PRN muscle spasticity 09/11/24 Unknown History Allergy/AdvReac Type Severity Reaction Status Date / Time amitriptyline Allergy Severe Rash Verified 11/11/24 18:39 nicotine (From Nicoderm CQ) Allergy Mild Rash Verified 11/11/24 18:39 fentanyl Allergy Rash Verified 11/11/24 18:39 aspirin AdvReac Nausea Verified 11/11/24 18:39 meperidine HCl (From Demerol) AdvReac Vomiting Verified 11/11/24 18:39 nitrofurantoin (From AdvReac Vomiting Verified 11/11/24 18:39 Macrobid) nitrofurantoin AdvReac Vomiting Verified 11/11/24 18:39 macrocrystalline (From Macrobid) Family History Father Hypertension Mother Diabetes Surgical History History of total hysterectomy History of splenectomy Social History current occupational status: retired Smoking Status: Former smoker Tobacco: How many years used: 30 Electronic Cigarette Use: with nicotine quit status: considering quitting substance use type: does not use seatbelt use: always do you feel safe at home: Yes additional social history: Vital Signs Vital Signs Vital Signs: 11/11/24 18:40 11/11/24 18:41 11/11/24 18:42 Temperature 96.2 F L 98.2 F Temperature Source Temporal Oral Pulse Rate 105 H 98 Respiratory Rate 24 H 26 H Respiratory Effort Respiratory Depth Respiratory Pattern Blood Pressure 108/93 H 145/73 H Blood Pressure Mean 98 97 Blood Pressure Source Blood Pressure Position Blood Pressure Location Pulse Ox 91 94 88 Oxygen Delivery Method Room Air Nasal Cannula Room Air Oxygen Flow Rate (L/min) 2 11/11/24 18:46 11/11/24 18:52 11/11/24 19:40 Temperature Temperature Source Pulse Rate 101 H 106 H Respiratory Rate 21 H 24 H Respiratory Effort Short of Breath Respiratory Depth Respiratory Pattern (more content not included)... Normal [facility] Legionella Antigen Urineon 0 11-12-2024 LEGU URINE, CLEAN CATCH Legionella Antigen result interpretation: L pneumo Ag Ur Ql Negative Presumptive negative for Legionella pneumophila serogroup 1 antigen in urine, suggesting no recent or current infection. Legionella Ag, Urine Negative (See interpretation below) Normal [facility] Comment on above: Performed By: #### M 300.4600, M300.4500 #### [facility] [address] [place], [address] M100.019on 11-12-2024 M100.019 Negative Normal [facility] Comment on above: Performed By: #### L 100.0100 #### [facility] [address] [place], [address] Magnesiumon 11-12-2024 Magnesium [Mass/Vol] 1.8 mg/dL Normal 1.5-2.2 [facility] Comment on above: Performed By: #### M 300.4600, M300.4500 #### [facility] [address] [place], [address] Phosphoruson 11-12-2024 Phosphate [Mass/Vol] 4.0 mg/dL Normal 2.7-4.5 [facility] Comment on above: Performed By: #### L 501.2300, L501.9520, L500.4050, L100.0100 #### [facility] [address] [place], [address] RESPIRATORY PANEL MOLECULARo n 11-12-2024 RP PANEL ADENOVIRUS Not Detected INFLUENZA A Not Detected INFLUENZA A (SUBTYPE H1) Not Detected INFLUENZA A (SUBTYPE H3) Not Detected INFLUENZA B Not Detected HUMAN METAPHNEUMO Not Detected PARAINFLUENZA 1 Not Detected PARAINFLUENZA 2 Not Detected PARAINFLUENZA 3 Not Detected PARAINFLUENZA 4 Not Detected RHINOVIRUS Not Detected RSV A Not Detected RSV B Not Detected Normal [facility] Comment on above: Performed By: #### L 100.0100 #### [facility] [address] [place], [address] Strep pneumoniae Antig(UR,CS F)on 11-12-2024 STPAG URINE INTERPRETATION Negative Urine Presumptive negative for pneumococcal pneumonia, suggesting no current or recent pneumococcal infection. Infection due to S pneumoniae cannot be ruled out since the antigen present in the sample may be below the detection limit of the test. Strep pneumo Test Negative URINE (See interpretation below) Normal [facility] Comment on above: Performed By: #### M 300.4600, M300.4500 #### [facility] [address] [place], [address] Thyroid Stim Hormone (TSH)on 11-12-2024 TSH 0.444 uIU/mL Normal 0.300-4.200 [facility] Comment on above: Performed By: #### L 501.2300, L501.9520, L500.4050, L100.0100 #### [facility] [address] [place], [address] 12 Lead EKGon 11-11-2024 12 Lead EKG [facility] [address] [place] [address] 12 Lead EKG 11/11/24 1851 MR#: [id number] Acct: [id number] Name: KENNETH FINN Rep #: [id number] : 1960 64 From: Rolly Hartmann MD Attending Dr: Dr. Rosenda Carrion DO Status: ADM I N Ordering Dr: Parveen Regan DO Date: 11/11/24 [place] [facility] [place] F C Admitted: 11/11/24 Test Reason : SOB Blood Pressure : */* mmHG Vent. Rate : 94 BPM Atrial Rate : 94 BPM P-R Int : 124 ms QRS Dur : 76 ms QT Int : 378 ms P-R-T Axes : 75 73 67 degrees QTcB Int : 472 ms Normal sinus rhythm Nonspecific ST abnormality Abnormal ECG Confirmed by Rolly Hartmann ([id number]), videotape editor BALJINDER ESPARZA ([id number]) on 11/13/2024 12:16:11 PM Referred By: Parveen Regan Confirmed By: Rolly Hartmann 11/13/24 1216 Date Rolly Hartmann MD CC: Dr. Parveen Regan, DO; Dr. Rosenda Carrion, DO; Dr. Odin Berumen, DO Signed Normal [facility] Basic Metabolic Profile (BMP )on 11-11-2024 BUN/CRE 5.3 RATIO Low 10-20 [facility] Comment on above: Performed By: #### M 300.4600, M300.4500 #### [facility] [address] [place], [address] Calcium [Mass/Vol] 9.6 mg/dL Normal 7.6-11.0 [facility] Comment on above: Performed By: #### M 300.4600, M300.4500 #### [facility] [address] [place], [address] Chloride [Moles/Vol] 105 mmol/L Normal 98-108 [facility] Comment on above: Performed By: #### M 300.4600, M300.4500 #### [facility] [address] [place], [address] CO2 [Moles/Vol] 18.3 mmol/L Low 21.0-32.0 [facility] Comment on above: Performed By: #### M 300.4600, M300.4500 #### [facility] [address] [place], [address] Creatinine [Mass/Vol] 0.75 mg/dL Normal 0.70-1.20 [facility] Comment on above: Performed By: #### M 300.4600, M300.4500 #### [facility] [address] [place], [address] ECRCL 66.55 ml/min Normal 50-250 [facility] Comment on above: Performed By: #### M 300.4600, M300.4500 #### [facility] [address] [place], [address] GAP 16 High 5-15 [facility] Comment on above: Performed By: #### M 300.4600, M300.4500 #### [facility] [address] [place], [address] GFR/1.73 sq M.predicted among non-blacks MDRD (S/P/Bld) [Vol rate/Area] 91 mL/min/{1.73_m2} Normal >60 [facility] Comment on above: Result Comment: mL/m in/1.73m2 CKD-EPI Creatinine Equation (2020) Performed By: #### M 300.4600, M300.4500 #### [facility] [address] [place], [address] Glucose [Mass/Vol] 123 mg/dL High 70-99 [facility] Comment on above: Performed By: #### M 300.4600, M300.4500 #### [facility] [address] [place], [address] Potassium [Moles/Vol] 3.7 mmol/L Normal 3.3-5.1 [facility] Comment on above: Performed By: #### M 300.4600, M300.4500 #### [facility] [address] [place], [address] Sodium [Moles/Vol] 139 mmol/L Normal 133-145 [facility] Comment on above: Performed By: #### M 300.4600, M300.4500 #### [facility] [address] [place], [address] Urea nitrogen [Mass/Vol] 4 mg/dL Normal 4-19 [facility] Comment on above: Performed By: #### M 300.4600, M300.4500 #### [facility] [address] [place], [address] CBC W/Diff, Automatedon 05-0 SMEAR COMMENT SCANNED Normal [facility] Comment on above: Performed By: #### M 300.4600, M300.4500 #### [facility] [address] [place], [address] Chest PA and Lateralon 11-11 Chest PA and Lateral [facility] [address] [place] [address] Chest PA and Lateral MR#: [id number] Acct: [id number] Name: KENNETH FINN Rep #: [id number] : 1960 F 64 From: Mario rucker MD PCP: Dr. Odin Berumen DO Status: REG ER Study: Chest PA and Lateral Date of Exam: 11/11/24 Exam# [id number] Ordering Dr: Parveen Regan DO PROCEDURE: CHEST PA AND LATERAL 11/11/2024 REASON FOR EXAM: DYSPNEA TECHNIQUE: Frontal and lateral views of the chest. COMPARISON: CT chest 05/27/2024 FINDINGS: Hardware: None Heart: The heart size is normal. Mediastinum: The mediastinal contour is unremarkable. Lungs: No focal consolidation. No pneumothorax. No pleural effusion. Bones: The bones are unremarkable. RAD/Chest PA and Lateral IMPRESSION: NO ACUTE FINDINGS. Reading Location: [facility] [facility] CC: Dr. Parveen Regan DO; Dr. 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 Odin Berumen DO Status:ADM IN Location: [place] [address] HPI History of Present Illness Chief Complaint: Shortness of Breath Informant: patient Onset/Context/Timing Onset: Weeks (1) Context: gradual Timing: Continuous Quality: Positive for Dyspnea on exertion Worsened by: Exertion Relieved by: Nothing Associated Symptoms cough, ear pain, sore throat and yellow sputum; Negative for rhinorrhea, post nasal drip, fever, chills, sweats, clear sputum, white sputum or green sputum Narrative Narrative: Patient presents with shortness of breath that has been getting worse over the past week. Patient states she has been coughing up some yellow sputum. Patient admits to a sore throat and some bilateral ear pain. Patient also states she has some heaviness in her chest. Patient states it is over the substernal area. Patient states her breathing is worse with any exertion. Patient states nothing seems to help with it. Patient states she has been taking her albuterol at home with no improvement. Patient denies any fevers or chills. PE Risk Factors: Positive for Cancer and Prior DVT or PE; Negative for OCP + Smoking + > 35, Recent immobilization, Recent surgery or Recent travel [facility] Medical History Depression, unspecified History of small bowel obstruction Hypersplenism Vitamin D deficiency Hypotension Memory loss Neurodermatitis Anxiety Gastroparesis IBS (irritable bowel syndrome) GERD (gastroesophageal reflux disease) Fibromyalgia DDD (degenerative disc disease) History of pulmonary embolus (PE) COPD (chronic obstructive pulmonary disease) Thoracic spondylosis CAD (coronary artery disease) Chest pain, atypical Chronic back pain Tobacco dependence Home Medications ???Medication ???Instructions ???Recorded ???Last Taken ???Type promethazine 25 mg tablet 25 mg PO Q6H PRN PRN Nausea #20 /12/17/15 Rx tabs topiramate 50 mg tablet 50 mg PO BID 12/17/15 12/17/15 His tory pantoprazole 40 mg tablet,delayed 40 mg PO DAILY 06/18/19 Unknown H istory release rivaroxaban 20 mg tablet (Xarelto) 20 mg PO DAILY 06/18/19 Unknown History butalbital-acetaminophen -caffeine 1 cap PO Q6H PRN 07/14/19 Unknown History 50 mg-300 mg-40 mg capsule cholecalciferol (vitamin D3) 50 2,000 unit PO DAILY 07/14/19 Unkno wn History mcg (2,000 unit) tablet albuterol sulfate 90 mcg/actuation 2 puff inhalation Q4H PRN Unknown Rx aerosol inhaler (ProAir HFA) shortness of breath or wheezing #18 grams citalopram 40 mg tablet 40 mg PO QDAY 09/11/24 Unknown His tory diazepam 10 mg tablet 10 mg PO TID PRN anxiety 09/11/24 Unknown History oxycodone-acetaminophen 7.5 mg-325 1 tab PO Q6 PRN 09/11/24 Unknown History mg tablet tizanidine 6 mg capsule 6 mg PO TID PRN 09/11/24 Unknown H istory Allergy/AdvReac Type Severity Reaction Status Date / Time amitriptyline Allergy Severe Rash Verified 11/11/24 18:39 nicotine (From Nicoderm CQ) Allergy Mild Rash Verified 11/11/24 18:39 fentanyl Allergy Rash Verified 11/11/24 18:39 aspirin AdvReac Nausea Verified 11/11/24 18:39 meperidine HCl (From Demerol) AdvReac Vomiting Verified 11/11/24 18:39 nitrofurantoin (From AdvReac Vomiting Verified 11/11/24 18:39 Macrobid) nitrofurantoin AdvReac Vomiting Verified 11/11/24 18:39 macrocrystalline (From Macrobid) Family History Father Hypertension Mother Diabetes Surgical History History of total hysterectomy History of splenectomy Social History current occupational status: retired Smoking Status: Former smoker Tobacco: How many years used: 30 Electronic Cigarette Use: with nicotine quit status: considering quitting substance use type: does not use seatbelt use: always do you feel safe at home: Yes additional social history: ROS ROS ED Constitutional Constitutional ED: Denies chills or fever(s) Eyes Eyes: Denies blurry vision or change in vision ENT ENT ED: Reports ear pain and sore throat; Denies rhinorrhea Cardiovascular Cardiovascular: Reports chest pain; Denies palpitations Respiratory/Chest Respiratory/Chest: Reports cough and dyspnea Gastrointestinal Gastrointestinal: Denies nausea or vomiting Genitourinary Genitourinary ED: Denies dysuria or hematuria Musculoskeletal Musculoskeletal: Reports back pain (more content not included)... Normal [facility] H AND P Exam - [facility] 11-11-2024 H&P Exam - Hospitalist [facility] Medical Records Department [address] [place] [address] H P Exam - Hospitalist 11/11/24 2259 MR#: [id number] Acct: [id number] Name: KENNETH FINN Rep #: [id number] : 1960 64 From: Nuno Aponte DO PCP: Dr. Odin Berumen, DO Status:ADM IN [place] [facility] [id number]PI - General General Date of Admission: 11/11/24 Date of Service: 11/11/24 Chief Complaint: Shortness of Breath, Cough and Wheezing HPI Narrative KENNETH FINN, is a 64 F with a past medical history of being overweight; with BMI of 26.6 this admission, CAD, history of tobacco abuse times 30 years; with subsequent asthma/COPD, history of PE; on rivaroxaban, history of splenectomy, history of migraine headaches; on topiramate and every 6 hours as needed butalbital-acetaminophen -caffeine, depression with anxiety; on citalopram and 3 times daily as needed diazepam, history of neurodermatitis, fibromyalgia, history of total hysterectomy, history of SBO, history of vitamin D deficiency; on cholecalciferol, IBS, GERD; with history of gastroparesis on pantoprazole, history of muscle spasms; on as needed tizanidine 3 times daily and OA; with thoracic spondylosis, DDD and chronic back pain on as needed oxycodone- acetaminophen every 6 hours as needed who presents to [facility] ER complaining of shortness of breath, cough and wheezing. Ms. Finn reports her symptoms began approximately 1 week prior to admission with a gradual-onset of dyspnea on exertion that progressed to shortness of breath at rest. She admits to cough productive of yellowish sputum with sore throat and bilateral ear pain. She also states she has been having back pain, headache and a sensation of heaviness over her chest primarily substernal and is made worse with deep breathing and exertion with nothing seeming to help relieve it. She states she has been taking her albuterol at home without improvement so she finally decided to come in for further evaluation and treatment. There was no reported fever, chills, changes in vision, runny nose, abdominal pain, nausea, vomiting, diarrhea, constipation, dysuria, hematuria, paresthesias or rash. In the ER she was noted to have Leukocytosis of 20.5 K present on admission with a CXR that revealed no acute findings and she was then diagnosed with AE COPD complicated by suspected Pneumonia (with CT scan of the chest pending at this time) compounded by chest pain and clinical evidence of Acute Respiratory Insufficiency and she was then admitted to the general medical floor for ongoing care for a stay that is expected to extend beyond 2 midnights. [facility] Medical History Depression, unspecified History of small bowel obstruction Hypersplenism Vitamin D deficiency Hypotension Memory loss Neurodermatitis Anxiety Gastroparesis IBS (irritable bowel syndrome) GERD (gastroesophageal reflux disease) Fibromyalgia DDD (degenerative disc disease) History of pulmonary embolus (PE) COPD (chronic obstructive pulmonary disease) Thoracic spondylosis CAD (coronary artery disease) Chest pain, atypical Chronic back pain Tobacco dependence Home Medications ???Medication ???Instructions ???Recorded ???Last Taken ???Type topiramate 50 mg tablet 50 mg PO DAILY headaches 12/17/15 12/17/15 History pantoprazole 40 mg tablet,delayed 40 mg PO Q12H gerd 06/18/19 Unkno wn History release rivaroxaban 20 mg tablet (Xarelto) 20 mg PO DAILY blood thinner 06/25 Unknown History cholecalciferol (vitamin D3) 50 2,000 unit PO DAILY supplement 01/24 Unknown History mcg (2,000 unit) tablet albuterol sulfate 90 mcg/actuation 2 puff inhalation Q4H PRN Unknown Rx aerosol inhaler (ProAir HFA) shortness of breath or wheezing #18 grams citalopram 40 mg tablet 40 mg PO QDAY mood 09/11/24 Unknow n History diazepam 10 mg tablet 10 mg PO TID PRN anxiety 09/11/24 Unknown History oxycodone-acetaminophen 7.5 mg-325 1 tab PO Q6 PRN pain 09/11/24 Un known History mg tablet tizanidine 6 mg capsule 6 mg PO TID PRN muscle spasticity 09/11/24 Unknown History Allergy/AdvReac Type Severity Reaction Status Date / Time amitriptyline Allergy Severe Rash Verified 11/11/24 18:39 nicotine (From Nicoderm CQ) Allergy Mild Rash Verified 11/11/24 18:39 fentanyl Allergy Rash Verified 11/11/24 18:39 aspirin AdvReac Nausea Verified 11/11/24 18:39 meperidine HCl (From Demerol) AdvReac Vomiting Verified 11/11/24 18:39 nitrofurantoin (From AdvReac Vomiting Verified 11/11/24 18:39 Macrobid) nitrofurantoin AdvReac Vomiting Verified 11/11/24 18:39 macrocrystalline (From Macrobid) Family History Father Hypertension Mother Diabetes Surgica (more content not included)... Normal [facility] L499.0042on 11-11-2024 Trop T High Sen 7 ng/L Normal <=14 [facility] Comment on above: Performed By: #### M 300.4600, M300.4500 #### [facility] [address] [place], [address] L499.0043on 11-11-2024 Trop T High Sen Normal <=14 [facility] Comment on above: Result Comment: CANC EL PER KYREE STUART Performed By: #### L 499.0043 #### [facility] [address] [place], [address] L501.4021on 11-11-2024 Trop T High Sen 8 ng/L Normal <=14 [facility] Comment on above: Performed By: #### L 100.0100 #### [facility] [address] [place], [address] L3410.9992on 11-06-2024 [facility] Misc. COMMENT Normal . [facility] Comment on above: Order Comment: [id number] 7OXYCODONE URINE Result Comment: Test Ordered: [id number] Oxycodone/Oxymorphone Confirm Oxycodone/Oxymorph Positive [A ] UI Reference Range: Vniils=050 Test includes Oxycodone and Oxymorphone Oxycodone Positive [A ] UI Reference Range: . Oxycodone Conf, MS, UR 1943 ng/mL UI Reference Range: Tqamml=146 Oxycodone detected; this finding is consistent with use of medications that include Oxycontin, Percodan, Percocet, Tylox, or generic formulations. Drugs listed are tax compliance representative of common sources of the compound detected and are not intended to include all possible sources. Oxymorphone Positive [A ] UI Reference Range: . Oxymorphone Conf, MS, UR 1440 ng/mL UI Reference Range: Wkaugt=799 Oxymorphone detected; this finding is consistent with use of medications that include Numorphan, Opana, or drugs containing Oxycodone, or generic formulations. Drugs listed are tax compliance representative of common sources of the compound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 Comment on above: Performed By: #### L 499.0043 #### [facility] [address] [place] [id number] Urine Drug Screen (VISTA)on 05-04-2024 AMPHETAMINES Negative Normal <1000 ng/mL [facility] Comment on above: Order Comment: UNKNO WN Performed By: #### L 100.0100 #### [facility] [address] [facility] [address] BARBITIURATES Negative Normal < 200 ng/mL [facility] Comment on above: Order Comment: UNKNO WN Performed By: #### L 100.0100 #### [facility] [address] [facility] [address] BENZODIAZIPINE Positive Abnormal < 200 ng/mL [facility] Comment on above: Order Comment: UNKNO WN Performed By: #### L 100.0100 #### [facility] [address] [facility] [address] COCAINE Negative Normal < 300 ng/mL [facility] Comment on above: Order Comment: UNKNO WN Performed By: #### L 100.0100 #### [facility] [address] [facility] [address] ECSTACY Negative Normal < 500 ng/mL [facility] Comment on above: Order Comment: UNKNO WN Performed By: #### L 100.0100 #### [facility] [address] [place], [address] METHADONE Negative Normal < 300 ng/mL [facility] Comment on above: Order Comment: UNKNO WN Performed By: #### L 100.0100 #### [facility] [address] [place], [address] OPIATES Negative Normal < 300 ng/mL [facility] Comment on above: Order Comment: UNKNO WN Performed By: #### L 100.0100 #### [facility] [address] [place], [address] PCP Negative Normal < 25 ng/mL [facility] Comment on above: Order Comment: UNKNO WN Performed By: #### L 100.0100 #### [facility] [address] [place], [address] THC Negative Normal < 50 ng/mL [facility] Comment on above: Order Comment: UNKNO WN Performed By: #### L 100.0100 #### [facility] [address] [place], [address] VISTA UDS PH 6 Normal [facility] Comment on above: Order Comment: UNKNO WN Performed By: #### L 100.0100 #### [facility] [address] [place], [address] Vitamin B12on 05-04-2024 Cobalamin (Vitamin B12) [Mass/Vol] 518 pg/mL Normal 211-911 [facility] Comment on above: Performed By: #### L 100.0100 #### [facility] [address] [place], [address] Vitamin D,25 Hydroxyon 05-04 Vitamin D 25-OH 41.8 ng/mL Normal [facility] Comment on above: Result Comment: Beth min D 25(OH) Status Range Deficiency <20 ng/mL (50nmol/L) Insufficiency 20 - 30 ng/mL (50 - 75 nmol/L) Sufficiency 30 - 100 ng/mL (75 - 250 nmol/L) Toxicity >100 ng/mL (>250 nmol/L) Performed By: #### L 100.0100 #### [facility] [address] [facility] [place], [place], [address] 36on 03-27-2024 36 Patient states that her brother and she no longer has a ride. She has been keeping up with her cardiac monitor technician in [place] which is what she will continue to do. Patient's appointment for Saturday has been cancelled. Please contact patient with questions, thank you Normal [facility] SCRN MAMM (CAD)W/MARYCHUY BILATo n 02-20-2024 SCRN MAMM (CAD)W/MARYCHUY BILAT [facility] [address] [place], [place] [address] SCRN MAMM (CAD)W/MARYCHUY BILAT MR#: [id number] Acct: [id number] Name: KENNETH FINN Rep #: [id number] : 1960 F 63 From: Reginald hill MD PCP: Dr. Odin Berumen DO Status: [facility] Study: SCRN MAMM (CAD)W/MARYCHUY BILAT Date of Exam: 02/05 11/28 Exam# [id number] Ordering Dr: Odin Berumen DO [id number] MAMMOGRAPHY - BILATERAL SCREENING REASON FOR EXAM: Female, 63 years old. Routine annual screening examination. PERTINENT HISTORY: Aunt with breast cancer. History of prior right excisional breast biopsy. TECHNIQUE: Digital bilateral breast marychuy (3D mammographic acquisition) in the CC and MLO projections. 2-D mediolateral oblique (MLO) and craniocaudad (CC) views of both breasts were obtained. CAD: Full Field Digital Mammography with Computer Added Detection was performed. COMPARISON: Comparison is made with prior study February 08, 2023 and August 03, 2021. FINDINGS: Breast Composition: The breasts are heterogeneously dense, which may obscure small masses. There are no dominant masses or suspicious calcifications. No other significant abnormalities are identified. There has been no significant change since the prior study. BI/SCRN MAMM (CAD)W/MARYCHUY BILAT IMPRESSION: Stable bilateral screening mammogram. Yearly follow-up mammogram recommended. (A) ASSESSMENT CATEGORY: BIRADS Category 1: Negative. A letter regarding these results will be sent to the patient by the facility within 30 days. Approximately 10% of breast cancers are not detected by mammography. A normal mammogram should not delay biopsy of a clinically suspicious abnormality. [id number] Electronically Signed: Reginald Drew MD at 10:45 EDT , CC: Dr. Odin Berumen DO Dishwashing Machine Repairer: Signed Normal [facility] Progress Noteon 05-21-2023 Progress Note Colon and [...] PARMJIT 3. Colonoscopy 5 [address] [place] [address] Rey. Pt states that some polyps [...] vitals ta (more content not included)... Normal [facility] HEMOGLOBIN AND HEMATOCRIT, B [facility] 04-22-2023 Hematocrit (Bld) [Volume fraction] 37.8 % Normal 35.0-47.0 [facility] Comment on above: Performed By: #### L [id number] ####Ground Mixer: ROGELIO ROTHMAN ([id number])[facility] ([facility])[address] [place] [address] Hemoglobin (Bld) [Mass/Vol] 12.6 g/dL Normal 11.7-16.0 [facility] Comment on above: Performed By: #### L AB753 ####Ground Mixer: ROGELIO ROTHMAN ([id number])[facility] ([facility])[address] [place] [address] Hemoglobin (Bld) [Mass/Vol]o n 04-22-2023 Hematocrit (Bld) [Volume fraction] 37.8 % 35.0 - 47.0 % [facility] Interpretation and review of laboratory results Normal [facility] - Hematology and Cell countson 04-22-2023 Hemoglobin (Bld) [Mass/Vol] 12.6 g/dL 11.7 - 16.0 g/dL [facility] Nursing Noteon 04-22-2023 Nursing Note Patient is A&O x4. States pain is at a tolerable level. Denies dizziness and nausea. IV removed without complication. All belongings returned and accounted for. DC instructions gone over with patient and family. All questions answered. Verbalized understanding. Ambulated with steady gait. Normal [facility] Nursing Note Patient arrived on u nit. Name and date verified. Attached to monitors. Vital signs stable. 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 Priority Lab ID 1 Anus Tissue TISSUE EXAM Nikhil Boothe MD 04/22/23 1356 No Routine Description: ANAL BIOPSY Staff: Sports Doctor: Rosenda Milton RN Scrub Person: Geovanna Pope-Ether Findings: perianal condyloma fulgrated and curattaged Complications: [...] (two hours if receiving Vancomycin or flouroquinolone) [facility] Op Note OPERATIVE NOTE PATIENT NAME: Kenneth Finn : 1960 ATTENDING PHYSICIAN: Nikhil Boothe MD PROCEDURE DATE: 04/22/2023 PREOPERATIVE DIAGNOSIS: Anal lesion POSTOPERATIVE DIAGNOSIS: Same SURGEON: Nikhil Boothe MD ENDOCRINOLOGY TEACHER: Candie Boyer OPERATION: Rectal exam under anesthesia [...] transferred to the PACU in stable condition. [facility] PREPROCINSon 04-16-2023 PREPROCINS Medication List Accurate as [...] instructions given to you by Dr. Boothe Shower with an antibacterial soap such as Dial [...] your scheduled surgery time. Please bring your [facility] folder and medication list with you day of surgery. We encourage you to write down any questions you may have for the surgeon, anesthesiologist, or other members of the surgical team and bring it with you the day of surgery. Please bring photo ID and insurance information.FUNERAL HOME ATTENDANT AND PARKING IN THE MAIN DECK ARE [...] SAME DAY DESK AND CHECK IN. Normal [facility] Basophil percentageOrdered B y: Odin Berumen on 02-01-2023 Cholesterol [Mass/Vol] 243 mg/dL <200 [facility] Comment on above: <200 mg/dL Desirable 200-240 mg/dL Borderline >240 mg/dL High Risk Triglyceride [Mass/Vol] 133 mg/dL <199 [facility] Comment on above: The drugs N-Acetylcy steine and Metamizole may falsely depress this assay.Serum Triglycerides Reference Interval Normal <150 mg/dL Borderline high 150 - 199 mg/dL High 200 - 499 mg/dL Very High > or = 500 mg/dL Laboratory - Drug toxicology Ordered By: Odin Berumen on 02-01-2023 Amphetamines Ql (U) Negative <1000 ng/mL [facility] Benzodiazepines Ql (U) Positive < 200 ng/mL [facility] Cannabinoids Screen Ql (U) Negative < 50 ng/mL [facility] Cocaine Ql (U) Negative < 300 ng/mL [facility] Opiates Ql (U) Negative < 300 ng/mL [facility] No Panel InformationOrdered By: Odin Berumen on 02-01-2023 MDMA (Ecstasy) Screen Negative < 500 ng/mL [facility] Urine Barbiturates Screen Negative < 200 ng/mL [facility] Urine Drug Screen Comment [facility] Comment on above: CONFIRMATORY TESTING FOR ALL POSITIVE URINE DRUG SCREENRESULTS WILL ONLY BE SENT OUT UPON PHYSICIAN ORDER. VISTA Urine Drug Screen methods provide only preliminaryanalytical test results. A more specific alternate chemicalmethod must be used in order to obtain a confirmedanalytical result. Gas chromatography/mass spectrometery(GC/MS) is the preferred confirmatory method. Clinicalconsideration and professional judgement should be appliedto any drug of abuse test result, particularly whenpreliminary positive results are used. URINE TCA TESTING MUST BE ORDERED SEPARATELY. USE TESTMNEMONIC: [facility] Urine Methadone Screen Negative < 300 ng/mL [facility] Urine Oxycodone Screen Positive <100 ng/mL [facility] Serum or plasma cholesterol in HDL measurement (mass/volume)Ordered By: Odin Berumen on 02-01-2023 Cholesterol in HDL [Mass/Vol] 58 mg/dL >40 [facility] Comment on above: The drugs N-Acetylcy steine and Metamizole may falsely depress this assay. Reference Range HDL <40 mg/dL Low HDL Cholesterol HDL >or= 60 mg/dL High HDL Cholesterol Serum or plasma cholesterol in VLDL measurement (mass/volume)Ordered By: Odin Berumen on 02-01-2023 Cholesterol in VLDL [Mass/Vol] 27 mg/dL 5-40 [facility] Serum or plasma low density lipoprotein (LDL) cholesterol measurement (mass/volume)Ordered By: Odin Berumen on 02-01-2023 Cholesterol in LDL [Mass/Vol] 158 mg/dL 0-130 [facility] Urine phencyclidine (PCP) de tectionOrdered By: Odin Berumen on 02-01-2023 Phencyclidine Ql (U) Negative < 25 ng/mL [facility] CNOVon 11-13-2022 CNOV Office Visit (VICKIE ) -------- KENNETH FINN ([id number]) 1960 F Date Time Provider Department 11/13/22 [...] -squamous intraepithelial (AIN 3) on 10/23/2022 at [facility]. She complains of fatigue. She states that she feels warm a lot. She was referred to this office, she was told that this was colorectal surgery and that [facility], she lives in [place]. PAST MEDICAL HISTORY Diagnosis Date Anxiety Asthma [...] HISTORY OF 2014 pain injections lumbar multiple [id number] SPLENECTOMY TOTAL SEPARATE PROCEDURE 11/2001 Splenectomy d/t ITP TOTAL ABDOMINAL HYSTERECT W/WO RMVL TUBE OVARY 05/2001 Hysterectomy, ANANDA BSO for endometriosus Current Outpatient Medications Medication Sig rivaroxaban (XARELTO) 20 mg tablet Take 20 mg by mouth daily with dinner. ecvuggelis-mmqdbmqvpc-km f-cod [id number] mg cap Take 1 capsule by mouth [...] Demerol [ (more content not included)... Normal [facility] XR Chest 2 Viewson 3 No acute process. Report Dictated on Electronically Signed By: Abbe Middleton Electronically Signed Date/Time: 10/16/2022 11:47 AM EDT [facility] Patient Name: KENNETH FINN : 1960 Exam Date/Time: 10/16/2022 11:26 Procedure: XR CHEST 2 VIEWS Ordering Provider: TIRADO KAYCEE Reason For Exam: pre-op testing CHEST, PA & LATERAL: INDICATION: Preop COMPARISON: No previous studies are available for comparison. PA and lateral views of the chest were obtained. The heart is normal in size. The mediastinal silhouette is normal. The lungs are clear. There are no effusions or infiltrates. There is no pleural thickening. Arthritic changes of the spine and shoulders are present. [facility] Abbe Middleton DO - 10/16/2022 Patient Name: KENNETH FINN : 1960 Exam Date/Time: 10/16/2022 11:26 Procedure: XR CHEST 2 VIEWS Ordering Provider: TIRADO KAYCEE Reason For Exam: pre-op testing CHEST, PA [...] Electronically Signed Date/Time: 10/16/2022 11:47 AM EDT [facility] [employer] Radiology Study observation (narrative) [facility] XR Chest 2 ViewsOrdered By: Abbe Middleton on 10-16-2022 [facility] Work Phone: Absolute lymphocyte counton 04-12-2022 Lymphocytes Auto (Unsp spec) [#/Vol] 2.48 10*3/uL 0.83-4.51 [facility] Work Phone: Basophil percentageon 2021 Basophils/100 WBC (Bld) 1.0 % 0-1 [facility] Work Phone: Bilirubin [Mass/Vol] 0.10 mg/dL 0.20-1.00 [facility] Work Phone: Comment on above: For patients on eltr ombopag therapy, use of Dimension [place] TBIL is not recommended. Chloride [Moles/Vol] 110 mmol/L 98-107 [facility] Work Phone: Eosinophils/100 WBC (Bld) 1.2 % 0-5 [facility] Work Phone: Glucose [Mass/Vol] 95 mg/dL 74-106 [facility] Work Phone: Neutrophils (Bld) [#/Vol] 3.9 10*3/uL 2.0-7.7 [facility] Work Phone: Neutrophils/100 WBC (Bld) 53.7 % 47-70 [facility] Work Phone: Potassium [Moles/Vol] 3.8 mmol/L 3.5-5.1 [facility] Work Phone: Protein [Mass/Vol] 7.7 g/dL 6.4-8.2 [facility] Work Phone: Sodium [Moles/Vol] 139 mmol/L 136-145 [facility] Work Phone: WBC (Bld) [#/Vol] 7.2 10*3/uL 4.4-11.0 [facility] Work Phone: Blood erythrocytes count (nu mber/volume)on 04-12-2022 RBC (Bld) [#/Vol] 4.09 10*6/uL 4.2-5.4 [facility] Work Phone: Blood hemoglobin measurement (mass/volume)on 04-12-2022 Hemoglobin (Bld) [Mass/Vol] 12.7 g/dL 12.0-15.0 [facility] Work Phone: Blood lymphocytes/100 leukoc yteson 04-12-2022 Lymphocytes/100 WBC (Bld) 34.3 % 19-41 [facility] Work Phone: Blood monocytes/100 leukocyt eson 04-12-2022 Monocytes/100 WBC (Bld) 9.5 % 0-10 [facility] Work Phone: Blood platelet mean volumeon 04-12-2022 Platelet mean volume (Bld) [Entitic vol] 11.4 fL 6.2-12.0 [facility] Work Phone: Determination of erythrocyte mean corpuscular volume (MCV)on 04-12-2022 MCV (RBC) [Entitic vol] 96.1 fL 81-99 [facility] Work Phone: Hematocrit Auto (Bld) [Volum e fraction]on 04-12-2022 Hematocrit (Bld) [Volume fraction] 39.3 % 37-47 [facility] Work Phone: Laboratory - Chemistry and C hemistry - challengeon 04-12-2022 ALP [Catalytic activity/Vol] 100 U/L 45-117 [facility] Work Phone: ALT [Catalytic activity/Vol] 14 U/L 13-56 [facility] Work Phone: CO2 [Moles/Vol] 23.0 mmol/L 21.0-32.0 [facility] Work Phone: Globulin (S) [Mass/Vol] 4.0 g/dL 2.2-4.2 [facility] Work Phone: Urea nitrogen/Creatinine [Mass ratio] 7.5 mg/mg 10-20 [facility] Work Phone: Laboratory - Hematology and Cell countson 04-12-2022 Erythrocyte distribution width (RBC) [Entitic vol] 56.6 fL 35.1-43.9 [facility] Work Phone: Erythrocyte distribution width (RBC) [Ratio] 15.9 % 11.6-14.6 [facility] Work Phone: Immature granulocytes/100 WBC (Bld) 0.300 % 0.0-0.9 [facility] Work Phone: Comment on above: IG% - Immature Granu locytes (promyelocytes, myelocytes and metamyelocytes) > 1% indicates that a LEFT SHIFT is Present. MCH (RBC) [Entitic mass] 31.1 pg 27.0-32.0 [facility] Work Phone: Nucleated RBC/100 WBC (Bld) [Ratio] 0 % 0-5 [facility] Work Phone: MCHC Auto (RBC) [Mass/Vol]on 04-12-2022 MCHC (RBC) [Mass/Vol] 32.3 g/dL 32-36 [facility] Work Phone: No Panel Informationon 04-12 Estimated GFR (MDRD) Amer 116 mL/min >60 [facility] Work Phone: Comment on above: GFR Calc Estimated GFR (MDRD) Non-Af Amer 95 mL/min >60 [facility] Work Phone: Comment on above: Non- GFR Calc Thyroid Stimulating Hormone (TSH) 1.19 uIU/mL 0.358-3.74 [facility] Work Phone: Platelets bldon 04-12-2022 Platelets (Bld) [#/Vol] 398 10*3/uL 150-450 [facility] Work Phone: Serum or plasma C reactive p rotein measurement (mass/volume)on 04-12-2022 CRP [Mass/Vol] mg/L 0.0-3.0 [facility] Work Phone: Comment on above: C-Reactive Protein ( CRP) provides useful information for thediagnosis, therapy and monitoring of inflammatory processesand associated diseases. For the evaluation of Relative Riskfor Cardiovascular Disease, a High Sensitivity CRP (HSCRP)should be ordered. Serum or plasma albumin trinidad urement (mass/volume)on 04-12-2022 Albumin [Mass/Vol] 3.7 g/dL 3.2-5.0 [facility] Work Phone: Serum or plasma albumin/glob ulin mass ratioon 04-12-2022 Albumin/Globulin [Mass ratio] 0.9 {ratio} 0.9-2.4 [facility] Work Phone: Serum or plasma calcium trinidad urement (mass/volume)on 04-12-2022 Calcium [Mass/Vol] 9.1 mg/dL 8.5-10.1 [facility] Work Phone: Serum or plasma creatinine m easurement (mass/volume)on 04-12-2022 Creatinine [Mass/Vol] 0.67 mg/dL 0.55-1.02 [facility] Work Phone: Comment on above: The validity of the calculated GFR & GFRAA in patients over 70 years has not been determined. Clinical correlation is essential. Serum or plasma urea nitroge n measurement (mass/volume)on 04-12-2022 Urea nitrogen [Mass/Vol] 5 mg/dL 7-18 [facility] Work Phone: Thin prep Papanicolaou smear with manual screeningon 04-12-2022 Thin prep Papanicolaou smear with manual screening 16 U/L 15-37 [facility] Work Phone: Thin prep Papanicolaou smear with manual screening 6 5-15 [facility] Work Phone: XR FINGER 3RD DIGIT 3 [...] AM Sign Date: 10/21/2018 10:43:39 AM Normal [facility] ([place] FLUOROSCOPY IN OR/PAIN MGTon 03-27-2017 FLUOROSCOPY IN OR/PAIN MGT [facility]: Anna Powell, DO03/27/2017 9:15 AMLUMBAR SPINE FLUOROSCOPYClinical Statement: Lumbar degenerative disk diseaseFINDINGS: 28 seconds fluoroscopy time was utilized by Dr. Powell. TwoC-arm images of the lumbar spine were obtained.IMPRESSION:28 seconds fluoroscopy time utilized by Dr. Powell. ---- Electronic Signature on File ----Signed By: Carlos Velasco MD [email or web address] tated: 03/27/2017 10:53 AMSigned: 03/27/2017 10:53 AM Reported By: CARLOS VELASCO M.D. Signed By: CARLOS VELASCO M.D. [facility] FLUOROSCOPY IN OR/PAIN [facility] 03-13-2017 FLUOROSCOPY IN OR/PAIN MGT [facility] Physician: Anna Powell, DO03/13/2017 9:20 AMFLUOROSCOPY IN PAIN MANAGEMENTClinical Statement: Lumbar degenerative disk disease, painFINDINGS: Report is being generated documenting utilization of 36seconds of fluoroscopic time by Dr. Powell for multilevel facet jointinjection. Three spot films are obtained.IMPRESSION:Docu mentation of fluoroscopy utilized by Dr. Powell. Please refer toher notes for details of the procedure. ---- Electronic Signature on File ----Signed By: Nuno Cedillo [email or web address] luiz: 03/13/2017 9:44 AMSigned: 03/13/2017 9:45 AM Reported By: NUNO CEDILLO M.D. Signed By: NUNO CEDILLO M.D. [facility] Patient Summary Documentson 01-19-2017 Patient Summary Documents Normal [facility] XR RIBS 2 VIEWS LEFT/PA CHES T(AO)on [...] 10:44:08 AM Sign Date: 01/19/2017 10:45:04 AM Normal [facility] Vital Signs Date Time Vital Sign Value Performing Clinician Faci lity 04-22-2023 15:00-0400 Diastolic blood pressure 55 mm[Hg] Nikhil Boothe MD Work Phone: [facility] 04-22-2023 15:00-0400 Heart rate 86 /min Nikhil Boothe MD Work Phone: [facility] 04-22-2023 15:00-0400 Respiratory rate 13 /min Nikhil Boothe MD Work Phone: [facility] 04-22-2023 15:00-0400 SaO2% (BldA) [Mass fraction] 100 % Nikhil Boothe MD Work Phone: [facility] 04-22-2023 15:00-0400 Systolic blood pressure 105 mm[Hg] Nikhil Boothe MD Work Phone: [facility] 04-22-2023 14:14-0400 Body temperature 97.7 [degF] Nikhil Boothe MD Work Phone: [facility] 04-22-2023 11:37-0400 Body height 154.9 cm Nikhil Boothe MD Work Phone: [facility] [employer] 04-22-2023 11:37-0400 Body mass index (BMI) [Ratio] 21.92 kg/m2 Nikhil Boothe MD Work Phone: [facility] [employer] 04-22-2023 11:37-0400 Body weight 52.62 kg Nikhil Boothe MD Work Phone: [facility] [employer] 03-26-2023 10:32-0400 Body height 154.9 cm Grace Claribel SANDSTONE INSPECTOR REPAIRER - INTERMEDIATE MANAGER Work Phone: [facility] [employer] 03-26-2023 10:32-0400 Body mass index (BMI) [Ratio] 22.3 kg/m2 Grace Claribel SANDSTONE INSPECTOR REPAIRER - INTERMEDIATE MANAGER Work Phone: [facility] [employer] 03-26-2023 10:32-0400 Body weight 53.52 kg Grace Claribel SANDSTONE INSPECTOR REPAIRER - INTERMEDIATE MANAGER Work Phone: [facility] [employer] 03-26-2023 10:32-0400 Diastolic blood pressure 82 mm[Hg] Grace Claribel SANDSTONE INSPECTOR REPAIRER - INTERMEDIATE MANAGER Work Phone: [facility] [employer] 03-26-2023 10:32-0400 Heart rate 87 /min Grace Claribel SANDSTONE INSPECTOR REPAIRER - INTERMEDIATE MANAGER Work Phone: [facility] [employer] 03-26-2023 10:32-0400 Systolic blood pressure 129 mm[Hg] Grace Claribel SANDSTONE INSPECTOR REPAIRER - INTERMEDIATE MANAGER Work Phone: [facility] [employer] 03-26-2023 09:12-0400 Body height 154.9 cm Nikhil Boothe MD Work Phone: [facility] [employer] 03-26-2023 09:12-0400 Body mass index (BMI) [Ratio] 21.35 kg/m2 Nikhil Boothe MD Work Phone: [facility] [employer] 03-26-2023 09:12-0400 Body temperature 98.01 [degF] Nikhil Boothe MD Work Phone: [facility] [employer] 03-26-2023 09:12-0400 Body weight 51.26 kg Nikhil Boothe MD Work Phone: [facility] 03-26-2023 09:12-0400 Diastolic blood pressure 85 mm[Hg] Nikhil Boothe MD Work Phone: [facility] 03-26-2023 09:12-0400 Heart rate 96 /min Nikhil Boothe MD Work Phone: [facility] 03-26-2023 09:12-0400 Systolic blood pressure 130 mm[Hg] Nikhil Boothe MD Work Phone: [facility] 11-13-2022 10:25-0400 Body height 154.9 cm Dyana Bee MD Work Phone: [facility] 11-13-2022 10:25-0400 Body temperature 98.2 [degF] Dyana Bee MD Work Phone: [facility] 11-13-2022 10:25-0400 Body weight 51.71 kg Dyana Bee MD Work Phone: [facility] 11-13-2022 10:25-0400 Diastolic blood pressure 78 mm[Hg] Dyana Bee MD Work Phone: [facility] 11-13-2022 10:25-0400 Heart rate 109 /min Dyana Bee MD Work Phone: [facility] 11-13-2022 10:25-0400 SaO2% (BldA) [Mass fraction] 99 % Dyana Bee MD Work Phone: [facility] 11-13-2022 10:25-0400 Systolic blood pressure 130 mm[Hg] Dyana Bee MD Work Phone: [facility] 11-06-2022 10:10-0400 Body height 154.9 cm Danii Brannon MD Work Phone: [facility] 11-06-2022 10:10-0400 Body mass index (BMI) [Ratio] 21.46 kg/m2 Danii Brannon MD Work Phone: [facility] 11-06-2022 10:10-0400 Body weight 51.53 kg Danii Brannon MD Work Phone: [facility] [employer] 11-06-2022 10:10-0400 Diastolic blood pressure 75 mm[Hg] Danii Brannon MD Work Phone: [facility] [employer] 11-06-2022 10:10-0400 Heart rate 84 /min Danii Brannon MD Work Phone: [facility] [employer] 11-06-2022 10:10-0400 Systolic blood pressure 117 mm[Hg] Danii Brannon MD Work Phone: [facility] [employer] 10-23-2022 13:15-0400 Heart rate 75 /min Danii Brannon MD Work Phone: [facility] [employer] 10-23-2022 13:15-0400 Respiratory rate 13 /min Danii Brannon MD Work Phone: [facility] [employer] 10-23-2022 13:15-0400 SaO2% (BldA) [Mass fraction] 100 % Danii Brannon MD Work Phone: [facility] [employer] 10-23-2022 13:00-0400 Diastolic blood pressure 60 mm[Hg] Danii Brannon MD Work Phone: [facility] [employer] 10-23-2022 13:00-0400 Systolic blood pressure 124 mm[Hg] Danii Brannon MD Work Phone: [facility] [employer] 10-23-2022 12:29-0400 Body temperature 98.6 [degF] Danii Brannon MD Work Phone: [facility] [employer] 10-23-2022 09:49-0400 Body height 154.9 cm Danii Brannon MD Work Phone: [facility] [employer] 10-23-2022 09:49-0400 Body mass index (BMI) [Ratio] 21.48 kg/m2 Danii Brannon MD Work Phone: [facility] [employer] 10-23-2022 09:49-0400 Body weight 51.57 kg Danii Brannon MD Work Phone: [facility] [employer] 09-18-2022 10:04-0400 Body height 154.9 cm Danii Brannon MD Work Phone: [facility] [facility] 09-18-2022 10:04-0400 Body mass index (BMI) [Ratio] 21.35 kg/m2 Danii Brannon MD Work Phone: [facility] 09-18-2022 10:04-0400 Body weight 51.26 kg Danii Brannon MD Work Phone: [facility] 09-18-2022 10:04-0400 Diastolic blood pressure 66 mm[Hg] Danii Brannon MD Work Phone: [facility] [employer] [facility] 09-18-2022 10:04-0400 Heart rate 89 /min Danii Brannon MD Work Phone: [facility] [employer] [facility] 09-18-2022 10:04-0400 Systolic blood pressure 132 mm[Hg] Danii Brannon MD Work Phone: [facility] [employer] Encounters Encounter Date Encounter Type Care Provider Facility Start: 01-21-2025 ambulatory [facility] Facility: [facility] Start: 01-18-2025 ambulatory [facility] Facility: [facility] Start: 01-06-2025 End: 01-06-2025 ambulatory [facility] Facility:[facility] Start: 11-11-2024 ambulatory Nuno Cartagena ty:JOSEPH Start: 11-11-2024 End: 11-14-2024 Evaluation and management of inpatient [facility] Facility:[facility] Start: 11-02-2024 End: 11-02-2024 ambulatory [facility] Facility:[facility] Start: 09-11-2024 End: 09-11-2024 ambulatory [facility] Facility:[facility] Start: 08-17-2024 End: 08-17-2024 ambulatory [facility] Facility:[facility] Start: 08-06-2024 End: 08-06-2024 ambulatory [facility] Facility:[facility] Start: 06-19-2024 End: 06-19-2024 Emergency department patient visit [facility] Facility:[facility] Start: 05-27-2024 End: 05-27-2024 ambulatory [facility] Facility:[facility] Start: 05-04-2024 End: 05-04-2024 ambulatory [facility] Facility:[facility] Start: 03-27-2024 End: 03-27-2024 Telephone encounter Tamiko Zamora APRN - INTERMEDIATE MANAGER Work Phone: [facility] Gynecologic Oncology - [place] Start: 02-20-2024 End: 02-20-2024 ambulatory [facility] Facility:[facility] Start: 05-21-2023 End: 05-21-2023 ambulatory [facility] Start: 05-21-2023 End: 05-21-2023 Postop follow up visit related to original px Nikhil Boothe MD Work Phone: [facility] [place] Comment on above: AIN grade III (Prima ry Dx) Start: 04-22-2023 End: [facility] Start: 04-22-2023 End: 04-22-2023 Subsequent hospital visit by physician Nikhil Boothe MD Work Phone: [facility] MA[facility] Comment on above: 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); Anal lesion; 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 Start: 04-16-2023 End: 04-16-2023 ambulatory [facility] Start: 03-26-2023 ambulatory Nikhil Boothe MD Work Phone: [facility] Comment on above: Anal lesion (Primary Dx) Start: 03-26-2023 End: 03-26-2023 Office outpatient visit 15 minutes Grace Sanford APRN - INTERMEDIATE MANAGER Work Phone: [facility]nec[facility] Comment on above: 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); Tobacco dependence syndrome Start: 03-26-2023 End: 03-26-2023 Office outpatient new 30 minutes Nikhil Boothe MD Work Phone: [facility] Comment on above: Chronic anticoagulat ion (Primary Dx); Vulvar intraepithelial neoplasia (PARMJIT) grade 3; History of pulmonary embolism; Anal lesion; AIN grade III Start: 03-16-2023 End: 03-16-2023 ambulatory [facility] Work Phone: Start: 03-16-2023 End: 03-16-2023 Patient encounter procedure [facility], [facility] Work Phone: Start: 02-08-2023 End: 02-08-2023 ambulatory [facility] Work Phone: Start: 02-08-2023 End: 02-08-2023 Patient encounter procedure [facility] Work Phone: Start: 02-01-2023 End: 02-01-2023 ambulatory [facility] Work Phone: Start: 02-01-2023 End: 02-01-2023 Patient encounter procedure [facility], Emilie Butler [facility] Start: 12-18-2022 Telephone encounter Caitlin dillon MD Work Phone: [facility] [place] Comment on above: Referral; Appointmen t Request Start: 11-14-2022 ambulatory Kenneth [facility] RN [facility] Clinical [facility] Start: 11-14-2022 Patient encounter procedure [facility] Start: 11-13-2022 Telephone encounter Danii Brannon MD Work Phone: [facility]nec[facility] Start: 11-13-2022 End: 11-14-2022 ambulatory DYANA BEE Facility:[facility] Start: 11-13-2022 End: 11-13-2022 Patient encounter procedure Dyana Bee MD Work Phone: General Surgery Comment on above: 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) Start: 11-06-2022 End: 11-06-2022 Postop follow up visit related to original px Danii Brannon MD Work Phone: [facility] Comment on above: 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) Start: 10-31-2022 Telephone encounter Grace Velarde CNP Work Phone: [facility] Comment on above: Results Start: 10-23-2022 End: 10-23-2022 Subsequent hospital visit by physician Danii Brannon MD Work Phone: [facility] MA[facility] OR Comment on above: 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); Carcinoma in situ of vulva Start: 10-16-2022 End: 10-16-2022 Subsequent hospital visit by physician Ion Xr Exam Room 1 [facility] X-Ray Comment on above: Arrived Start: 09-18-2022 Telephone encounter Danii Brannon MD Work Phone: [facility] Comment on above: surgery scheduling ( Scheduled at [facility]) Start: 09-18-2022 End: 09-18-2022 Office outpatient new 45 minutes Danii Brannon MD Work Phone: [facility] Comment on above: 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); Tobacco dependence syndrome; Chronic obstructive pulmonary disease, unspecified COPD type (HCC); On continuous oral anticoagulation Start: 09-05-2022 End: 09-05-2022 ambulatory [facility] Work Phone: Start: 09-05-2022 End: 09-05-2022 Patient encounter procedure [facility]Laboratory, Specimen Start: 08-03-2022 End: 08-03-2022 ambulatory [facility] Work Phone: Start: 08-03-2022 End: 08-03-2022 Patient encounter procedure [facility]Rad[facility], [place] Start: 04-12-2022 End: 04-12-[address] Odin Berumen Work Phone: [facility] Work Phone: Start: 04-12-2022 End: 04-12-[address] Odin Berumen Work Phone: [facility]Emilie Monson [facility] Start: 02-20-2022 End: 02-20-[address] Odin Berumen Work Phone: [facility] Radiology Start: 12-28-2021 End: 12-28-2021 Patient encounter procedure [facility] Start: 10-21-2018 End: 10-21-2018 Emergency department patient visit HARLEY WOOD Facility:[facility] Start: 09-10-2017 Ambulatory Jamesetta Andre Facilit y:[facility] Start: 06-19-2017 Ambulatory Jamesetta Andre Facilit y:[facility] Start: 05-24-2017 Ambulatory Kamilah Smart Facil ity:[facility] Start: 03-27-2017 Evaluation and manag ement of inpatient Anna Andre Facility:[facility] Start: 03-13-2017 Evaluation and manag ement of inpatient Anna Andre Facility:[facility] Start: 02-26-2017 Ambulatory Humberto L Bridget Facilit y:[facility] Procedures Date Procedure Procedure Detail Performing Clinician Start: 04-22-2023 Blood count hematocrit Rolly Carney Work Phone: Start: 03-16-2023 CT of chest Start: 02-08-2023 End: 02-08-2023 Screening mammography Start: 10-16-2022 Radiologic exam chest 2 views Kaycee Kathryn SANDSTONE INSPECTOR REPAIRER - INTERMEDIATE MANAGER Work Phone: Start: 09-18-2022 H/O splenectomy History of splenectomy Danii Brannon MD Work Phone: Start: 08-03-2022 Radiography of thoracic spine Start: 08-03-2022 X-ray of lumbosacral spine Start: 02-20-2022 Radiologic examination of knee Dr. Odin Berumen Work Phone: Start: 12-28-2021 CT of chest Start: 10-14-2015 Mammography Dyana Bee MD Work Phone: Start: 07-13-2015 Colonoscopy Dyana Bee MD Work Phone: H/O splenectomy History of splenectomy History of total hysterectomy History of total hysterectomy Plan of Treatment Date Care Activity Detail Author Start: 03-30-2024 End: 03-30-2024 Patient encounter procedure 03/30/2024 10:30 AM EDT Office Visit [facility] [address] [place] [phone] Grace Sanford, [facility] [address] [place], [place] [phone] [facility] Start: 03-08-2024 COVID-19 Vaccine ( season) COVID-19 Vaccine ( season) [facility] Start: 03-08-2024 Influenza vaccination Influenza Vaccine (#1) [facility] Start: 03-04-2024 DTaP/Tdap/Td Vaccines (2 - Td or Tdap) DTaP/Tdap/Td Vaccines (2 - Td or Tdap) [facility] Start: 03-04-2024 Urine microalbumin profile DTAP,TDAP,TD (2 - Td or Tdap) [facility] Start: 02-09-2024 Screening for malignant neoplasm of breast Mammogram [facility] Start: 07-08-2023 Medicare Advantage Annual Wellness Visit Medicare Advantage Annual Wellness Visit [facility] Start: 05-15-2023 End: 05-15-2023 Patient encounter procedure 05/15/2023 2:15 PM EST Office Visit [facility] [address] [place] [address] Nikhil Boothe MD [address] [place], [place] [phone] [facility] Start: 05-14-2023 End: 05-14-2023 Patient encounter procedure 05/14/2023 10:45 AM EST Office Visit [facility] [address] [place] [address] Nikhil Boothe MD [address] [place] [id number] [facility] Start: 04-22-2023 End: 04-22-2023 Admission to same day surgery center 04/22/2023 1:00 PM EDT - 04/22/2023 2:00 PM EDT Surgery [facility] MAIN OR [address] [place] [address] Nikhil Boothe MD [address] [place] [id number] RECTAL EXAM UNDER ANESTHESIA WITH EXCISION AND FULGERATION OF ANAL LESIONS [61485 (CPT )] [facility] MA[facility] OR Comment on above: RECTAL EXAM UNDER ANESTHESIA WITH EXCISI ON AND FULGERATION OF ANAL LESIONS [51671 (CPT )] Start: 04-22-2023 End: 04-22-2023 Anrct xm surg req anes general spi/edrl dx ANORECTAL EXAM REQUIRING ANESTHESIA Anal lesion 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 04/22/2023 1:00 PM EDT [facility] Operating Room Start: 04-22-2023 End: 04-22-2023 Dstrj lesion anus smpl eltrdsiccation DESTRUCTION OF ANAL LESIONS ELECTRODESICCATION Anal lesion 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 04/22/2023 1:00 PM EDT [facility] Operating Room Start: 04-22-2023 Subsequent hospital visit by physician 04/22/2023 1:00 PM EDT Hospital Encounter [facility] [address] [place] [phone] Nikhil Boothe MD [address] [place] [id number] [facility] Start: 04-16-2023 End: 04-16-2023 Admission to establishment 04/16/2023 9:30 AM EDT Pre-Admission Testing [facility] Pre-Admit Testing [address] [place] [address] [facility] Pre-Admit Testing Start: 03-26-2023 End: 03-26-2023 Patient encounter procedure 03/26/2023 10:45 AM EDT Office Visit [facility] Gy[facility] [address] [place] [address] Danii Brannon MD [address] [place] [phone] [facility] Start: 03-26-2023 End: 03-26-2023 Patient encounter procedure 03/26/2023 9:30 AM EDT Office Visit [facility] [address] [place] [address] Nikhil Boothe MD [address] [place], [place] [phone] [facility] Start: 03-12-2023 End: 03-12-2023 Patient encounter procedure [facility] Start: 03-08-2023 COVID-19 Vaccine ( season) COVID-19 Vaccine ( season) [facility] Start: 03-08-2023 Influenza vaccination Influenza Vaccine (#1) [facility] Start: 11-06-2022 End: 11-06-2022 Patient encounter procedure 11/06/2022 Office Visit Gynecologic Oncology Danii Brannon MD [address] [place] [address] [facility] Start: 10-23-2022 End: 10-23-2022 Anesthesia consultation 10/23/2022 Anesthesia Event Procedural Kaycee Tirado, SANDSTONE INSPECTOR REPAIRER - INTERMEDIATE MANAGER [address] [place], [place] [phone] [facility] MA[facility] OR Start: 10-23-2022 End: 10-23-2022 Admission to same day surgery center 10/23/2022 Surgery Procedural Danii Brannon MD [address] [place] [address] WIDE LOCAL INCISION [62163 (CPT )] [facility] MA[facility] Comment on above: WIDE LOCAL INCISION [57281 (CPT )] Start: 10-23-2022 End: 10-23-2022 Biopsy vulva/perineum 1 lesion spx [facility] Operating Room Start: 10-23-2022 End: 10-23-2022 Biopsy vulva/perineum each addl lesion [facility] Operating [facility] Start: 10-23-2022 Subsequent hospital visit by physician 10/23/2022 Hospital Encounter Procedural Danii Brannon MD [address] [place] [address] [facility] OR Start: 10-16-2022 End: 10-16-2022 Admission to establishment 10/16/2022 Pre-Admission Testing Pre-Admission Testing [facility] Pre-Admit Testing Start: 2022 RSV Immunization aged 62 or older (1 - 1-dose 60+ series) RSV Immunization aged 60 or older (1 - 1-dose 60+ series) [facility] Start: 02-09-2022 COVID-19 Vaccine (4 - Booster for Pfizer series) COVID-19 Vaccine (4 - Booster for Pfizer series) [facility] Start: 02-09-2022 COVID-19 Vaccine (4 - Pfizer series) COVID-19 Vaccine (4 - Pfizer series) [facility] Start: 02-09-2022 COVID-19 VACCINE (5 - Booster for Pfizer series) COVID-19 VACCINE (5 - Booster for Pfizer series) [facility] Start: 09-20-2020 LIPID SCREEN LIPID SCREEN [facility] Start: 07-13-2018 Colonoscopy COLONOSCOPY [facility] Start: 07-13-2018 COLORECTAL CANCER SCREENING COLORECTAL CANCER SCREENING [facility] Start: 01-25-2018 DIABETES SCREEN DIABETES SCREEN [facility] Start: 10-13-2016 Mammography MAMMOGRAM [facility] Start: 2012 Screening for malignant neoplasm of lung Lung Cancer Screening [facility] Start: 2012 SHINGRIX VACCINE (1 of 2) SHINGRIX VACCINE (1 of 2) [facility] Start: 2012 Zoster Vaccines (1 of 2) Zoster Vaccines (1 of 2) [facility] Start: 07-08-2009 Pneumococcal Vaccine: Pediatrics (0 to 5 Years) and At-Risk Patients (6 to 64 Years) (2 - PCV) Pneumococcal Vaccine: Pediatrics (0 to 5 Years) and At-Risk Patients (6 to 64 Years) (2 - PCV) [facility] Start: 07-08-2009 Pneumococcal Vaccine: Pediatrics (0 to 5 Years) and At-Risk Patients (6 to 64 Years) (2 of 2 - PCV) Pneumococcal Vaccine: Pediatrics (0 to 5 Years) and At-Risk Patients (6 to 64 Years) (2 of 2 - PCV) [facility] Start: 2007 COLOGUARD (FIT-DNA) COLOGUARD (FIT-DNA) [facility] Start: [address] COLONOGRAPHY [facility] Start: 2007 FECAL OCCULT BLOOD FECAL OCCULT BLOOD [facility] Start: 2007 SIGMOIDOSCOPY SIGMOIDOSCOPY [facility] Start: 2002 Screening for malignant neoplasm of breast Mammogram [facility] Start: 1981 Hepatitis A Vaccines (1 of 2 - Risk 2-dose series) Hepatitis A Vaccines (1 of 2 - Risk 2-dose series) [facility] Start: 1981 Zoster Vaccines (1 of 2) Zoster Vaccines (1 of 2) [facility] Start: 1980 Diabetes mellitus screening Diabetes Screening [facility] Start: 1980 Hepatitis C screening Hepatitis C Screening [facility] Start: 1980 HIV SCREENING HIV SCREENING [facility] Start: 1974 Depression Screening Depression Screening [facility] Start: 1972 Meningococcal B Vaccine (1 of 4 - Increased Risk Bexsero 2-dose series) Meningococcal B Vaccine (1 of 4 - Increased Risk Bexsero 2-dose series) [facility] Start: 1972 Meningococcal B Vaccine (1 of 4 - Increased Risk) Meningococcal B Vaccine (1 of 4 - Increased Risk) [facility] Start: 1968 PNEUMOCOCCAL (1 - PCV) PNEUMOCOCCAL (1 - PCV) [facility] Start: 1968 Pneumococcal Vaccine: Pediatrics (0 to 5 Years) and At-Risk Patients (6 to 64 Years) (1 - PCV) Pneumococcal Vaccine: Pediatrics (0 to 5 Years) and At-Risk Patients (6 to 64 Years) (1 - PCV) [facility] Start: 1964 Meningococcal Vaccine (1 - Risk 2-dose series) Meningococcal Vaccine (1 - Risk 2-dose series) [facility] Start: 1963 Hepatitis A Vaccines (1 of 2 - Risk 2-dose series) Hepatitis A Vaccines (1 of 2 - Risk 2-dose series) [facility] Start: 1963 MMR Vaccines (1 of 1 - Standard series) MMR Vaccines (1 of 1 - Standard series) [facility] Start: 1962 Meningococcal Vaccine (1 - Risk start 2-23 months series) Meningococcal Vaccine (1 - Risk start 2-23 months series) [facility] Start: 1962 Examination of skin Derm Melanoma Skin Check [facility] Start: 1962 Hepatitis B Vaccines (1 of 3 - 3-dose series) Hepatitis B Vaccines (1 of 3 - 3-dose series) [facility] Start: 1962 HIV screening HIV Screening [facility] Start: 1962 Lipid panel Lipid Panel [facility] Start: 1962 Medicare Advantage Annual Wellness Visit (AWV) Medicare Advantage Annual Wellness Visit (AWV) [facility] Start: 1962 Screening for malignant neoplasm of colon [facility] Dstrj lesion anus sm pl eltrdsiccation DESTRUCTION OF ANAL LESIONS ELECTRODESICCATION Anal lesion [facility] Tissue exam [facility] Sy stem Work Phone: Comment on above: Release Upon Ordering for 1 Occurrences starting 10/23/2022 Tissue exam Tissue exam Path ology and Cytology Timed Anal lesion 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 Release Upon Ordering for 1 Occurrences starting 04/22/2023 [facility] Work Phone: Comment on above: Release Upon Ordering for 1 Occurrences starting 04/22/2023 Immunizations Immunization Date Immunization Notes Care Provider Fa amanda 04-25-2022 influenza virus vaccine, unspecified formulation Caitlin Gill MD Work Phone: [facility] 03-04-2014 tetanus toxoid, redu marcus diphtheria toxoid, and acellular pertussis vaccine, adsorbed Dyana Bee MD Work Phone: [facility] 04-07-2013 Influenza virus vaccine W [facility] 05-24-2011 influenza virus vaccine, unspecified formulation Dyana Bee MD Work Phone: [facility] 07-08-2008 Pneumococcal Vaccine [facility] Work Phone: 07-08-2008 pneumococcal vaccine , unspecified formulation [facility] Payers Date Payer Category Payer Self-pay [id number] 2019 Medicare [id number] 2019 Unknown ANTHEM BLUE CROS S AND BLUE SHIELD ANTHEM MEDIBLUE HMO [id number] 2019-Present [phone] [address] [place] [address] O [id number] 2018 Unknown [id number] 2017 Medicare [id number] 2013 Medicaid [id number] 2013 Medicaid [id number] 2003 Medicare [id number] 1960 Unknown [id number] Unknown [id number] Unknown [id number] [id number] Unknown [id number] [id number] Unknown [id number] [id number] Unknown [id number] [id number] Unknown [id number] [id number]2 Unknown [id number] 2.16.840.1.844523.3.579.2.462 Unknown [id number] 2.16.840.1.091040.3.579.2.462 Unknown [id number] 2.16.840.1.281092.3.579.2.462 Unknown [id number] 2.16.840.1.659837.3.579.2.462 Unknown [id number] 2.16.840.1.364740.3.579.2.462 Unknown [id number] 2.16.840.1.468523.3.579.2.462 Unknown [id number] 2.16.840.1.010289.3.579.2.462 Unknown [id number] 2.16.840.1.476531.3.579.2.462 Unknown [id number] 2.16.840.1.391804.3.579.2.462 Unknown [id number] [id number] Unknown [id number] [id number] Unknown [id number] Social History Date Type Detail Facility Start: 01-25-2020 End: 01-25-2020 Tobacco smoking status IDIS Unknown if ever smoked [facility] Start: 1960 Sex Assigned At Female W [facility] Start: 07-08-1977 End: 03-26-2023 Tobacco smoking status IDIS Smokes tobacco daily [facility] Start: 07-08-1977 History of tobacco use Cigarette Smo ker [facility] Start: 09-18-2022 End: 03-26-2023 Tobacco use and exposure Smokeless tobacco non-user [facility] Start: 09-18-2022 End: 04-16-2023 Alcohol intake Lifetime non-drinker (finding) [facility] Start: 09-08-2022 End: 03-26-2023 Exposure to SARS-CoV-2 (event) Not sure [facility] Start: 10-16-2022 End: 04-16-2023 Cigarettes smoked current (pack per day) - Reported 0.5 [facility] Start: 11-13-2022 Alcohol intake Current non-dr book 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 of alcohol (finding) [facility] Start: 07-06-2015 Tobacco Comment using vap pen w/ nicotine [facility] Start: 06-04-2011 Alcohol Comment rarely [place] Start: 1960 Sex Assigned At Not on file [facility] Start: 11-06-2022 End: 04-16-2023 Tobacco use panel [facility] Clinical Notes 09-24-2015 to 11-14-2024 Telephone Encounter - [facility] - 03/27/2024 9:23 AM EDTTelephone Encounter - [facility] - 03/27/2024 9:23 AM Mireya Boothe MD - 05/21/2023 9:30 AM ESTDischarge InstructionsDischarge Instructions Note Date & Type Note Facility 11-14-2024 Note [facility] Medical Records Department [address] [place] [address] Discharge Summary 11/14/24 1140 MR#: [id number] Acct: [id number] Name: KENNETH FINN Rep #: [id number] : 1960 64 From: Rosenda Carrion DO PCP: Dr. Odin Berumen DO Status:ADM IN Location: [place] [address]1 Providers Date of Admission: 11/11/24 Primary Care Physician: Dr. Odin Berumen DO Consultations 11/12/24 05:46 Consult: Orthopedics Routine Consulting Provider: Jase Cartwright Reason for Consult: L1 compression fracture with retropulsion + T12 comp fx. EMERGENT Consult: No MD Notified: Yes Date Notified: 11/12/24 Time Notified: 06:42 Method of Notification: Text Reason For Visit: AE ASTHMA/COPD, RESPIRATORY INSUFFICIENCY AND Diagnosis Discharge Diagnosis (1) Compression fracture of T12 vertebra: Status: Acute Code(s): S22.080A - Wedge compression fracture of T11-T12 vertebra, initial encounter for closed fracture Qualifiers: Encounter type: initial encounter Qualified Code(s): S22.080A - Wedge compression fracture of T11-T12 vertebra, initial encounter for closed fracture (2) Compression fracture of L1 lumbar vertebra: Status: Acute Code(s): S32.010A - Wedge compression fracture of first lumbar vertebra, initial encounter for closed fracture Qualifiers: Encounter type: initial encounter Qualified Code(s): S32.010A - Wedge compression fracture of first lumbar vertebra, initial encounter for closed fracture (3) Leukocytosis: Status: Acute Code(s): D72.829 - Elevated white blood cell count, unspecified Qualifiers: Leukocytosis type: unspecified Qualified Code(s): D72.829 - Elevated white blood cell count, unspecified (4) Acute hypoxic respiratory failure: Status: Acute Code(s): J96.01 - Acute respiratory failure with hypoxia Plan Acute hypoxic respiratory failure secondary to acute exacerbation of COPD - Patient with tachycardia, tachypnea, and marked hypoxia consistent with respiratory failure -Had been on as much is 6 L but now on 3 L -wean as able -home O2 prior discharge - Continue Solu-Medrol but transition to 40 every 8 -Continue Mucinex 1200 p.o. twice daily - Check respiratory viral panel - Check COVID/flu/RSV -Will plan on completing a course of antibiotics with Levaquin for total of 7 days, today is day 3 of 7 -Urine antigens are negative -Aggressive pulmonary toilet with scheduled and as needed nebulizers - I-S - Pep therapy with Acapella 10 times every 2 hours while awake - Hopeful for discharge in next 24 hours L1 lumbar spine compression fracture - Has been evaluated by orthopedic surgery and plans for outpatient follow-up - Vitamin D level is acceptable at 47.9 - Continue as needed pain medication Leukocytosis -Secondary to demargination from steroid use History of vitamin D deficiency - Continue home cholecalciferol - Vitamin D level is within therapeutic range GERD - Continue home PPI 40 twice daily History of pulmonary embolus - Continue home Xarelto History of splenectomy - Ensure outpatient follow-up for vaccinations History of migraine headaches - Continue home Topamax - Restart Fioricet at discharge Depression/anxiety - Continue citalopram - Continue home diazepam History of chronic pain -Continue home oxycodone - Continue home tizanidine Tobacco abuse - Quit 4 months ago - Encouraged ongoing cessation DVT prophylaxis -continue rivaroxaban CODE STATUS - Full code verified Medications at Discharge Home Medications topiramate 50 mg tablet 50 mg PO DAILY headaches 12/17/15 pantoprazole 40 mg tablet,delayed release 40 mg PO Q12H gerd 06/18/19 rivaroxaban 20 mg tablet (Xarelto) 20 mg PO DAILY blood thinner 06/18/19 cholecalciferol (vitamin D3) 50 mcg (2,000 unit) tablet 2,000 unit PO DAILY supplement 07/14/19 albuterol sulfate 90 mcg/actuation aerosol inhaler (ProAir HFA) 2 puff inhalation Q4H PRN shortness of breath or wheezing #18 grams 01/25/20 citalopram 40 mg tablet 40 mg PO QDAY mood 09/11/24 diazepam 10 mg tablet 10 mg PO TID PRN anxiety 09/11/24 oxycodone-acetaminophen 7.5 mg-325 mg tablet 1 tab PO Q6 PRN pain 09/11/24 tizanidine 6 mg capsule 6 mg PO TID PRN muscle spasticity 09/11/24 guaifenesin 1,200 mg tablet, extended release 12 hr (Mucus Relief ER) 1,200 mg PO BID #0 tabs 11/14/24 levofloxacin 750 mg tablet 750 mg PO DAILY #4 tabs 11/14/24 prednisone 10 mg tablet 10 mg PO DAILY #40 tabs 11/14/24 Hospital Course Operations None Procedures EKG and - (Chest x-ray/CT chest) Summary of Care Provided Minutes Spent on Discharge: 38 Hospital Course: Patient is a 64-year-old white female who presented to the emergency department at [facility] on 11/11/2024 with a chief complaint of shortness of breath, cough, and wheezing. About 4 months ago she quit smoking. (more content not included)... [facility] 03-27-2024 Telephone encounter Note Patient states that her brother and she no longer has a ride. She has been keeping up with her cardiac monitor technician in [place] which is what she will continue to do. Patient's appointment for Saturday has been cancelled. Please contact patient with questions, thank you [facility] 03-27-2024 Miscellaneous Notes Patient states that her brother and she no longer has a ride. She has been keeping up with her cardiac monitor technician in [place] which is what she will continue to do. Patient's appointment for Saturday has been cancelled. Please contact patient with questions, thank you documented in this encounter [facility] 05-21-2023 History of Present illness Narrative Images [...] PARMJIT 3. Colonoscopy 5 [address] [place] [address] [place]. Pt states that some polyps [...] as needed for wheezing., Disp: , Rfl: pnuobokkmg-ibtoelwlqtcow-zyuqipzq 50-325-40 MG tablet, Take 1 tablet by [...] Dr. Gill for HRA. Patient states that [place] is too far for her to travel and she would like to find a colorectal surgeon around her area in [place]. Patient states she will ask her PCP [...] stated that they are currently in the [facility]. If the patient is a minor, permission has been obtained by the parent or guardian for the patient to receive medical care at this visit. documented in this encounter [facility] 04-22-2023 Miscellaneous Notes Patient is A&O x4. [...] POSTOPERATIVE DIAGNOSIS: Same SURGEON: Nikhil Boothe MD ENDOCRINOLOGY TEACHER: Candie Boyer OPERATION: Rectal exam under anesthesia [...] in stable condition. documented in this encounter [facility] 04-22-2023 Note Formatting of this n ote might be different from the original. Patient is A&O x4. States pain is at a tolerable level. Denies dizziness and nausea. IV removed without complication. All belongings returned and accounted for. DC instructions gone over with patient and family. All questions answered. Verbalized understanding. Ambulated with steady gait. T [facility] 04-22-2023 Note Formatting of this n ote might be different from the original. Patient is A&O x4. States pain is at a tolerable level. Denies dizziness and nausea. IV removed without complication. All belongings returned and accounted for. DC instructions gone over with patient and family. All questions answered. Verbalized understanding. Ambulated with steady gait. T [facility] 04-22-2023 Note Formatting of this n ote might be different from the original. Patient arrived on unit. Name and date verified. Attached to monitors. Vital signs stable. T [facility] 04-22-2023 Note Formatting of this n ote might be different from the original. Patient arrived on unit. Name and date verified. Attached to monitors. Vital signs stable. T [facility] 04-22-2023 Note Patient: Kenneth diamond Procedure Summary Date: 04/22/23 Room / Location: [address] Operating Room Anesthesia Start: 1329 Anesthesia Stop: [...] once all PACU criteria has been met. [facility] 04-22-2023 Note Patient: Kenneth diamond Procedure Summary Date: 04/22/23 Room / Location: [facility] Operating Room Anesthesia Start: 1329 Anesthesia Stop: [...] the day of surgery or procedure by , APC form tamper proxy staff ([id number]) The patient did not [...] opportunity for questions and acknowledgement of understanding. [facility] 04-22-2023 Note Airway Date/Time: 04/22/2023 1:39 PM Urgency: scheduled Airway not difficult General Information and Staff Patient location during procedure: Procedural Resident/PASSENGER CAR UPHOLSTERER APPRENTICE: Hansel Zuluaga CRNA Performed: PASSENGER CAR UPHOLSTERER APPRENTICE Performed by: Hansel Zuluaga PASSENGER CAR UPHOLSTERER APPRENTICE Authorized by: Hansel Zuluaga CRNA Indications and [...] 1 Number of other approaches attempted: 0 [facility] 04-22-2023 Note Formatting of this n ote might be different from the original. OPERATIVE NOTE PATIENT NAME: Kenneth Finn : 1960 ATTENDING PHYSICIAN: Nikhil Boothe MD PROCEDURE DATE: 04/22/2023 PREOPERATIVE DIAGNOSIS: Anal lesion POSTOPERATIVE DIAGNOSIS: Same SURGEON: Nikhil Boothe MD ENDOCRINOLOGY TEACHER: Candie Boyer OPERATION: Rectal exam under anesthesia [...] transferred to the PACU in stable condition. [facility] 04-22-2023 Note Formatting of this n ote might be different from the original. OPERATIVE NOTE PATIENT NAME: Kenneth Finn : 1960 ATTENDING PHYSICIAN: Nikhil Boothe MD PROCEDURE DATE: 04/22/2023 PREOPERATIVE DIAGNOSIS: Anal lesion POSTOPERATIVE DIAGNOSIS: Same SURGEON: Nikhil Boothe MD ENDOCRINOLOGY TEACHER: Candie Boyer OPERATION: Rectal exam under anesthesia [...] transferred to the PACU in stable condition. [facility] 04-22-2023 Note H&P reviewed. The glenn cruz was examined and there are no changes to the H&P. [facility] 04-22-2023 Hospital Discharge instructions Candie Boyer [...] have any questions documented in this encounter [facility] 04-22-2023 Note Patient: Kenneth diamond Procedure Information Date/Time: 04/22/23 1300 Procedures: RECTAL EXAM UNDER ANESTHESIA WITH EXCISION AND FULGURATION OF ANAL LESIONS (Perineum) ANORECTAL EXAM REQUIRING ANESTHESIA (Anus) Location: [facility] Operating Room Surgeons: Nikhil Boothe MD Relevant [...] COPD (chronic obstructive pulmonary disease) ([facility]) No date: DDD (degenerative disc disease), [...] No date: PE (pulmonary thromboembolism) ([facility]) Comment: bilateral 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 No [...] PLT 316 10/16/2022 No results found for: NA, K, CL, CO2, BUN, CREATININE, GLUCOSE, CALCIUM, PROT, BILIRUBINFL, ALKPHOS, AST, ALT, EGFR, GLOB Pain Score: Scheduled No echocardiogram results found for the past 14 days 10/16/22 ECG 12-LEAD 10/17/2022 5:52 PM (Final) Impression Sinus rhythm Normal EKG Electronically Signed On 10-17-2022 17:52:09 EDT by Jovani Hunter Signed by: Jovani Hunter MD on 10/17/2022 5:52 PM [facility] 04-16-2023 Note Patient: Kenneth diamond Procedure Information Date/Time: 04/16/23929 Scheduled providers: Gloria Aly RN Procedure: PAT OPTIMIZATION CALL Location: [facility] Pre-Admit Testing Past Medical History: Past Medical History: No date: Anxiety No date: Arthritis No date: Asthma No date: CAD (coronary artery disease) No date: Chronic headache No date: Chronic pain Comment: In pain management No date: COPD (chronic obstructive pulmonary disease) ([facility]) No date: DDD (degenerative disc disease), lumbar No date: DDD (degenerative disc disease), thoracic No date: Depression No date: Dry eye syndrome No date: Fibromyalgia No date: Gastroparesis No date: GERD (gastroesophageal reflux disease) No date: History of tobacco use No date: Hypersplenism No date: Hypertensive pulmonary arterial disease ([facility]) No date: Hypotension No date: IBS (irritable bowel syndrome) No date: Lumbar spondylosis No date: Memory loss No date: Neurodermatitis No date: Osteoarthritis Comment: right knee No date: PE (pulmonary thromboembolism) ([facility]) Comment: bilateral 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 female here for surveillance. s/p WLE and biopsy for PARMJIT 2/3 [...] every 6 hours as needed for wheezing. aonpefswwj-aekqqlftbcjsk-dfdjrerx 50-325-40 MG tablet Take 1 tablet by [...] 129/82, pulse 87, height 1.549 m (5' 1), weight 53.5 kg (118 lb). No data [...] and states she will follow-up with a [facility] in the [facility]. Patient states it is too far to [...] as described above. documented in this encounter [facility] 03-26-2023 History of Present illness Narrative Colon [...] PARMJIT 3. Colonoscopy 5 years ago in [place]. Pt states that some polyps were [...] as needed for wheezing., Disp: , Rfl: jymjnypneb-tjodvyqwkrgzz-gycvtqmm 50-325-40 MG tablet, Take 1 tablet by [...] anterior anal verge. Exam chaperoned by female employment legal assistant. ASSESSMENT/PLAN: Diagnosis Plan 1. Chronic anticoagulation [...] performed when available. documented in this encounter [facility] 12-26-2022 Telephone encounter Note Message left for return call [facility] 12-26-2022 Miscellaneous Notes Message left for return call Name of caller: Kenneth Contact phone number: [phone] Relationship to Patient: patient Provider: Practice: Colorectal [...] their call: Yes documented in this encounter [facility] 12-18-2022 Telephone encounter Note Name of caller: Kenneth Contact phone number: [phone] Relationship to Patient: patient Provider: Practice: Colorectal [...] business hours to return their call: Yes [facility] 11-21-2022 Telephone encounter Note Pt called with yes the referral within [facility] was put in. They should be calling her to make OV. [facility] 11-21-2022 Miscellaneous Notes Pt called with yes the referral within [facility] was put in. They should be calling her to make OV. Kenneth was calling to see if a referral to a [facility] doctor has been done and when she might be seen. Please call her back. Spoke with patient she went to referring office in [place] they told her that they are unable to do the surgery due to the possibility of cancer. Pt would like a referral to a [facility] Colorectal physician. Kenneth called to say that the specialist in [place] is unable to do the rectum surgery. Please advise patient. documented in this encounter [facility] 11-21-2022 Telephone encounter Note Kenneth was calling to see if a referral to a [facility] doctor has been done and when she might be seen. Please call her back. [facility] 11-15-2022 Telephone encounter Note Pt states she can't come in. She doesn't do pictures but she will try to send picture in. Pt states it doesn't feel as bad today. She thinks it was from getting in car and driving that day. Pt feels like something is poking at the end of the vagina almost to her butt. Pt states it a stitch. [facility] 11-15-2022 Miscellaneous Notes Pt states she can't [...] it a stitch. S: Patient spoke with [facility] nurse regarding post op concern. B: had [...] draining sore, spreading redness) Protocols used: Vaginal Zucznayg-QTTBM-KN documented in this encounter [facility] 11-14-2022 Telephone encounter Note S: Patient spoke with [facility] nurse regarding post op concern. B: had biopsy 10/23 A: Pt states that biopsy area near buttocks is causing increased irritation/tenderness in the last few days. Rates pain as 10/15, prescribed Emla cream helps. Has been doing [...] draining sore, spreading redness) Protocols used: Vaginal Pxrovjdf-MFNAZ-AB [facility] 11-14-2022 Telephone encounter Note Spoke with patient she went to referring office in [place] they told her that they are unable to do the surgery due to the possibility of cancer. Pt would like a referral to a [facility] Colorectal physician. [facility] 11-14-2022 Miscellaneous Notes Spoke with patient she went to referring office in [place] they told her that they are unable to do the surgery due to the possibility of cancer. Pt would like a referral to a [facility] Colorectal physician. Kenneth called to say that the specialist in [place] is unable to do the rectum surgery. Please advise patient. documented in this encounter [facility] 11-13-2022 Note HNO ID: [id number] Author: Dyana Bee MD Service: ? Author [...] -squamous intraepithelial (AIN 3) on 10/23/2022 at [facility]. She complains of fatigue. She states that she feels warm a lot. She was referred to this office, she was told that this was colorectal surgery and that she wanted referral [facility], she lives in [place]. PAST MEDICAL HISTORY Diagnosis Date Anxiety Asthma [...] HISTORY OF 2014 pain injections lumbar multiple 2013-0050 SPLENECTOMY TOTAL SEPARATE PROCEDURE 11/2001 Splenectomy d/t ITP TOTAL ABDOMINAL HYSTERECT W/WO RMVL TUBE OVARY 05/2001 Hysterectomy, ANANDA BSO for endometriosus Current Outpatient Medications Medication Sig rivaroxaban (XARELTO) 20 mg tablet Take 20 mg by mouth daily with dinner. wjttymvbbt-ugwqvjfxhq-tqi-cod 93-953-26-30 mg cap Take 1 capsule by mouth [...] Cigarettes Smokeless tobacco: (more content not included)... [facility] 11-13-2022 Telephone encounter Note Kenneth called to say that the specialist in [place] is unable to do the rectum surgery. Please advise patient. [facility] 11-13-2022 Nurse Note REVIEW OF SYSTEMS: [...] Beronica Snell RN documented in this encounter [facility] 11-13-2022 History of Present illness Narrative Kenneth [...] -squamous intraepithelial (AIN 3) on 10/23/2022 at [facility]. She complains of fatigue. She states that she feels warm a lot. She was referred to this office, she was told that this was colorectal surgery and that she wanted referral in [facility], she lives in [place]. PAST MEDICAL HISTORY Diagnosis Date Anxiety Asthma [...] HISTORY OF 2014 pain injections lumbar multiple [id number] SPLENECTOMY TOTAL SEPARATE PROCEDURE 11/2001 Splenectomy d/t ITP TOTAL ABDOMINAL HYSTERECT W/WO RMVL TUBE OVARY 05/2001 Hysterectomy, ANANDA BSO for endometriosus Current Outpatient Medications Medication Sig rivaroxaban (XARELTO) 20 mg tablet Take 20 mg by mouth daily with dinner. vbftwbuozg-znmfhthoog-aqz-cod 81-696-14-30 mg cap Take 1 capsule by mouth [...] entered by the nurse and reviewed by me Nursing Notes: Beronica Snell RN 11/13/2022 11:02 [...] UNKNOWN Last Colonoscopy: 2015 Beronica Snell RN PHYSICAL EXAMINATION: General: The patient is 62 year old female, well nourished, well hydrated in no acute distress. The patient is oriented to time, place, and person. VITALS: Blood pressure 130/78, pulse 109, temperature 36.8 C (98.2 F), height 154.9 cm (5' 1), weight 51.7 kg (114 lb), SpO2 99 [...] offered referral to a colorectal surgery at [facility]. Patient refuses this. She states that she has been seeing physicians at [facility] and wishes to continue this. She came to this office, because she thought that she would be seeing a colorectal surgeon (close to home in [place]) and that is what the cocoa milling machine operator had told her. Patient states that she will go seek a colorectal surgeon at [facility].. I have answered all questions to [...] requesting physician via US mail. . 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 Medical Decision Making: Problems: Moderate: New problem with uncertain prognosis Medical Decision Making Level: 2 - Straightforward Dyana Bee MD documented in this encounter [facility] 11-06-2022 History of Present illness Narrative GYNECOLOGIC [...] every 6 hours as needed for wheezing. ewsfqncvnt-qtystryzxdlpf-wfepspxd 50-325-40 MG tablet Take 1 tablet by [...] as described above. documented in this encounter [facility] [employer] 10-31-2022 Telephone encounter Note Called patient with [...] somebody closer to her. Patient verbalizes understanding [facility] [employer] Work Phone: 10-31-2022 Miscellaneous Notes Called patient with [...] Patient verbalizes understanding documented in this encounter [facility] 10-23-2022 Miscellaneous Notes Brother brought to bedside, update given. Discharge instructions and follow up information given to brother and patient, all questions answered. Pt ambulated to bathroom with stand by assist, voided without difficulty, kerlix and edda pad replaced. Returned to room without complaint, dressed with RN assist, PIV removed. 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] Procedures WIDE LOCAL INCISION 90596 - FL BIOPSY VULVA/PERINEUM 1 LESION SPX BIOPSY OF VULVA OR PERINEUM (EACH ADDITIONAL LESION) 06870 - [place] BIOPSY VULVA/PERINEUM EACH ADDL LESION Surgeons * [...] VULVAR EXCISION Comment: STITCH AT 12 Staff: Sports Doctor: Vania Nicole RN; Marisol Guardado RN Scrub [...] of vulva [D07.1] Procedures WIDE LOCAL INCISION 95799 - FL BIOPSY VULVA/PERINEUM 1 LESION SPX BIOPSY OF VULVA OR PERINEUM (EACH ADDITIONAL LESION) 50690 - [place] BIOPSY VULVA/PERINEUM EACH ADDL LESION Surgeons * [...] VULVAR EXCISION Comment: STITCH AT 12 Staff: Sports Doctor: Vania Nicole RN; Marisol Guardado RN Scrub [...] Vancomycin or flouroquinolone) documented in this encounter [facility] 10-23-2022 Note Formatting of this n ote might be different from the original. Brother brought to bedside, update given. Discharge instructions and follow up information given to brother and patient, all questions answered. Pt ambulated to bathroom with stand by assist, voided without difficulty, kerlix and edda pad replaced. Returned to room without complaint, dressed with RN assist, PIV removed. [facility] 10-23-2022 Hospital Discharge instructions Nuria Calderon DO - 10/23/2022 12:29 PM EDT Please follow your post operative care instructions given to you by your Health Underwriter Oncologist's office at your pre operative visit. Please call the office with questions or concerns and be sure to follow up at your scheduled post operative visit. documented in this encounter [facility] 10-23-2022 History and physical note Images from [...] every 6 hours as needed for wheezing. vpgiknllsa-xyjyufchjjtal-cgzdturi 50-325-40 MG tablet Take 1 tablet by [...] and coordination of care. Danii Brannon MD T [facility] 10-23-2022 History and physical note Images from [...] every 6 hours as needed for wheezing. lratuciryz-ukjmdmmpvlkhy-tkqhdzir 50-325-40 MG tablet Take 1 tablet by [...] Danii Brannon MD documented in this encounter [facility] 10-23-2022 Note Formatting of this n ote is different from the original. 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 Priority Lab ID 1 Anus Tissue TISSUE EXAM Danii Brannon MD 10/23/22 1156 Routine Description: LEFT PERIANAL BIOPSY 2 Vulva Tissue TISSUE EXAM Daini Brannon MD 10/23/22 1203 No Routine Description: RIGHT VULVAR EXCISION Comment: STITCH AT 12 Staff: Sports Doctor: Vania Nicole RN; Marisol Guardado RN Scrub [...] Complications: None; patient tolerated the procedure well. [employer] 10-23-2022 Note Formatting of this n ote is different from the original. 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] Procedures WIDE LOCAL INCISION 68197 - FL BIOPSY VULVA/PERINEUM 1 LESION SPX BIOPSY OF VULVA OR PERINEUM (EACH ADDITIONAL LESION) 83421 - [place] BIOPSY VULVA/PERINEUM EACH ADDL LESION Surgeons * [...] VULVAR EXCISION Comment: STITCH AT 12 Staff: Sports Doctor: Vania Nicole RN; Marisol Guardado RN Scrub [...] (two hours if receiving Vancomycin or flouroquinolone) [facility] 09-18-2022 Telephone encounter Note Pat:10.16.2022 at 10 am SX: 10.23.2022 at pm arrival at 11 am Post op 11.06.2022 at 10:30 am Folder and instruction given [facility] 09-18-2022 Miscellaneous Notes Pat:10.16.2022 at 10 am SX: 10.23.2022 at pm arrival at 11 am Post op 11.06.2022 at 10:30 am Folder and instruction given documented in this encounter [facility] 09-18-2022 History of Present illness Narrative Images [...] every 6 hours as needed for wheezing. vjgzspopfo-vfjfvygqzdpfv-qydohhkj 50-325-40 MG tablet Take 1 tablet by [...] Danii Brannon MD documented in this encounter [facility] 09-24-2015 History of Past i llness Narrative Problem Noted Date Resolved Date Unspecified Myalgia and Myositis 09/24/2015 Overview: Fibromyalgia (myalgia and myositis) Degenerative disc disease 2015 documented as of this encounter (statuses as of 11/17/2022) [facility] note[facility] assessment information availableW[facility] Work Phone: Evaluation note* Diagnosis PARMJIT III (vulvar intraepithelial neoplasia III)- Primary Carcinoma in situ, vulva Tobacco dependence syndrome Tobacco use disorder Chronic obstructive pulmonary disease, unspecified COPD type (HCC) On continuous oral anticoagulation Carcinoma in situ of vulva Carcinoma in situ, vulva [facility] Diagnosis PARMJIT III (vulvar intraepithelial neoplasia III)- Primary Carcinoma in situ, vulva Carcinoma in situ of vulva Carcinoma in situ, vulva [facility] Diagnosis Vulvar intraepithelial neoplasia (PARMJIT) grade 3- Primary documented in this encounter [facility] note* Diagnosis 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 documented in this encounter [facility] note* Diagnosis Anal lesion- Primary documented in this encounter [facility] note* Diagnosis Chronic anticoagulation- Primary Encounter for long-term (current) use of anticoagulants Vulvar intraepithelial neoplasia (PARMJIT) grade 3 History of pulmonary embolism Personal history of venous thrombosis and embolism Anal lesion 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, unspecified documented in this encounter [facility] note* Diagnosis PARMJIT III (vulvar intraepithelial neoplasia III)- Primary Carcinoma in situ, vulva Tobacco dependence syndrome Tobacco use disorder documented in this encounter [facility] note* Diagnosis Anal lesion- Primary Anal lesion 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 Anal lesion 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 documented in this encounter [facility] note* Diagnosis Vulvar intraepithelial neoplasia (PARMJIT) grade 3- Primary Anal lesion 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 Anal lesion 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 documented in this encounter [facility] note* Diagnosis AIN grade III- Primary Carcinoma in situ of anus, unspecified documented in this encounter [facility] Summary Purpose Family History No Family History Records Found Relationship Condition Age at Onset Recorded Date/T leda father Hypertension Unknown mother Diabetes mellitus Unknown Advance Directives No Advanced Directives Records Found Advance Directive Response Recorded Date/ Time Advance Directives No September 23, 2 014 1:37pm Living Will No December 28, 2018 2:24pm Power of Costume Seamstress No December 28 9 2:24pm Advance Directive Response Recorded Date/ Time Advance Directives No September 23, 2 014 12:37pm Living Will No December 28, 2018 1:24pm Power of Costume Seamstress No December 28 9 1:24pm Latest Code Status on File Code Status [...] Comments 10/23/2022 9:48 AM 10/23/2022 3:35 PM Chief Complaint and Reason for Visit Chief Complaint TOBACCO USE Chief Complaint TOBACCO USE xray Chief Complaint BACK PAIN Chief Complaint BACK PAIN CONDYLOMA VS PARMJIT Chief Complaint SCREENING Chief Complaint SCREENING COPD Additional Source Comments INFORMATION SOURCE (unrecogn ized section and content) DATE CREATED AUTHOR 12/27/2017 [facility] [place] DATE CREATED AUTHOR AUTHOR'S ORGANIZ ATION 01/01/2018 [employer] DATE CREATED AUTHOR AUTHOR'S ORGANIZ ATION 10/22/2018 [employer] ([place]) DATE CREATED AUTHOR AUTHOR'S ORGANIZ ATION 11/18/2022 [facility] DATE CREATED AUTHOR AUTHOR'S ORGANIZ ATION 03/29/2024 [facility] DATE CREATED AUTHOR AUTHOR'S ORGANIZ ATION 01/20/2025 [facility] Goals (unrecognized section and content) Goals may be documented in a n alternate sectionGoals may be documented in an alternate sectionGoals may be documented in an alternate sectionGoals may be documented in an alternate sectionGoals may be documented in an alternate sectionGoals may be documented in an alternate sectionGoals may be documented in an alternate section Care Teams (unrecognized sec tion and content) Team Status: Active Member Role Status Dates Dr. Odin Berumen , DO Family Provider Active Dr. Odin Berumen , DO Primary Care Provider Active Team Status: Inactive Member Role Status Dates Dr. Odin Berumen , DO Primary Care Prov ider, Attending Provider, Referring Provider Active Team Status: Inactive Member Role Status Dates Dr. Odin Berumen , DO Primary Care Provider, Attendin g Provider Active Plating Stripper Relationship Specialty Start Date End Date Odin Berumen [address] [place] [address] PCP - General Family Medicine 09/18/22 Danii Brannon MD [address] [address] Consulting Physician Gynecologic Oncology 09/11/22 Plating Stripper Relationship Specialty Start Date End Date Odin Berumen [address] [place] [address] PCP - General Family Medicine 09/18/22 Danii Brannon MD [address] [address] Consulting Physician Gynecologic Oncology 09/11/22 Plating Stripper Relationship Specialty Start Date End Date Odin Berumen [address] [place] [address] PCP - General Family Medicine 09/18/22 Danii Brannon MD [address] [place] [address] Consulting Physician Gynecologic Oncology 09/11/22 Plating Stripper Relationship Specialty Start Date End Date Odin Berumen [address] [place] [address] PCP - General Family Medicine 09/18/22 Danii Brannon MD [address] [facility] [address] [address] Consulting Physician Gynecologic Oncology 09/11/22 Plating Stripper Relationship Specialty Start Date End Date Odin Berumen [address] [place] [phone] PCP - General Family Medicine 09/18/22 Danii Brannon MD [address] [place] [address] Consulting Physician Gynecologic Oncology 09/11/22 Grace Sanford SANDSTONE INSPECTOR REPAIRER - INTERMEDIATE MANAGER [address] [place] [address] Nurse Practitioner Nurse Practitioner 10/31/22 Plating Stripper Relationship Specialty Start Date End Date Odin Berumen [address] [place] [phone] PCP - General Family Medicine 09/18/22 Danii Brannon MD [address] [facility] [address] [place] [address] Consulting Physician Gynecologic Oncology 09/11/22 Grace Sanford, SANDSTONE INSPECTOR REPAIRER - INTERMEDIATE MANAGER [address] [place] [address] Nurse Practitioner Nurse Practitioner 10/31/22 Plating Stripper Relationship Specialty Start Date End Date Odin Berumen [address] [place] [phone] PCP - General Family Medicine 09/18/22 Danii Brannon MD [address] [facility] [address] [place] [address] Consulting Physician Gynecologic Oncology 09/11/22 Grace Sanford, SANDSTONE INSPECTOR REPAIRER - INTERMEDIATE MANAGER [address] [place] [address] Nurse Practitioner Nurse Practitioner 10/31/22 Plating Stripper Relationship Specialty Start Date End Date AtaOdin moore DO Kristen [address] [place] [address] PCP - General Family Medicine 11/12/22 Plating Stripper Relationship Specialty Start Date End Date Odin Berumen [address] [place] [address] PCP - General Family Medicine 09/18/22 Danii Brannon MD [address] [place] [address] Consulting Physician Gynecologic Oncology 09/11/22 Grace Sanford APRN - INTERMEDIATE MANAGER [address] [place], [place] [phone] Nurse Practitioner Nurse Practitioner 10/31/22 Plating Stripper Relationship Specialty Start Date End Date Odin Berumen [address] [place] [address] PCP - General Family Medicine 09/18/22 Danii Brannon MD [address] [place] [address] Consulting Physician Gynecologic Oncology 09/11/22 Grace Sanford APRN - INTERMEDIATE MANAGER [address] [place], [place] [phone] Nurse Practitioner Nurse Practitioner 10/31/22 Plating Stripper Relationship Specialty Start Date End Date Odin Berumen [address] [place] [address] PCP - General Family Medicine 09/18/22 Danii Brannon MD [address] [place] [phone] Consulting Physician Gynecologic Oncology 09/11/22 Grace Sanford APRN - LORI [address] [place], [place] [phone] Nurse Practitioner Nurse Practitioner 10/31/22 Plating Stripper Relationship Specialty Start Date End Date Odin Berumen [address] [place] [phone] PCP - General Family Medicine 09/18/22 Danii Brannon MD [address] [place] [address] Consulting Physician Gynecologic Oncology 09/11/22 Grace Sanford APRN - CNP [address] [place], [place] [phone] Nurse Practitioner Nurse Practitioner 10/31/22 Plating Stripper Relationship Specialty Start Date End Date Odin Berumen [address] [place] [phone] PCP - General Family Medicine 09/18/22 Danii Brannon MD [address] [place] [address] Consulting Physician Gynecologic Oncology 09/11/22 Grace Sanford APRN - LORI [address] [place] [address] Nurse Practitioner Nurse Practitioner 10/31/22 Plating Stripper Relationship Specialty Start Date End Date Odin Berumen [address] [place] [phone] PCP - General Family Medicine 09/18/22 Danii Brannon MD [address] [place] [address] Consulting Physician Gynecologic Oncology 09/11/22 Grace Sanford APRN - INTERMEDIATE MANAGER [address] [place], [place] [phone] Nurse Practitioner Nurse Practitioner 10/31/22 Plating Stripper Relationship Specialty Start Date End Date Odin Berumen [address] [place] [address] PCP - General Family Medicine 09/18/22 Danii Brannon MD [address] [place] [address] Consulting Physician Gynecologic Oncology 09/11/22 Grace Sanford APRN - INTERMEDIATE MANAGER [address] [place], [place] [phone] Nurse Practitioner Nurse Practitioner 10/31/22 Plating Stripper Relationship Specialty Start Date End Date Odin Berumen [address] [place] [phone] PCP - General Family Medicine 09/18/22 Danii Brannon MD [address] [place] [address] Consulting Physician Gynecologic Oncology 09/11/22 Grace Sanford APRN - INTERMEDIATE MANAGER [address] [place] [address] Nurse Practitioner Nurse Practitioner 10/31/22 Plating Stripper Relationship Specialty Start Date End Date Odin Berumen [address] [employer] [place] [address] PCP - General Family Medicine 09/18/22 Danii Brannon MD [address] [place] [address] Consulting Physician Gynecologic Oncology 09/11/22 Grace Sanford APRN - INTERMEDIATE MANAGER [address] [place] [address] Nurse Practitioner Nurse Practitioner 10/31/22 Tamiko Zamora APRN - INTERMEDIATE MANAGER [address] [place], [place] [phone] Nurse Practitioner Nurse Practitioner 03/27/24 Reason for Visit (unrecogniz ed section and content) Reason Onset Date Comments surgery scheduling 09/18/2022 Scheduled at [facility] Reason Comments Consult Vulvar PARMJIT, burning with urination Specialty Diagnoses / Procedures Referred By Douglas t Referred To Contact Gynecologic Oncology Diagnoses PARMJIT on vulvar punch biopsy Procedures FL OFFICE/OUTPATIENT NEW HIGH MDM 60-74 MINUTES Nuria Acosta MD [address] [employer] [place] [address] [facility] [employer] [address] [place] [address] Referral ID Status Reason Start Date Expiration Date V isits Requested Visits Authorized [id number] Pending Review 09/07/2022 09/07/2023 1 1 Specialty Diagnoses / Procedures Referred By Douglas t Referred To Contact Diagnoses 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] Procedures FL BIOPSY VULVA/PERINEUM 1 LESION SPX FL BIOPSY VULVA/PERINEUM EACH ADDL LESION WIDE LOCAL INCISION BIOPSY OF VULVA OR PERINEUM (EACH ADDITIONAL LESION) Danii Brannon MD [address] [facility] [address] [place] [address] [facility] [address] [place] [address] Referral ID Status Reason Start Date Expiration Date Visits Re quested Visits Authorized [id number] 1 1 Reason Onset Date Comments Results [...] Specialty Diagnoses / Procedures Referred By Douglas t Referred To Contact Colon and Rectal Surgery Diagnoses Vulvar intraepithelial neoplasia (PARMJIT) grade 3 Procedures FL OFFICE/OUTPATIENT NEW HIGH MDM 60-74 MINUTES Danii Brannon MD [address] [facility] [address] [place] [address] Nikhil Boothe MD [address] [facility] [address] [place] [address] Referral ID Status Reason Start Date Expiration Date Visits Requested Visits Authorized [id number] Pending Review Specialty Services Required 11/19/2022 11/19/2023 1 1 Reason Comments Follow-up Pt has slight itchin g and burning and she is concerned it is a yeast infection. 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] Procedures FL DSTRJ LESION ANUS SMPL ELTRDSICCATION FL ANRCT XM SURG REQ ANES GENERAL SPI/EDRL DX RECTAL EXAM UNDER ANESTHESIA WITH EXCISION AND FULGURATION OF ANAL LESIONS ANORECTAL EXAM REQUIRING ANESTHESIA Nikhil Boothe MD [address] [place] [address] [address] [place] [address] [facility] [address] [facility] [place] [address] Referral ID Status Reason Start Date Expiration Date Visits Re quested Visits Authorized [id number] 1 1 Scheduled Active and Recently Administ ered Medications [...] 2,000 mg, IntraVENous, Administer over 30 Minutes, Plant Changer to O.R., On Sat10/23/22 at 1000, For [...] not necessary. bupivacaine-EPINEPHrine PF (Marcaine w/EPI) 0.25% -1:[id number] injection (CANCELED) As needed, Starting on Sat10/23/22 [...] cirrhosis. 1147 (Given - Provid er: Goldie Ivan, [place]REE) famotidine (Pepcid) tablet 20 mg (COMPLETED) 20 mg, Oral, Once, On Sat04/22/23 at 1145, For 1 dose, Preprocedure 1147 (Given - Provid er: Goldie Ivan, [place]REE) gabapentin (Neurontin) capsule 100 mg (COMPLETED) 100 [...] at discontinue of medication order) Nozin Nasal Shoe Lay Out Planner Popswab 2 Swab (COMPLETED) 2 Swab (1 [...] after use. 1145 (Given - Provid er: Goldie Ivan RN) sodium chloride 0.9% (NS) flush [...] Ivan RN) bupivacaine-EPINEPHrine PF (Marcaine w/EPI) 0.25% -1:[id number] injection (CANCELED) As needed, Starting on Sat04/22/23 [...] or prosecute any alcohol or drug abuse patient.[facility] FOR RECORDS PERTAINING TO PATIENTS WHO ARE [...] BE BASED ON THE PRIMARY CLINICAL RECORDS. [facility]. provides no warranty or guarantee of the accuracy or completeness of information in this document.
== END | disposition home or self-care (01) ==
LOC: PSN 10:12
PROVIDERS: PCP Family Medicine; Referring Provider Internal Medicine Critical Care Medicine; Visit Provider Internal Medicine Critical Care Medicine
DX: R06.02 Shortness of breath (principal); F17.210 Nicotine dependence, cigarettes, uncomplicated
CPT/HCPCS: 94060; 94726; 94729

== ENCOUNTER → 2025-02-05 | Outpatient (CLI) | payer MEDICARE, MEDICAID, SELFPAY ==
[2025-02-05 17:57] LABS: Color, Urine Yellow (Yellow); Glucose, Dipstick Normal (Normal); Ketone-Dipstick Negative (Negative); Leukocyte Esterase-Dipstick Negative /ul (Negative); Nitrite-Dipstick Negative (Negative); Occult Blood-Urine 10 /ul (Negative); Protein-Dipstick 30 mg/dl (Negative); Specific Gravity, Urine 1.020 (1.002-1.030); Urine Bilirubin Dipstick Negative (Negative)
[2025-02-05 19:07] LABS: Barbiturate Urine PRESUMPTIVE POSITIVE (< 200 ng/mL); Benzodiazepine Urine PRESUMPTIVE POSITIVE (< 200 ng/mL); PCP Urine NEGATIVE (< 25 ng/mL); THC Urine NEGATIVE (< 50 ng/mL)
== END | disposition home or self-care (01) ==
LOC: LABSPEC 14:21
PROVIDERS: PCP Family Medicine; Visit Provider Family Medicine
DX: R30.0 Dysuria (principal); Z79.899 Other long term (current) drug therapy
CPT/HCPCS: 80307; 81002; 87086; 87088

== ENCOUNTER → 2025-03-18 | Outpatient (CLI) | payer MEDICARE, MEDICAID, SELFPAY ==
[2025-03-18 09:48] LABS: Hematocrit 37.2 % (37-47); Hemoglobin 11.8 g/dL (12.0-15.0); Immature Granulocytes Count 0.010 X10^3/uL (0.0-0.0); Mean Corp Hgb Conc 31.7 g/dL (32-36); Mean Corpuscular Volume 97.6 fL (81-99); Mean Platelet Vol. 11.3 fl (6.2-12.0); NRBC Flagged by Analyzer 0 % (0-5); Platelet Count 219 K/mm3 (150-450); RBC Distribution Width CV 15.2 % (11.6-14.6); RBC Distribution Width SD 54.3 fl (35.1-43.9); Red Blood Count 3.81 M/mm3 (4.2-5.4); White Blood Count 7.3 K/mm3 (4.4-11.0)
== END | disposition home or self-care (01) ==
LOC: LAB 09:02
PROVIDERS: PCP Family Medicine; Visit Provider Nurse Practitioner Family
DX: R06.02 Shortness of breath (principal)
CPT/HCPCS: 36415; 85025

== ENCOUNTER → 2025-05-11 | Outpatient (CLI) | payer MEDICARE, MEDICAID, SELFPAY ==
[2025-05-11 15:31] LABS: Barbiturate Urine NEGATIVE (< 200 ng/mL); Benzodiazepine Urine PRESUMPTIVE POSITIVE (< 200 ng/mL); PCP Urine NEGATIVE (< 25 ng/mL); THC Urine NEGATIVE (< 50 ng/mL)
== END | disposition home or self-care (01) ==
LOC: LABSPEC 12:16
PROVIDERS: PCP Family Medicine; Visit Provider Family Medicine
DX: Z79.899 Other long term (current) drug therapy (principal)
CPT/HCPCS: 80307